=== PATIENT | female | born 1995 | race Caucasian/White ===

== ENCOUNTER 2023-04-08 10:22 | Outpatient (OUT) | payer OTHER, SELFPAY ==
--- NOTE | 2023-04-08 10:34 | US_ITS ---
The [address] [address] Patient Name: MARY COLLAZO MRN: [id number] date: 1995 Sex: F Assigned Patient Location: Current Patient Location: US Accession/Order Number: [id number] Exam Date: 04/08/2023 10:35 Report Date: 04/08/2023 11:11 At the request of: THOMAS ORDONEZ Procedure: US pelvis w/ transvaginal EXAM: Pelvic ultrasound HISTORY: . Irregular Periods N92.6, Polycystic Ovarian Syndrome N92.6 . COMPARISON: None. TECHNIQUE: Transabdominal and transvaginal scanning was performed FINDINGS: Scanning of the pelvis demonstrates an anteverted uterus measuring 8.8 x 4.4 x 5.7 cm. Endometrial complex measures 13 mm. Right ovary measures 3.1 x 2.8 x 2.6 cm. There is a 2.4 x 1.7 cm simple cyst involving the right ovary. Follicles are noted involving the right ovary. Color-flow is noted. Left ovary measures 2.5 x 1.5 x 1.8 cm. Color-flow is noted. Follicles are noted. No fluid is noted in the cul-de-sac. US/US pelvis w/ transvaginal IMPRESSION: 1. Endometrial complex is prominent measuring 13 mm. Findings could be due to the patient's menstrual cycle or endometrial hyperplasia. 2. Normal left ovary. 3. 2.4 x 1.7 cm simple cyst in the right ovary. Electronically authenticated by: CODY DAVILA Date: 04/08/2023 11:11
[2023-04-08 11:28] LABS: Basophils Percent Auto 0.6 % (0.2-2.0); Eosinophils Absolute Auto 0.2 10^3/uL (0.0-0.7); Eosinophils Percent Auto 3.6 % (0.9-7.0); Hematocrit 38.2 % (36.0-48.0); Hemoglobin 12.4 g/dL (12.0-16.0); Immature Granulocytes Abs Auto 0.02 10^3/uL (0.00-0.03); Immature Granulocytes Pct Auto 0.3 % (0.0-0.5); Lymphocytes Percent Auto 30.3 % (20.5-60.0); Mean Corpuscular HGB Conc 32.5 g/dL (29.9-35.2); Mean Corpuscular Hemoglobin 30.1 pg (26.7-34.0); Mean Corpuscular Volume 92.7 fL (81.0-99.0); Mean Platelet Volume 9.3 fL (9.5-13.5); Monocytes Absolute Auto 0.4 10^3/uL (0.3-0.8); Monocytes Percent Auto 6.1 % (1.7-12.0); Neutrophils Absolute Auto 3.8 10^3/uL (1.4-6.5); Neutrophils Percent Auto 59.1 % (43.0-75.0); Platelet Count 290 10^3/uL (150-450); Red Blood Count 4.12 10^6/uL (4.20-5.40); Red Cell Distribution Width 13.7 % (11.0-15.0); White Blood Count 6.4 10^3/uL (4.0-11.0)
[2023-04-08 11:40] LABS: HCG Quantitative <1 mIU/mL; Thyroid Stimulating Hormone 1.664 uIU/mL (0.358-3.740)
[2023-04-08 12:03] LABS: Free T4 0.84 ng/dL (0.76-1.46)
[2023-04-08 12:15] LABS: Estimated Average Glucose 111 mg/dL; Glycohemoglobin A1C 5.5 % (4.5-6.2)
[2023-04-09 08:13] LABS: FSH 2.2 mIU/mL (.); Luteinizing Hormone(LH) 3.2 mIU/mL (.); Prolactin 9.4 ng/mL (4.8-33.4)
[2023-04-13 03:06] LABS: DHEA, Serum 400 ng/dL (31-701)
== END 2023-04-08 10:23 | disposition home or self-care (01) ==
LOC: US 10:26
PROVIDERS: PCP Nurse Practitioner Primary Care; Visit Provider Obstetrics & Gynecology
DX: N92.6 Irregular menstruation, unspecified (principal); E28.2 Polycystic ovarian syndrome; N83.291 Other ovarian cyst, right side
CPT/HCPCS: 36415; 76830; 76856; 82626; 82627; 83001; 83002; 83036; 84146; 84439; 84443; 84702; 85025

== ENCOUNTER 2023-05-25 21:22 | Outpatient (REF) | payer OTHER, SELFPAY ==
--- OUTSIDE RECORDS SUMMARY | 2023-05-25 21:25 | XMS_ITS | CCD ---
Author Organization [facility] Care Team Providers Care Truck Jumper Name Role Phone ARMANDO COTA Referring Unavailable ARMANDO COTA Primary Care Unavailable MILY SHELTON Admitting Unavailable JOSÉLYMILY Attending Unavailable MILY SHELTON Consulting Unavailable MILY SHELTON Admitting Unavailable WONDERLYMILY Attending Unavailable MILY SHELTON Consulting Unavailable Armando Cota MD Primary Care Provider [phone] THOMAS ORDONEZ Attending Unavailable THOMAS ORDONEZ Attending Unavailable Allergies Allergy Classification Reported Allergen(s) Allergy Type Date of Onset Reaction(s) Facility (1 source) Amoxicillin Drug Allergy 11-25-2012 [facility] Medications Current Medications Medication Drug Class(es) Dates Sig (Normalized) Sig (Original) DULoxetine 30 mg delayed release oral capsule (1 source) Serotonin and Norepinephrine Reuptake Inhibitor Start: 03-17-2019 take 1 capsule by mouth once daily DULoxetine (CYMBALTA) 30 MG extended release capsule Indications: Depression with anxiety , Mood swing Take 1 capsule by mouth daily 30 capsule 3 03/17/2019 Active Ethinyl Estradiol / Ferrous fumarate / Norethindrone (1 source) Estrogen Start: 03-06-2019 BLISOVI 24 FE 1-20 MG-MCG(24) TABS Take by mouth daily 0 03/06/2019 Active FLUoxetine 20 mg oral tablet (1 source) Serotonin Reuptake Inhibitor take 20 mg by mouth once daily FLUOXETINE HCL PO Take 20 mg by mouth daily 0 Active Vit w/Zu-Zngwzdzuz-AX (PNV PO) (1 source) Vit w/Oh-Lozzzavze-G A (PNV PO) Take by mouth. 0 Active Problems Active Problems Problem Classification Problem Date Documented Da te Episodic/Chronic Anxiety disorders (1 source) Mixed anxiety and depressive disorder Chronic Immunizations and screening for infectious disease (8 sources) Encounter for screening for other viral diseases; Translations: [Contact with and (suspected) exposure to other viral communicable diseases] Onset: 09-08-2019 Episodic Unclassified (2 sources) Patient encounter status Past or Other Problems Problem Classification Problem Date Documented Da te Episodic/Chronic Other complications of (1 source) Blood coagulation disorder complicating Onset: 11-25-2012 03-11-2015 Episodic Other complications of (1 source) High risk Onset: 11-25-2012 11-25-2012 Episodic Substance-related disorders (1 source) Suspected damage from maternal drug use Onset: 11-25-2012 11-25-2012 Episodic Results Test Name Value Interpretation Reference Range Facil ity COVID-19 PCRon 10-18-2019 SARS-CoV-2, ALEX Not Detected Normal Not Detected [facility] Comment on above: Result Comment: This test was developed and its performance characteristics determined by [employer]. This test has not been FDA cleared or approved. This test has been authorized by FDA under an Emergency Use Authorization (EUA). This test is only authorized for the duration of time the declaration that circumstances exist justifying the authorization of the emergency use of in vitro diagnostic tests for detection of SARS-CoV-2 virus and/or diagnosis of COVID-19 infection under section 564(b)(1) of the Act, 21 U.S.C. 360bbb-3(b)(1), unless the authorization is terminated or revoked sooner. When diagnostic testing is negative, the possibility of a false negative result should be considered in the context of a patient's recent exposures and the presence of clinical signs and symptoms consistent with COVID-19. An individual without symptoms of COVID-19 and who is not shedding SARS-CoV-2 virus would expect to have a negative (not detected) result in this assay. Performed By: #### C VDPCR #### [facility] [address] [place] [address] Brenna Rueda COVID-19 PCRon 09-10-2019 SARS-CoV-2, ALEX Not Detected Normal Not Detected [facility] Comment on above: Result Comment: This test was developed and its performance characteristics determined by [facility]. This test has not been FDA cleared or approved. This test has been authorized by FDA under an Emergency Use Authorization (EUA). This test is only authorized for the duration of time the declaration that circumstances exist justifying the authorization of the emergency use of in vitro diagnostic tests for detection of SARS-CoV-2 virus and/or diagnosis of COVID-19 infection under section 564(b)(1) of the Act, 21 U.S.C. 360bbb-3(b)(1), unless the authorization is terminated or revoked sooner. When diagnostic testing is negative, the possibility of a false negative result should be considered in the context of a patient's recent exposures and the presence of clinical signs and symptoms consistent with COVID-19. An individual without symptoms of COVID-19 and who is not shedding SARS-CoV-2 virus would expect to have a negative (not detected) result in this assay. Performed By: #### C VDPCR #### [facility] [address] [place] [address] Brenna Rueda [facility] Metab, Fastingon 03-17 (cont.) Normal [facility] Comment on above: Result Comment: Aver age GFR for 20-29 years old: 116 mL/min/1.73sq m Chronic Kidney Disease: <60 mL/min/1.73sq m Kidney failure: <15 mL/min/1.73sq m eGFR calculated using average adult body mass. Additional eGFR calculator available at: http://www.[employer]oozies/multiple_crcl_2012.htm Performed By: #### B MPF, FT4, LIPRF, TSH #### [facility] [address] [place] [address] Therapy Manager: Deep Gonzalez MD Anion gap [Moles/Vol] 12 mmol/L Normal 9-[address] [facility] Comment on above: Performed By: #### B MPF, FT4, LIPRF, TSH #### [facility] [employer] [address] [place] [address] Therapy Manager: Deep Gonzalez MD Calcium [Mass/Vol] 9.1 mg/dL Normal 8.6-10.[address] [facility] Comment on above: Performed By: #### B MPF, FT4, LIPRF, TSH #### [facility] [employer] [address] [place] [address] Therapy Manager: Deep Gonzalez MD Chloride [Moles/Vol] 102 mmol/L Normal 98-107 [facility] Comment on above: Performed By: #### B MPF, FT4, LIPRF, TSH #### [facility] [employer] [address] [place] [address] Therapy Manager: Deep Gonzalez MD CO2 [Moles/Vol] 25 mmol/L Normal 20-[address] [facility] Comment on above: Performed By: #### B MPF, FT4, LIPRF, TSH #### [facility] [employer] [address] [place] [address] Therapy Manager: Deep Gonzalez MD Creatinine [Mass/Vol] 0.66 mg/dL Normal 0.50-0.[address] [facility] Comment on above: Performed By: #### B MPF, FT4, LIPRF, TSH #### [facility] [employer] [address] [place] [address] Therapy Manager: Deep Gonzalez MD GFR, Amer >60 Normal >60 [facility] Comment on above: Performed By: #### B MPF, FT4, LIPRF, TSH #### [facility] [employer] [address] [place] [address] Therapy Manager: Deep Gonzalez MD GFR,non Amer >60 Normal >60 [facility] Comment on above: Performed By: #### B MPF, FT4, LIPRF, TSH #### [facility] [employer] [address] [place] [address] Therapy Manager: Deep Gonzalez MD Glucose [Mass/Vol] 82 mg/dL Normal 70-[address] [facility] Comment on above: Performed By: #### B MPF, FT4, LIPRF, TSH #### [facility] [employer] [address] [place] [address] Therapy Manager: Deep Gonzalez MD Potassium [Moles/Vol] 4.3 mmol/L Normal 3.7-5.[address] [facility] Comment on above: Performed By: #### B MPF, FT4, LIPRF, TSH #### [address] [address] Therapy Manager: Deep Gonzalez MD Sodium [Moles/Vol] 139 mmol/L Normal 135-[address] [facility] Comment on above: Performed By: #### B MPF, FT4, LIPRF, TSH #### [facility] [employer] [address] [place] [address] Therapy Manager: Deep Gonzalez MD Urea nitrogen [Mass/Vol] 11 mg/dL Normal 6-[address] [facility] Comment on above: Performed By: #### B MPF, FT4, LIPRF, TSH #### [facility] [employer] [address] [place] [address] Therapy Manager: Deep Gonzalez MD BUN/CRE Ratio NOT REPORTED Normal -[address] [facility] Comment on above: Performed By: #### B MPF, FT4, LIPRF, TSH #### [facility] [employer] [address] [place] [address] Therapy Manager: Deep Gonzalez MD Staging: NOT REPORTED Normal [facility] Comment on above: Performed By: #### B MPF, FT4, LIPRF, TSH #### [facility] [address] [place] [address] Therapy Manager: Deep Gonzalez MD Basic Metabolic Panel, Fasti ngOrdered By: Armando Cota on 03-17-2019 Anion gap [Moles/Vol] 12 mmol/L 9 - 17 mmol/L [facility] Work Phone: Bun/Cre Ratio NOT REPORTED [facility] Work Phone: Calcium [Mass/Vol] 9.1 mg/dL 8.6 - 10. 4 mg/dL [employer] Phone: Chloride [Moles/Vol] 102 mmol/L 98 - 107 mmol/L [employer] Phone: CO2 [Moles/Vol] 25 mmol/L 20 - 31 mmol/L [employer] Phone: Creatinine [Mass/Vol] 0.66 mg/dL 0.5 - 0.9 mg/dL [employer] Phone: GFR >60 >60 mL/min [employer] Phone: GFR Comment [employer] Phone: Comment on above: Average GFR for 20-2 9 years old: 116 mL/min/1.73sq m Chronic Kidney Disease: <60 mL/min/1.73sq m Kidney failure: <15 mL/min/1.73sq m eGFR calculated using average adult body mass. Additional eGFR calculator available at: http://www.[employer]/multiple_crcl_2012.htm GFR Non- >60 >60 mL/min [employer] Phone: GFR Staging NOT REPORTED [employer] Work Phone: Glucose [Mass/Vol] 82 mg/dL 70 - 99 mg/dL [employer] Phone: Potassium [Moles/Vol] 4.3 mmol/L 3.7 - 5.3 mmol/L [employer] Phone: Sodium [Moles/Vol] 139 mmol/L 135 - 144 mmol/L [employer] Phone: Urea nitrogen [Mass/Vol] 11 mg/dL 6 - 20 mg/dL [employer] Phone: Lipid Prof, Fastingon 2019 Cholesterol [Mass/Vol] 153 mg/dL Normal <[address] [facility] Comment on above: Result Comment: Cholesterol Guidelines: <200 Desirable 200-240 Borderline >240 Undesirable Performed By: #### B MPF, FT4, LIPRF, TSH #### [facility] [employer] [address] [place] [address] Therapy Manager: Deep Gonzalez MD Cholesterol in HDL [Mass/Vol] 56 mg/dL Normal >[address] [facility] Comment on above: Result Comment: HDL Guidelines: <40 Undesirable 40-59 Borderline >59 Desirable Performed By: #### B MPF, FT4, LIPRF, TSH #### [facility] [employer] [address] [place] [address] Therapy Manager: Deep Gonzalez MD Cholesterol in LDL [Mass/Vol] 72 mg/dL Normal 0-[address] [facility] Comment on above: Result Comment: LDL Guidelines: <100 Desirable 100-129 Near to/above Desirable 130-159 Borderline >159 Undesirable Direct (measured) LDL and calculated LDL are not interchangeable tests. Performed By: #### B MPF, FT4, LIPRF, TSH #### [facility] [employer] [address] [place] [address] Therapy Manager: Deep Gonzalez MD Cholesterol.total/Ch olesterol in HDL [Mass ratio] 2.7 {ratio} Normal <[address] [facility] Comment on above: Performed By: #### B MPF, FT4, LIPRF, TSH #### [facility] [employer] [address] [place] [address] Therapy Manager: Deep Gonzalez MD Triglyceride,Fasting 125 mg/dL Normal <150 [facility] Comment on above: Result Comment: Triglyceride Guidelines: <150 Desirable 150-199 Borderline 200-499 High >499 Very high Based on AHA Guidelines for fasting triglyceride, December 2011. Performed By: #### B MPF, FT4, LIPRF, TSH #### [facility] [employer] [address] [place] [address] Therapy Manager: Deep Gonzalez MD Cholesterol in VLDL [Mass/Vol] NOT REPORTED Normal 1-[address] [facility] Comment on above: Performed By: #### B MPF, FT4, LIPRF, TSH #### [employer] [address] [id number] Therapy Manager: Deep Gonzalez MD Lipid, FastingOrdered By: Simin Cota on 03-17-2019 Cholesterol [Mass/Vol] 153 mg/dL <200 [employer] Phone: Comment on above: Cholesterol Guidelines: <200 Desirable 200-240 Borderline >240 Undesirable Cholesterol in HDL [Mass/Vol] 56 mg/dL >40 [employer] Phone: Comment on above: HDL Guidelines: <40 Undesirable 40-59 Borderline >59 Desirable Cholesterol in LDL [Mass/Vol] 72 mg/dL 0 - 130 mg/dL [employer] Phone: Comment on above: LDL Guidelines: <100 Desirable 100-129 Near to/above Desirable 130-159 Borderline >159 Undesirable Direct (measured) LDL and calculated LDL are not interchangeable tests. Cholesterol.total/Ch olesterol in HDL [Mass ratio] 2.7 {ratio} <5 [employer] Phone: Triglyceride, Fasting 125 mg/dL <150 [employer] Phone: Comment on above: Triglyceride Guidelines: <150 Desirable 150-199 Borderline 200-499 High >499 Very high Based on AHA Guidelines for fasting triglyceride, December 2011. VLDL NOT REPORTED 1 - 30 mg/dL [employer] Work Phone: T4, FreeOrdered By: Armando castro on 03-17-2019 Thyroxine, Free 1.16 ng/dL 0.93 - 1.7 ng/dL [employer] Phone: TSHOrdered By: Armando goff 03-17-2019 TSH Qn 1.57 m[IU]/L [employer] Phone: Thyroid Stim. Horm.on 2019 TSH Qn 1.57 m[IU]/L Normal 0.30-5.[address] [facility] Comment on above: Performed By: #### B MPF, FT4, LIPRF, TSH #### [facility] [address] [place] [address] Therapy Manager: Deep Gonzalez MD Thyroxine, Freeon 03-17-2019 Thyroxine, Free 1.16 ng/dL Normal 0.93-1.[address] [facility] Comment on above: Performed By: #### B MPF, FT4, LIPRF, TSH #### [facility] [address] [place] [address] Therapy Manager: Deep Gonzalez MD Encounters Encounter Date Encounter Type Care Provider Facility Start: 05-25-2023 End: 05-25-2023 ambulatory THOMAS MERY Not Available Start: 03-30-2023 End: 03-30-2023 ambulatory THOMAS MERY Not Available Start: 10-15-2019 End: 10-16-2019 Patient encounter procedure MILY SHELTON Facility:[facility] Start: 09-08-2019 End: 09-09-2019 Patient encounter procedure MILY SHELTON Facility:[facility] Start: 03-17-2019 End: 03-18-2019 Patient encounter procedure ARMANDO COTA [facility] Start: 03-17-2019 End: 03-17-2019 Subsequent hospital visit by physician Armando Cota MD Work Phone: [facility] Comment on above: Annual physical exam ; Encounter for lipid screening for cardiovascular disease; Depression with anxiety Procedures Date Procedure Procedure Detail Performing Clinician Start: 03-17-2019 Assay of free thyroxine ARMANDO COTA Start: 03-17-2019 Assay of thyroid stimulating hormone tsh ARMANDO COTA Start: 03-17-2019 Basic metabolic pane l calcium total ARMANDO COTA Start: 03-17-2019 Lipid panel ARMANDO Meraz Start: 03-17-2019 Assay of free thyroxine Armando Cota MD Work Phone: Start: 03-17-2019 Lipid panel Armando Cota MD Work Phone: Plan of Treatment Date Care Activity Detail Author Start: 04-28-2019 End: 04-28-2019 Patient encounter procedure 04/28/2019 Office [place] [address] [facility] [place] [address] [place] [address] [phone] [facility] Start: 10-31-2018 Influenza vaccination Flu vaccine (#1) [employer] Phone: Start: 2017 Cervical cancer screen Cervical cancer screen [employer] Phone: Start: 2012 Chlamydia screen Chlamydia screen [employer] Phone: Start: 09-06-2011 HIV screen HIV screen [employer] Phone: Start: 09-06-2007 DTaP/Tdap/Td vaccine (6 - Tdap) DTaP/Tdap/Td vaccine (6 - Tdap) [employer] Phone: Start: 09-06-2007 HPV vaccine (1 - Female 2-dose series) HPV vaccine (1 - Female 2-dose series) [employer] Phone: Start: 2002 Pneumococcal 0-64 years Vaccine (1 of 1 - PPSV23) Pneumococcal 0-64 years Vaccine (1 of 1 - PPSV23) [employer] Phone: Start: 1997 Varicella Vaccine (1 of 2 - 2-dose childhood series) Varicella Vaccine (1 of 2 - 2-dose childhood series) [employer] Phone: Immunizations Immunization Date Immunization Notes Care Provider Fa cili 10-19-2001 diphtheria, tetanus toxoids and acellular pertussis vaccine, unspecified formulation Armando Cota MD Work Phone: [employer] Phone: 10-19-2001 measles, mumps and rubella virus vaccine Armando Cota MD Work Phone: [employer] Phone: 10-19-2001 poliovirus vaccine, inactivated Armando Cota MD Work Phone: [employer] Phone: 04-04-1998 trivalent poliovirus vaccine, live, oral Armando Cota MD Work Phone: [employer] Work Phone: 12-08-1997 diphtheria, tetanus toxoids and acellular pertussis vaccine, unspecified formulation Armando Cota MD Work Phone: [employer] Work Phone: 12-08-1997 haemophilus influenz ae type b vaccine, conjugate unspecified formulation Armando Cota MD Work Phone: [employer] Work Phone: 09-14-1997 hepatitis B vaccine, pediatric or pediatric/adolescent dosage Armando Cota MD Work Phone: [employer] Work Phone: 09-14-1997 measles, mumps and rubella virus vaccine Armando Cota MD Work Phone: [employer] Work Phone: 03-14-1997 diphtheria, tetanus toxoids and acellular pertussis vaccine, unspecified formulation Armando Cota MD Work Phone: [employer] Work Phone: 03-14-1997 haemophilus influenz ae type b vaccine, conjugate unspecified formulation Armando Cota MD Work Phone: [employer] Work Phone: 01-06-1997 diphtheria, tetanus toxoids and acellular pertussis vaccine, unspecified formulation Armando Cota MD Work Phone: [employer] Work Phone: 01-06-1997 haemophilus influenz ae type b vaccine, conjugate unspecified formulation Armando Cota MD Work Phone: [employer] Work Phone: 01-06-1997 trivalent poliovirus vaccine, live, oral Armando Cota MD Work Phone: [employer] Work Phone: 1996 diphtheria, tetanus toxoids and acellular pertussis vaccine, unspecified formulation Armando Cota MD Work Phone: [employer] Work Phone: 1996 haemophilus influenz ae type b vaccine, conjugate unspecified formulation Armando Cota MD Work Phone: [employer] Work Phone: 1995 hepatitis B vaccine, pediatric or pediatric/adolescent dosage Armando Cota MD Work Phone: [employer] Work Phone: 1996 trivalent poliovirus vaccine, live, oral Armando Cota MD Work Phone: [employer] Work Phone: 1996 hepatitis B vaccine, pediatric or pediatric/adolescent dosage Armando Cota MD Work Phone: [employer] Work Phone: Payers Date Payer Category Payer Medicaid [id number] 2014 Unknown BCBS BC[place] - [place] P PO xxxxxxxxxxxx 2014-Present [address] [place] [address] xxxxxxxxxxxx [id number] 1996 Unknown [id number] 1996 Unknown [id number] 1996 Unknown [id number] 1996 Unknown [id number] 1996 Unknown [id number] 1959 Unknown [id number] Social History Date Type Detail Facility Start: 03-17-2019 [facility] [employer] Phone: History of tobacco use Cigarette Smoker [facility] [employer] Start: 03-17-2019 Cigarettes smoked current (pack per day) - Reported [employer] Phone: Start: 03-17-2019 Alcohol intake Current drinke r of alcohol (finding) [employer] Phone: Start: 03-17-2019 Alcohol Comment Socially Yue [employer] Work Phone: Sex Assigned At Not on file [employer] Phone: Evaluation note Note Date & Type Note Facility Evaluation note Diagnosis Annual physical exam Routine general medical examination at a health care facility Encounter for lipid screening for cardiovascular disease Depression with anxiety Dysthymic disorder documented in this encounter [employer] Phone: Summary Purpose Family History No Family History Records FoundNo Family History Records FoundNo Family History Records Found Advance Directives No Advanced Directives Records FoundDocuments on File Type Date Recorded Patient Artist Relationship Manager Expl anation Advance Directives and Living Will Power of Equity Research Associate Additional Source Comments INFORMATION SOURCE (unrecogn ized section and content) DATE CREATED AUTHOR 03/18/2019 [facility] DATE CREATED AUTHOR AUTHOR'S ORGANIZ ATION 11/21/2019 [facility] DATE CREATED AUTHOR AUTHOR'S ORGANIZ ATION 05/25/2023 [facility] FOR RECORDS PERTAINING TO PATIENTS WHO ARE OR HAVE BEEN ENROLLED IN A CHEMICAL DEPENDENCY/SUBSTANCEABUSE PROGRAM, SOME INFORMATION MAY BE OMITTED. This clinical summary was aggregated from multiple sources. Caution should be exercised in using it in the provision of clinical care. This summary normalizes information from multiple sources, and as a consequence, information in this document may materially change the coding, format and clinical context of patient data. In addition, data may be omitted in some cases. CLINICAL DECISIONS SHOULD BE BASED ON THE PRIMARY CLINICAL RECORDS. [employer] [facility]. provides no warranty or guarantee of the accuracy or completeness of information in this document.
[2023-06-01 13:08] LABS: Age Gdln ACOG Testing Note (.); IGP, rfx Aptima HPV ASCU Note (.)
== END 2023-05-25 21:23 | disposition home or self-care (01) ==
LOC: LAB 21:22
PROVIDERS: PCP Nurse Practitioner Primary Care; Visit Provider Physician Assistant
DX: Z01.419 Encounter for gynecological examination (general) (routine) without abnormal findings (principal); E28.2 Polycystic ovarian syndrome
CPT/HCPCS: G0145

== ENCOUNTER 2023-06-24 12:03 | Outpatient (REF) | payer OTHER, SELFPAY | END 2023-06-24 12:04 | disposition home or self-care (01) | LOC: LAB 12:03 | PROVIDERS: PCP Nurse Practitioner Primary Care; Visit Provider Obstetrics & Gynecology | DX: R87.612 Low grade squamous intraepithelial lesion on cytologic smear of cervix (LGSIL) (principal) | CPT/HCPCS: 88305 ==

== ENCOUNTER 2023-12-28 21:25 | Outpatient (REF) | payer OTHER, SELFPAY ==
--- OUTSIDE RECORDS SUMMARY | 2023-12-28 21:35 | XMS_ITS | CCD ---
Author Organization [facility] Care Team Providers Care Block Engraver Name Role Phone ARMANDO FELIX Referring Unavailable ARMANDO FELIX Primary Care Unavailable MILY SHELTON Admitting Unavailable NIKITA, MILY Quinn Attending Unavailable MILY SHELTON Consulting Unavailable MILY SHELTNO Admitting Unavailable WONDERMELANIA, MILY Quinn Attending Unavailable MILY SHELTON Consulting Unavailable Armando Felix MD Primary Care Provider THOMAS BALTAZAR Attending Unavailable THOMAS BALTAZAR Attending Unavailable THOMAS BALTAZAR Attending Unavailable TANIA PEREA Attending Unavailable CAIN PAUL Referring Unavailable TANIA PEREA Attending Unavailable THOMAS BALTAZAR Attending Unavailable TANIA PEREA Attending Unavailable Unavailable Primary Care Provider Unavailabl e Allergies Allergy Classification Reported Allergen(s) Allergy Type Date of Onset Reaction(s) Facility (4 sources) Amoxicillin Drug Allergy 11-25-2012 [facility] Medications Current Medications Medication Drug Class(es) Dates Sig (Normalized) Sig (Original) ARIPiprazole 5 mg oral tablet (3 sources) Atypical Antipsychotic Start: 05-22-2022 take 2 tablets by mouth once daily ARIPiprazole (Abilify) 5 MG tablet Take 10 mg by mouth Daily 05/22/2022 Active bacitracin 0.5 unt/mg / polymyxin b 10 unt/mg ophthalmic ointment (3 sources) Polymyxin-class Antibacterial Start: 03-17-2023 bacitracin-polymy jimenez b (Polysporin) ophthalmic ointment 03/17/2023 Active DULoxetine 30 mg delayed release oral capsule [...] Take by mouth daily 0 03/06/2019 Active fluconazole 150 mg oral tablet (3 sources) Azole Antifungal Start: 11-17-2023 take 1 tablet by mouth once fluconazole (Diflucan) 150 MG tablet Indications: Yeast infection Take 1 tablet (150 mg) by mouth if needed (Yeast infection) This is a 1 time dose, take single tablet by mouth. 2 tablet 1 11/17/2023 Active FLUoxetine 20 mg oral tablet (1 source) Serotonin Reuptake Inhibitor take 20 mg by mouth once daily FLUOXETINE HCL PO Take 20 mg by mouth daily 0 Active hydrOXYzine pamoate 25 mg oral capsule (3 sources) Antihistamine Start: 08-08-2022 hydrOXYzine pamoate (Vistaril) 25 MG capsule 08/08/2022 Active lamoTRIgine 100 mg oral tablet (3 sources) Mood Stabilizer, Anti-epileptic Agent Start: 01-15-2023 take 1 tablet by mouth once daily lamoTRIgine (LaMICtal) 100 MG tablet Take 100 mg by mouth 1 (one) time each day at the same time 01/15/2023 Active 24 hr metFORMIN hydrochloride 500 mg extended release oral tablet (3 sources) Biguanide Start: 03-30-2023 take 1 tablet by mouth every twenty-four hours at mealtime metFORMIN XR (Glucophage-XR) 500 MG 24 hr tablet Indications: Irregular periods/menstrual cycles , PCOS (polycystic ovarian syndrome) Take 1 tablet (500 mg) by mouth in the evening. Take with meals Do not crush, chew, or split. 30 tablet 11 03/30/2023 Active Vit w/Hg-Xrkgzbdha-DV (PNV PO) (1 source) Vit w/Xc-Btgoigznr-NR (PNV PO) Take by mouth. 0 Active sertraline 50 mg oral tablet (3 sources) Serotonin Reuptake Inhibitor sertraline (Zoloft) 50 MG tablet Take 75 mg by mouth Daily Active traZODone hydrochloride 50 mg oral tablet (3 sources) Serotonin Reuptake Inhibitor Start: 12-11-2022 traZODone (Desyrel) 50 MG tablet 12/11/2022 Active Problems Active Problems Problem Classification Problem Date Documented Date Episodic/Chronic Anxiety disorders (1 source) Mixed anxiety and depressive disorder Chronic Immunizations and screening for infectious disease (8 sources) Encounter for screening for other viral diseases; Translations: [Contact with and (suspected) exposure to other viral communicable diseases] Onset: 09-08-2019 Episodic Other aftercare (2 sources) Wound finding; Translations: [Encounter for other specified aftercare] 12-02-2023 Episodic Other circulatory disease (2 sources) Hypersensitivity angiitis; 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 This test has not been FDA cleared [...] assay. Performed By: #### C VDPCR #### [facility] [place] [facility] [address] [place], [place] [address] Brenna Rueda COVID-19 PCRon 09-10-2019 SARS-CoV-2, ALEX Not Detected Normal Not Detected [facility] Comment on above: Result Comment: This test was developed and its performance characteristics determined by [employer]. This test has not been FDA cleared [...] assay. Performed By: #### C VDPCR #### [facility] [address] [place] [address] Brenna Rueda Basic Metab, Fastingon 03-17 (cont.) Normal [facility] Comment on above: Result Comment: Aver age GFR for 20-29 years old: 116 mL/min/1.73sq m Chronic Kidney Disease: <60 mL/min/1.73sq m Kidney failure: <15 mL/min/1.73sq m eGFR calculated using average adult body mass. Additional eGFR calculator available at: http://www.[employer].com/multiple_crcl_2012.htm Performed By: #### B MPF, FT4, LIPRF, TSH #### [facility] [address] [place] [id number] Casino Supervisor: Deep Gonzalez MD Anion gap [Moles/Vol] 12 mmol/L Normal 9-17 [facility] Comment on above: Performed By: #### B MPF, FT4, LIPRF, TSH #### [facility] [employer] [address] [place] [address] Casino Supervisor: Deep Gonzalez MD Calcium [Mass/Vol] 9.1 mg/dL Normal 8.6-10.4 [facility] Comment on above: Performed By: #### B MPF, FT4, LIPRF, TSH #### [facility] [employer] [address] [place] [address] Casino Supervisor: Deep Gonzalez MD Chloride [Moles/Vol] 102 mmol/L Normal 98-107 [facility] Comment on above: Performed By: #### B MPF, FT4, LIPRF, TSH #### [facility] [employer] [address] [place] [address] Casino Supervisor: Deep Gonzalez MD CO2 [Moles/Vol] 25 mmol/L Normal 20-31 [facility] Comment on above: Performed By: #### B MPF, FT4, LIPRF, TSH #### [facility] [employer] [address] [place] [address] Casino Supervisor: Deep Gonzalez MD Creatinine [Mass/Vol] 0.66 mg/dL Normal 0.50-0.90 [facility] Comment on above: Performed By: #### B MPF, FT4, LIPRF, TSH #### [facility] [employer] [address] [place] [address] Casino Supervisor: Deep Gonzalez MD GFR, Amer >60 Normal >60 [facility] Comment on above: Performed By: #### B MPF, FT4, LIPRF, TSH #### [facility] [employer] [address] [place] [address] Casino Supervisor: Deep Gonzalez MD GFR,non Amer >60 Normal >60 [facility] Comment on above: Performed By: #### B MPF, FT4, LIPRF, TSH #### [facility] [employer] [address] [place] [address] Casino Supervisor: Deep Gonzalez MD Glucose [Mass/Vol] 82 mg/dL Normal 70-99 [facility] Comment on above: Performed By: #### B MPF, FT4, LIPRF, TSH #### [facility] [address] [place] [address] Casino Supervisor: Deep Gonzalez MD Potassium [Moles/Vol] 4.3 mmol/L Normal 3.7-5.3 [facility] Comment on above: Performed By: #### B MPF, FT4, LIPRF, TSH #### [address] [address] Casino Supervisor: Deep Gonzalez MD Sodium [Moles/Vol] 139 mmol/L Normal 135-144 [facility] Comment on above: Performed By: #### B MPF, FT4, LIPRF, TSH #### [facility] [employer] [address] [place] [address] Casino Supervisor: Deep Gonzalez MD Urea nitrogen [Mass/Vol] 11 mg/dL Normal 6-20 [facility] Comment on above: Performed By: #### B MPF, FT4, LIPRF, TSH #### [address] [address] Casino Supervisor: Deep Gonzalez MD BUN/CRE Ratio NOT REPORTED Normal -20 [facility] Comment on above: Performed By: #### B MPF, FT4, LIPRF, TSH #### [facility] [employer] [address] [place] [address] Casino Supervisor: Deep Gonzalez MD Staging: NOT REPORTED Normal [facility] Comment on above: Performed By: #### B MPF, FT4, LIPRF, TSH #### [facility] [address] [place] [address] Casino Supervisor: Deep Gonzalez MD Basic Metabolic Panel, Fasti ngOrdered By: Armando Felix on 03-17-2019 Anion gap [Moles/Vol] 12 mmol/L 9 - 17 mmol/L [employer] Work Phone: Bun/Cre Ratio NOT REPORTED [facility] Work Phone: Calcium [Mass/Vol] 9.1 mg/dL 8.6 - 10. 4 mg/dL [facility] Work Phone: Chloride [Moles/Vol] 102 mmol/L 98 - 107 mmol/L [facility] Work Phone: CO2 [Moles/Vol] 25 mmol/L 20 - 31 mmol/L [facility] Work Phone: Creatinine [Mass/Vol] 0.66 mg/dL 0.5 - 0.9 mg/dL [facility] Work Phone: GFR >60 >60 mL/min [employer] Work Phone: GFR Comment [facility] Work Phone: Comment on above: Average GFR for 20-2 9 years old: 116 mL/min/1.73sq m Chronic Kidney Disease: <60 mL/min/1.73sq m Kidney failure: <15 mL/min/1.73sq m eGFR calculated using average adult body mass. Additional eGFR calculator available at: http://www.[employer]/multiple_crcl_2012.htm GFR Non- >60 >60 mL/min [facility] Work Phone: GFR Staging NOT REPORTED [facility] Work Phone: Glucose [Mass/Vol] 82 mg/dL 70 - 99 mg/dL [employer] Work Phone: Potassium [Moles/Vol] 4.3 mmol/L 3.7 - 5.3 mmol/L [facility] Work Phone: Sodium [Moles/Vol] 139 mmol/L 135 - 144 mmol/L [facility] Phone: Urea nitrogen [Mass/Vol] 11 mg/dL 6 - 20 mg/dL [address] Phone: Lipid Prof, Fastingon 2019 Cholesterol [Mass/Vol] 153 mg/dL Normal <200 [facility] Comment on above: Result Comment: Cholesterol Guidelines: <200 Desirable 200-240 Borderline >240 Undesirable Performed By: #### B MPF, FT4, LIPRF, TSH #### [facility] [address] [place] [address] Casino Supervisor: Deep Gonzalez MD Cholesterol in HDL [Mass/Vol] 56 mg/dL Normal >40 [facility] Comment on above: Result Comment: HDL Guidelines: <40 Undesirable 40-59 Borderline >59 Desirable Performed By: #### B MPF, FT4, LIPRF, TSH #### [facility] [employer] [address] [place] [address] [employer] Supervisor: Deep Gonzalez MD Cholesterol in LDL [Mass/Vol] 72 mg/dL Normal 0-130 [facility] Comment on above: Result Comment: LDL Guidelines: <100 Desirable 100-129 Near to/above Desirable 130-159 Borderline >159 Undesirable Direct (measured) LDL and calculated LDL are not interchangeable tests. Performed By: #### B MPF, FT4, LIPRF, TSH #### [facility] [employer] [address] [place] [address] Casino Supervisor: Deep Gonzalez MD Cholesterol.total/Ch olesterol in HDL [Mass ratio] 2.7 {ratio} Normal <5 [facility] Comment on above: Performed By: #### B MPF, FT4, LIPRF, TSH #### [facility] [employer] [address] [place] [address] Casino Supervisor: Deep Gonzalez MD Triglyceride,Fasting 125 mg/dL Normal <150 [facility] Comment on above: Result Comment: Triglyceride Guidelines: <150 Desirable 150-199 Borderline 200-499 High >499 Very high Based on AHA Guidelines for fasting triglyceride, December 2011. Performed By: #### B MPF, FT4, LIPRF, TSH #### [employer] [address] [place], [place] [id number] Casino Supervisor: Deep Gonzalez MD Cholesterol in VLDL [Mass/Vol] NOT REPORTED Normal 1-30 [facility] Comment on above: Performed By: #### B MPF, FT4, LIPRF, TSH #### [employer] [address] [place], [place] [id number] Casino Supervisor: Deep Gonzalez MD Lipid, FastingOrdered By: Simin Felix on 03-17-2019 Cholesterol [Mass/Vol] 153 mg/dL <[address] Phone: Comment on above: Cholesterol Guidelines: <200 Desirable 200-240 Borderline >240 Undesirable Cholesterol in HDL [Mass/Vol] 56 mg/dL >[address] Phone: Comment on above: HDL Guidelines: <40 Undesirable 40-59 Borderline >59 Desirable Cholesterol in LDL [Mass/Vol] 72 mg/dL 0 - 130 mg/dL [address] Phone: Comment on above: LDL Guidelines: <100 Desirable 100-129 Near to/above Desirable 130-159 Borderline >159 Undesirable Direct (measured) LDL and calculated LDL are not interchangeable tests. Cholesterol.total/Ch olesterol in HDL [Mass ratio] 2.7 {ratio} <[address] Phone: Triglyceride, Fasting 125 mg/dL <[address] Phone: Comment on above: Triglyceride Guidelines: <150 Desirable 150-199 Borderline 200-499 High >499 Very high Based on AHA Guidelines for fasting triglyceride, December 2011. VLDL NOT REPORTED 1 - 30 mg/dL [employer] Work Phone: T4, FreeOrdered By: Armando castro on 03-17-2019 Thyroxine, Free 1.16 ng/dL 0.93 - 1.7 ng/dL [address] Phone: TSHOrdered By: Armando cai n 03-17-2019 TSH Qn 1.57 m[IU]/L [facility] [employer] Phone: Thyroid Stim. Horm.on 2019 TSH Qn 1.57 m[IU]/L Normal 0.30-5.00 [facility] Comment on above: Performed By: #### B MPF, FT4, LIPRF, TSH #### [employer] [address] [place] [address] Casino Supervisor: Deep Gonzalez MD Thyroxine, Freeon 03-17-2019 Thyroxine, Free 1.16 ng/dL Normal 0.93-1.70 [facility] Comment on above: Performed By: #### B MPF, FT4, LIPRF, TSH #### [facility] [address] [place], [place] [id number] Casino Supervisor: Deep Gonzalez MD Encounters Encounter Date Encounter Type Care Provider Facility Start: 12-28-2023 End: 12-28-2023 Bamboo flowsheet Thomas Giovanny DO Work Phone: [facility] Start: 12-28-2023 End: 12-28-2023 Bamboo flowsheet Thomas Giovanny DO Work Phone: [facility] Start: 12-02-2023 End: 12-02-2023 Office outpatient visit 15 minutes Tania Northeim PA Work Phone: [facility] Comment on above: Visit for wound chec k (Primary Dx); Leukocytoclastic vasculitis (CMS/HCC) Start: 12-02-2023 End: 12-02-2023 ambulatory TANIA NORTHEIM Not Available Start: 11-17-2023 End: 11-17-2023 ambulatory THOMAS GIOVANNY Not Available Start: 11-10-2023 End: 11-10-2023 ambulatory TANIA NORTHEIM Not Available Start: 10-27-2023 End: 10-27-2023 ambulatory TANIA NORTHEIM Not Available Start: 06-24-2023 End: 06-24-2023 ambulatory THOMAS GIOVANNY Not Available Start: 05-25-2023 End: 05-25-2023 ambulatory THOMAS GIOVANNY Not Available Start: 03-30-2023 End: 03-30-2023 ambulatory THOMAS GIOVANNY Not Available Start: 10-15-2019 End: 10-16-2019 Patient encounter procedure MILY SHELTON Facility:[facility] Start: 09-08-2019 End: 09-09-2019 Patient encounter procedure MILY SHELTON Facility:[facility] Start: 03-17-2019 End: 03-18-2019 Patient encounter procedure ARMANDO FELIX [facility] Start: 03-17-2019 End: 03-17-2019 Subsequent hospital visit by physician Armando Felix MD Work Phone: [facility] Comment on above: Annual physical exam ; Encounter for lipid screening for cardiovascular disease; Depression with anxiety Procedures Date Procedure Procedure Detail Performing Clinician Start: 03-17-2019 Assay of free thyroxine ARMANDO FELIX Start: 03-17-2019 Assay of thyroid stimulating hormone tsh ARMANDO FELIX Start: 03-17-2019 Basic metabolic pane l calcium total ARMANDO FELIX Start: 03-17-2019 Lipid panel ARMANDO Meraz Start: 03-17-2019 Assay of free thyroxine Armando Felix MD Work Phone: Start: 03-17-2019 Lipid panel Armando Felix MD Work Phone: Plan of Treatment Date Care Activity Detail Author Start: 05-30-2024 End: 05-30-2024 Patient encounter procedure 05/30/2024 10:00 AM EDT Office Visit [facility] [address] [place] [id number] Thomas Baltazar, DO [address] [place] [address] [facility] Start: 12-28-2023 End: 12-28-2023 Patient encounter procedure [facility] Comment on above: Arrived Start: 12-02-2023 End: 12-01-2024 CBC W Auto Differential panel - Blood CBC and differential Lab Routine Leukocytoclastic vasculitis (CMS/HCC) Expected: 12/02/2023 (Approximate), Expires: 12/01/2024 [facility] [employer] Work Phone: Comment on above: Expected: 12/02/2023 (Approximate), Expires: 12/01/2024 Start: 12-02-2023 End: 12-01-2024 Urinalysis complete panel - Urine Urinalysis with reflex microscopic Lab Routine Leukocytoclastic vasculitis (CMS/HCC) Expected: 12/02/2023 (Approximate), Expires: 12/01/2024 [facility] Comment on above: Expected: 12/02/2023 (Approximate), Expires: 12/01/2024 Start: 04-28-2019 End: 04-28-2019 Patient encounter procedure 04/28/2019 Office [place] [address] [facility] [place] [address] [phone] [facility] Start: 10-31-2018 Influenza vaccination Flu vaccine (# 1) [facility] [employer] Phone: Start: 2017 Cervical cancer screen Cervical canc er screen [facility] [employer] Phone: Start: 2012 Chlamydia screen Chlamydia screen [facility] [employer] Phone: Start: 09-06-2011 HIV screen HIV screen [facility] [employer] Phone: Start: 09-06-2007 DTaP/Tdap/Td vaccine (6 - Tdap) DTaP/Tdap/Td vaccine (6 - Tdap) [facility] [employer] Phone: Start: 09-06-2007 HPV vaccine (1 - Female 2-dose series) HPV vaccine (1 - Female 2-dose series) [facility] Phone: Start: 2002 Pneumococcal 0-64 years Vaccine (1 of 1 - PPSV23) Pneumococcal 0-64 years Vaccine (1 of 1 - PPSV23) [facility] Phone: Start: 1997 Varicella Vaccine (1 of 2 - 2-dose childhood series) Varicella Vaccine (1 of 2 - 2-dose childhood series) [address] Phone: Immunizations Immunization Date Immunization Notes Care Provider Blanquita blum 10-19-2001 diphtheria, tetanus toxoids and acellular pertussis vaccine, unspecified formulation Armando Felix MD Work Phone: [employer] Work Phone: 10-19-2001 measles, mumps and rubella virus vaccine Armando Felix MD Work Phone: [employer] Work Phone: 10-19-2001 poliovirus vaccine, inactivated Armando Felix MD Work Phone: [address] Phone: 04-04-1998 trivalent poliovirus vaccine, live, oral Armando Felix MD Work Phone: [employer] Work Phone: 12-08-1997 diphtheria, tetanus toxoids and acellular pertussis vaccine, unspecified formulation Armando Felix MD Work Phone: [address] Phone: 12-08-1997 haemophilus influenz ae type b vaccine, conjugate unspecified formulation Armando Felix MD Work Phone: [address] Phone: 09-14-1997 hepatitis B vaccine, pediatric or pediatric/adolescent dosage Armando Felix MD Work Phone: [address] Phone: 09-14-1997 measles, mumps and rubella virus vaccine Armando Felix MD Work Phone: [address] Phone: 03-14-1997 diphtheria, tetanus toxoids and acellular pertussis vaccine, unspecified formulation Armando Felix MD Work Phone: [address] Phone: 03-14-1997 haemophilus influenz ae type b vaccine, conjugate unspecified formulation Armando Felix MD Work Phone: [employer] Work Phone: 01-06-1997 diphtheria, tetanus toxoids and acellular pertussis vaccine, unspecified formulation Armando Felix MD Work Phone: [employer] Work Phone: 01-06-1997 haemophilus influenz ae type b vaccine, conjugate unspecified formulation Armando Felix MD Work Phone: [employer] Work Phone: 01-06-1997 trivalent poliovirus vaccine, live, oral Armando Felix MD Work Phone: [employer] Work Phone: 1996 diphtheria, tetanus toxoids and acellular pertussis vaccine, unspecified formulation Armando Felix MD Work Phone: [employer] Work Phone: 1996 haemophilus influenz ae type b vaccine, conjugate unspecified formulation Armando Felix MD Work Phone: [employer] Work Phone: 1996 hepatitis B vaccine, pediatric or pediatric/adolescent dosage Armando Felix MD Work Phone: [employer] Work Phone: 1996 trivalent poliovirus vaccine, live, oral Armando Felix MD Work Phone: [employer] Work Phone: 1996 hepatitis B vaccine, pediatric or pediatric/adolescent dosage Armando Felix MD Work Phone: [employer] Work Phone: Payers Date Payer Category Payer Medicaid [employer] [place] [employer] [id number] 2022-Present [address] [place] [address] [id number] 2022 Medicaid (Managed Care) [facility] MEDICAID [id number] 2022 Medicaid [id number] 2014 Unknown BCBS BCBS [place] P PO xxxxxxxxxxxx 2014-Present [address] [place] [address] xxxxxxxxxxxx [id number] 1996 Unknown [id number] 1996 Unknown [id number] 1996 Unknown [id number] 1996 Unknown [id number] 9 1996 Unknown [id number] 9 1996 Unknown [id number] 9 1996 Unknown [id number] 9 1996 Unknown [id number] 1259 1996 Unknown [id number] 1259 1996 Unknown [id number] 1259 1959 Unknown [id number] Social History Date Type Detail Facility Start: 03-17-2019 Tobacco smoking stat [facility] Current every day smoker [address] Phone: History of tobacco use Cigarette Smoker [facility] [employer] Start: 03-17-2019 End: 12-02-2023 Cigarettes smoked current (pack per day) - Reported [address] Phone: Start: 03-17-2019 Alcohol intake Current drinke r of alcohol (finding) [address] Phone: Start: 03-17-2019 Alcohol Comment Socially [employer] Work Phone: Start: 1996 Sex Assigned At Not on file [facility] [employer] Phone: Start: 11-10-2023 Tobacco smoking stat [facility] Ex-smoker [facility] History of tobacco use Current smoker [facility] Start: 11-10-2023 Tobacco use and exposure Smoke less tobacco non-user [facility] Start: 12-02-2023 Tobacco use panel [facility] Start: 03-29-2023 Gender identity Identifies as female gender (finding) [facility] Start: 03-29-2023 Sexual orientation Pansexual [facility] History of Present illness Narrative 12-02-2023 RAEGAN Vargas - 12/02/2023 11:15 AM EDT Note Date & Type Note Facility 12-02-2023 History of Presen t illness Narrative Wound Check Location: Right coreas Procedure performed: Punch Biopsy Diagnosis: Leukocytoclastic vasculitis Date of procedure: 10/27/2023 Signs/Symptoms: itchy, biopsy site seems bigger Treatments: Neosporin Last visit 11/10/2023, referred to Dr. Medina All pertinent medical history, medications, and allergies were reviewed. General Exam: alert , oriented to person, place, and time , normal affect, well appearing Accompanied by daughter 1. Visit for wound check Right Lower Leg - Anterior Shallow healing ulceration with no sign of infection noted with surrounding linear excoriations Counseling and reassurance given regarding wounds on the lower leg. Discontinue Neosporin due to likely contact allergy taking place at the site of application. Recommend cleansing wound daily with saline wound wash and apply Vaseline and gauze with paper tape to avoid site irritation. Notify office if continuing to worsen. 2. Leukocytoclastic vasculitis (CMS/HCC) (2) Left Lower Leg - Anterior, Right Lower Leg - Anterior Clear today Patient has not yet been able to get in touch with rheumatology for work up. Provided her with the number today. I will order CBC and UA to ensure these are WNL in the mean time while we wait on her to see rheumatology. Patient voiced understanding and will complete labs as soon as possible. Follow up as needed. 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 in this encounter [facility] Summary Purpose Family History No Family History Records FoundNo Family History Records FoundNo Family History Records Found Advance Directives Documents on File Type Date Recorded Patient Safety Instruction Police Officer Expl anation Advance Directives and Living Will Power of [employer] Additional Source Comments INFORMATION SOURCE (unrecogn ized section and content) DATE CREATED AUTHOR 03/18/2019 [facility] DATE CREATED AUTHOR AUTHOR'S ORGANIZ ATION 11/21/2019 [facility] DATE CREATED AUTHOR AUTHOR'S ORGANIZ ATION 12/04/2023 [facility] EPIC Reason for Visit (unrecogniz ed section and content) Reason Comments Wound Check FOR RECORDS PERTAINING TO PATIENTS WHO ARE [...] BE BASED ON THE PRIMARY CLINICAL RECORDS. [employer] [facility]. provides no warranty or guarantee of the accuracy or completeness of information in this document.
== END 2023-12-28 21:26 | disposition home or self-care (01) ==
LOC: LAB 21:25
PROVIDERS: PCP Nurse Practitioner Primary Care; Visit Provider Obstetrics & Gynecology
DX: Z01.419 Encounter for gynecological examination (general) (routine) without abnormal findings (principal); R87.612 Low grade squamous intraepithelial lesion on cytologic smear of cervix (LGSIL)
CPT/HCPCS: 88175

== ENCOUNTER 2024-01-23 11:38 | Emergency (ER) | payer OTHER, SELFPAY ==
[2024-01-23 11:45] VITALS: BP 149/88; PULSE 98; O2SAT 99; BMI 50.8
--- OUTSIDE RECORDS SUMMARY | 2024-01-23 11:45 | XMS_ITS | CCD ---
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 Name Role Phone ARMANDO FELIX Referring Unavailable ARMANDO FELIX Primary Care Unavailable MILY SHELTON Admitting Unavailable NIKITA, MILY Quinn Attending Unavailable MILY SHELTON Consulting Unavailable MILY SHELTON Admitting Unavailable NIKITA, MILY Quinn Attending Unavailable MILY SHELTON Consulting Unavailable Armando Felix MD Primary Care Provider [phone] Unavailable Primary Care Provider UnavailTHOMAS Morgan Attending Unavailable THOMAS BALTAZAR Attending Unavailable THOMAS BALTAZAR Attending Unavailable TANIA PEREA Attending Unavailable CAIN PAUL Referring Unavailable TANIA PEREA Attending Unavailable THOMAS BALTAZAR Attending Unavailable TANIA PEREA Attending Unavailable THOMAS BALTAZAR Attending Unavailable Allergies Allergy Classification Reported Allergen(s) Allergy Type Date of Onset Reaction(s) Facility (7 sources) Amoxicillin Drug Allergy 11-25-2012 [facility] Medications Current Medications Medication Drug Class(es) Dates Sig (Normalized) Sig (Original) ARIPiprazole 5 mg oral tablet (6 sources) Atypical Antipsychotic Start: 05-22-2022 take 2 tablets by mouth once daily ARIPiprazole (Abilify) 5 MG tablet Take 10 mg by mouth Daily 05/22/2022 Active DULoxetine 30 mg delayed release oral [...] Active hydrOXYzine pamoate 25 mg oral capsule (6 sources) Antihistamine Start: 08-08-2022 hydrOXYzine pamoate (Vistaril) 25 MG capsule 08/08/2022 Active lamoTRIgine 100 mg oral tablet (6 sources) Mood Stabilizer, Anti-epileptic Agent Start: 01-15-2023 take 1 tablet by mouth once daily lamoTRIgine (LaMICtal) 100 MG tablet Take 100 mg by mouth 1 (one) time each day at the same time 01/15/2023 Active 24 hr metFORMIN hydrochloride 500 mg extended release oral tablet (5 sources) Biguanide Start: 03-30-2023 take 1 tablet by mouth every twenty-four hours at mealtime metFORMIN XR (Glucophage-XR) 500 MG 24 hr tablet Indications: Irregular periods/menstrual cycles , PCOS (polycystic ovarian syndrome) Take 1 tablet (500 mg) by mouth in the evening. Take with meals Do not crush, chew, or split. 30 tablet 11 03/30/2023 Active Vit w/Zf-Qrzujmqnq-KQ (PNV PO) (1 source) Vit w/Nv-Tvvrmhktt-IE (PNV PO) Take by mouth. 0 Active sertraline 50 mg oral tablet (6 sources) Serotonin Reuptake Inhibitor sertraline (Zoloft) 50 MG tablet Take 75 mg by mouth Daily Active traZODone hydrochloride 50 mg oral tablet (6 sources) Serotonin Reuptake Inhibitor Start: 12-11-2022 traZODone (Desyrel) 50 MG tablet 12/11/2022 Active Completed/Discontinued Medications Medication Drug Class(es) Dates Sig (Normalized) Sig (Original) bacitracin 0.5 unt/mg / polymyxin b 10 unt/mg ophthalmic ointment (5 sources) Polymyxin-class Antibacterial Start: 03-17-2023 End: 12-28-2023 bacitracin-polymyx in b (Polysporin) ophthalmic ointment 03/17/2023 12/28/2023 Discontinued fluconazole 150 mg oral tablet (5 sources) Azole Antifungal Start: 11-17-2023 End: 12-28-2023 take 1 tablet by mouth once fluconazole (Diflucan) 150 MG tablet Indications: Yeast infection Take 1 tablet (150 mg) by mouth if needed (Yeast infection) This is a 1 time dose, take single tablet by mouth. 2 tablet 1 11/17/2023 12/28/2023 Discontinued Problems Active Problems Problem Classification Problem Date Documented Date Episodic/Chronic Anxiety disorders (1 source) Mixed anxiety and depressive disorder Chronic Cancer of cervix (2 sources) Cervical intraepithelial neoplasia grade 1; Translations: [Low grade squamous intraepithelial lesion on cytologic smear of cervix (LGSIL)] 12-28-2023 Episodic Immunizations and screening for infectious disease (8 [...] Results Test Name Value Interpretation Reference Range Facility [facility] IGP,RFX APTIMA HPV ALL P THon 01-06-2024 HPV APTIMA Positive Abnormal Negative [facility] Comment on above: This nucleic acid am plification test detects fourteen high- risk HPV types (16,18,31,33,35,39,45,51,52,56,58,59,66,68) without differentiation. Performed at: [address] [id number] [employer] Supervisor: Isabel Lozada MD, Phone: [phone] Performed at: [address] [id number] [employer] Supervisor: Isabel Lozada MD, Phone: [phone] Interpretation and review of laboratory results Abnormal [facility] PAP IG (IMAGE GUIDED) Note Abnormal . [facility] Comment on above: TESTS RESULT FLAG UN ITS REF RANGE LAB Clinician Provided Cytology Information Source.............Cervix;Endocervix No. of containers..01 ThinPrep Vial DIAGNOSIS: [A] 01 EPITHELIAL CELL ABNORMALITY. ATYPICAL SQUAMOUS CELLS OF UNDETERMINED SIGNIFICANCE (ASC-US). Specimen adequacy: 01 Satisfactory for evaluation. Endocervical and/or squamous metaplastic cells (endocervical component) are present. Performed by: Hedy Church, Crystal Slicer ([facility]) Electronically si... Josiane Maria MD, Pathologist . 01 Pathologist ICD10: 01 R87.610 Note: Note 01 The Pap smear is a screening test designed to aid in the detection of premalignant and malignant conditions of the uterine cervix. It is not a diagnostic procedure and should not be used as the sole means of detecting cervical cancer. Both false-positive and false-negative reports do occur. Test Methodology: Note 01 This liquid based ThinPrep(R) pap test was screened with the use of an image guided system. . 01 See below for HPV testing results. FLAG LEGEND: L-Low Normal,H-High Normal,LL-Alert Low,HH-Alert High <-Panic Low,>-Panic High,A-Abnormal,AA-Critical Abnormal Performed at: [facility] [id number] Isabel Lozada MD, BRUSH[facility]SPATULA CERVIX ENDOCERVIX [facility] COVID-19 PCRon 10-18-2019 SARS-CoV-2, ALEX Not Detected Normal Not Detected [facility] Comment on above: Result Comment: This test was developed and its performance characteristics determined by [employer]. This test has not been FDA cleared [...] assay. Performed By: #### C VDPCR #### [facility] [address] [place] [address] Brenna Rueda COVID-19 PCRon 09-10-2019 SARS-CoV-2, ALEX Not Detected Normal Not Detected [facility] Comment on above: Result Comment: This test was developed and its performance characteristics determined by [employer]. This test has not been FDA cleared [...] assay. Performed By: #### C VDPCR #### [facility] [address] [place], [place] [address] Brenna Rueda Basic Metab, Fastingon 03-17 (cont.) Normal [facility] Comment on above: Result Comment: Aver age GFR for 20-29 years old: 116 mL/min/1.73sq m Chronic Kidney Disease: <60 mL/min/1.73sq m Kidney failure: <15 mL/min/1.73sq m eGFR calculated using average adult body mass. Additional eGFR calculator available at: http://www.CapsoVision/multiple_crcl_2012.htm Performed By: #### B MPF, FT4, LIPRF, TSH #### [facility] [address] [place] [address] [employer] Supervisor: Deep Gonzalez MD Anion gap [Moles/Vol] 12 mmol/L Normal 9-17 [facility] Comment on above: Performed By: #### B MPF, FT4, LIPRF, TSH #### [facility] [address] [place] [address] [employer] Supervisor: Deep Gonzalez MD Calcium [Mass/Vol] 9.1 mg/dL Normal 8.6-10.4 [facility] Comment on above: Performed By: #### B MPF, FT4, LIPRF, TSH #### [facility] [address] [place] [address] [employer] Supervisor: Deep Gonzalez MD Chloride [Moles/Vol] 102 mmol/L Normal 98-107 [facility] Comment on above: Performed By: #### B MPF, FT4, LIPRF, TSH #### [facility] [address] [place] [address] [employer] Supervisor: Deep Gonzalez MD CO2 [Moles/Vol] 25 mmol/L Normal 20-31 [facility] Comment on above: Performed By: #### B MPF, FT4, LIPRF, TSH #### [facility] [address] [place] [address] [employer] Supervisor: Deep Gonzalez MD Creatinine [Mass/Vol] 0.66 mg/dL Normal 0.50-0.90 [facility] Comment on above: Performed By: #### B MPF, FT4, LIPRF, TSH #### [facility] [address] [place] [address] [employer] Supervisor: Deep Gonzalez MD GFR, Amer >60 Normal >60 [facility] Comment on above: Performed By: #### B MPF, FT4, LIPRF, TSH #### [facility] [employer] [address] [place] [address] [employer] Supervisor: Deep Gonzalez MD GFR,non Amer >60 Normal >60 [facility] Comment on above: Performed By: #### B MPF, FT4, LIPRF, TSH #### [facility] [employer] [address] [place] [address] [employer] Supervisor: Deep Gonzalez MD Glucose [Mass/Vol] 82 mg/dL Normal 70-99 [facility] Comment on above: Performed By: #### B MPF, FT4, LIPRF, TSH #### [facility] [employer] [address] [place] [address] [employer] Supervisor: Deep Gonzalez MD Potassium [Moles/Vol] 4.3 mmol/L Normal 3.7-5.3 [facility] Comment on above: Performed By: #### B MPF, FT4, LIPRF, TSH #### [facility] [address] [place] [address] [employer] Supervisor: Deep Gonzalez MD Sodium [Moles/Vol] 139 mmol/L Normal 135-144 [facility] Comment on above: Performed By: #### B MPF, FT4, LIPRF, TSH #### [facility] [address] [place] [address] [employer] Supervisor: Deep Gonzalez MD Urea nitrogen [Mass/Vol] 11 mg/dL Normal 6-20 [facility] Comment on above: Performed By: #### B MPF, FT4, LIPRF, TSH #### [facility] [address] [place] [address] [employer] Supervisor: Deep Gonzalez MD BUN/CRE Ratio NOT REPORTED Normal - [facility] Comment on above: Performed By: #### B MPF, FT4, LIPRF, TSH #### [facility] [address] [place] [address] [employer] Supervisor: Deep Gonzalez MD Staging: NOT REPORTED Normal [facility] Comment on above: Performed By: #### B MPF, FT4, LIPRF, TSH #### [facility] [address] [place] [address] [employer] Supervisor: Deep Gonzalez MD Basic Metabolic Panel, Fasti ngOrdered By: Armando Felix on 03-17-2019 Anion gap [Moles/Vol] 12 mmol/L 9 - 17 mmol/L [facility] [employer] Work Phone: Bun/Cre Ratio NOT REPORTED [facility] Work Phone: Calcium [Mass/Vol] 9.1 mg/dL 8.6 - 10. 4 mg/dL [facility] Work Phone: Chloride [Moles/Vol] 102 mmol/L 98 - 10 7 mmol/L [facility] [employer] Work Phone: CO2 [Moles/Vol] 25 mmol/L 20 - 31 mmol/L [facility] Work Phone: Creatinine [Mass/Vol] 0.66 mg/dL 0.5 - 0.9 mg/dL [employer] Phone: GFR >60 >60 mL/min [employer] Phone: GFR Comment [employer] Phone: Comment on above: Average GFR for 20-2 9 years old: 116 mL/min/1.73sq m Chronic Kidney Disease: <60 mL/min/1.73sq m Kidney failure: <15 mL/min/1.73sq m eGFR calculated using average adult body mass. Additional eGFR calculator available at: http://www.CapsoVision/multiple_crcl_2012.htm GFR Non- >60 >60 mL/min [employer] Phone: GFR Staging NOT REPORTED [employer] Work Phone: Glucose [Mass/Vol] 82 mg/dL 70 - 99 mg/dL [employer] Phone: Potassium [Moles/Vol] 4.3 mmol/L 3.7 - 5.3 mmol/L [employer] Phone: Sodium [Moles/Vol] 139 mmol/L 135 - 144 mmol/L [facility] Phone: Urea nitrogen [Mass/Vol] 11 mg/dL 6 - 20 mg/dL [employer] Phone: Lipid Prof, Fastingon 2019 Cholesterol [Mass/Vol] 153 mg/dL Normal <200 [facility] Comment on above: Result Comment: Cholesterol Guidelines: <200 Desirable 200-240 Borderline >240 Undesirable Performed By: #### B MPF, FT4, LIPRF, TSH #### [employer] [address] [place] [id number] [employer] Supervisor: Deep Gonzalez MD Cholesterol in HDL [Mass/Vol] 56 mg/dL Normal >40 [facility] Comment on above: Result Comment: HDL Guidelines: <40 Undesirable 40-59 Borderline >59 Desirable Performed By: #### B MPF, FT4, LIPRF, TSH #### [facility] [employer] [address] [place] [address] [employer] Supervisor: Deep Gonzalez MD Cholesterol in LDL [Mass/Vol] 72 mg/dL Normal 0-130 [facility] Comment on above: Result Comment: LDL Guidelines: <100 Desirable 100-129 Near to/above Desirable 130-159 Borderline >159 Undesirable Direct (measured) LDL and calculated LDL are not interchangeable tests. Performed By: #### B MPF, FT4, LIPRF, TSH #### [facility] [employer] [address] [place] [address] [employer] Supervisor: Deep Gonzalez MD Cholesterol.total/Ch olesterol in HDL [Mass ratio] 2.7 {ratio} Normal <5 [facility] Comment on above: Performed By: #### B MPF, FT4, LIPRF, TSH #### [facility] [employer] [address] [place] [address] [employer] Supervisor: Deep Gonzalez MD Triglyceride,Fasting 125 mg/dL Normal <150 [facility] Comment on above: Result Comment: Triglyceride Guidelines: <150 Desirable 150-199 Borderline 200-499 High >499 Very high Based on AHA Guidelines for fasting triglyceride, December 2011. Performed By: #### B MPF, FT4, LIPRF, TSH #### [facility] [employer] [address] [place] [address] [employer] Supervisor: Deep Gonzalez MD Cholesterol in VLDL [Mass/Vol] NOT REPORTED Normal 1-30 [facility] Comment on above: Performed By: #### B MPF, FT4, LIPRF, TSH #### [facility] [employer] [address] [place] [address] [employer] Supervisor: Deep Gonzalez MD Lipid, FastingOrdered By: Simin Felix on 03-17-2019 Cholesterol [Mass/Vol] 153 mg/dL <200 [facility] [employer] Work Phone: Comment on above: Cholesterol Guidelines: <200 Desirable 200-240 Borderline >240 Undesirable Cholesterol in HDL [Mass/Vol] 56 mg/dL >40 [employer] Phone: Comment on above: HDL Guidelines: <40 Undesirable 40-59 Borderline >59 Desirable Cholesterol in LDL [Mass/Vol] 72 mg/dL 0 - 130 mg/dL [employer] Phone: Comment on above: LDL Guidelines: <100 Desirable 100-129 Near to/above Desirable 130-159 Borderline >159 Undesirable Direct (measured) LDL and calculated LDL are not interchangeable tests. Cholesterol.total/Ch olesterol in HDL [Mass ratio] 2.7 {ratio} <5 [employer] Phone: Triglyceride, Fasting 125 mg/dL <150 [employer] Phone: Comment on above: Triglyceride Guidelines: <150 Desirable 150-199 Borderline 200-499 High >499 Very high Based on AHA Guidelines for fasting triglyceride, December 2011. VLDL NOT REPORTED 1 - 30 mg/dL [employer] Work Phone: T4, FreeOrdered By: Armando castro on 03-17-2019 Thyroxine, Free 1.16 ng/dL 0.93 - 1.7 ng/dL [employer] Phone: TSHOrdered By: Armando goff 03-17-2019 TSH Qn 1.57 m[IU]/L [employer] Phone: Thyroid Stim. Horm.on 2019 TSH Qn 1.57 m[IU]/L Normal 0.30-5.00 [facility] Comment on above: Performed By: #### B MPF, FT4, LIPRF, TSH #### [employer] [address] [place] [address] [employer] Supervisor: Deep Gonzalez MD Thyroxine, Freeon 03-17-2019 Thyroxine, Free 1.16 ng/dL Normal 0.93-1.70 [facility] Comment on above: Performed By: #### B MPF, FT4, LIPRF, TSH #### [employer] [address] [place] [address] [employer] Supervisor: Deep Gonzalez MD Vital Signs Date Time Vital Sign Value Performing Clinician Jair brady 12-28-2023 14:-040 Body height 167.6 cm Thomas Giovanny DO Work Phone: [facility] 12-28-2023 14:-0400 Body mass index (BMI) [Ratio] 49.71 kg/m2 Thomas Giovanny DO Work Phone: [facility] 12-28-2023 14:040 Body weight 139.71 kg Thomas Giovanny DO Work Phone: [facility] 12-28-2023 14:22-0400 Diastolic blood pressure 80 mm[Hg] Thomas Giovanny DO Work Phone: [facility] 12-28-2023 14:-040 Systolic blood pressure 122 mm[Hg] Thomas Giovanny DO Work Phone: [facility] Encounters Encounter Date Encounter Type Care Provider Facility Start: 12-28-2023 End: 12-28-2023 Office outpatient visit 15 minutes Thomas Giovanny DO Work Phone: [facility] Comment on above: LGSIL of cervix of u ndetermined significance Start: 12-28-2023 End: 12-28-2023 ambulatory THOMAS GIOVANNY Not Available Start: 12-28-2023 End: 12-28-2023 Bamboo flowsheet Thomas Giovanny DO Work Phone: [facility] Start: 12-28-2023 End: 01-06-2024 Bamboo flowsheet Thomas Giovanny DO Work Phone: [facility] Start: 12-28-2023 End: 01-06-2024 Clinisync Result Encounter Thomas Giovanny DO Work Phone: [facility] External Department Unsolicited Start: 12-02-2023 End: 12-02-2023 Office outpatient visit 15 minutes Tania CARLIN Work Phone: [facility] Comment on [...] End: 03-18-2019 Patient encounter procedure ARMANDO FELIX [facility] Start: 03-17-2019 End: 03-17-2019 Subsequent hospital visit by physician Armando Felix MD Work Phone: [facility] Comment on above: Annual physical exam ; Encounter for lipid screening for cardiovascular disease; Depression with anxiety Procedures Date Procedure Procedure Detail Performing Clinician Start: 12-28-2023 [facility] IGP,RFX APTIMA H PV ALL PTH Thomas Giovanny DO Work Phone: Start: 03-17-2019 Assay of free thyroxine ARMANDO FELIX Start: 03-17-2019 Assay of thyroid stimulating hormone tsh ARMANDO FELIX Start: 03-17-2019 Basic metabolic pane l calcium total ARMANDO FELIX Start: 03-17-2019 Lipid panel ARMANDO Meraz Start: 03-17-2019 Assay of free thyroxine Armando Felix MD Work Phone: Start: 03-17-2019 Lipid panel Armando Felix MD Work Phone: Plan of Treatment Date Care Activity Detail Author Start: 06-28-2024 End: 06-28-2024 Patient encounter procedure 06/28/2024 1:[address] PM [address]T [address] [facility] [address] [place] [id number] Thomas Baltazar, DO [address] [place], [place] [id number] [facility] Start: 05-30-2024 End: 05-30-2024 Patient encounter procedure 05/30/2024 10:00 AM EDT Office Visit [facility] [address] [place] [id number] Thomas Baltazar, DO [address] [place] [address] [facility] Start: 12-28-2023 End: 12-28-[address] [facility] Comment on above: Arrived Start: 12-02-2023 End: 12-01-2024 CBC W Auto Differential panel - Blood CBC and differential Lab Routine Leukocytoclastic vasculitis (CMS/HCC) Expected: 12/02/2023 (Approximate), Expires: 12/01/2024 [facility] Work Phone: Comment on above: Expected: 12/02/2023 (Approximate), Expires: 12/01/2024 Start: 12-02-2023 End: 12-01-2024 Urinalysis complete panel - Urine Urinalysis with reflex microscopic Lab Routine Leukocytoclastic vasculitis (CMS/HCC) Expected: 12/02/2023 (Approximate), Expires: 12/01/2024 [facility] Comment on above: Expected: 12/02/2023 (Approximate), Expires: 12/01/2024 Start: 04-28-2019 End: 04-28-2019 Patient encounter procedure 04/28/2019 Office [place] [address] [facility] [place] [address] [place] [address] [facility] Start: 10-31-2018 Influenza vaccination Flu vaccine (# 1) [facility] [employer] Phone: Start: 2017 Cervical cancer screen Cervical canc er screen [facility] [employer] Phone: Start: 2012 Chlamydia screen Chlamydia screen [facility] Work Phone: Start: 09-06-2011 HIV screen HIV screen [facility] Work Phone: Start: 09-06-2007 DTaP/Tdap/Td vaccine (6 - Tdap) DTaP/Tdap/Td vaccine (6 - Tdap) [facility] [employer] Phone: Start: 09-06-2007 HPV vaccine (1 - Female 2-dose series) HPV vaccine (1 - Female 2-dose series) [facility] [employer] Phone: Start: 2002 Pneumococcal 0-64 years Vaccine (1 of 1 - PPSV23) Pneumococcal 0-64 years Vaccine (1 of 1 - PPSV23) [facility] [employer] Phone: Start: 1997 Varicella Vaccine (1 of 2 - 2-dose childhood series) Varicella Vaccine (1 of 2 - 2-dose childhood series) [facility] [employer] Phone: Cytology Cervical or vaginal smear or scraping study Pap Smear Pathology and Cytology Routine LGSIL of cervix of undetermined significance Ordered: 12/28/2023 [facility] Work Phone: Comment on above: Ordered: 12/28/2023 Immunizations Immunization Date Immunization Notes Care Provider Fa cility 10-19-2001 diphtheria, tetanus toxoids and acellular pertussis vaccine, unspecified formulation Armando Felix MD Work Phone: [facility] [employer] Phone: 10-19-2001 measles, mumps and rubella virus vaccine Armando Felix MD Work Phone: [facility] [employer] Phone: 10-19-2001 poliovirus vaccine, inactivated Armando Felix MD Work Phone: [employer] Work Phone: 04-04-1998 trivalent poliovirus vaccine, live, oral Armando Felix MD Work Phone: [employer] Work Phone: 12-08-1997 diphtheria, tetanus toxoids and acellular pertussis vaccine, unspecified formulation Armando Felix MD Work Phone: [employer] Work Phone: 12-08-1997 haemophilus influenz ae type b vaccine, conjugate unspecified formulation Armando Felix MD Work Phone: [employer] Work Phone: 09-14-1997 hepatitis B vaccine, pediatric or pediatric/adolescent dosage Armando Felix MD Work Phone: [employer] Work Phone: 09-14-1997 measles, mumps and rubella virus vaccine Armando Felix MD Work Phone: [employer] Work Phone: 03-14-1997 diphtheria, tetanus toxoids and acellular pertussis vaccine, unspecified formulation Armando Felix MD Work Phone: [employer] Phone: 03-14-1997 haemophilus influenz ae type b vaccine, conjugate unspecified formulation Armando Felix MD Work Phone: [employer] Work Phone: 01-06-1997 diphtheria, tetanus toxoids and acellular pertussis vaccine, unspecified formulation Armando Felix MD Work Phone: [employer] Work Phone: 01-06-1997 haemophilus influenz ae type b vaccine, conjugate unspecified formulation Armando Felix MD Work Phone: [employer] Work Phone: 01-06-1997 trivalent poliovirus vaccine, live, oral Armando Felix MD Work Phone: [employer] Phone: 1996 diphtheria, tetanus toxoids and acellular pertussis vaccine, unspecified formulation Armando Felix MD Work Phone: [employer] Work Phone: 1996 haemophilus influenz ae type b vaccine, conjugate unspecified formulation Armando Felix MD Work Phone: [employer] Work Phone: 1996 hepatitis B vaccine, pediatric or pediatric/adolescent dosage Armando Felix MD Work Phone: [employer] Work Phone: 1996 trivalent poliovirus vaccine, live, oral Armando Felix MD Work Phone: [employer] Work Phone: 1996 hepatitis B vaccine, pediatric or pediatric/adolescent dosage Amrando Felix MD Work Phone: [employer] Work Phone: Payers Date Payer Category Payer Medicaid [employer] [place] [employer] [id number] 2022-Present [address] [place] [id number] 2022 Medicaid (Managed Care) [employer] [id number] 2022 Medicaid [id number] 2014 Unknown BCBS [place] P PO xxxxxxxxxxxx 2014-Present [address] [place] [address] xxxxxxxxxxxx [id number] 1996 Unknown [id number] 1996 Unknown [id number] 1996 Unknown [id number] 593 1996 Unknown [id number]. 9 1996 Unknown [id number] 9 1996 Unknown [id number]. 9 1996 Unknown [id number]. 9 1996 Unknown [id number] [id number]. 9 1996 Unknown [id number] 1996 Unknown [id number] 1996 Unknown [id number] 1959 Unknown [id number] Social History Date Type Detail Facility Start: 03-17-2019 Tobacco smoking stat [facility] Current every day smoker [employer] [facility]: History of tobacco use Cigarette Smoker [employer] Start: 03-17-2019 End: 12-02-2023 Cigarettes smoked current (pack per day) - Reported [facility] Phone: Start: 03-17-2019 Alcohol intake Current drinke r of alcohol (finding) [employer] Work Phone: Start: 03-17-2019 Alcohol Comment Socially [employer] Work Phone: Start: 1995 Sex Assigned At Not on file M janelle [employer] Work Phone: Start: 11-10-2023 [facility] History of tobacco use Current smoker [facility] Start: 11-10-2023 Tobacco use and exposure Smoke less tobacco non-user [facility] Start: 12-02-2023 Tobacco use panel [facility] Start: 03-29-2023 Gender identity Identifies as female gender (finding) [facility] Start: 03-29-2023 Sexual orientation Pansexual [facility] History of Present illness Narrative 12-28-2023 Mee Eng LPN - 12/28/2023 2:20 PM EDT Note Date & Type Note Facility 12-28-2023 History of Presen t illness Narrative Reason for Appointment: Patient ID: Anali Lira is a 28 y.o. female who presents for Abnormal Pap Smear Patient presents today for Repeat Pap. MEDICATIONS Current Outpatient Medications Medication Instructions ARIPiprazole (ABILIFY) 10 mg, Oral, Daily hydrOXYzine pamoate (Vistaril) 25 MG capsule lamoTRIgine (LAMICTAL) 100 mg, Oral, Every 24 hours metFORMIN XR (GLUCOPHAGE-XR) 500 mg, Oral, Daily with evening meal, Do not crush, chew, or split. sertraline (ZOLOFT) 75 mg, Oral, Daily traZODone (Desyrel) 50 MG tablet ALLERGIES Allergies Allergen Reactions Amoxicillin Hives Childhood allergy, had ancef, no issues PROBLEMS Active Ambulatory Problems Diagnosis Date Noted No Active Ambulatory Problems Resolved Ambulatory Problems Diagnosis Date Noted No Resolved Ambulatory Problems Past Medical History: Diagnosis Date Irregular periods Pap smear for cervical cancer screening 2022 HISTORY PAST MEDICAL HISTORY SOCIAL HISTORY Past Medical History: Diagnosis Date Irregular periods Pap smear for cervical cancer screening 2022 neg/ Dr. Adams [facility] Social History Tobacco Use Smoking status: Former Types: Cigarettes Smokeless tobacco: Never Substance Use Topics Alcohol use: Not on file Drug use: Not on file FAMILY HISTORY No family history on file. SURGICAL HISTORY History reviewed. No pertinent surgical history. REVIEW OF SYSTEMS Review of Systems: Review of Systems All other systems reviewed and are negative. OBJECTIVE Objective: OBGyn Exam Vitals: Estimated body mass index is 49.71 kg/m as calculated from the following: Height as of this encounter: 5' 6 . Weight as of this encounter: 308 lb. BP: 122/80 Patient's last menstrual period was 11/25/2023. ASSESSMENT & PLAN ICD-10-CM 1. LGSIL of cervix of undetermined significance R87.612 Pap Smear Repeat Pap: Patient presents today for a repeat pap. Previous pap results were reviewed and noted to be LGSIL. Question regarding previous results were discussed. Repeat Pap was obtained without difficulty. Follow Up: Patient is to return to the office in 6 months for an annual exam. Documented by Mee Eng LPN on behalf of: Thomas Baltazar DO documented in this encounter [facility] History of Present illness Narrative [...] any new/changing lesions documented in this encounter [facility] Evaluation note Note Date & Type Note Facility Evaluation note Diagnosis Annual physical exam Routine general medical examination at a health care facility Encounter for lipid screening for cardiovascular disease Depression with anxiety Dysthymic disorder documented in this encounter [employer]: Evaluation note Note Date & Type Note Facility Evaluation note Diagnosis Visit for wound check- Primary 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 documented in this encounter [facility] Evaluation note Note Date & Type Note Facility Evaluation note Diagnosis LGSIL of cervix of undetermined significance documented in this encounter [facility] Summary Purpose Family History No Family History Records FoundNo Family History Records FoundNo Family History Records Found Advance Directives Documents on File Type Date Recorded 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 Advance Directives and Living Will Power of Supervisor Customer Records Division Additional Source Comments INFORMATION SOURCE (unrecogn ized section and content) DATE CREATED AUTHOR 03/18/2019 [facility] DATE CREATED AUTHOR AUTHOR'S ORGANIZ ATION 11/21/2019 [facility] DATE CREATED AUTHOR AUTHOR'S ORGANIZ ATION 12/29/2023 [facility] EPIC Reason for Visit (unrecogniz ed section and content) Reason Comments Wound Check Reason Comments Abnormal Pap Smear FOR RECORDS PERTAINING TO PATIENTS WHO ARE [...] BE BASED ON THE PRIMARY CLINICAL RECORDS. [facility] provides no warranty or guarantee of the accuracy or completeness of information in this document.
--- NOTE | 2024-01-23 11:51 | ED_ITS ---
HPI - Abdominal Pain General Chief Complaint: Abdominal Pain Stated Complaint: ABDOMINAL/BACK PAIN, NAUSEA Time Seen by Provider: 01/23/24 11:44 Source: patient Mode of arrival: walk-in Limitations: no limitations History of Present Illness HPI narrative: 28-year-old female presents for abdominal pain. She is having pain across her upper abdomen for several days. She had been to another hospital's emergency department yesterday and the day before. She states that they did a CAT scan that did not show anything and all of her blood test were negative as well. She gives no history of constipation or diarrhea or vomiting or trauma or fever. Related Data Home Medications ?Medication ?Instructions ?Recorded ?Confirmed aripiprazole 10 mg tablet 10 mg PO QDAY 01/23/24 01/23/24 hydrocodone 5 mg-acetaminophen 325 1 tab PO Q8H 01/23/24 01/23/24 mg tablet lamotrigine 100 mg tablet 100 mg PO QDAY 01/23/24 01/23/24 metformin 500 mg tablet,extended 500 mg PO QDAY 01/23/24 01/23/24 release 24 hr omeprazole 20 mg capsule,delayed 40 mg PO QAM 01/23/24 01/23/24 release ondansetron 4 mg disintegrating 4 mg PO Q6H PRN nausea and vomiting 01/23/24 01/23/24 tablet sertraline 50 mg tablet 75 mg PO Q24H 01/23/24 01/23/24 sucralfate 1 gram tablet (Carafate) 1 g PO Q6H 01/23/24 01/23/24 Previous Rx's ?Medication ?Instructions ?Recorded acetaminophen 300 mg-codeine 30 mg 1 tab PO Q6H PRN pain 5 days #20 01/23/24 tablet tabs dicyclomine 10 mg capsule 10 mg PO QID PRN abdominal pain 01/23/24 #20 caps Allergies Allergy/AdvReac Type Severity Reaction Status Date / Time amoxicillin Allergy Hives Verified 01/23/24 11:45 Review of Systems ROS Narrative A ten point review of systems is negative except as noted above. PFSH PFSH Social History Little interest or pleasure in doing things: not at all Feeling down, depressed, or hopeless: not at all Exam Narrative Exam Narrative: Nurses note and vital signs reviewed and patient is not hypoxic. General: The patient appears well and in no apparent distress. Patient is resting comfortably on cart. Skin: Warm, dry, no pallor noted. There is no rash noted. Head: Normocephalic, atraumatic Eye: Normal conjunctiva, no drainage Ears, Nose, Mouth, and Throat: oral mucosa is moist. Nares patent. Cardiovascular: Regular Rate and Rhythm Respiratory: Patient is in no distress, no accessory muscle use, lungs are clear to auscultation, no wheezing, rales or rhonchi Back: non-tender, no CVA tenderness bilaterally to percussion. GI: Normal bowel sounds, no distention or masses. She has diffuse tenderness across her upper abdomen. Musculoskeletal: The patient has no evidence of calf tenderness, no pitting edema, symmetrical pulses noted bilaterally Neurological: A&O, normal speech Psychiatric: Cooperative Constitutional Vital Signs, click to edit/add: Last Vital Signs Pulse 98 H 01/23/24 11:45 Resp 18 01/23/24 11:45 BP 149/88 H 01/23/24 11:45 Pulse Ox 99 01/23/24 11:45 O2 Del Method Room Air 01/23/24 11:45 Course Vital Signs Vital signs: Vital Signs Pulse Rate 98 H 01/23/24 11:45 Respiratory Rate 18 01/23/24 11:45 Blood Pressure 149/88 H 01/23/24 11:45 Pulse Oximetry 99 01/23/24 11:45 Oxygen Delivery Method Room Air 01/23/24 11:45 Pulse Rate 98 H 01/23/24 11:45 Respiratory Rate 18 01/23/24 11:45 Blood Pressure 149/88 H 01/23/24 11:45 Pulse Oximetry 99 01/23/24 11:45 Oxygen Delivery Method Room Air 01/23/24 11:45 MDM - Abdominal Pain MDM Narrative Medical decision making narrative: Her workup here is negative. She had negative CTA chest and CT of the abdomen in the last day at [facility]. She is prescribed Bentyl and Tylenol 3. She has an appointment with a jack spooler tender in a few weeks. Treatment diagnosis and follow-up were discussed with the patient. Differential Diagnosis Differential diagnosis: Likely abdominal pain, constipation, diverticulitis, gastroenteritis and pancreatitis Lab Data Attestation: I reviewed the patient's lab results. Labs: Lab Results 01/23/24 Range/Units 12:01 WBC 7.8 (4.0-11.0) 10^3/uL RBC 4.61 (4.20-5.40) 10^6/uL Hgb 13.6 (12.0-16.0) g/dL Hct 40.9 (36.0-48.0) % MCV 88.7 (81.0-99.0) fL MCH 29.5 (26.7-34.0) pg MCHC 33.3 (29.9-35.2) g/dL RDW 13.9 (11.0-15.0) % Plt Count 299 (150-450) 10^3/uL MPV 9.3 L (9.5-13.5) fL Neut % (Auto) 67.8 (43.0-75.0) % Lymph % (Auto) 23.8 (20.5-60.0) % Avery % (Auto) 3.9 (1.7-12.0) % Eos % (Auto) 3.9 (0.9-7.0) % Baso % (Auto) 0.3 (0.2-2.0) % Neut # (Auto) 5.3 (1.4-6.5) 10^3/uL Lymph # (Auto) 1.9 (1.2-3.8) 10^3/uL Avery # (Auto) 0.3 (0.3-0.8) 10^3/uL Eos # (Auto) 0.3 (0.0-0.7) 10^3/uL Baso # (Auto) 0.0 (0.0-0.1) 10^3/uL Abs Immat Gran (auto) 0.02 (0.00-0.03) 10^3/uL Imm/Tot Granulo (auto) 0.3 (0.0-0.5) % Sodium 139 (136-145) mmol/L Potassium 3.6 (3.5-5.1) mmol/L Chloride 102 (98-107) mmol/L Carbon Dioxide 28.6 (21.0-32.0) mmol/L Anion Gap 12.0 BUN 7.0 (7.0-18.0) mg/dL Creatinine 0.95 (0.55-1.02) mg/dL Est GFR ( Amer) >60 (>=60 mL/min/1.73m^2) Est GFR (Non-Af Amer) >60 (>=60 mL/min/1.73m^2) BUN/Creatinine Ratio 7.4 Glucose 103 (74-106) mg/dL Calcium 9.1 (8.5-10.1) mg/dL Total Bilirubin 0.6 (0.2-1.0) mg/dL Direct Bilirubin 0.1 (0.0-0.2) mg/dL AST 21 (15-37) U/L ALT 59 (14-59) U/L Alkaline Phosphatase 153 H (46-116) U/L Total Protein 8.0 (6.4-8.2) g/dL Albumin 3.2 L (3.4-5.0) g/dL Globulin 4.8 g/dL Albumin/Globulin Ratio 0.7 Amylase 25 (25-115) U/L Lipase 27.0 (16.0-77.0) U/L Serum HCG, Qual Negative (NEGATIVE) Discharge Plan Discharge Chief Complaint: Abdominal Pain Clinical Impression: Abdominal pain Patient Disposition: Home, Self-Care Time of Disposition Decision: 12:46 Condition: Good Mode of Transportation: Private Vehicle Prescriptions / Home Meds: New dicyclomine 10 mg capsule 10 mg PO QID PRN (Reason: abdominal pain) Qty: 20 0RF acetaminophen-codeine 300-30 mg tablet 1 tab PO Q6H PRN (Reason: pain) 5 Days Qty: 20 0RF No Action aripiprazole 10 mg tablet 10 mg PO QDAY lamotrigine 100 mg tablet 100 mg PO QDAY metformin 500 mg tablet extended release 24 hr 500 mg PO QDAY ondansetron 4 mg tablet,disintegrating 4 mg PO Q6H PRN (Reason: nausea and vomiting) sertraline 50 mg tablet 75 mg PO Q24H hydrocodone-acetaminophen 5-325 mg tablet 1 tab PO Q8H omeprazole 20 mg capsule,delayed release(DR/EC) 40 mg PO QAM sucralfate [Carafate] 1 gram tablet 1 g PO Q6H Print Language: Norwegian Instructions: Abdominal Pain (ED) Referrals: Moody Weaver, [employer] [Primary Care Provider] - 1 week
[2024-01-23] MEDS: DICYCLOMINE HCL 20 MG/2 ML VIAL IM (11:57)
[2024-01-23 12:09] LABS: Basophils Percent Auto 0.3 % (0.2-2.0); Eosinophils Absolute Auto 0.3 10^3/uL (0.0-0.7); Eosinophils Percent Auto 3.9 % (0.9-7.0); Hematocrit 40.9 % (36.0-48.0); Hemoglobin 13.6 g/dL (12.0-16.0); Immature Granulocytes Abs Auto 0.02 10^3/uL (0.00-0.03); Immature Granulocytes Pct Auto 0.3 % (0.0-0.5); Lymphocytes Absolute Auto 1.9 10^3/uL (1.2-3.8); Lymphocytes Percent Auto 23.8 % (20.5-60.0); Mean Corpuscular HGB Conc 33.3 g/dL (29.9-35.2); Mean Corpuscular Hemoglobin 29.5 pg (26.7-34.0); Mean Corpuscular Volume 88.7 fL (81.0-99.0); Mean Platelet Volume 9.3 fL (9.5-13.5); Monocytes Absolute Auto 0.3 10^3/uL (0.3-0.8); Monocytes Percent Auto 3.9 % (1.7-12.0); Neutrophils Absolute Auto 5.3 10^3/uL (1.4-6.5); Neutrophils Percent Auto 67.8 % (43.0-75.0); Platelet Count 299 10^3/uL (150-450); Red Blood Count 4.61 10^6/uL (4.20-5.40); Red Cell Distribution Width 13.9 % (11.0-15.0); White Blood Count 7.8 10^3/uL (4.0-11.0)
[2024-01-23 12:25] LABS: Alanine Aminotransferase 59 U/L (14-59); Albumin Globulin Ratio 0.7; Albumin Level 3.2 g/dL (3.4-5.0); Alkaline Phosphatase 153 U/L (46-116); Amylase 25 U/L (25-115); Aspartate Amino Transferase 21 U/L (15-37); BUN Creatinine Ratio 7.4; Bilirubin Direct 0.1 mg/dL (0.0-0.2); Bilirubin Total 0.6 mg/dL (0.2-1.0); Calcium 9.1 mg/dL (8.5-10.1); Carbon Dioxide 28.6 mmol/L (21.0-32.0); Chloride 102 mmol/L (98-107); Estimated GFR (African America >60 (>=60 mL/min/1.73m^2); Estimated GFR (Non-African Ame >60 (>=60 mL/min/1.73m^2); Globulin 4.8 g/dL; Glucose 103 mg/dL (74-106); Potassium 3.6 mmol/L (3.5-5.1); Sodium 139 mmol/L (136-145)
[2024-01-23 12:33] LABS: HCG Qualitative NEGATIVE (NEGATIVE); Internal Control Within Normal Limits
== END 2024-01-23 12:56 | disposition home or self-care (01) ==
PROVIDERS: Emergency Provider Emergency Medicine; PCP Nurse Practitioner Primary Care
DX: R10.10 Upper abdominal pain, unspecified (principal)
CPT/HCPCS: 36415; 80048; 80076; 82150; 83690; 84703; 85025; 96372; 99284; J0500

== ENCOUNTER 2024-05-30 15:02 | Outpatient (REF) | payer OTHER, SELFPAY ==
[2024-06-02 17:11] LABS: HPV Aptima Positive (Negative); Pap IG (Image Guided) Note (.)
== END 2024-05-30 15:03 | disposition home or self-care (01) ==
LOC: LAB 15:02
PROVIDERS: PCP Nurse Practitioner Primary Care; Visit Provider Obstetrics & Gynecology
DX: R87.610 Atypical squamous cells of undetermined significance on cytologic smear of cervix (ASC-US) (principal); R87.810 Cervical high risk human papillomavirus (HPV) DNA test positive
CPT/HCPCS: 88175

== ENCOUNTER 2024-06-14 16:04 | Outpatient (OUT) | payer OTHER, SELFPAY ==
--- OUTSIDE RECORDS SUMMARY | 2024-06-14 16:28 | XMS_ITS | CCD ---
Author Organization [facility] Care Team Providers Care [employer] Architect Name Role Phone ARMANDO FELIX Referring Unavailable ARMANDO FELIX Primary Care Unavailable MILY SHELTON Admitting Unavailable WONDERLY, MILY Quinn Attending Unavailable NIKITA, MILY Quinn Consulting Unavailable MILY SHELTON Admitting Unavailable WONDERLY, MILY Quinn Attending Unavailable NIKITA, MILY Quinn Consulting Unavailable Armando Felix MD Primary Care Provider [phone] Unavailable Primary Care Provider Unavailabl e No Pcp, No Pcp Primary Care Provider Unavailabl e Tom Peterson PA-C Primary Care Provider Unavailable Primary Care Provider Unavailabl e THOMAS BALTAZAR Attending Unavailable THOMAS BALTAZAR Attending Unavailable TANIA RODAS Attending Unavailable BRANDY PAUL Referring Unavailable TANIA RODAS Attending Unavailable THOMAS BALTAZAR Attending Unavailable TANIA RODAS Attending Unavailable THOMAS BALTAZAR Attending Unavailable Allergies Allergy Classification Reported Allergen(s) Allergy Type Date of Onset Reaction(s) Facility (20 sources) Amoxicillin Drug Allergy 11-25-2012 [facility] Medications Current Medications Medication Drug Class(es) Dates Sig (Normalized) Sig (Original) ARIPiprazole 5 mg oral tablet (20 sources) Atypical Antipsychotic Start: 01-15-2023 End: 03-21-2024 take 1 tablet by mouth in the morning ARIPiprazole (ABILIFY) 5 mg tablet Take 1 tablet (5 mg total) by mouth in the morning. 01/15/2023 03/21/2024 Discontinued (Dose adjustment) Start: 05-22-2022 take 2 tablets by mo uth once daily ARIPiprazole (Abilify) 5 MG tablet Take 10 mg by mouth Daily 05/22/2022 Active take 1 tablet by carmen th once daily at bedtime ARIPiprazole (ABILIFY) 15 mg tablet Take 1 tablet (15 mg total) by mouth once daily at bedtime. Active docusate sodium 100 mg oral capsule (3 sources) Start: 02-20-2022 End: 03-21-2024 take 1 capsule by mouth in the morning, then take 1 capsule by mouth at bedtime docusate sodium (COLACE) 100 mg capsule Take 1 capsule (100 mg total) by mouth in the morning and 1 capsule (100 mg total) before bedtime. 30 capsule 2 02/20/2022 03/21/2024 Discontinued (Therapy completed) DULoxetine 30 mg delayed release oral capsule [...] Take by mouth daily 0 03/06/2019 Active ferrous sulfate 325 mg oral tablet (3 sources) Start: 02-20-2022 End: 03-21-2024 take 1 tablet by mouth in the morning, then take 1 tablet by mouth at mealtime ferrous sulfate 325 (65 FE) mg tablet Take 1 tablet (325 mg total) by mouth in the morning and 1 tablet (325 mg total) in the evening. Take with meals. 30 tablet 2 02/20/2022 03/21/2024 Discontinued (Therapy completed) FLUoxetine 20 mg oral tablet (1 source) Serotonin Reuptake Inhibitor take 20 mg by mouth once daily FLUOXETINE HCL PO Take 20 mg by mouth daily 0 Active hydrOXYzine pamoate 25 mg oral capsule (20 sources) Antihistamine Start: 08-08-2022 hydrOXYzine pamoate (Vistaril) 25 MG capsule 08/08/2022 Active ibuprofen 800 mg oral tablet (3 sources) Nonsteroidal Anti-inflammatory Drug Start: 02-20-2022 End: 03-21-2024 take 1 tablet by mouth every eight hours as needed ibuprofen (MOTRIN) 800 mg tablet Take 1 tablet (800 mg total) by mouth every 8 (eight) hours as needed (cramping). 30 tablet 02/20/2022 03/21/2024 Discontinued (Therapy completed) lamoTRIgine 100 mg oral tablet (20 sources) Mood Stabilizer, Anti-epileptic Agent Start: 01-15-2023 take 1 tablet by mouth once daily lamoTRIgine (LaMICtal) 100 MG tablet Take 100 mg by mouth 1 (one) time each day at the same time 01/15/2023 Active take 1 tablet by carmen th once daily at dinner lamoTRIgine (LaMICtal) 25 mg tablet Take 1 tablet (25 mg total) by mouth Daily before evening meal. Active 24 hr metFORMIN hydrochloride 500 mg extended release oral tablet (20 sources) Biguanide Start: 04-05-2024 End: 05-30-2024 take 1 tablet by mouth every twenty-four hours at mealtime metFORMIN XR (Glucophage-XR) 500 MG 24 hr tablet Indications: Irregular periods/menstrual cycles , PCOS (polycystic ovarian syndrome) Take 1 tablet (500 mg) by mouth in the evening. Take with meals Do not crush, chew, or split. 30 tablet 11 04/05/2024 05/30/2024 Discontinued Start: 03-30-2023 take 1 tablet by carmen th every twenty-four hours at mealtime metFORMIN XR (Glucophage-XR) 500 MG 24 hr tablet Indications: Irregular periods/menstrual cycles , PCOS (polycystic ovarian syndrome) Take 1 tablet (500 mg) by mouth in the evening. Take with meals Do not crush, chew, or split. 30 tablet 11 03/30/2023 Active take 1 tablet by carmen th once daily metFORMIN (GLUCOPHAGE) 500 mg tablet Take 1 tablet (500 mg total) by mouth nightly. Active omeprazole 40 mg delayed release oral capsule (6 sources) Proton Pump Inhibitor Start: 02-10-2024 End: 05-09-2024 take 1 capsule by mouth once daily before breakfast omeprazole (PriLOSEC) 40 mg capsule Indications: Upper abdominal pain , Gastroesophageal reflux disease, unspecified whether esophagitis present Take 1 capsule (40 mg total) by mouth every morning before breakfast. 30 capsule 11 05/09/2024 Active 25/iron fum/folic/dha (-1 ORAL) (5 sources) 25/iron fum/folic/dha (-1 ORAL) Take by mouth. Active Vit w/Vo-Makpzfrmb-IZ (PNV PO) (1 source) Vit w/Mb-Adixaggqm-EA (PNV PO) Take by mouth. 0 Active sertraline 50 mg oral tablet (20 sources) Serotonin Reuptake Inhibitor sertraline (Zoloft) 50 MG tablet Take 75 mg by mouth Daily Active take 1.5 tablets by mouth in the morning sertraline (ZOLOFT) 50 mg tablet Take 1.5 tablets (75 mg total) by mouth in the morning. Active take 1 tablet by mouth in the mo rning sertraline (ZOLOFT) 50 mg tablet Take 1 tablet (50 mg total) by mouth in the morning. Active traZODone hydrochloride 50 mg oral tablet (20 sources) Serotonin Reuptake Inhibitor Start: 12-11-2022 traZODone (Desyrel) 50 MG tablet 12/11/2022 Active Completed/Discontinued Medications Medication Drug Class(es) Dates Sig (Normalized) Sig (Original) bacitracin 0.5 unt/mg / polymyxin b 10 unt/mg ophthalmic ointment (13 sources) Polymyxin-class Antibacterial Start: 03-17-2023 End: 12-28-2023 bacitracin-polymyxi n b (Polysporin) ophthalmic ointment 03/17/2023 12/28/2023 Discontinued dicyclomine hydrochloride 10 mg oral capsule (3 sources) Anticholinergic End: 05-09-2024 take 1 capsule by mouth three times daily as needed dicyclomine (BENTYL) 10 mg capsule Take 1 capsule (10 mg total) by mouth 3 (three) times a day as needed. 05/09/2024 Discontinued fluconazole 150 mg oral tablet (7 sources) Azole Antifungal Start: 11-17-2023 End: 12-28-2023 take 1 tablet by mouth once fluconazole (Diflucan) 150 MG tablet Indications: Yeast infection Take 1 tablet (150 mg) by mouth if needed (Yeast infection) This is a 1 time dose, take single tablet by mouth. 2 tablet 1 11/17/2023 12/28/2023 Discontinued ondansetron 4 mg disintegrating oral tablet (5 sources) Serotonin-3 Receptor Antagonist Start: 01-21-2024 End: 05-09-2024 take 1 tablet by mouth every eight hours as needed for nausea ondansetron ODT (ZOFRAN ODT) 4 mg disintegrating tablet Dissolve 1 tablet (4 mg total) on tongue every 8 (eight) hours as needed for nausea for up to 10 doses. 10 tablet 01/21/2024 05/09/2024 Discontinued Problems Active Problems Problem Classification Problem Date Documented Da te Episodic/Chronic Abdominal pain (4 sources) Upper abdominal pain; Translations: [Upper abdominal pain, unspecified] 02-29-2024 Episodic Anxiety disorders (1 source) Mixed anxiety and depressive disorder Chronic Cancer of cervix (4 sources) Cervical intraepithelial neoplasia grade 1; Translations: [Low grade squamous intraepithelial lesion on cytologic smear of cervix (LGSIL)] 12-28-2023 Episodic Esophageal disorders (3 sources) Gastroesophageal reflux disease; Translations: [Gastro-esophageal reflux disease without esophagitis] 04-05-2024 Chronic Gastritis and duodenitis (1 source) Chronic superficial gastritis; Translations: [Chronic superficial gastritis without bleeding] 05-09-2024 Chronic Gastritis and duodenitis (1 source) Acute gastritis; Translations: [Acute gastritis without bleeding] 02-29-2024 Episodic Immunizations and screening for infectious disease (10 sources) Encounter for screening for other viral diseases; Translations: [Contact with and (suspected) exposure to other viral communicable diseases] Onset: 11-17-2023 Episodic Inflammatory diseases of female pelvic organs (2 sources) Acute vaginitis; Translations: [Acute vaginitis] 11-17-2023 Episodic Mycoses (2 sources) Mycosis; Translations: [Candidiasis, unspecified] 11-17-2023 Episodic Noninfectious gastroenteritis (2 sources) Chronic diarrhea; Translations: [Noninfective gastroenteritis and colitis, unspecified] 05-09-2024 Episodic Other aftercare (2 sources) Wound finding; Translations: [Encounter for other specified aftercare] 12-02-2023 Episodic Other circulatory disease (2 sources) Hypersensitivity angiitis; 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 Other disorders of stomach and duodenum (1 source) Gastroparesis syndrome; Translations: [Gastroparesis] 05-09-2024 Episodic Other female genital disorders (2 sources) Vaginal discharge; Translations: [Other specified noninflammatory disorders of vagina] 11-17-2023 Episodic Other gastrointestinal disorders (2 sources) Diarrhea; Translations: [Diarrhea, unspecified] 04-05-2024 Episodic Unclassified (2 sources) Patient encounter status Past or Other Problems Problem Classification Problem Date Documented Da te Episodic/Chronic Other aftercare (2 sources) Removal of sutures done; Translations: [Encounter for removal of sutures] 11-09-2023 Episodic Other complications of (1 source) Blood coagulation disorder complicating Onset: 11-25-2012 03-11-2015 Episodic Other complications of (1 source) High risk Onset: 11-25-2012 11-25-2012 Episodic Other inflammatory condition of skin (2 sources) Vasculitis of the skin; Translations: [Vasculitis limited to the skin, unspecified] 11-10-2023 Episodic Other skin disorders (2 sources) Eruption; Translations: [Rash and other nonspecific skin eruption] 10-27-2023 Episodic Substance-related disorders (1 source) Suspected damage from maternal drug use Onset: 11-25-2012 11-25-2012 Episodic Results Test Name Value Interpretation Reference Range Facility PAP IG, APT HPV RFX 16/18,45 on 06-02-2024 HPV APTIMA Positive [facility] Comment on above: This nucleic acid am plification test detects fourteen high- risk HPV types (16,18,31,33,35,39,45,51,52,56,58,59,66,68) without differentiation. Performed at: [facility] [id number] [place] [id number] Package Clerk: Jayson Pascual MD, Phone: [phone] Performed at: [address] [id number] Package Clerk: Isabel Lozada MD, Phone: [phone] Interpretation and review of laboratory results Abnormal [facility] PAP IG (IMAGE GUIDED) Note Abnormal . [facility] Comment on above: TESTS RESULT FLAG UN ITS REF RANGE LAB Clinician Provided Cytology Information Source.............Cervix;Endocervix No. of containers..01 ThinPrep Vial DIAGNOSIS: [A] 01 EPITHELIAL CELL ABNORMALITY. ATYPICAL SQUAMOUS CELLS OF UNDETERMINED SIGNIFICANCE (ASC-US). Recommendation: [A] 01 Suggest follow up as clinically appropriate. Specimen adequacy: 01 Satisfactory for evaluation. Endocervical and/or squamous metaplastic cells (endocervical component) are present. Performed by: Iveth Melissa, Overseer [employer] ([facility]) Electronically si... Deja Serrano MD, Pathologist . 01 Pathologist ICD10: R87.610 Note: Note 02 The Pap smear is a screening test designed to aid in the detection of premalignant and malignant conditions of the uterine cervix. It is not a diagnostic procedure and should not be used as the sole means of detecting cervical cancer. Both false-positive and false-negative reports do occur. Test Methodology: Note 02 This liquid based ThinPrep(R) pap test was screened with the use of an image guided system. HPV Genotype Reflex Note 01 Criteria not met, HPV Genotype not performed. FLAG LEGEND: L-Low Normal,H-High Normal,LL-Alert Low,HH-Alert High <-Panic Low,>-Panic High,A-Abnormal,AA-Critical Abnormal Performed at: 01 [facility] [address] [place] [address] Jayson Pascual MD, 02 WB [facility] [address] [phone] Isabel Lozada MD, [facility] CERVIX [facility]OCERVIX [facility] IGP,RFX APTIMA HPV ALL P THon 01-06-2024 HPV APTIMA Positive Abnormal Negative [facility] Comment on above: This nucleic acid am plification test detects fourteen high- risk HPV types (16,18,31,33,35,39,45,51,52,56,58,59,66,68) without differentiation. Performed at: - [facility] [id number] Package Clerk: Isabel Lozada MD, Phone: [phone] Performed at: - [facility] [id number] Package Clerk: Isabel Lozada MD, Phone: [phone] Interpretation and review of laboratory results Abnormal [facility] PAP IG (IMAGE GUIDED) Note Abnormal . [facility] Comment on above: TESTS RESULT FLAG UN ITS REF RANGE LAB Clinician Provided Cytology Information Source.............Cervix;Endocervix No. of containers..01 ThinPrep Vial DIAGNOSIS: [A] 01 EPITHELIAL CELL ABNORMALITY. ATYPICAL SQUAMOUS CELLS OF UNDETERMINED SIGNIFICANCE (ASC-US). Specimen adequacy: 01 Satisfactory for evaluation. Endocervical and/or squamous metaplastic cells (endocervical component) are present. Performed by: Manisha Church, Overseer [employer] ([facility]) Electronically si... 01 Josiane Maria MD, Pathologist . 01 Pathologist [...] High <-Panic Low,>-Panic High,A-Abnormal,AA-Critical Abnormal Performed at: [address] [phone] Isabel Lozada MD, [facility] CERVIX [facility]OCERVIX [facility] [employer] Cytology Cervical or vaginal smear or scraping studyon 12-28-2023 [employer] No Panel Informationon 10-26 Type of biopsy: [facility] Informed consent: discussed and consent obtained Informed consent comment: The risks and benefits were discussed. Risks include, but are not limited to, bleeding, infection, scarring, pain, & nerve damage. An opportunity to ask questions prior to the procedure was permitted and questions were answered. Patient was prepped and draped in usual sterile fashion: Area cleansed with alcohol. Anesthesia: the lesion was anesthetized in a standard fashion Anesthetic: 1% lidocaine w/ epinephrine 1-100,000 buffered w/ 8.4% NaHCO3 Punch size: 3 mm (A biopsy by punch method was performed using a dermal punch) Suture size: 4-0 Suture type: nylon Suture type comment: Hemostasis was achieved with suture. Suture removal (days): 12 Hemostasis achieved with: suture Outcome: patient tolerated procedure well Post-procedure details: sterile dressing applied and wound care instructions given Post-procedure details comment: Emphasized the need to contact clinic for any signs of infection, uncontrollable bleeding, or complications. Dressing type: bandage Additional details: Amount of lidocaine used: 1.0 cc Number of sutures used: 2 Specimen sent for: H&E Photo taken yes [facility] No Panel Informationon 06-23 [employer] COVID-19 PCRon 10-18-2019 SARS-CoV-2, ALEX Not Detected Normal Not Detected [facility] Comment on above: Result Comment: This test was developed and its performance characteristics determined by [facility]. This test has not been FDA cleared [...] assay. Performed By: #### C VDPCR #### [facility] [address] [place] [address] Brenna Rueda COVID-19 PCRon 09-10-2019 SARS-CoV-2, ALEX Not Detected Normal Not Detected [facility] Comment on above: Result Comment: This test was developed and its performance characteristics determined by [employer]. This test has not been FDA cleared [...] assay. Performed By: #### C VDPCR #### [facility] [address] [place], [place] [address] Brenna Donnelly Metab, Fastingon 03-17 (cont.) Normal [facility] Comment on above: Result Comment: Aver age GFR for 20-29 years old: 116 mL/min/1.73sq m Chronic Kidney Disease: <60 mL/min/1.73sq m Kidney failure: <15 mL/min/1.73sq m eGFR calculated using average adult body mass. Additional eGFR calculator available at: http://www.LC Style.com/multiple_crcl_2012.htm Performed By: #### B MPF, FT4, LIPRF, TSH #### [address] [id number] Package Clerk: Deep Gonzalez MD Anion gap [Moles/Vol] 12 mmol/L Normal 9-17 [facility] Comment on above: Performed By: #### B MPF, FT4, LIPRF, TSH #### [address] [address] Package Clerk: Deep Gonzalez MD Calcium [Mass/Vol] 9.1 mg/dL Normal 8.6-10.4 [facility] Comment on above: Performed By: #### B MPF, FT4, LIPRF, TSH #### [address] [address] Package Clerk: Deep Gonzalez MD Chloride [Moles/Vol] 102 mmol/L Normal 98-107 [facility] Comment on above: Performed By: #### B MPF, FT4, LIPRF, TSH #### [facility] [employer] [address] [place] [phone] Package Clerk: Deep Gonzalez MD CO2 [Moles/Vol] 25 mmol/L Normal 20-31 [facility] Comment on above: Performed By: #### B MPF, FT4, LIPRF, TSH #### [facility] [employer] [address] [place] [phone] Package Clerk: Deep Gonzalez MD Creatinine [Mass/Vol] 0.66 mg/dL Normal 0.50-0.90 [facility] Comment on above: Performed By: #### B MPF, FT4, LIPRF, TSH #### [facility] [address] [place] [id number] Package Clerk: Deep Gonzalez MD GFR, Amer >60 Normal >60 [facility] Comment on above: Performed By: #### B MPF, FT4, LIPRF, TSH #### [facility] [address] [place] [phone] Package Clerk: Deep Gonzalez MD GFR,non Amer >60 Normal >60 [facility] Comment on above: Performed By: #### B MPF, FT4, LIPRF, TSH #### [address] [address] Package Clerk: Deep Gonzalez MD Glucose [Mass/Vol] 82 mg/dL Normal 70-99 [facility] Comment on above: Performed By: #### B MPF, FT4, LIPRF, TSH #### [facility] [address] [place] [address] Package Clerk: Deep Gonzalez MD Potassium [Moles/Vol] 4.3 mmol/L Normal 3.7-5.3 [facility] Comment on above: Performed By: #### B MPF, FT4, LIPRF, TSH #### [facility] [address] [place] [phone] Package Clerk: Deep Gonzalez MD Sodium [Moles/Vol] 139 mmol/L Normal 135-144 [facility] Comment on above: Performed By: #### B MPF, FT4, LIPRF, TSH #### [facility] [address] [place] [phone] Package Clerk: Deep Gonzalez MD Urea nitrogen [Mass/Vol] 11 mg/dL Normal 6-20 [facility] Comment on above: Performed By: #### B MPF, FT4, LIPRF, TSH #### [facility] [address] [place] [address] Package Clerk: Deep Gonzalez MD BUN/CRE Ratio NOT REPORTED Normal 9-20 [facility] Comment on above: Performed By: #### B MPF, FT4, LIPRF, TSH #### [facility] [address] [place] [address] Package Clerk: Deep Gonzalez MD Staging: NOT REPORTED Normal [facility] Comment on above: Performed By: #### B MPF, FT4, LIPRF, TSH #### [facility] [address] [place] [address] Package Clerk: Deep Gonzalez MD Basic Metabolic Panel, Fasti ngOrdered By: Armando Felix on 03-17-2019 Anion gap [Moles/Vol] 12 mmol/L 9 - 17 mmol/L [employer] Phone: Bun/Cre Ratio NOT REPORTED [facility] Work Phone: Calcium [Mass/Vol] 9.1 mg/dL 8.6 - 10. 4 mg/dL [employer] Phone: Chloride [Moles/Vol] 102 mmol/L 98 - 10 7 mmol/L [employer] Phone: CO2 [Moles/Vol] 25 mmol/L 20 - 31 mmol/L [employer] Phone: Creatinine [Mass/Vol] 0.66 mg/dL 0.5 - 0.9 mg/dL [employer] Phone: GFR >60 >60 mL/min [employer] Work Phone: GFR Comment [employer] Phone: Comment on above: Average GFR for 20-2 9 years old: 116 mL/min/1.73sq m Chronic Kidney Disease: <60 mL/min/1.73sq m Kidney failure: <15 mL/min/1.73sq m eGFR calculated using average adult body mass. Additional eGFR calculator available at: http://www.LC Style.com/multiple_crcl_2012.htm GFR Non- >60 >60 mL/min [employer] Work Phone: GFR Staging NOT REPORTED [employer] Work Phone: Glucose [Mass/Vol] 82 mg/dL 70 - 99 mg/dL [employer] Phone: Potassium [Moles/Vol] 4.3 mmol/L 3.7 - 5.3 mmol/L [employer] Phone: Sodium [Moles/Vol] 139 mmol/L 135 - 144 mmol/L [facility] Phone: Urea nitrogen [Mass/Vol] 11 mg/dL 6 - 20 mg/dL [employer] Phone: Lipid Prof, Fastingon 2019 Cholesterol [Mass/Vol] 153 mg/dL Normal <200 [facility] Comment on above: Result Comment: Cholesterol Guidelines: <200 Desirable 200-240 Borderline >240 Undesirable Performed By: #### B MPF, FT4, LIPRF, TSH #### [employer] [address] [place], [place] [id number] Package Clerk: Deep Gonzalez MD Cholesterol in HDL [Mass/Vol] 56 mg/dL Normal >40 [facility] Comment on above: Result Comment: HDL Guidelines: <40 Undesirable 40-59 Borderline >59 Desirable Performed By: #### B MPF, FT4, LIPRF, TSH #### [employer] [facility] [address] [place], [place] [phone] Package Clerk: Deep Gonzalez MD Cholesterol in LDL [Mass/Vol] 72 mg/dL Normal 0-130 [facility] Comment on above: Result Comment: LDL Guidelines: <100 Desirable 100-129 Near to/above Desirable 130-159 Borderline >159 Undesirable Direct (measured) LDL and calculated LDL are not interchangeable tests. Performed By: #### B MPF, FT4, LIPRF, TSH #### [facility] [employer] [address] [place] [id number] Package Clerk: Deep Gonzalez MD Cholesterol.total/Ch olesterol in HDL [Mass ratio] 2.7 {ratio} Normal <5 [facility] Comment on above: Performed By: #### B MPF, FT4, LIPRF, TSH #### [facility] [employer] [address] [place] [phone] Package Clerk: Deep Gonzalez MD Triglyceride,Fasting 125 mg/dL Normal <150 [facility] Comment on above: Result Comment: Triglyceride Guidelines: <150 Desirable 150-199 Borderline 200-499 High >499 Very high Based on AHA Guidelines for fasting triglyceride, December 2011. Performed By: #### B MPF, FT4, LIPRF, TSH #### [facility] [employer] [address] [place] [phone] Package Clerk: Deep Gonzalez MD Cholesterol in VLDL [Mass/Vol] NOT REPORTED Normal 1-30 [facility] Comment on above: Performed By: #### B MPF, FT4, LIPRF, TSH #### [facility] [employer] [address] [place] [phone] Package Clerk: Deep Gonzalez MD Lipid, FastingOrdered By: Simin Felix on 03-17-2019 Cholesterol [Mass/Vol] 153 mg/dL <200 [employer] Phone: Comment on above: Cholesterol Guidelines: <200 Desirable 200-240 Borderline >240 Undesirable Cholesterol in HDL [Mass/Vol] 56 mg/dL >40 [employer] Phone: Comment on above: HDL Guidelines: <40 Undesirable 40-59 Borderline >59 Desirable Cholesterol in LDL [Mass/Vol] 72 mg/dL 0 - 130 mg/dL [employer] Phone: Comment on above: LDL Guidelines: <100 Desirable 100-129 Near to/above Desirable 130-159 Borderline >159 Undesirable Direct (measured) LDL and calculated LDL are not interchangeable tests. Cholesterol.total/Ch olesterol in HDL [Mass ratio] 2.7 {ratio} <5 [employer] Phone: Triglyceride, Fasting 125 mg/dL <150 [employer] Phone: Comment on above: Triglyceride Guidelines: <150 Desirable 150-199 Borderline 200-499 High >499 Very high Based on AHA Guidelines for fasting triglyceride, December 2011. VLDL NOT REPORTED 1 - 30 mg/dL [employer] Phone: T4, FreeOrdered By: Armando castro on 03-17-2019 Thyroxine, Free 1.16 ng/dL 0.93 - 1.7 ng/dL [employer] Phone: TSHOrdered By: Armando goff 03-17-2019 TSH Qn 1.57 m[IU]/L [employer] Phone: Thyroid Stim. Horm.on 2019 TSH Qn 1.57 m[IU]/L Normal 0.30-5.00 [facility] Comment on above: Performed By: #### B MPF, FT4, LIPRF, TSH #### [employer] [address] [place] [id number] Package Clerk: Deep Gonzalez MD Thyroxine, Freeon 03-17-2019 Thyroxine, Free 1.16 ng/dL Normal 0.93-1.70 [facility] Comment on above: Performed By: #### B MPF, FT4, LIPRF, TSH #### [employer] [address] [place] [address] [id number] Package Clerk: Deep Gonzalez MD Vital Signs Date Time Vital Sign Value Performing Clinician Jair erickson 05-30-2024 10:09-0400 Body mass index (BMI) [Ratio] 49.68 kg/m2 Thomas Giovanny DO Work Phone: [facility] 05-30-2024 10:09-0400 Body weight 139.62 kg Thomas Giovanny DO Work Phone: [facility] 05-30-2024 10:09-0400 Diastolic blood pressure 84 mm[Hg] Thomas Giovanny DO Work Phone: [facility] 05-30-2024 10:09-0400 Systolic blood pressure 124 mm[Hg] Thomas Giovanny DO Work Phone: [facility] 05-09-2024 12:31-0400 Body height 167.6 cm Digna Verdugo PATTERN FITTER-FOREIGN EXCHANGE STUDENT COORDINATOR Work Phone: [facility] 05-09-2024 12:31-0400 Body mass index (BMI) [Ratio] 49.29 kg/m2 Digna Verdugo PATTERN FITTER-FOREIGN EXCHANGE STUDENT COORDINATOR Work Phone: [facility] 05-09-2024 12:31-0400 Body weight 138.53 kg Digna Verdugo PATTERN FITTER-FOREIGN EXCHANGE STUDENT COORDINATOR Work Phone: [facility] 05-09-2024 12:31-0400 Diastolic blood pressure 66 mm[Hg] Digna Verdugo PATTERN FITTER-FOREIGN EXCHANGE STUDENT COORDINATOR Work Phone: [facility] 05-09-2024 12:31-0400 Heart rate 80 /min Digna Verdugo PATTERN FITTER-FOREIGN EXCHANGE STUDENT COORDINATOR Work Phone: [facility] 05-09-2024 12:31-0400 Systolic blood pressure 111 mm[Hg] Digna Verdugo PATTERN FITTER-FOREIGN EXCHANGE STUDENT COORDINATOR Work Phone: [facility] 12-28-2023 14:22-0400 Body height 167.6 cm Thomas Giovanny DO Work Phone: [facility] 12-28-2023 14:22-0400 Body mass index (BMI) [Ratio] 49.71 kg/m2 Thomas Giovanny DO Work Phone: [facility] 12-28-2023 14:22-0400 Body weight 139.71 kg Thomas Giovanny DO Work Phone: [facility] 12-28-2023 14:22-0400 Diastolic blood pressure 80 mm[Hg] Thomas Giovanny DO Work Phone: [facility] 12-28-2023 14:22-0400 Systolic blood pressure 122 mm[Hg] Thomas Giovanny DO Work Phone: [facility] Healthcare Encounters Encounter Date Encounter Type Care Provider Facility Start: 05-30-2024 End: 05-30-2024 Bamboo flowsheet Thomas Giovanny DO Work Phone: [facility] Start: 05-30-2024 End: 06-02-2024 Bamboo flowsheet Thomas Giovanny DO Work Phone: [facility] Start: 05-30-2024 End: 06-02-2024 Clinisync Result Encounter Thomas Giovanny DO Work Phone: [facility] External Department Unsolicited Start: 05-30-2024 End: 05-30-2024 Office outpatient visit 10 minutes Thomas Giovanny DO Work Phone: [facility] Comment on above: ASCUS with positive high risk HPV cervical Start: 05-30-2024 End: 05-30-2024 ambulatory THOMAS GIOVANNY Not Available Start: 05-09-2024 End: 05-09-2024 Office outpatient visit 25 minutes Digna EDWARD Work Phone: [facility] Comment on above: Gastroparesis (Prima ry Dx); Chronic superficial gastritis without bleeding; Chronic diarrhea; Upper abdominal pain; Gastroesophageal reflux disease, unspecified whether esophagitis present Start: 04-05-2024 End: 04-05-2024 Orders Only [facility] Comment on above: Upper abdominal pain (Primary Dx); Diarrhea, unspecified type; Gastroesophageal reflux disease, unspecified whether esophagitis present Start: 03-21-2024 End: 03-21-2024 [facility] Phone Call Provider 2 [facility] Start: 02-29-2024 End: 02-29-2024 Orders Only Lou Sandhu CMA [facility] Comment on above: Upper abdominal pain (Primary Dx); Acute gastritis without hemorrhage, unspecified gastritis type Start: 02-22-2024 End: 02-22-2024 Telephone encounter Blanca Reyes RN [facility] Start: 12-28-2023 End: 12-28-2023 Office outpatient visit 15 minutes Thomas Giovanny DO Work Phone: [facility] Comment on above: LGSIL of cervix of u ndetermined significance Start: 12-28-2023 End: 12-28-2023 ambulatory THOMAS GIOVANNY Not Available Start: 12-28-2023 End: 12-28-2023 Bamboo flowsheet Thomas Giovanny DO Work Phone: [facility] Start: 12-28-2023 End: 01-06-2024 Bamboo flowsheet Thomas Giovanny DO Work Phone: [facility] Start: 12-28-2023 End: 01-06-2024 Clinisync Result Encounter Thomas Giovanny DO Work Phone: [facility] Department Unsolicited Start: 12-02-2023 End: 12-02-2023 Office outpatient visit 15 minutes Tania Northeim PA Work Phone: [facility] Comment on above: Visit for wound chec k (Primary Dx); Leukocytoclastic vasculitis (CMS/HCC) Start: 12-02-2023 End: 12-02-2023 ambulatory TANIA NORTHEIM Not Available Start: 11-17-2023 End: 11-17-2023 Bamboo flowsheet Thomas Giovanny DO Work Phone: [facility] Start: 11-17-2023 End: 11-17-2023 Bamboo flowsheet Thomas Giovanny DO Work Phone: [facility] Start: 11-17-2023 End: 11-17-2023 Office outpatient visit 15 minutes Thomas Giovanny DO Work Phone: [facility] Comment on above: Acute vaginitis; Vaginal discharge; STD exposure; Yeast infection Start: 11-17-2023 End: 11-17-2023 ambulatory THOMAS GIOVANNY Not Available Start: 11-10-2023 End: 11-10-2023 Bamboo flowsheet [facility] Work Phone: [facility] Start: 11-10-2023 End: 11-10-2023 Bamboo flowsheet [facility] Work Phone: [facility] Start: 11-10-2023 End: 11-10-2023 ambulatory TANIA FABIANM Not Available Start: 11-10-2023 End: 11-10-2023 Office outpatient visit 15 minutes Tania [employer] PA Work Phone: [facility] Comment on above: Vasculitis of skin ( Primary Dx); Encounter for removal of sutures Start: 10-27-2023 End: 10-27-2023 Patient encounter procedure Tania Tavarez PA Work Phone: [facility] Comment on above: Rash and other nonsp ecific skin eruption (Primary Dx) Start: 10-27-2023 End: 10-27-2023 ambulatory TANIA KARINEEIM Not Available Start: 06-24-2023 End: 06-24-2023 ambulatory THOMAS GIOVANNY Not Available Start: 10-15-2019 End: 10-16-2019 Patient encounter procedure MILY SHELTON Facility:[facility] Start: 09-08-2019 End: 09-09-2019 Patient encounter procedure MILY SHELTON Facility:[facility] Start: 03-17-2019 End: 03-18-2019 Patient encounter procedure ARMANDO FELIX [facility] Start: 03-17-2019 End: 03-17-2019 Subsequent hospital visit by physician Armando Felix MD Work Phone: [facility] Comment on above: Annual physical exam ; Encounter for lipid screening for cardiovascular disease; Depression with anxiety Procedures Date Procedure Procedure Detail Performing Clinician Start: 05-30-2024 PAP IG, APT HPV RFX 16/18,45 Thomas Giovanny DO Work Phone: Start: 12-28-2023 TBH IGP,RFX APTIMA H PV ALL PTH Thomas Giovanny DO Work Phone: Start: 12-28-2023 Cytp cerv/vag auto t hin layer prep mnl screen Thomas Giovanny DO Work Phone: Start: 10-27-2023 SKIN / NAIL BIOPSY Stanley CARLIN Work Phone: Start: 06-24-2023 COLPOSCOPY [facility] Work Phone: Start: 05-20-2022 Microscopic observat ion [Identifier] in Cervix by Cyto stain Blanca Reyes RN Start: 03-17-2019 Assay of free thyroxine ARMANDO FELIX Start: 03-17-2019 Assay of thyroid stimulating hormone tsh ARMANDO FELIX Start: 03-17-2019 Basic metabolic pane l calcium total ARMANDO FELIX Start: 03-17-2019 Lipid panel ARMANDO Meraz Start: 03-17-2019 Assay of free thyroxine Armando Felix MD Work Phone: Start: 03-17-2019 Lipid panel Armando Felix MD Work Phone: Plan of Treatment Date Care Activity Detail Author Start: 01-23-2032 DTaP,Tdap and Td Vaccines (7 - Td or Tdap) DTaP,Tdap and Td Vaccines (7 - Td or Tdap) [facility] Start: 05-20-2025 Screening for malignant neoplasm of cervix Pap Smear [facility] Start: 05-09-2025 Adult BMI Screening Adult BMI Screening [facility] Start: 05-09-2025 Tobacco Screening Tobacco Screening [facility] Start: 03-31-2025 Tobacco Screening Tobacco Screening [facility] Start: 03-21-2025 Tobacco Screening Tobacco Screening [facility] Start: 02-09-2025 Adult BMI Screening Adult BMI Screening [facility] Start: 02-09-2025 Tobacco Screening Tobacco Screening [facility] Start: 12-13-2024 End: 12-13-2024 Patient encounter procedure 12/13/2024 10:20 AM EDT Of fice Visit [facility] [address] [place] [address] Thomas Baltazar, DO [address] [place] [address] [facility] Start: 06-28-2024 End: 06-28-2024 Patient encounter procedure 06/28/2024 1:00 PM EDT Off ice Visit [facility] [address] [place] [id number] Thomas Baltazar, DO [address] [place] [address] [facility] Start: 05-30-2024 End: 05-30-2024 Patient encounter procedure [facility] Comment on above: Arrived Start: 04-05-2024 End: 04-05-2025 NM Stomach Views for gastric emptying solid phase W radionuclide PO NM gastric emptying solid Imaging Routine Upper abdominal pain Diarrhea, unspecified type Gastroesophageal reflux disease, unspecified whether esophagitis present Expected: 04/05/2024, Expires: 04/05/2025 [employer] Comment on above: Expected: 04/05/2024, Expires: Start: 04-05-2024 End: 04-05-2025 US Abdomen limited Ultrasound abdomen limited Imaging Routine Upper abdominal pain Diarrhea, unspecified type Gastroesophageal reflux disease, unspecified whether esophagitis present Expected: 04/05/2024, Expires: 04/05/2025 [employer] Work Phone: Comment on above: Expected: 04/05/2024, Expires: Start: 03-31-2024 End: 03-31-2024 Admission to same day surgery center 03/31/2024 12:30 PM EST - 03/31/2024 1:15 PM EST Surgery [facility] [address] [place] [address] [place] [address] [place] [address], [address] [place] [address] ESOPHAGOGASTRODUODENOSCOPY DIAGNOSTIC [25975 (CPT )] [facility] Comment on above: ESOPHAGOGASTRODUODENOSCOPY DIAGNOSTIC [4 3235 (CPT )] Start: 03-31-2024 End: 03-31-2024 Esophagogastroduodenoscopy transoral diagnostic ESOPHAGOGASTRODUODENOSCOPY DIAGNOSTIC GERD K21.9 Upper abdominal pain R10.10 03/31/2024 12:30 PM EST [facility] Start: 03-31-2024 Subsequent hospital visit by physician 03/31/2024 12:30 PM EST Hospital Encounter [facility] [address] [place] [phone] Mark Julian MD [facility], [address] [place] [address] [facility] Start: 03-21-2024 End: 03-21-2024 Admission to establishment 03/21/2024 10:00 AM EST Support Visit [facility] On [address] [address] [facility] Start: 12-28-2023 End: 12-28-2023 Patient encounter procedure [facility] Comment on above: Arrived Start: 12-02-2023 End: 12-01-2024 CBC W Auto Differential panel - Blood CBC and differential Lab Routine Leukocytoclastic vasculitis (CMS/HCC) Expected: 12/02/2023 (Approximate), Expires: 12/01/2024 [facility] Work Phone: Comment on above: Expected: 12/02/2023 (Approximate), Expi res: 12/01/2024 Start: 12-02-2023 End: 12-01-2024 Urinalysis complete panel - Urine Urinalysis with reflex microscopic Lab Routine Leukocytoclastic vasculitis (CMS/HCC) Expected: 12/02/2023 (Approximate), Expires: 12/01/2024 [facility] Comment on above: Expected: 12/02/2023 (Approximate), Expi res: 12/01/2024 Start: 11-17-2023 End: 11-17-2023 Patient encounter procedure 11/17/2023 11:20 AM EDT Of fice Visit [facility] [address] [place] [phone] Thomas Baltazar DO [address] [place] [address] Arrived [facility] Comment on above: Arrived Start: 11-10-2023 End: 11-10-2023 Patient encounter procedure 11/10/2023 1:40 PM EDT Off ice Visit [facility] [address] [place] [address] Tania Rodsa PA [address] [place] [phone] [facility] Start: 11-01-2023 COVID-19 Vaccine ( season) COVID-19 Vaccine ( season) [facility] Start: 11-01-2023 Influenza vaccination Influenza Vaccine [facility] Start: 04-28-2019 End: 04-28-2019 Patient encounter procedure 04/28/2019 Office Visit [place] [address] [facility] [place] [address] [phone] [facility] Start: 10-31-2018 Influenza vaccination Flu vaccine (#1) [employer] Phone: Start: 2017 Cervical cancer screen Cervical cancer screen [employer] Phone: Start: 2014 Adult BMI Follow Up Plan [facility] Start: 2012 Chlamydia screen Chlamydia screen [employer] Phone: Start: 09-06-2011 HIV screen HIV screen [employer] Phone: Start: 2008 [facility] Start: 09-06-2007 DTaP/Tdap/Td vaccine (6 - Tdap) DTaP/Tdap/Td vaccine (6 - Tdap) [employer] Phone: Start: 09-06-2007 HPV vaccine (1 - Female 2-dose series) HPV vaccine (1 - Female 2-dose series) [employer] Phone: Start: 2002 Pneumococcal 0-64 years Vaccine (1 of 1 - PPSV23) Pneumococcal 0-64 years Vaccine (1 of 1 - PPSV23) [employer] Phone: Start: 1997 Varicella Vaccine (1 of 2 - 2-dose childhood series) Varicella Vaccine (1 of 2 - 2-dose childhood series) [employer] Phone: End: 02-28-2025 Calprotectin, F Calprotectin, F Lab Routine Acute gastritis without hemorrhage, unspecified gastritis type Upper abdominal pain 1 Occurrences starting 02/29/2024 until 02/28/2025 [employer] Phone: Comment on above: 1 Occurrences starting 02/29/2024 until 02/28/2025 CHLAMYDIA TRACHOMATI S (GENITO/STI) CHLAMYDIA TRACHOMATIS (GENITO/STI) Lab Routine STD exposure Ordered: 11/17/2023 [facility] [employer] Comment on above: Ordered: 11/17/2023 End: 05-09-2025 Colonoscopy Colonoscopy GI Routine Chron ic diarrhea 1 Occurrences starting 05/09/2024 until 05/09/2025 [employer] Phone: Comment on above: 1 Occurrences starting 05/09/2024 until 05/09/2025 Cytology Cervical or vaginal smear or scraping study Pap Smear Pathology and Cytology Routine LGSIL of cervix of undetermined significance Ordered: 12/28/2023 [employer] Work Phone: Comment on above: Ordered: 12/28/2023 Cytology Cervical or vaginal smear or scraping study Pap Smear Pathology and Cytology Routine ASCUS with positive high risk HPV cervical Ordered: 05/30/2024 [facility] [employer] Work Phone: Comment on above: Ordered: 05/30/2024 Dermatopathology exam Dermatopat hology exam Pathology and Cytology Timed Rash and other nonspecific skin eruption Release Upon Ordering for 1 Occurrences starting 10/27/2023 [facility] [employer] Work Phone: Comment on above: Release Upon Ordering for 1 Occurrences starting 10/27/2023 Neisseria gonorrhoea e DNA [Presence] in Unspecified specimen by ALEX with probe detection Neisseria gonorrhea DNA probe, direct Lab Routine STD exposure Ordered: 11/17/2023 [facility] [employer] Comment on above: Ordered: 11/17/2023 SURESWAB(R) ADVANCED VAGINITIS PLUS, TMA SURESWAB(R) ADVANCED VAGINITIS PLUS, TMA Pathology and Cytology Routine Vaginal discharge Ordered: 11/17/2023 [facility] [employer] Work Phone: Comment on above: Ordered: 11/17/2023 Immunizations Immunization Date Immunization Notes Care Provider [facility] 01-22-2022 influenza virus vaccine, unspecified formulation Blanca Reyes RN [facility] 10-19-2001 diphtheria, tetanus toxoids and acellular pertussis vaccine, unspecified formulation Armando Felix MD Work Phone: [employer] Work Phone: 10-19-2001 measles, mumps and rubella virus vaccine Armando Felix MD Work Phone: [employer] Work Phone: 10-19-2001 poliovirus vaccine, inactivated Armando Felix MD Work Phone: [employer] Work Phone: 04-04-1998 trivalent poliovirus vaccine, live, oral Armando Felix MD Work Phone: [employer] Work Phone: 12-08-1997 diphtheria, tetanus toxoids and acellular pertussis vaccine, unspecified formulation Armando Felix MD Work Phone: [employer] Work Phone: 12-08-1997 haemophilus influenz ae type b vaccine, conjugate unspecified formulation Armando Felix MD Work Phone: [employer] Work Phone: 09-14-1997 hepatitis B vaccine, pediatric or pediatric/adolescent dosage Armando Felix MD Work Phone: [employer] Work Phone: 09-14-1997 measles, mumps and rubella virus vaccine Armando Felix MD Work Phone: [employer] Work Phone: 03-14-1997 diphtheria, tetanus toxoids and acellular pertussis vaccine, unspecified formulation Armando Felix MD Work Phone: [employer] Work Phone: 03-14-1997 haemophilus influenz ae type b vaccine, conjugate unspecified formulation Armando Felix MD Work Phone: [employer] Work Phone: 01-06-1997 diphtheria, tetanus toxoids and acellular pertussis vaccine, unspecified formulation Armando Felix MD Work Phone: [employer] Work Phone: 01-06-1997 haemophilus influenz ae type b vaccine, conjugate unspecified formulation Armando Felix MD Work Phone: [employer] Work Phone: 01-06-1997 trivalent poliovirus vaccine, live, oral Armando Felix MD Work Phone: [employer] Work Phone: 1996 diphtheria, tetanus toxoids and acellular pertussis vaccine, unspecified formulation Armando Felix MD Work Phone: [employer] Work Phone: 1996 haemophilus influenz ae type b vaccine, conjugate unspecified formulation Armando Felix MD Work Phone: [employer] Work Phone: 1996 hepatitis B vaccine, pediatric or pediatric/adolescent dosage Armando Felix MD Work Phone: [employer] Work Phone: 1996 trivalent poliovirus vaccine, live, oral Armando Felix MD Work Phone: [employer] Work Phone: 1996 hepatitis B vaccine, pediatric or pediatric/adolescent dosage Armando Felix MD Work Phone: [employer] Work Phone: Payers Date Payer Category Payer Medicaid [employer] [employer] [id number] 2022-Present [address] [address] [id number] 2022 Medicaid (Managed Care) [employer] [id number] 2022 Medicaid [id number] 2021 Medicaid [place] [employer] [id number] 2014 Unknown BCBS [place] P PO xxxxxxxxxxxx 2014-Present [address] [place] [address] xxxxxxxxxxxx [id number] 1996 Unknown [id number] 1996 Unknown [id number] 1996 Unknown [id number] 1996 Unknown [id number] 9 1996 Unknown [id number] 1259 1996 Unknown [id number] 9 1996 Unknown [id number] 9 1996 Unknown [id number] 9 1996 Unknown [id number] 9 1996 Unknown [id number] 1259 1959 Unknown [id number] Social History Date Type Detail Facility Start: 03-17-2019 [facility] [employer] Phone: History of tobacco use Cigarette Smoker [employer] Start: 03-17-2019 End: 12-02-2023 Cigarettes smoked current (pack per day) - Reported [facility] Start: 03-17-2019 End: 03-31-2024 Alcohol intake Current drinker of alcohol (finding) [employer] Work Phone: Start: 03-17-2019 Alcohol Comment Socially [employer] Work Phone: Start: 1996 [facility]igned At [facility] file [facility] Work Phone: Start: 11-10-2023 End: 05-09-2024 Tobacco smoking status NDIS Ex-smoker [facility] History of tobacco use Current smoker [facility] Start: 11-10-2023 End: 05-09-2024 Tobacco use and exposure Smokeless tobacco non-user [facility] Start: 04-12-2020 End: 12-02-2023 Tobacco use panel [facility] Start: 03-29-2023 Gender identity Identifies as female gender (finding) [facility] Start: 03-29-2023 Sexual orientation Pansexual [facility] Start: 10-27-2023 Tobacco smoking stat [facility] Tobacco smoking consumption unknown [facility] Start: 02-09-2019 Alcohol Comment socially [facility] Start: 10-05-2014 Sex Female (finding) [facility] Start: 03-21-2024 Tobacco Comment Approx 0.5ppd x 5 ye ars [facility] History of tobacco use Passive smoker [facility] Start: 05-09-2024 Alcoholic beverage intake Ex-drinker (finding) [facility] Clinical Notes 10-27-2023 to 05-30-2024 Nuris Landry NP - 05/30/2024 10:00 AM Fredo Verdugo APRN-MARY - 05/09/2024 12:30 PM EDTPatient InstructionsTelephone Encounter - Blanca Reyes RN - 02/22/2024 10:24 AM EST Note Date & Type Note Facility 05-30-2024 History of Present illness Narrative Reason for Appointment: Patient ID: Anali Lira is a 28 y.o. female who presents for Repeat Pap Patient presents today for Repeat Pap. MEDICATIONS Current Outpatient Medications Medication Instructions ARIPiprazole (ABILIFY) 10 mg, Oral, Daily hydrOXYzine pamoate (Vistaril) 25 MG capsule lamoTRIgine (LAMICTAL) 100 mg, Oral, Every 24 hours sertraline (ZOLOFT) 75 mg, Oral, Daily traZODone [...] cervical cancer screening 2022 neg/ [facility]. Adams [facility] Social History Tobacco Use Smoking status: Former Types: Cigarettes Smokeless tobacco: Never Substance Use Topics Alcohol use: Not on file Drug use: Not on file FAMILY HISTORY No family history on file. SURGICAL HISTORY Past Surgical History: Procedure Laterality Date CT ANGIOGRAM HEART CORONARY 01/22/2024 CT ANGIOGRAM TAVR 01/22/2024 REVIEW OF SYSTEMS Review of Systems: Review of Systems Constitutional: Negative. HENT: Negative. Eyes: Negative. Respiratory: Negative. Cardiovascular: Negative. Gastrointestinal: Negative. Genitourinary: Negative. Musculoskeletal: Negative. Skin: Negative. Neurological: Negative. All other systems reviewed and are negative. Hematological: Negative. Endocrine: Negative. Allergic/Immunologic: Negative. OBJECTIVE Objective: Physical Exam Constitutional: Appearance: Normal appearance. She is well-developed. Cardiovascular: Rate and Rhythm: Normal rate and regular rhythm. Pulmonary: Effort: Pulmonary effort is normal. Breath sounds: Normal breath sounds. Abdominal: General: Bowel sounds are normal. There is no distension. Palpations: Abdomen is soft. Tenderness: There is no abdominal tenderness. There is no guarding or rebound. Musculoskeletal: General: No swelling. Normal range of motion. Right lower leg: No edema. Left lower leg: No edema. Neurological: Mental Status: She is alert and oriented to person, place, and time. Skin: General: Skin is warm and dry. Psychiatric: Mood and Affect: Mood normal. Behavior: Behavior normal. Vitals and nursing note reviewed. Exam conducted with a deep fryer assembler present. Vitals: Estimated body mass index is 49.68 kg/m as calculated from the following: Height as of 12/28/23: 5' 6 . Weight as of this encounter: 307 lb 12.8 oz. BP: 124/84 Patient's last menstrual period was 05/10/2024 (exact date). ASSESSMENT & PLAN ICD-10-CM 1. ASCUS with positive high risk HPV cervical R87.610 Pap Smear R87.810 Presents to office today for repeat Pap and will return in 6 months for repeat PAP. Patient without complaints or conerns today. Documented by Nuris Landry NP on behalf of: Thomas Baltazar DO documented in this encounter [facility] 05-09-2024 History of Present illness Narrative [facility] Follow Up CHIEF COMPLAINT: Chief Complaint Patient presents with Follow-up Follow up, states she feels ok, gastric emptying test results Results HISTORY OF PRESENT ILLNESS: Anali Lira is a 28 y.o. female who has a past medical history of depression who presents today for follow up. She was initially seen in January 2024 with complaints of upper abdominal pain radiating to the mid back that started in January 2024. Pain was aggravated by eating. No specific trigger foods. The pain was not related to moving her bowels. She was evaluated in the ED. Labs showed normal CBC. Liver enzymes with ALT 59. CRP 0.9. CT A/P with contrast revealed no acute abnormalities. She was given GI cocktail with some improvement. She was discharged home with Carafate 1 gram QID and Omeprazole 40 mg daily. She underwent EGD with Dr. Julian in March 2024 that revealed irregular Z-line and gastritis. Biopsies revealed chronic gastritis. No H. Pylori infection. GI panel was positive for Sapovirus. C diff was negative. Fecal calprotectin was 127. SPGES 04/2024 was delayed with 37% remaining at 4 hours. Abdominal ultrasound 04/2024 showed mildly distended gallbladder without shadowing stones or biliary ductal dilatation. Today she has no complaints of abdominal pain. No nausea/vomiting. She continues to have diarrhea. Diarrhea has been ongoing for the past 6-12 months. She was started on Metformin roughly 1.5 years ago. She is moving her bowels 2-5 times a day. She has loose, sometimes watery stools with urgency to move her bowels. She has occasional nocturnal stools. No hematochezia or melena. No hard stools, straining or incomplete evacuation. She continues to take daily PPI. She has stopped Carafate. Appetite is good. No weight loss. No prior colonoscopy. No known family history of GI disorders or malignancy. She rarely consumes alcohol. No illicit drug use. She does vape. Prior Endoscopic Evaluation: EGD 03/31/[address] Julian: Findings: The first portion of the duodenum and second portion of the duodenum were normal. Diffuse moderate inflammation characterized by congestion (edema) and erythema was found in the entire examined stomach. Biopsies were taken with a cold forceps for Helicobacter pylori testing. Estimated blood loss was minimal. The Z-line was irregular and was found 43 cm from the incisors. Mucosa was biopsied with a cold forceps for histology in a targeted manner in the lower third of the esophagus. One specimen bottle was sent to pathology. Final Pathologic Diagnosis 1. Gastric biopsies: Chronic active gastritis. Immunostain for H. pylori is pending. No intestinal metaplasia or dysplasia identified. 2. Distal esophageal biopsies: Unremarkable squamous and gastric cardiac mucosa. No active or eosinophilic esophagitis identified. No intestinal metaplasia or dysplasia identified. Report Electronically Signed Out [facility]/04/04/2024Suog Perez M.D. Addendum ([facility]) Date Reported: 04/05/2024 1. Immunohistochemical stain for H. pylori is negative with satisfactory control. Past Medical History: Diagnosis Date Anxiety Bipolar disorder ([facility]) Depression GERD (gastroesophageal reflux disease) PCOS (polycystic ovarian syndrome) Upper abdominal pain Visual impairment Glasses PREVIOUS ENDOSCOPY OR X-RAY PROCEDURES: As noted in the HPI Past Surgical History: Past Surgical History: Procedure Laterality Date ESOPHAGOGASTRODUODENOSCOPY BIOPSY N/A 03/31/2024 Performed by Mark Julian MD at [facility] Current Medications: Current Outpatient Medications: ARIPiprazole (ABILIFY) 15 mg tablet, Take 1 tablet (15 mg total) by mouth once daily at bedtime., Disp: , Rfl: hydrOXYzine (VISTARIL) 25 mg capsule, Take 1 capsule (25 mg total) by mouth 2 (two) times a day as needed., Disp: , Rfl: lamoTRIgine (LaMICtal) 100 mg tablet, Take 1 tablet (100 mg total) by mouth in the morning., Disp: , Rfl: lamoTRIgine (LaMICtal) 25 mg tablet, Take 1 tablet (25 mg total) by mouth Daily before evening meal., Disp: , Rfl: metFORMIN (GLUCOPHAGE) 500 mg tablet, Take 1 tablet (500 mg total) by mouth nightly., Disp: , Rfl: 25/iron fum/folic/dha (-1 ORAL), Take by mouth., Disp: , Rfl: sertraline (ZOLOFT) 50 mg tablet, Take 1.5 tablets (75 mg total) by mouth in the morning., Disp: , Rfl: traZODone (DESYREL) 50 mg tablet, Take 1 tablet (50 mg total) by mouth nightly as needed., Disp: , Rfl: omeprazole (PriLOSEC) 40 mg capsule, Take 1 capsule (40 mg total) by mouth every morning before breakfast., Disp: 30 capsule, Rfl: 11 I reviewed and reconciled this patient's medication list today. The list included in this note is the most up to date list that I can attest to at this time based on the information that the patient has provided me and the electronic medical record. ALLERGIES: Amoxicillin SOCIAL HISTORY: Social History Tobacco Use Smoking status: Former Types: Cigarettes Passive exposure: Past Smokeless tobacco: Never Tobacco comments: Approx 0.5ppd x 5 years Vaping Use Vaping status: Every Day Substances: Nicotine, Flavoring Devices: Disposable, Pre-filled pod Substance Use Topics Alcohol use: Not Currently Drug use: Never FAMILY HISTORY: Family History Problem Relation Age of Onset Hypertension Mother Hypertension Father Diabetes Father Anesthesia problems Neg Hx Colon cancer Neg Hx ASSESSMENTS: REVIEW OF SYSTEMS: See HPI, otherwise ROS as below CONSTITUTIONAL: No significant weight change, fatigue, fever, or chills HEENT: No eye pain, difficulty swallowing, or painful swallowing RESPIRATORY: No coughing, shortness of breath, or wheezing CARDIOVASCULAR: No chest pain, palpitations, dyspnea on exertion, or edema GASTROINTESTINAL: Diarrhea; No abdominal pain, nausea/vomiting, or blood in stools GENITOURINARY: No dysuria or hematuria INTEGUMENT/BREAST: No skin rashes or skin lesions HEMATOLOGIC/LYMPHATIC: No anemia or easy bruising ALLERGIC/IMMUNOLOGIC: No seasonal allergies, itching, or hay fever ENDOCRINE: No heat/cold intolerance, no diabetes MUSCULOSKELETAL: No joint/muscle pain or arthritis NEUROLOGICAL: No headache or seizures BEHAVIOR/PSYCH: Depression PHYSICAL EXAM: Vitals: 05/09/24 1231 BP: 111/66 Pulse: 80 Weight: (!) 138.5 kg (305 lb 6.4 oz) Height: 167.6 cm (5' 6 ) Body mass index is 49.29 kg/m . CONSTITUTIONAL: Alert, well developed and well-nourished. No apparent distress. HEAD: Normocephalic, atraumatic EYES: Pupils equal, round and reactive to light; conjunctiva pink; no scleral icterus. ENT: Oral pharynx with moist mucus membranes. LUNGS: No increased work of breathing CARDIOVASCULAR: no edema ABDOMEN: Soft, obese, non-distended and non-tender. SKIN: Warm and dry. No bruising or bleeding, no rashes and no jaundice. MS: Normal range of motion, moves all 4 extremities spontaneously, and ambulates without difficulty. NEURO: Oriented to person, place, and time. No focal deficits. PSYCH: Normal mood and affect. Behavior is normal. Depression Screening DATA: CBC: Lab Results Component Value Date WBC 8.1 01/22/2024 HGB 12.9 01/22/2024 HCT 38.4 01/22/2024 MCV 86 01/22/2024 RDW 15.0 01/22/2024 PLT 334 01/22/2024 CMP: Lab Results Component Value Date K 3.5 01/22/2024 CL 103 01/22/2024 CO2 25 01/22/2024 BUN 9 01/22/2024 GLU 112 (H) 01/22/2024 GLU 113 (H) 02/17/2022 IMAGING: Reviewed. Abdominal ultrasound 04/2024: FINDINGS: No intrahepatic biliary dilatation. The common duct is not dilated and measures 0.4 cm Main portal vein is patent with appropriate direction of flow. Prominent anechoic gallbladder measuring 10.5 x 5.9 x 5.8 cm. No gallstones, gallbladder wall thickening, or pericholecystic fluid demonstrated. Technologist reports negative sonographic Jules's sign. IMPRESSION: Mildly distended gallbladder without shadowing stones or biliary ductal dilatation. SPGES 04/2024: FINDINGS No gastroesophageal reflux. 83% of the tracer was retained in the stomach 1 hour after ingestion (normal range 30-90%). 79% of the tracer was retained 2 hours after ingestion (normal range <60%). 37% of the tracer was retained 4 hours after ingestion (normal range <10%). Raw T 1/2 emptying time: 203.1 minutes IMPRESSION: * Scintigraphic findings consistent with delayed gastric emptying. CT Abdomen with contrast 01/2024: FINDINGS: Liver is unremarkable. Gallbladder is nondilated. No cholelithiasis. No intrahepatic biliary duct dilatation. Spleen, pancreas, and adrenals are unremarkable. Bilateral kidneys and symmetrically. There is no hydronephrosis or hydroureter. Small bowel is nondilated. Air and stool are seen distally and a nonobstructive bowel gas pattern. There is no intra-abdominal free air or pneumatosis. No aneurysmal dilatation of the visualized abdominal aorta. Lung bases are clear. Osseous structures are unremarkable. IMPRESSION: * No acute abnormality of the abdomen or pelvis. ASSESSMENT AND PLAN: Anali Lira is a 28 y.o. female with a past medical history of depression who presents today for follow up. She was evaluated in the ED 01/2024 with complaints of upper abdominal pain. Labs showed normal CBC. Liver enzymes with ALT 59. CRP 0.9. CT A/P with contrast revealed no acute abnormalities. She was given GI cocktail with some improvement. She was discharged home with Carafate 1 gram QID and Omeprazole 40 mg daily. She underwent EGD with Dr. Julian in March 2024 that revealed irregular Z-line and gastritis. Biopsies revealed chronic gastritis. No H. Pylori infection. GI panel was positive for Sapovirus. C diff was negative. Fecal calprotectin was 127. SPGES 04/2024 was delayed with 37% remaining at 4 hours. Abdominal ultrasound 04/2024 showed mildly distended gallbladder without shadowing stones or biliary ductal dilatation. She has no nausea/vomiting or abdominal pain. Her complaint remains daily diarrhea. No blood in the stool. She has occasional nocturnal stools. I have discussed repeat calprotectin. I have also discussed proceeding with colonoscopy with biopsies for evaluation of colitis. I have discussed the risks and benefits of colonoscopy including but not limited to, bleeding, infection, perforation/tear as well as anesthesia risks. Patient verbalized understanding and is agreeable to proceed. Diagnoses and all orders for this visit: Gastroparesis - Smaller, frequent low fat/low fiber meals daily - Consider rope cleaner referral pending clinical course Chronic superficial gastritis without bleeding - Continue Omeprazole 40 mg daily Chronic diarrhea - Colonoscopy; Future with Dr. Julian with MAC at [facility]/- ASA 3 due to BMI - Repeat calprotectin Follow up after colonoscopy or sooner if needed. WAGNER Kapoor [facility] [place] [address] PH: [phone] /ND Total time spent: 45 minutes Preparing to see the patient (e.g., review of tests) Obtaining and/or reviewing separately obtained history Performing a medically appropriate examination and/or evaluation Counseling and educating the patient/family/caregiver Ordering medications, tests, or procedures WAGNER Kohler 05/09/24 1302 documented in this encounter [facility] [employer] [facility] 05-09-2024 Instructions Beckie Files, PROCESS OPERATOR - 05/09/2024 12:30 PM EDT Are You Ready To Kick The Habit? Free Tobacco Cessation Resources [facility] Services [facility] Tobacco Treatment Centers provide all employees with free tobacco cessation services that include: Counseling to understand nicotine addiction Education about medications that can help you successfully quit Assistance with developing a plan to quit Call to set up an individual appointment or find out when group classes will be held: Obinna fernandez [facility]: [phone] [facility]: [phone] [facility]: [phone] [facility]: [phone] Quit Smoking Action Plan and Resources [facility] offers an eight-week, online smoking cessation plan to all [facility] employees, regardless of whether [employer] is your medical insurance provider. Go to www.[employer].org/[email or web address] ess and click the Health Risk Assessment and Resources link to get started. In the [employer] menu, click Action Plans instead of Health Risk Assessment to access the Quit Smoking Action Plan. Additional smoking cessation resources are also available to all [facility] employees on the [employer] web page at [email or web address] Student/quits dalia. [place] Tobacco Cessation Program If [employer] is your medical insurance provider, there are more free resources available to you, including: No copays or deductibles on local tobacco cessation counseling services to help you quit Prescription assistance for tobacco cessation medications to help you quit For details about the tobacco cessation program available to [place] members, go to www.[employer] (Search: Tobacco Cessation Program). [place] Tobacco Quit Line 0-068-OHVD-NOW ( ) is a toll-free, telephonic service that helps [place] residents quit smoking and using tobacco. It is staffed by experts who tailor a quit plan for you and provide you with advice. [place] Tobacco Quit Line 1-148-TDDB-NOW ( ) is a toll-free, telephonic service that helps [place] residents quit smoking and using tobacco. It is staffed by experts who tailor a quit plan for you and provide you with advice. Two weeks of nicotine replacement therapy may be provided at no charge, if needed. Additional Resources These national organizations also offer free information and resources to help you quit tobacco: [place] [employer]--www.cancer.org/healthy/s tayawayfromtobacco [place] [employer]--www.heart.org (Search: Quit Smoking) Centers for Disease Control and Prevention--www.cdc.gov/tobacco [place] [employer]--www.lungusa.org documented in this encounter [facility]-22-2024 Miscellaneous Notes From Cassandra Verdugo EMERGENCY DOCTOR - note Upper abdominal pain - EGD; Future with MAC at [facility]/- ASA [address] Julian documented in this encounter [facility] 02-22-2024 Telephone encounter Note From Cassandra Verdugo EMERGENCY DOCTOR - note Upper abdominal pain - EGD; Future with MAC at [facility] ASA [address] [facility]-28-[facility]23 History of Present illness Narrative Reason for Appointment: Patient ID: [...] cervical cancer screening 2022 neg/ Dr. Adams [facility] Social History Tobacco Use Smoking status: [...] Thomas Baltazar DO documented in this encounter [facility] 12-02-2023 History of Present illness Narrative Wound Check Location: Right alexandra Procedure performed: Punch Biopsy Diagnosis: Leukocytoclastic vasculitis [...] any new/changing lesions documented in this encounter [facility] 11-17-2023 History of Present illness Narrative Reason for Appointment: Patient ID: Anali Lira is a 28 y.o. female who presents for Vaginitis/Bacterial Vaginosis Patient presents today for Acute Visit. MEDICATIONS Current Outpatient Medications Medication Instructions ARIPiprazole (ABILIFY) 10 mg, Oral, Daily bacitracin-polymyxin b (Polysporin) ophthalmic ointment hydrOXYzine pamoate (Vistaril) 25 MG capsule lamoTRIgine [...] cervical cancer screening 2022 neg/ Dr. Adams [facility] Social History Tobacco Use Smoking status: Former Types: Cigarettes Smokeless tobacco: Never Substance Use Topics Alcohol use: Not on file Drug use: Not on file FAMILY HISTORY No family history on file. SURGICAL HISTORY History reviewed. No pertinent surgical history. REVIEW OF SYSTEMS Review of Systems: Review of Systems All other systems reviewed and are negative. OBJECTIVE Objective: Physical Exam Constitutional: Appearance: Normal appearance. She is well-developed. Cardiovascular: Rate and Rhythm: Normal rate and regular rhythm. Pulmonary: Effort: Pulmonary effort is normal. Breath sounds: Normal breath sounds. Abdominal: General: Bowel sounds are normal. There is no distension. Palpations: Abdomen is soft. Tenderness: There is no abdominal tenderness. There is no guarding or rebound. Musculoskeletal: General: No swelling. Normal range of motion. Right lower leg: No edema. Left lower leg: No edema. Neurological: Mental Status: She is alert and oriented to person, place, and time. Skin: General: Skin is warm and dry. Psychiatric: Mood and Affect: Mood normal. Behavior: Behavior normal. Vitals and nursing note reviewed. Exam conducted with a deep fryer assembler present. Vitals: Estimated body mass index is 51.35 kg/m as calculated from the following: Height as of 05/25/23: 5' 6 . Weight as of 06/24/23: 318 lb 1.9 oz. BP: No LMP recorded. ASSESSMENT & PLAN ICD-10-CM 1. Acute vaginitis N76.0 2. Vaginal discharge N89.8 SURESWAB(R) ADVANCED VAGINITIS PLUS, TMA 3. STD exposure Z20.2 CHLAMYDIA TRACHOMATIS (GENITO/STI) Neisseria gonorrhea DNA probe, direct Pt presents today for a yeast infection. She complains of vaginal itching and cottage cheese like discharge. Pt declines vaginal culture. Script for Diflucan sent into her pharmacy. Pt advised to return for cultures if symptoms do not subside. Pt verbalizes understanding. Documented by Libertad Patrick LPN on behalf of: Thomas Baltazar DO documented in this encounter [facility] 11-10-2023 History of Present illness Narrative Images from the original note were not included. Suture Removal Patient here for suture removal: No complaints of redness, drainage or swelling at site, compliant with wound care. Location: Right alexandra Procedure Performed: Punch biopsy Date of Procedure: 10/27/2023 Medications: none Follow up Diagnosis: Rash unspecified Location: legs and feet Last visit: 2 weeks ago Symptoms: red Status: improved Procedure performed: Punch biopsy Date of procedure: 10/27/2023 Treatments tried and failed: lotion Current treatment: here for biopsy results All pertinent medical history, medications, and allergies were reviewed. General Exam: alert , oriented to person, place, and time , normal affect, well appearing Accompanied by daughter A focused exam completed based on patient reported problems, see below: 1. Encounter for removal of sutures Right Alexandra Sutures are intact, Skin edges are well-approximated, Mild erythema along incision line, No drainage or edema noted Mild erythema along incision line Suture removal today, see procedure note: Suture Removal Procedure: Sutures removed without difficulty. Post-Procedure instructions: Instructed to discontinue wound care., Pathology results discussed. 2. Vasculitis of skin Left Leg, Right Leg Palpable purpura of the bilateral lower extremities. Resolved today. 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 Patient denies any infections, known autoimmune diseases or new medications prior to onset. Also denies NSAID or diuretic use prior to onset. No presence of systemic symptoms today. Discussed that this type of vasculitis can be related to underlying systemic disorders including autoimmune and malignancies. Would like patient to see a processing technician for further labs and workup to ensure there is not an underlying systemic cause. Referral to Dr. Medina was initiated. Will leave follow up with us open ended at this time. Should rash return, patient can contact us for follow up. Related Procedures Ambulatory referral to Rheumatology Next Visit: as needed documented in this encounter [facility] 10-27-2023 History of Present illness Narrative Images from the original note were not included. Rash Location: Legs and feet Duration: 3-4 weeks, comes and goes Quality: denies itch, denies burning Associated symptoms: red macules Treatments tried: lotion Current treatments: none New patient, referred by Brandy Paul CNP All pertinent medical history, medications, and allergies were reviewed. Mother has history of Factor V Leiden General Exam: alert , oriented to person, place, and time , normal affect, well appearing Unaccompanied, Accompanied by correction staff A focused exam completed based on patient reported problems, see below: 1. Rash and other nonspecific skin eruption Right alexandra Erythematous macules and papules. Biopsy today, see procedure note. Patient has family history of Factor V Leiden disorder and denies any symptomology with this rash. Biopsy completed today. Can do additional biopsies and/or lab work if needed based on pathology results. Lesion biopsy - Right alexandra Type of biopsy: punch Informed consent: discussed and consent obtained Informed consent comment: The risks and benefits were discussed. Risks include, but are not limited to, bleeding, infection, scarring, pain, & nerve damage. An opportunity to ask questions prior to the procedure was permitted and questions were answered. Patient was prepped and draped in usual sterile fashion: Area cleansed with alcohol. Anesthesia: the lesion was anesthetized in a standard fashion Anesthetic: 1% lidocaine w/ epinephrine 1-100,000 buffered w/ 8.4% NaHCO3 Punch size: 3 mm (A biopsy by punch method was performed using a dermal punch) Suture size: 4-0 Suture type: nylon Suture type comment: Hemostasis was achieved with suture. Suture removal (days): 12 Hemostasis achieved with: suture Outcome: patient tolerated procedure well Post-procedure details: sterile dressing applied and wound care instructions given Post-procedure details comment: Emphasized the need to contact clinic for any signs of infection, uncontrollable bleeding, or complications. Dressing type: bandage Additional details: Amount of lidocaine used: 1.0 cc Number of sutures used: 2 Specimen sent for: H&E Photo taken yes Specimen A - Dermatopathology exam Differential Diagnosis: Vasculitis vs purpura vs LP Next Visit: 12-14 days S/R documented in this encounter [facility] Healthcare Evaluation note Diagnosis Annual physical exam Routine general medical examination at a health care facility Encounter for lipid screening for cardiovascular disease Depression with anxiety Dysthymic disorder documented in this encounter [employer] Phone: evaluation note* Diagnosis Visit for wound check- Primary 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 documented in this encounter [facility] HealthcareEvaluation note* Diagnosis LGSIL of cervix of undetermined significance documented in this encounter [facility] HealthcareEvaluation note* Diagnosis Rash and other nonspecific skin eruption- Primary documented in this encounter [facility] HealthcareEvaluation note* Diagnosis Vasculitis of skin- Primary Encounter for removal of sutures documented in this encounter [facility] HealthcareEvaluation note* Diagnosis Acute vaginitis Unspecified vaginitis and vulvovaginitis Vaginal discharge Leukorrhea, not specified as infective STD exposure Yeast infection documented in this encounter [facility] HealthcareEvaluation note* Diagnosis Upper abdominal pain- Primary Acute gastritis without hemorrhage, unspecified gastritis type [facility] Diagnosis Upper abdominal pain- Primary Diarrhea, unspecified type Gastroesophageal reflux disease, unspecified whether esophagitis present [facility] Diagnosis Gastroparesis- Primary Chronic superficial gastritis without bleeding Chronic diarrhea Diarrhea Upper abdominal pain Gastroesophageal reflux disease, unspecified whether esophagitis present documented in this encounter [facility] SystemEvaluation note* Diagnosis ASCUS with positive high risk HPV cervical documented in this encounter [facility] HealthcareInstructionsNot on filedocumented in this encounterProOhio[facility] SystemInstructionsNot on filedocumented in this encounterProOhiohealth [facility] SystemInstructions* Pre-Procedure Instructions - Heidi Vasquez RN - 03/21/2024 10:00 AM EST Your surgery/procedure is scheduled at [facility] on 03-31-2024 at 12:30pm Arrival Time: 10:30am [facility] Address: [address] [place] [address] Park in [address] Parking lot located on [facility]. Report to the Entrance B. Check in at the information desk the surgery. The waiting room located on the second floor. If you have any questions prior to surgery, please call Pre-Admission Clinic at [phone] between 7:30 am and 4:30 pm Thursday through Thursday. If you have questions the morning of surgery, please call the Pre-op Department at [phone]. Notify your SURGEON if you develop any illness such as a cold, cough, fever, sore throat, vomiting or are hospitalized between now and your surgery. Medication Instructions (Do not stop your medications without consulting the prescribing physician). Take the following medications the morning of surgery with a sip of water: Lamictal and Sertraline Diabetic or Weight loss medications: N/A Take inhalers as prescribed the morning of surgery. Due to the risk associated with these medications. If these medications are not held per instruction below, your surgery is at an increased risk for cancellation. SGLT2 Medications- Hold 3 days prior to surgery: Jardiance, Empagliflozin, Farxiga, Dapagliflozin, Invokana, Canagliflozin, Trijardy, Synjardy GLP-1 Medications (Injection or Pill)- If taken daily hold day of surgery. If taken weekly, hold 1 week prior to surgery: Adlyxin, Byetta, Bydureon, Ozempic, Rybelsus,Trulicity, Victoza, Wegovy, Lixisenatide, Exenatide, Semaglutide, Dulaglutide, Liraglutide GIP/GLP-1(Injection or Pill)- If taken daily hold day of surgery. If taken weekly, hold 1 week prior to surgery: Ilanundemarcoro . Blood thinners: Please contact your prescribing physician regarding a stop/hold date for these medications. Medications such as Coumadin, Heparin, Aspirin, Plavix, Eliquis, Pradaxa Diabetics: If you take insulin, contact your prescribing doctor for instructions on how to manage this the night before and the morning of surgery. Non-steriodal Anti-Inflammatory Drugs (NSAIDS)- Hold 3 days prior to surgery unless otherwise directed by your surgeon. Vitamins/Herbal Products: You may continue to take your prescribed vitamins such as potassium, iron, vitamin B, vitamin C, or multivitamin unless specifically instructed by your surgeon to hold. STOPtaking all herbal products/teas one week prior to your surgery. Marijuana: Stop marijuana 72 hours prior to surgery, stop CBD oil 48 hours prior to surgery. If you have been given bowel prep instructions by your surgeon, please call the surgeon's office with any questions about these instructions. What do I do the day of Surgery? Age 2 through adult - Stop all solids by midnight, You may have clear liquids up to 2 hours before surgery, unless otherwise instructed by your surgeon. Clear liquids are: water, sports drinks such as Gatorade or G2, or apple juice. You may NOT have: tube feedings, dairy products, alcoholic beverages, orange juice, or any liquids with solids or pulp in it. If applicable, shower again with CHG soap the morning of your surgery. If you received a green plastic bracelet, bring it with you the day of surgery and your nurse will put it on you. In order to help prevent infection post-operatively, you may be asked to use a CHG mouthwash when you arrive to the Pre-op area. Your nurse will provide instruction the morning of. What do I need to do to prepare for surgery? If you will be going home the same day as your surgery, arrange for an adult over [address] Riding in a bus or taxi by yourself is not permitted. You should not smoke or drink alcohol 24 hours before your surgery. Alcohol thins the blood and may cause bleeding problems during surgery. Smoking increases the risk of breathing problems after surgery. Do not use lotions, creams, powders, perfume, make up, cologne or after-shaves day of surgery. Remove ALL jewelry including wedding rings, body piercings (including dermal piercings ,hair extensions that contain metal, nail greenlandic, make-up, and contact lens. You may brush your teeth the morning of surgery, but do not swallow the water. Wear your dentures and partial plates to the hospital (no adhesive). Shower the night the before. If applicable, use the CHG (chlorhexidine gluconate) soap or wipes What should I bring to the hospital? If you received a green plastic bracelet, bring it with you the day of surgery and your nurse will put it on you. Eyeglass or contact lens case If you will be spending the night, please bring personal care items and leave them in the car untilyou are taken to your room after surgery. Leave ALL valuables at home. If any of these instructions conflict with those you received from the surgeon, please seek clarification from your surgeon's office. DEEP BREATHING EXERCISES This exercise helps promote good air exchange and helps to prevent pneumonia after surgery. Breathe in slowly and deeply through the nose. Hold your breath for a few seconds and then exhale slowly through the mouth. Repeat this three times and then cough.Coughing helps to clear your lungs. If you have had a surgery with an incision into your abdomen or chest, press gently against your incision with a pillow or a folded blanket when you cough. Please be aware - it may not be rojas to cough following some types of surgeries involving the eyes,ears, sinuses and throat. Always follow your doctor's instructions. LEG EXERCISE These exercises help promote good circulation and help to prevent blood clots after surgery. Point your toes to the ceiling and then point them to the wall. Do this slowly about 15-20 times. You may also move your feet in circles. Do the exercise that is most comfortable for you. If you have had surgery involving your shoulder or arm, we recommend you move your fingers. PRACTICING We ask that you begin practicing these exercises before your surgery. After surgery try to do both exercises at least every 2 hours during the day and early evening. SURGICAL SITE INFECTION PREVENTION What is a Surgical Site Infection? Infection can happen to the area of the body where surgery is done. This is called a surgical site infection (SSI). A SSI does not happen very often. Can SSIs be treated? Antibiotics are used to treat SSI. Some patients may need another surgery to treat the infection. The doctor will discuss treatment options with you. What are some of the things that hospitals are doing to prevent SSIs? Soap and water or alcohol hand rub are used before and after caring for each patient. Special soap is used to clean surgery workers hands and arms just before the surgery. Masks, gowns, gloves and hair covers are worn during the surgery to keep the area clean. Hair in the surgery area may be removed with clippers (not razors). A special soap that kills germs is used to clean the skin at the surgery site. Antibiotics may be given before the surgery starts. What can you do to prevent SSIs? Before surgery: You may be asked to shower or bathe with a special soap that kills germs the night before and the day of surgery. Use the soap as you were told. If you smoke, stop or cut down. Ask your doctor about ways to quit. Do not shave near where you will have surgery. Shaving can irritate the skin and make it easier to get and infection. After surgery: Be sure that the doctors and nurses clean their hands before and after touching you. Be sure your family and friends clean their hands before and after visiting you. Do not be afraid to remind them. * Care for your wound at home as told by your doctor or nurse * Call your doctor right away if you have fever, redness, increased pain, or drainage at the surgery site. Further questions? Contact the doctor, nurse or the Infection Prevention and Control department if you have any questions. PATIENT RIGHTS AND RESPONSIBILITIES As a patient at [facility], you have the right to: Receive medical care and be informed of who is taking care of you Be treated with dignity and respect Have a family member/artist representative of choice and your physician notified of your admission Receive information and actively participate in decisions about your care and treatment Refuse care, treatment and services Decide who may provide your support and speak for you Access oriental orthodox and spiritual services Participate in ethical issues and questions about your care Receive private and confidential care Have appropriate assessment and management of your pain Know guest visitation restrictions or limitations Have an advance directive Access protective services Consent or refuse to participate in research studies or production or recordings, films or other images Have resolution of your complaints Receive information of hospital charges and payment methods Patient/patient artist representative responsibilities are to: Provide information about health status to facilitate care, treatment and services Follow the treatment, plan, keep appointments and speak up when you do not understand the plan Respect the rights of other patients and healthcare personnel Follow organizational rules and regulations that support quality care and a safe environment Fulfill financial obligations as promptly as possible [facility] SystemInstructionsNot on filedocumented in this encounter [facility] SystemInstructionsNot on filedocumented in this encounter [facility] CenterMiscellaneous Notes* Pre-Procedure Instructions - Heidi Vasquez RN - 03/21/2024 10:00 AM EST Your surgery/procedure is scheduled at [facility] on 03-31-2024 at 12:30pm Arrival Time: 10:30am [facility] Address: [address] [place] [address] Park in [address] Parking lot located on [facility]. Report to the Entrance B. Check in at the information desk the surgery. The waiting room located on the second floor. If you have any questions prior to surgery, please call Pre-Admission Clinic at [phone] between 7:30 am and 4:30 pm Thursday through Thursday. If you have questions the morning of surgery, please call the Pre-op Department at [phone]. Notify your SURGEON if you develop any illness such as a cold, cough, fever, sore throat, vomiting or are hospitalized between now and your surgery. Medication Instructions (Do not stop your medications without consulting the prescribing physician). Take the following medications the morning of surgery with a sip of water: Lamictal and Sertraline Diabetic or Weight loss medications: N/A Take inhalers as prescribed the morning of surgery. Due to the risk associated with these medications. If these medications are not held per instruction below, your surgery is at an increased risk for cancellation. SGLT2 Medications- Hold 3 days prior to surgery: Jardiance, Empagliflozin, Farxiga, Dapagliflozin, Invokana, Canagliflozin, Trijardy, Synjardy GLP-1 Medications (Injection or Pill)- If taken daily hold day of surgery. If taken weekly, hold 1 week prior to surgery: Adlyxin, Byetta, Bydureon, Ozempic, Rybelsus,Trulicity, Victoza, Wegovy, Lixisenatide, Exenatide, Semaglutide, Dulaglutide, Liraglutide GIP/GLP-1(Injection or Pill)- If taken daily hold day of surgery. If taken weekly, hold 1 week prior to surgery: Deanna . Blood thinners: Please contact your prescribing physician regarding a stop/hold date for these medications. Medications such as Coumadin, Heparin, Aspirin, Plavix, Eliquis, Pradaxa Diabetics: If you take insulin, contact your prescribing doctor for instructions on how to manage this the night before and the morning of surgery. Non-steriodal Anti-Inflammatory Drugs (NSAIDS)- Hold 3 days prior to surgery unless otherwise directed by your surgeon. Vitamins/Herbal Products: You may continue to take your prescribed vitamins such as potassium, iron, vitamin B, vitamin C, or multivitamin unless specifically instructed by your surgeon to hold. STOPtaking all herbal products/teas one week prior to your surgery. Marijuana: Stop marijuana 72 hours prior to surgery, stop CBD oil 48 hours prior to surgery. If you have been given bowel prep instructions by your surgeon, please call the surgeon's office with any questions about these instructions. What do I do the day of Surgery? Age 2 through adult - Stop all solids by midnight, You may have clear liquids up to 2 hours before surgery, unless otherwise instructed by your surgeon. Clear liquids are: water, sports drinks such as Gatorade or G2, or apple juice. You may NOT have: tube feedings, dairy products, alcoholic beverages, orange juice, or any liquids with solids or pulp in it. If applicable, shower again with CHG soap the morning of your surgery. If you received a green plastic bracelet, bring it with you the day of surgery and your nurse will put it on you. In order to help prevent infection post-operatively, you may be asked to use a CHG mouthwash when you arrive to the Pre-op area. Your nurse will provide instruction the morning of. What do I need to do to prepare for surgery? If you will be going home the same day as your surgery, arrange for an adult over [address] Riding in a bus or taxi by yourself is not permitted. You should not smoke or drink alcohol 24 hours before your surgery. Alcohol thins the blood and may cause bleeding problems during surgery. Smoking increases the risk of breathing problems after surgery. Do not use lotions, creams, powders, perfume, make up, cologne or after-shaves day of surgery. Remove ALL jewelry including wedding rings, body piercings (including dermal piercings ,hair extensions that contain metal, nail greenlandic, make-up, and contact lens. You may brush your teeth the morning of surgery, but do not swallow the water. Wear your dentures and partial plates to the hospital (no adhesive). Shower the night the before. If applicable, use the CHG (chlorhexidine gluconate) soap or wipes What should I bring to the hospital? If you received a green plastic bracelet, bring it with you the day of surgery and your nurse will put it on you. Eyeglass or contact lens case If you will be spending the night, please bring personal care items and leave them in the car untilyou are taken to your room after surgery. Leave ALL valuables at home. If any of these instructions conflict with those you received from the surgeon, please seek clarification from your surgeon's office. DEEP BREATHING EXERCISES This exercise helps promote good air exchange and helps to prevent pneumonia after surgery. Breathe in slowly and deeply through the nose. Hold your breath for a few seconds and then exhale slowly through the mouth. Repeat this three times and then cough.Coughing helps to clear your lungs. If you have had a surgery with an incision into your abdomen or chest, press gently against your incision with a pillow or a folded blanket when you cough. Please be aware - it may not be rojas to cough following some types of surgeries involving the eyes,ears, sinuses and throat. Always follow your doctor's instructions. LEG EXERCISE These exercises help promote good circulation and help to prevent blood clots after surgery. Point your toes to the ceiling and then point them to the wall. Do this slowly about 15-20 times. You may also move your feet in circles. Do the exercise that is most comfortable for you. If you have had surgery involving your shoulder or arm, we recommend you move your fingers. PRACTICING We ask that you begin practicing these exercises before your surgery. After surgery try to do both exercises at least every 2 hours during the day and early evening. SURGICAL SITE INFECTION PREVENTION What is a Surgical Site Infection? Infection can happen to the area of the body where surgery is done. This is called a surgical site infection (SSI). A SSI does not happen very often. Can SSIs be treated? Antibiotics are used to treat SSI. Some patients may need another surgery to treat the infection. The doctor will discuss treatment options with you. What are some of the things that hospitals are doing to prevent SSIs? Soap and water or alcohol hand rub are used before and after caring for each patient. Special soap is used to clean surgery workers hands and arms just before the surgery. Masks, gowns, gloves and hair covers are worn during the surgery to keep the area clean. Hair in the surgery area may be removed with clippers (not razors). A special soap that kills germs is used to clean the skin at the surgery site. Antibiotics may be given before the surgery starts. What can you do to prevent SSIs? Before surgery: You may be asked to shower or bathe with a special soap that kills germs the night before and the day of surgery. Use the soap as you were told. If you smoke, stop or cut down. Ask your doctor about ways to quit. Do not shave near where you will have surgery. Shaving can irritate the skin and make it easier to get and infection. After surgery: Be sure that the doctors and nurses clean their hands before and after touching you. Be sure your family and friends clean their hands before and after visiting you. Do not be afraid to remind them. * Care for your wound at home as told by your doctor or nurse * Call your doctor right away if you have fever, redness, increased pain, or drainage at the surgery site. Further questions? Contact the doctor, nurse or the Infection Prevention and Control department if you have any questions. PATIENT RIGHTS AND RESPONSIBILITIES As a patient at [facility], you have the right to: Receive medical care and be informed of who is taking care of you Be treated with dignity and respect Have a family member/artist representative of choice and your physician notified of your admission Receive information and actively participate in decisions about your care and treatment Refuse care, treatment and services Decide who may provide your support and speak for you Access oriental orthodox and spiritual services Participate in ethical issues and questions about your care Receive private and confidential care Have appropriate assessment and management of your pain Know guest visitation restrictions or limitations Have an advance directive Access protective services Consent or refuse to participate in research studies or production or recordings, films or other images Have resolution of your complaints Receive information of hospital charges and payment methods Patient/patient artist representative responsibilities are to: Provide information about health status to facilitate care, treatment and services Follow the treatment, plan, keep appointments and speak up when you do not understand the plan Respect the rights of other patients and healthcare personnel Follow organizational rules and regulations that support quality care and a safe environment Fulfill financial obligations as promptly as possible documented in this encounterPrem[facility] CenterReason for referral (narrative)* Consultation (Routine) - Pending Review Specialty Diagnoses / Procedures Referred By Saranya flores Referred To Contact Rheumatology Diagnoses Vasculitis of skin Procedures [place] OFFICE/OUTPATIENT [facility] 60 MINUTES Tania Rodas PA [address] [facility] [address] [place] [address] Dmitry Medina MD [address] [place] [address] Referral ID Status Reason Start Date Expiration Date Visits Requested Visits Authorized [id number] Pending Review Specialty Services Required 11/10/2023 05/08/2024 1 1 [facility] Summary Purpose Family History No Family History Records FoundNo Family History Records FoundNo Family History Records Found Advance Directives Documents on File Type Date Recorded 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 Advance Directives and Living Will Power of Cmo & President Date Activated Date Inactivated Comments 02/13/2022 2:19 PM 02/20/2022 1:32 PM Date Activated Date Inactivated Comments 02/13/2022 2:19 PM 02/20/2022 1:32 PM Additional Source Comments INFORMATION SOURCE (unrecogn ized section and content) DATE CREATED AUTHOR 03/18/2019 [facility] DATE CREATED AUTHOR AUTHOR'S ORGANIZ ATION 11/21/2019 [facility] DATE CREATED AUTHOR AUTHOR'S ORGANIZ ATION 05/30/2024 [facility] EPIC Reason for Visit (unrecogniz ed section and content) Reason Comments Wound Check Reason Comments Abnormal Pap Smear Reason Comments Rash Specialty Diagnoses / Procedures Referred By Contac t Referred To Contact Dermatology Diagnoses rash and nonspecific skin eruption Procedures office visit Brandy Paul, VONDA [address] [place] [address] Meghan Diamond MD [address] [place] [address] Referral ID Status Reason Start Date Expiration Date Visits Re quested Visits Authorized [id number] Closed 10/26/2023 04/23/2024 1 1 Reason Comments Follow-up Reason Comments Vaginitis/Bacterial Vaginosis Reason Comments Follow-up Follow up, states sh e feels ok, gastric emptying test results Results Reason Comments Repeat Pap Care Teams (unrecognized sec tion and content) [employer] Relationship Specialty Start Date End Date No Pcp, [place] [address] PCP - General Family Medicine 02/28/23 [employer] Relationship Specialty Start Date End Date No Pcp, [place] [address] PCP - General Family Medicine 02/28/23 [employer] Relationship Specialty Start Date End Date Tom Peterson PA-C [address] [place] [address] PCP - General Physician Structural 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 [facility]. provides no warranty or guarantee of the accuracy or completeness of information in this document.
[2024-06-14 17:06] LABS: HCG Quantitative 308 mIU/mL
== END 2024-06-14 16:05 | disposition home or self-care (01) ==
LOC: LAB 16:05
PROVIDERS: Visit Provider Obstetrics & Gynecology
DX: Z32.01 Encounter for pregnancy test, result positive (principal)
CPT/HCPCS: 36415; 84702

== ENCOUNTER 2024-06-16 16:03 | Outpatient (OUT) | payer OTHER, SELFPAY ==
--- OUTSIDE RECORDS SUMMARY | 2024-06-16 16:20 | XMS_ITS | CCD ---
Author Organization [facility] CliniSyme Care Team Providers Care Recreation Instructor Name Role Phone ARMANDO FELIX Referring Unavailable ARMANDO FELIX Primary Care Unavailable MILY SHELTON Admitting Unavailable WONDERLY, MILY Quinn Attending Unavailable NIKITA, MILY Quinn Consulting Unavailable MILY SHELTON Admitting Unavailable WONDERLY, MILY Quinn Attending Unavailable NIKITA, MILY Quinn Consulting Unavailable Armando Felix MD Primary Care Provider [phone] Unavailable Primary Care Provider Unavailabl e No Pcp, No Pcp Primary Care Provider Unavailabl e Tom Peterson PA-C Primary Care Provider Unavailable Primary Care Provider Unavailabl e THOMAS BALTAZAR Attending Unavailable TANIA RODAS Attending Unavailable BRANDY PAUL Referring Unavailable TANIA RODAS Attending Unavailable THOMAS BALTAZAR Attending Unavailable AMIRAH RODASE Attending Unavailable THOMAS BALTAZAR Attending Unavailable GIOVANNY, THOMAS Attending Unavailable SUMI BALTAZARY Attending Unavailable Allergies Allergy Classification Reported Allergen(s) Allergy Type Date of Onset Reaction(s) Facility (20 sources) Amoxicillin Drug Allergy 11-25-2012 [facility] Medications Current Medications Medication Drug [...] 20 mg by mouth daily 0 Active ibuprofen 800 mg oral tablet (3 [...] not crush, chew, or split. 30 tablet 04/05/2024 05/30/2024 Discontinued Start: 03-30-2023 take 1 [...] mouth every morning before breakfast. 30 capsule 05/09/2024 Active 25/iron fum/folic/dha (-1 ORAL) (5 sources) 25/iron fum/folic/dha (-1 ORAL) Take by mouth. Active Vit w/Nb-Oacbjqoju-QB (PNV PO) (1 source) Vit w/Qf-Nxfmjjkui-LI (PNV PO) Take by mouth. 0 Active [...] total) by mouth in the morning. Active Completed/Discontinued Medications Medication Drug Class(es) Dates [...] mouth. 2 tablet 1 11/17/2023 12/28/2023 Discontinued hydrOXYzine pamoate 25 mg oral capsule (20 sources) Antihistamine Start: 08-08-2022 End: 06-14-2024 hydrOXYzine pamoate (Vistaril) 25 MG capsule 08/08/2022 06/14/2024 Discontinued () ondansetron 4 mg disintegrating oral tablet (5 sources) Serotonin-3 Receptor Antagonist Start: 01-21-2024 End: 05-09-2024 take 1 tablet by mouth every eight hours as needed for nausea ondansetron ODT (ZOFRAN ODT) 4 mg disintegrating tablet Dissolve 1 tablet (4 mg total) on tongue every 8 (eight) hours as needed for nausea for up to 10 doses. 10 tablet 01/21/2024 05/09/2024 Discontinued traZODone hydrochloride 50 mg oral tablet (20 sources) Serotonin Reuptake Inhibitor Start: 12-11-2022 End: 06-14-2024 traZODone (Desyrel) 50 MG tablet 12/11/2022 06/14/2024 Discontinued () Problems Active Problems Problem Classification Problem Date Documented Da te Episodic/Chronic Abdominal pain (4 sources) Upper abdominal pain; Translations: [Upper abdominal pain, unspecified] 02-29-2024 Episodic Anxiety disorders (1 source) Mixed anxiety and depressive disorder Chronic Cancer of cervix (5 sources) Cervical intraepithelial neoplasia grade 1; Translations: [...] sources) Diarrhea; Translations: [Diarrhea, unspecified] 04-05-2024 Episodic Other and delivery including normal (1 source) test positive; Translations: [Encounter for test, result positive] 06-14-2024 Episodic Unclassified (2 sources) Patient encounter status [...] Test Name Value Interpretation Reference Range [facility] Marybeth Dodd LPN 06/15/2024 4:50 PM Colposcopy Date/Time: 06/14/2024 3:37 PM Performed by: Thomas Baltazar DO Authorized by: Thomas Baltazar DO Procedure location: vagina and vulva Consent: Patient questions answered: yes Risks and benefits of the procedure and its alternatives discussed: yes Consent obtained: Written Consent given by: Patient Pre-procedure: Prep solution(s): acetic acid Procedure: Colposcopy with: colposcopy only Cervix visibility: fully visualized Post-procedure: Patient tolerance of procedure: Patient tolerated the procedure well with no immediate complications Comments: Colposcopy: Patient is doing well and has no complaints. Pap results have been reviewed with the patient in great detail and patient voiced understanding. Patient presents today for a Colposcopy. Patient was placed in dorsal lithotomy position with feet in stirrups, a sterile speculum was placed into the vagina and the cervix was visualized. Cervix was cleansed with vinegar. Postprocedural instructions given. All if patients questions answered and she expressed understanding. Advised to call in interim with questions or concerns. Follow Up: Patient is to return in 6 months for Repeat Pap. [facility] Glue e HCG ( test) Ql (U)o n 06-14-2024 Interpretation and review of laboratory results Abnormal [facility] Preg Test, Ur Positive Negative [facility] [facility] PREG QUANT HCGon 025 HCG QUANTITATIVE 308 mIU/mL [facility] Comment on above: 5-50 0.2-1 WEEK 50-500 1-2 WEEKS 100-5,000 2-3 WEEKS 500-10,000 3-4 WEEKS 1,000-50,000 4-5 WEEKS 10,000-100,000 5-6 WEEKS 15,000-200,000 6-8 WEEKS 10,000-100,000 2-3 MONTHS [facility] Urinalysis macro (dipstick) panel (U)on 06-14-2024 Bilirubin, UA Negative Negative - 4(70) +++ mg/dL [facility] Blood, UA Negative Negative - 50 Thai/mcL [facility] Clarity, UA Clear [facility] re Color, UA Yellow [facility] Glucose, UA Negative Negative - 1999(110) ++++ mg/dL [facility] Interpretation and review of laboratory results Normal [facility] Ketones, UA Negative Negative - 160(16) ++++ mg/dL [facility] Leukocytes, UA Negative Negative - 500+++ Shawn/mcL [facility] Nitrite, UA Negative Negative - Positive [facility] pH, UA 6.5 5 - 9 [facility] e Protein, UA Negative Negative - 1999(20) ++++ mg/dL [facility] Spec Grav, UA 1.01 1 - 1.03 [facility] Urobilinogen, UA 0.2 0.2 - 12 mg/dL [facility] PAP IG, APT HPV RFX 16/18,45 on 06-02-2024 HPV APTIMA Positive Abnormal Negative [facility] Comment on above: This nucleic acid am plification test detects fourteen high- risk HPV types (16,18,31,33,35,39,45,51,52,56,58,59,66,68) without differentiation. Performed at: [facility] [address] [address] [place], [place] [id number] Cigar Binder: Jayson Pascual MD, Phone: [phone] Performed at: - [facility] [id number] Cigar Binder: Isabel Lozada MD, Phone: [phone] Interpretation and review of laboratory results Abnormal [facility] PAP IG (IMAGE GUIDED) Note Abnormal . [facility] Comment on above: TESTS RESULT FLAG UN ITS REF RANGE LAB Clinician Provided Cytology Information Source.............Cervix;Endocervix No. of containers..01 ThinPrep Vial DIAGNOSIS: [A] 01 EPITHELIAL CELL ABNORMALITY. ATYPICAL SQUAMOUS CELLS OF UNDETERMINED SIGNIFICANCE (ASC-US). Recommendation: [A] 01 Suggest follow up as clinically appropriate. Specimen adequacy: 01 Satisfactory for evaluation. Endocervical and/or squamous metaplastic cells (endocervical component) are present. Performed by: Manisha Melissa, Cans Vacuum Tester (ASCP) Electronically si... 01 Deja Serrano MD, Pathologist . 01 Pathologist ICD10: 01 R87.610 Note: Note 02 The Pap smear [...] High,A-Abnormal,AA-Critical Abnormal Performed at: 01 [facility] [address] [address] [place] [address] Jayson Pascual MD, [address] [address] Isabel Lozada MD, BRUSH-SPATULA CERVIX ENDOCERVIX CLINIS[facility] IGP,RFX APTIMA HPV ALL P THon 01-06-2024 HPV APTIMA Positive Abnormal Negative [facility] Comment on above: This nucleic acid am plification test detects fourteen high- risk HPV types (16,18,31,33,35,39,45,51,52,56,58,59,66,68) without differentiation. Performed at: - [address] [id number] Cigar Binder: Isabel Lozada MD, Phone: [phone] Performed at: = - [address] [id number] Cigar Binder: Isabel Lozada MD, Phone: [phone] Interpretation and review of laboratory results Abnormal [facility] PAP IG (IMAGE GUIDED) Note Abnormal . [facility] Comment on above: TESTS RESULT FLAG UN ITS REF RANGE LAB Clinician Provided Cytology Information Source.............Cervix;Endocervix No. of containers..01 ThinPrep Vial DIAGNOSIS: [A] 01 EPITHELIAL CELL ABNORMALITY. ATYPICAL SQUAMOUS CELLS OF UNDETERMINED SIGNIFICANCE (ASC-US). Specimen adequacy: 01 Satisfactory for evaluation. Endocervical and/or squamous metaplastic cells (endocervical component) are present. Performed by: Hedy Church, Cans Vacuum Tester ([facility]) Electronically si... Josiane Maria MD, [...] <-Panic Low,>-Panic High,A-Abnormal,AA-Critical Abnormal Performed at: [address] [address] Isabel Lozada MD, BRUSH-SPATULA CERVIX ENDOCERVIX [facility] Cytology Cervical or vaginal smear or scraping studyon 12-28-2023 [facility] No Panel Informationon 10-26 Type of biopsy: [facility] Informed consent: discussed and consent obtained Informed [...] Specimen sent for: H&E Photo taken yes [facility] Panel Informationon 06-23 [facility] [facility] COVID-19 PCRon 10-18-2019 SARS-CoV-2, ALEX Not Detected Normal Not Detected [facility] Comment on above: Result Comment: This test was developed and its performance characteristics determined by [employer]. This test has not been FDA cleared [...] assay. Performed By: #### C VDPCR #### [facility] [address] [place] [address] Brenna Rueda COVID-19 PCRon 09-10-2019 SARS-CoV-2, ALEX Not Detected Normal Not Detected [facility] Comment on above: Result Comment: This test was developed and its performance characteristics determined by [employer]. This test has not been FDA cleared [...] assay. Performed By: #### C VDPCR #### [facility] [address] [place] [address] Brenna Rueda [facility] Metab, Fastingon 03-17 (cont.) Normal [facility] Comment on above: Result Comment: Aver age GFR for 20-29 years old: 116 mL/min/1.73sq m Chronic Kidney Disease: <60 mL/min/1.73sq m Kidney failure: <15 mL/min/1.73sq m eGFR calculated using average adult body mass. Additional eGFR calculator available at: http://www.[employer].com/multiple_crcl_2012.htm Performed By: #### B MPF, FT4, LIPRF, TSH #### [facility] [address] [place] [address] Cigar Binder: Deep Gonzalez MD Anion gap [Moles/Vol] 12 mmol/L Normal 9-17 [facility] Comment on above: Performed By: #### B MPF, FT4, LIPRF, TSH #### [facility] [address] [place] [address] Cigar Binder: Deep Gonzalez MD Calcium [Mass/Vol] 9.1 mg/dL Normal 8.6-10.4 [facility] Comment on above: Performed By: #### B MPF, FT4, LIPRF, TSH #### [facility] [address] [place] [address] Cigar Binder: Deep Gonzalez MD Chloride [Moles/Vol] 102 mmol/L Normal 98-107 [facility] Comment on above: Performed By: #### B MPF, FT4, LIPRF, TSH #### [facility] [address] [place] [address] Cigar Binder: Deep Gonzalez MD CO2 [Moles/Vol] 25 mmol/L Normal 20-31 [facility] Comment on above: Performed By: #### B MPF, FT4, LIPRF, TSH #### [facility] [address] [place] [address] Cigar Binder: Deep Gonzalez MD Creatinine [Mass/Vol] 0.66 mg/dL Normal 0.50-0.90 [facility] Comment on above: Performed By: #### B MPF, FT4, LIPRF, TSH #### [facility] [address] [place] [address] Cigar Binder: Deep Gonzalez MD GFR, Amer >60 Normal >60 [facility] Comment on above: Performed By: #### B MPF, FT4, LIPRF, TSH #### [facility] [address] [place] [address] Cigar Binder: Deep Gonzalez MD GFR,non Amer >60 Normal >60 [facility] Comment on above: Performed By: #### B MPF, FT4, LIPRF, TSH #### [facility] [address] [place] [address] Cigar Binder: Deep Gonzalez MD Glucose [Mass/Vol] 82 mg/dL Normal 70-99 [facility] Comment on above: Performed By: #### B MPF, FT4, LIPRF, TSH #### [address] [address] Cigar Binder: Deep Gonzalez MD Potassium [Moles/Vol] 4.3 mmol/L Normal 3.7-5.3 [facility] Comment on above: Performed By: #### B MPF, FT4, LIPRF, TSH #### [address] [address] Cigar Binder: Deep Gonzalez MD Sodium [Moles/Vol] 139 mmol/L Normal 135-144 [facility] Comment on above: Performed By: #### B MPF, FT4, LIPRF, TSH #### [address] [address] Cigar Binder: Deep Gonzalez MD Urea nitrogen [Mass/Vol] 11 mg/dL Normal 6-20 [facility] Comment on above: Performed By: #### B MPF, FT4, LIPRF, TSH #### [address] [address] Cigar Binder: Deep Gonzalez MD BUN/CRE Ratio NOT REPORTED Normal 9-20 [facility] Comment on above: Performed By: #### B MPF, FT4, LIPRF, TSH #### [facility] [address] [place] [address] Cigar Binder: Deep Gonzalez MD Staging: NOT REPORTED Normal [facility] Comment on above: Performed By: #### B MPF, FT4, LIPRF, TSH #### [facility] [address] [place] [address] Cigar Binder: Deep Gonzalez MD Basic Metabolic Panel, Fasti ngOrdered By: Armando Felix on 03-17-2019 Anion gap [Moles/Vol] 12 mmol/L 9 - 17 mmol/L [facility] Work Phone: Bun/Cre Ratio NOT REPORTED [facility] Work Phone: Calcium [Mass/Vol] 9.1 mg/dL 8.6 - 10. 4 mg/dL [facility] Phone: Chloride [Moles/Vol] 102 mmol/L 98 - 10 7 mmol/L [facility] Work Phone: CO2 [Moles/Vol] 25 mmol/L 20 - 31 mmol/L [facility] Phone: Creatinine [Mass/Vol] 0.66 mg/dL 0.5 - 0.9 mg/dL [facility] Phone: GFR >60 >60 mL/min [employer] Work Phone: GFR Comment [facility] Work Phone: Comment on above: Average GFR for 20-2 9 years old: 116 mL/min/1.73sq m Chronic Kidney Disease: <60 mL/min/1.73sq m Kidney failure: <15 mL/min/1.73sq m eGFR calculated using average adult body mass. Additional eGFR calculator available at: http://www.[employer]/multiple_crcl_2012.htm GFR Non- >60 >60 mL/min [facility] Phone: GFR Staging NOT REPORTED [facility] Work Phone: Glucose [Mass/Vol] 82 mg/dL 70 - 99 mg/dL [employer] Work Phone: Potassium [Moles/Vol] 4.3 mmol/L 3.7 - 5.3 mmol/L [facility] Work Phone: Sodium [Moles/Vol] 139 mmol/L 135 - 144 mmol/L [facility] Work Phone: Urea nitrogen [Mass/Vol] 11 mg/dL 6 - 20 mg/dL [facility] [employer] Phone: Lipid Prof, Fastingon 2019 Cholesterol [Mass/Vol] 153 mg/dL Normal <200 [facility] Comment on above: Result Comment: Cholesterol Guidelines: <200 Desirable 200-240 Borderline >240 Undesirable Performed By: #### B MPF, FT4, LIPRF, TSH #### [employer] [address] [place] [address] Cigar Binder: Deep Gonzalez MD Cholesterol in HDL [Mass/Vol] 56 mg/dL Normal >40 [facility] Comment on above: Result Comment: HDL Guidelines: <40 Undesirable 40-59 Borderline >59 Desirable Performed By: #### B MPF, FT4, LIPRF, TSH #### [facility] [employer] [address] [place] [address] Cigar Binder: Deep Gonzalez MD Cholesterol in LDL [Mass/Vol] 72 mg/dL Normal 0-130 [facility] Comment on above: Result Comment: LDL Guidelines: <100 Desirable 100-129 Near to/above Desirable 130-159 Borderline >159 Undesirable Direct (measured) LDL and calculated LDL are not interchangeable tests. Performed By: #### B MPF, FT4, LIPRF, TSH #### [employer] [address] [place] [address] Cigar Binder: Deep Gonzalez MD Cholesterol.total/Ch olesterol in HDL [Mass ratio] 2.7 {ratio} Normal <5 [facility] Comment on above: Performed By: #### B MPF, FT4, LIPRF, TSH #### [employer] [address] [place] [phone] Cigar Binder: Deep Gonzalez MD Triglyceride,Fasting 125 mg/dL Normal <150 [facility] Comment on above: Result Comment: Triglyceride Guidelines: <150 Desirable 150-199 Borderline 200-499 High >499 Very high Based on AHA Guidelines for fasting triglyceride, December 2011. Performed By: #### B MPF, FT4, LIPRF, TSH #### [employer] [address] [place], [place] [phone] Cigar Binder: Deep Gonzalez MD Cholesterol in VLDL [Mass/Vol] NOT REPORTED Normal 1-30 [facility] Comment on above: Performed By: #### B MPF, FT4, LIPRF, TSH #### [employer] [address] [place], [place] [phone] Cigar Binder: Deep Gonzalez MD Lipid, FastingOrdered By: Simin Felix on 03-17-2019 Cholesterol [Mass/Vol] 153 mg/dL <200 [employer] Phone: Comment on above: Cholesterol Guidelines: <200 Desirable 200-240 Borderline >240 Undesirable Cholesterol in HDL [Mass/Vol] 56 mg/dL >40 [employer] Phone: Comment on above: HDL Guidelines: <40 Undesirable 40-59 Borderline >59 Desirable Cholesterol in LDL [Mass/Vol] 72 mg/dL 0 - 130 mg/dL [employer] Phone: Comment on above: LDL Guidelines: <100 Desirable 100-129 Near to/above Desirable 130-159 Borderline >159 Undesirable Direct (measured) LDL and calculated LDL are not interchangeable tests. Cholesterol.total/Ch olesterol in HDL [Mass ratio] 2.7 {ratio} <5 [employer] Phone: Triglyceride, Fasting 125 mg/dL <150 [employer] Phone: Comment on above: Triglyceride Guidelines: <150 Desirable 150-199 Borderline 200-499 High >499 Very high Based on AHA Guidelines for fasting triglyceride, December 2011. VLDL NOT REPORTED 1 - 30 mg/dL [employer] Phone: T4, FreeOrdered By: Armando castro on 03-17-2019 Thyroxine, Free 1.16 ng/dL 0.93 - 1.7 ng/dL [employer] Phone: TSHOrdered By: Armando goff 03-17-2019 TSH Qn 1.57 m[IU]/L [employer] Phone: Thyroid Stim. Horm.on 2019 TSH Qn 1.57 m[IU]/L Normal 0.30-5.00 [facility] Comment on above: Performed By: #### B MPF, FT4, LIPRF, TSH #### [employer] [address] [place], [place] [phone] Cigar Binder: Deep Gonzalez MD Thyroxine, Freeon 03-17-2019 Thyroxine, Free 1.16 ng/dL Normal 0.93-1.70 [facility] Comment on above: Performed By: #### B MPF, FT4, LIPRF, TSH #### [facility] [address] [place], [place] [id number] Cigar Binder: Deep Gonzalez MD Vital Signs Date Time Vital Sign Value Performing Clinician Faci lity 05-30-2024 10:09-0400 Body mass index (BMI) [Ratio] 49.68 kg/m2 [employer] Work Phone: [facility] [employer] 05-30-2024 10:09-0400 Body weight 139.62 kg [employer] Work Phone: [facility] [employer] 05-30-2024 10:09-0400 Diastolic blood pressure 84 mm[Hg] [employer] Work Phone: [facility] [employer] 05-30-2024 10:09-0400 Systolic blood pressure 124 mm[Hg] [employer] Work Phone: [facility] [employer] 05-09-2024 12:31-0400 Body height 167.6 cm Digna Verdugo APRN-BILLING AND INSURANCE COORDINATOR [facility] 05-09-2024 12:31-0400 Body mass index (BMI) [Ratio] 49.29 kg/m2 Digna Verdugo CATH LAB-BILLING AND INSURANCE COORDINATOR Work Phone: [employer] 05-09-2024 12:31-0400 Body weight 138.53 kg Digna Verdugo CATH LAB-BILLING AND INSURANCE COORDINATOR Work Phone: [facility] [employer] [facility] 05-09-2024 12:31-0400 Diastolic blood pressure 66 mm[Hg] Digna Verdugo APRN-BILLING AND INSURANCE COORDINATOR Work Phone: [facility] 05-09-2024 12:31-0400 Heart rate 80 /min Digna Verdugo APRN-BILLING AND INSURANCE COORDINATOR Work Phone: [facility] 05-09-2024 12:31-0400 Systolic blood pressure 111 mm[Hg] Digna Verdugo APRN-BILLING AND INSURANCE COORDINATOR Work Phone: [facility] 12-28-2023 14:22-0400 Body height 167.6 cm Thomas Giovanny DO Work Phone: [facility] 12-28-2023 14:22-0400 Body mass index (BMI) [Ratio] 49.71 kg/m2 Thomas Giovanny DO Work Phone: [facility] 12-28-2023 14:22-0400 Body weight 139.71 kg Thomas Giovanny DO Work Phone: [facility] 12-28-2023 14:22-0400 Diastolic blood pressure 80 mm[Hg] Thomas Giovanny DO Work Phone: [facility] 12-28-2023 14:22-0400 Systolic blood pressure 122 mm[Hg] Thomas Giovanny DO Work Phone: [facility] Healthcare Encounters Encounter Date Encounter Type Care Provider Facility Start: 06-14-2024 End: 06-14-2024 ambulatory THOMAS GIOVANNY Not Available Start: 06-14-2024 End: 06-14-2024 Patient encounter procedure Thomas Giovanny DO Work Phone: [facility] Comment on above: ASCUS with positive high risk HPV cervical; examination or test, positive result Start: 06-14-2024 End: 06-14-2024 Clinisync Result Encounter Thomas Giovanny DO Work Phone: [facility] External Department Unsolicited Start: 06-14-2024 End: 06-14-2024 Clinisync Result Encounter Thomas Giovanny DO Work Phone: [facility] External Department Unsolicited Start: 05-30-2024 End: 05-30-2024 Bamboo flowsheet Thomas Giovanny DO Work Phone: [facility] Start: 05-30-2024 End: 06-02-2024 Bamboo flowsheet Thomas Giovanny DO Work Phone: [facility] Start: 05-30-2024 End: 06-02-2024 Clinisync Result Encounter Thomas Giovanny DO Work Phone: [facility] External Department Unsolicited Start: 05-30-2024 End: 05-30-2024 Office outpatient visit 10 minutes Thomas Giovanny DO Work Phone: [facility] Comment on above: ASCUS with positive high risk HPV cervical Start: 05-30-2024 End: 05-30-2024 ambulatory THOMAS GIOVANNY Not Available Start: 05-09-2024 End: 05-09-2024 Office outpatient visit 25 minutes Digna SANDOVALBILLING AND INSURANCE COORDINATOR Work Phone: [facility] Comment on above: Gastroparesis (Prima ry Dx); Chronic superficial gastritis without bleeding; Chronic diarrhea; Upper abdominal pain; Gastroesophageal reflux disease, unspecified whether esophagitis present Start: 04-05-2024 End: 04-05-2024 Orders Only Lynn Callaway [facility] Comment on above: Upper abdominal pain (Primary Dx); Diarrhea, unspecified type; Gastroesophageal reflux disease, unspecified whether esophagitis present Start: 03-21-2024 End: 03-21-2024 Admission to [facility] Phone Call Provider 2 Juan Franklin [facility] Start: 02-29-2024 End: 02-29-2024 Orders Only Lou Sandhu [facility] Comment on above: Upper abdominal pain (Primary Dx); Acute gastritis without hemorrhage, unspecified gastritis type Start: 02-22-2024 End: 02-22-2024 Telephone encounter Blanca Reyes RN [facility] Start: 12-28-2023 End: 12-28-2023 Office outpatient visit 15 minutes Thomas Giovanny DO Work Phone: [facility] Comment on above: LGSIL of cervix of u ndetermined significance Start: 12-28-2023 End: 12-28-2023 ambulatory THOMAS GIOVANNY Not Available Start: 12-28-2023 End: 12-28-2023 Bamboo flowsheet Thomas Giovanny DO Work Phone: [facility] Start: 12-28-2023 End: 01-06-2024 Bamboo flowsheet Thomas Giovanny DO Work Phone: [facility] Start: 12-28-2023 End: 01-06-2024 Clinisync Result Encounter Thomas Giovanny DO Work Phone: [facility] External Department Unsolicited Start: 12-02-2023 End: 12-02-2023 Office outpatient visit 15 minutes Tania CARLIN Work Phone: [facility] Comment on above: Visit for wound chec k (Primary Dx); Leukocytoclastic vasculitis (CMS/HCC) Start: 12-02-2023 End: 12-02-2023 ambulatory TANIA NORTHEIM Not Available Start: 11-17-2023 End: 11-17-2023 Bamboo flowsheet Thomas Giovanny DO Work Phone: [facility] Start: 11-17-2023 End: 11-17-2023 Bamboo flowsheet Thomas Giovanny DO Work Phone: [facility] Start: 11-17-2023 End: 11-17-2023 Office outpatient visit 15 minutes Thomas Giovanny DO Work Phone: [facility] Comment on above: Acute vaginitis; Vaginal discharge; STD exposure; Yeast infection Start: 11-17-2023 End: 11-17-2023 ambulatory THOMAS GIOVANNY Not Available Start: 11-10-2023 End: 11-10-2023 Bamboo flowsheet Tania Clark PA Work Phone: [facility] Start: 11-10-2023 End: 11-10-2023 Bamboo flowsheet Tania Rodas RAEGAN Work Phone: [facility] Start: 11-10-2023 End: 11-10-2023 ambulatory TANIA RODAS Not Available Start: 11-10-2023 End: 11-10-2023 Office outpatient visit 15 minutes Tania Rodas RAEGAN Work Phone: [facility] Comment on above: Vasculitis of skin ( Primary Dx); Encounter for removal of sutures Start: 10-27-2023 End: 10-27-2023 Patient encounter procedure Tania Rodas RAEGAN Work Phone: [facility] Comment on above: Rash and other nonsp ecific skin eruption (Primary Dx) Start: 10-27-2023 End: 10-27-2023 ambulatory TANIA RODAS Not Available Start: 06-24-2023 End: 06-24-2023 ambulatory THOMASAdonay RICKO Not Available Start: 10-15-2019 End: 10-16-2019 Patient encounter procedure MILY SHELTON Facility:[facility] Start: 09-08-2019 End: 09-09-2019 Patient encounter procedure MILY SHELTON Facility:[facility] Start: 03-17-2019 End: 03-18-2019 Patient encounter procedure ARMANDO FELIX [facility] Start: 03-17-2019 End: 03-17-2019 Subsequent hospital visit by physician Armando Felix MD Work Phone: [facility] Comment on above: Annual physical exam ; Encounter for lipid screening for cardiovascular disease; Depression with anxiety Procedures Date Procedure Procedure Detail Performing Clinician Start: 06-14-2024 [facility] PREG QUANT HCG Core y Giovanny DO Work Phone: Start: 06-14-2024 Colposcopy vulva Thomas Giovanny DO Work Phone: Start: 06-14-2024 End: 06-14-2024 Urnls dip stick/tablet rgnt non-auto w/o micrscp Thomas Giovanny DO Work Phone: Start: 05-30-2024 PAP IG, APT HPV [facility] 16/18,[facility] Work Phone: Start: 12-28-2023 [facility] IGP,RFX APTIMA H PV ALL PTH [facility] Work Phone: Start: 12-28-2023 Cytp cerv/vag auto t hin layer prep mnl screen [facility] DO Work Phone: Start: 10-27-2023 SKIN / NAIL BIOPSY Amirah Rodas PA Work Phone: Start: 06-24-2023 COLPOSCOPY [facility] DO Work Phone: Start: 05-20-2022 Microscopic observat [...] Td Vaccines (7 - Td or Tdap) [facility] Start: 05-20-2025 Screening for malignant neoplasm of cervix Pap Smear [facility] Start: 05-09-2025 Adult BMI Screening Adult BMI Screening [facility] Start: 05-09-2025 Tobacco Screening Tobacco Screening [facility] Start: 03-31-2025 Tobacco Screening Tobacco Screening [facility] Start: 03-21-2025 Tobacco Screening Tobacco Screening [facility] Start: 02-09-2025 Adult BMI Screening Adult BMI Screening [facility] Start: 02-09-2025 Tobacco Screening Tobacco Screening [facility] Start: 12-13-2024 End: 12-13-2024 Patient encounter procedure 12/13/2024 10:20 AM EDT Of fice Visit [facility] [address] [place] [phone] Thomas Baltazar, DO [address] [place] [address] [place] [address] [facility] Start: 07-14-2024 End: 07-14-2024 ambulatory 07/14/2024 1:30 PM EDT Initi al [facility] [address] [place] [phone] [facility] Start: 07-14-2024 End: 07-14-2024 Professional / ancillary services management 07/14/2024 1:00 PM EDT Ancillary Procedure [facility] [address] [place] [address] [facility] Start: 06-28-2024 End: 06-28-2024 Patient encounter procedure 06/28/2024 1:00 PM EDT Off ice Visit [facility] [address] [place] [phone] Thomas Baltazar, [address] [place] [address] [facility] Start: 05-30-2024 End: 05-30-2024 Patient encounter procedure [facility] Comment on above: Arrived Start: 04-05-2024 End: 04-05-2025 NM Stomach Views for gastric emptying solid phase W radionuclide PO NM gastric emptying solid Imaging Routine Upper abdominal pain Diarrhea, unspecified type Gastroesophageal reflux disease, unspecified whether esophagitis present Expected: 04/05/2024, Expires: 04/05/2025 [facility] Comment on above: Expected: 04/05/2024, Expires: Start: 04-05-2024 End: 04-05-2025 US Abdomen limited Ultrasound abdomen limited Imaging Routine Upper abdominal pain Diarrhea, unspecified type Gastroesophageal reflux disease, unspecified whether esophagitis present Expected: 04/05/2024, Expires: 04/05/2025 Juan Work Phone: Comment on above: Expected: 04/05/2024, Expires: Start: 03-31-2024 End: 03-31-2024 Admission to same day surgery center 03/31/2024 12:30 PM EST - 03/31/2024 1:15 PM EST Surgery [facility] [address] [place] [phone] Mark Julian MD [address] [place] [address] ESOPHAGOGASTRODUODENOSCOPY DIAGNOSTIC [37028 (CPT )] [facility] Comment on above: ESOPHAGOGASTRODUODENOSCOPY DIAGNOSTIC [4 9525 (CPT )] Start: 03-31-2024 End: 03-31-2024 Esophagogastroduodenoscopy transoral diagnostic ESOPHAGOGASTRODUODENOSCOPY DIAGNOSTIC GERD K21.9 Upper abdominal pain R10.10 03/31/2024 12:30 PM EST [facility] Start: 03-31-2024 Subsequent hospital visit by physician 03/31/2024 12:30 PM EST Hospital Encounter [facility] [address] [place] [phone] Mark Julian MD [address] [place] [address] [facility] Start: 03-21-2024 End: 03-21-2024 Admission to establishment 03/21/2024 10:00 AM EST Support Visit [facility] [address] [place] [address] [place] [address] [facility] Start: 12-28-2023 End: 12-28-2023 Patient encounter procedure [facility] Comment on above: Arrived Start: 12-02-2023 End: 12-01-2024 CBC W Auto Differential panel - Blood CBC and differential Lab Routine Leukocytoclastic vasculitis (CMS/HCC) Expected: 12/02/2023 (Approximate), Expires: 12/01/2024 [facility] Work Phone: Comment on above: Expected: [...] Of fice Visit [facility] [address] [place] [phone] Thomas Baltazar, [address] [place], [place] [id number] Arrived [facility] Comment on above: Arrived Start: 11-10-2023 End: 11-10-2023 Patient encounter procedure 11/10/2023 1:40 PM EDT Off ice Visit [facility] [address] [place] [address] Tania Rodas PA [address] [place] [phone] [facility] Start: 11-01-2023 COVID-19 Vaccine ( season) COVID-19 Vaccine ( season) [facility] Start: 11-01-2023 Influenza vaccination Influenza Vaccine [facility] Start: 04-28-2019 End: 04-28-2019 Patient encounter procedure 04/28/2019 Office [place] [address] [place] [address] [place] [address] [phone] [facility] Start: 10-31-2018 Influenza vaccination Flu vaccine (#1) [employer] Phone: Start: 2017 Cervical cancer screen Cervical cancer screen [employer] Phone: Start: 2014 Adult BMI Follow Up Plan [facility] Start: 2012 Chlamydia screen Chlamydia screen [employer] Phone: Start: 09-06-2011 HIV screen HIV screen [employer] Phone: Start: 2008 Depression Screening Depression Screening [employer] Start: 09-06-2007 DTaP/Tdap/Td vaccine (6 - Tdap) DTaP/Tdap/Td vaccine (6 - Tdap) [employer] Phone: Start: 09-06-2007 HPV vaccine (1 - Female 2-dose series) HPV vaccine (1 - Female 2-dose series) [employer] Phone: Start: 2002 Pneumococcal 0-64 years Vaccine (1 of 1 - PPSV23) Pneumococcal 0-64 years Vaccine (1 of 1 - PPSV23) [employer] Phone: Start: 1997 Varicella Vaccine (1 of 2 - 2-dose childhood series) Varicella Vaccine (1 of 2 - 2-dose childhood series) [employer] Phone: End: 02-28-2025 Calprotectin, F Calprotectin, F Lab Routine Acute gastritis without hemorrhage, unspecified gastritis type Upper abdominal pain 1 Occurrences starting 02/29/2024 until 02/28/2025 [employer] Phone: Comment on above: 1 Occurrences starting 02/29/2024 until 02/28/2025 CHLAMYDIA TRACHOMATI S (GENITO/STI) CHLAMYDIA TRACHOMATIS (GENITO/STI) Lab Routine STD exposure Ordered: 11/17/2023 [facility] [employer] Comment on above: Ordered: 11/17/2023 End: 05-09-2025 Colonoscopy Colonoscopy GI Routine Chron ic diarrhea 1 Occurrences starting 05/09/2024 until 05/09/2025 [employer] Work Phone: Comment on above: 1 Occurrences starting 05/09/2024 until 05/09/2025 Cytology Cervical or vaginal smear or scraping study Pap Smear Pathology and Cytology Routine LGSIL of cervix of undetermined significance Ordered: 12/28/2023 [facility] [employer] Work Phone: Comment on above: Ordered: 12/28/2023 Cytology Cervical or vaginal smear or scraping study Pap Smear Pathology and Cytology Routine ASCUS with positive high risk HPV cervical Ordered: 05/30/2024 [facility] [employer] Work Phone: Comment on above: Ordered: 05/30/2024 Dermatopathology exam Dermatopat hology exam Pathology and Cytology Timed Rash and other nonspecific skin eruption Release Upon Ordering for 1 Occurrences starting 10/27/2023 [facility] [employer] Work Phone: Comment on above: Release Upon Ordering for 1 Occurrences starting 10/27/2023 End: 06-14-2025 hCG, quantitative hCG, quantitative Lab Routin e examination or test, positive result 4 Occurrences starting 06/14/2024 until 06/14/2025 [facility] [employer] Work Phone: Comment on above: 4 Occurrences starting 06/14/2024 until 06/14/2025 Neisseria gonorrhoea e DNA [Presence] in Unspecified specimen by ALEX with probe detection Neisseria gonorrhea DNA probe, direct Lab Routine STD exposure Ordered: 11/17/2023 [facility] [employer] Comment on above: Ordered: 11/17/2023 SURESWAB(R) ADVANCED VAGINITIS PLUS, TMA SURESWAB(R) ADVANCED VAGINITIS PLUS, TMA Pathology and Cytology Routine Vaginal discharge Ordered: 11/17/2023 [facility] [employer] Work Phone: Comment on above: Ordered: 11/17/2023 Immunizations Immunization Date Immunization Notes Care Provider Blanquita [facility] 01-22-2022 influenza virus vaccine, unspecified formulation Blanca Amy [facility] 10-19-2001 diphtheria, tetanus toxoids and acellular pertussis vaccine, unspecified formulation Armando Felix MD Work Phone: [facility] [employer] Work Phone: 10-19-2001 measles, mumps and rubella virus vaccine Armando Felix MD Work Phone: [facility] Work Phone: 10-19-2001 poliovirus vaccine, inactivated Armando Felix MD Work Phone: [facility] Work Phone: 04-04-1998 trivalent poliovirus vaccine, live, oral Armando Felix MD Work Phone: [facility] Work Phone: 12-08-1997 diphtheria, tetanus toxoids and acellular pertussis vaccine, unspecified formulation Armando Felix MD Work Phone: [facility] Work Phone: 12-08-1997 haemophilus influenz ae type b vaccine, conjugate unspecified formulation Armando Felix MD Work Phone: [facility] Work Phone: 09-14-1997 hepatitis B vaccine, pediatric or pediatric/adolescent dosage Armando Felix MD Work Phone: [facility] Work Phone: 09-14-1997 measles, mumps and rubella virus vaccine Armando Felix MD Work Phone: [facility] Work Phone: 03-14-1997 diphtheria, tetanus toxoids and acellular pertussis vaccine, unspecified formulation Armando Felix MD Work Phone: [facility] Work Phone: 03-14-1997 haemophilus influenz ae type b vaccine, conjugate unspecified formulation Armando Felix MD Work Phone: [facility] Work Phone: 01-06-1997 diphtheria, tetanus toxoids and acellular pertussis vaccine, unspecified formulation Armando Felix MD Work Phone: [employer] Work Phone: 01-06-1997 haemophilus influenz ae type b vaccine, conjugate unspecified formulation Armando Felix MD Work Phone: [employer] Work Phone: 01-06-1997 trivalent poliovirus vaccine, live, oral Armando Felix MD Work Phone: [employer] Work Phone: 1996 diphtheria, tetanus toxoids and acellular pertussis vaccine, unspecified formulation Armando Felix MD Work Phone: [employer] Work Phone: 1996 haemophilus influenz ae type b vaccine, conjugate unspecified formulation Armando Felix MD Work Phone: [employer] Work Phone: 1996 hepatitis B vaccine, pediatric or pediatric/adolescent dosage Armando Felix MD Work Phone: [employer] Work Phone: 1996 trivalent poliovirus vaccine, live, oral Armando Felix MD Work Phone: [employer] Work Phone: 1996 hepatitis B vaccine, pediatric or pediatric/adolescent dosage Armando Felix MD Work Phone: [employer] Work Phone: Payers Date Payer Category Payer Medicaid [employer] [place] [employer] [id number] 2022-Present [address] [place] [address] [id number] 2022 Medicaid (Managed Care) [facility] MEDICAID [id number] 2022 Medicaid [id number] 2021 Medicaid [place] [employer] [id number] 2014 Unknown BCBS [place] P PO xxxxxxxxxxxx 2014-Present [address] [place] [address] xxxxxxxxxxxx [id number] 1996 Unknown [id number]. 175 1996 Unknown [id number]. 593 1996 Unknown [id number]. 593 1996 Unknown [id number]. 1259 1996 Unknown [id number]. 1259 1996 Unknown [id number]. 1259 1996 Unknown [id number]. 9 1996 Unknown [id number] [id number]. 9 1996 Unknown [id number] [id number]. 9 1996 Unknown [id number] [id number]. 9 1996 Unknown [id number]. 9 1959 Unknown [id number] Social History Date Type Detail Facility Start: 03-17-2019 Tobacco smoking stat [facility] Current every day smoker [employer] Phone: History of tobacco use Cigarette Smoker [employer] Start: 03-17-2019 End: 12-02-2023 Cigarettes smoked current (pack per day) - Reported [facility] Start: 03-17-2019 End: 03-31-2024 Alcohol intake Current drinker of alcohol (finding) [employer] Phone: Start: 03-17-2019 Alcohol Comment Socially [employer] Phone: Start: 1996 Sex Assigned At Not on file [employer] Phone: Start: 11-10-2023 End: 05-09-2024 Tobacco smoking status NHIS Ex-smoker [facility] History of tobacco use Current smoker [facility] Start: 11-10-2023 End: 05-09-2024 Tobacco use and exposure Smokeless tobacco non-user [facility] Start: 04-12-2020 End: 12-02-2023 Tobacco use panel [facility] Start: 03-29-2023 Gender identity Identifies as female gender (finding) [facility] Start: 03-29-2023 Sexual orientation Pansexual [facility] Start: 10-27-2023 [facility] consumption unknown [facility] Start: 02-09-[address] [facility] Start: 10-05-2014 Sex Female (finding) [facility] Start: 03-21-2024 Tobacco Comment Approx 0.5ppd x 5 ye ars [facility] History of tobacco use Passive smoker [facility] Start: 05-09-2024 Alcoholic beverage intake Ex-drinker (finding) [facility] Clinical Notes 10-27-2023 to 06-14-2024 Marybeth Dodd, SENIOR ADMINISTRATIVE ASSOCIATE - 06/14/2024 2:30 PM EDMichael Landry, PANTRY CHEF - 05/30/2024 10:00 AM Fredo Verdugo, CATH LAB-BILLING AND INSURANCE COORDINATOR - 05/09/2024 12:30 PM EDTPatient Instructions Note Date & Type Note Facility 06-14-2024 History of Present illness Narrative Associated Order(s): Colposcopy Post-Procedure Diagnose(s): ASCUS with positive high risk HPV cervical Reason for Appointment: Patient ID: Anali Lira is a 28 y.o. female who presents for Abnormal Pap Smear (Pt present today for a Colposcopy procedure. Pt had an abnormal pap smear on 05/30/2024.) Patient presents today for a Colposcopy appointment. MEDICATIONS Current Outpatient Medications Medication Instructions ARIPiprazole (ABILIFY) 10 mg, Oral, Daily hydrOXYzine pamoate (Vistaril) 25 MG capsule lamoTRIgine (LAMICTAL) 100 mg, Oral, Every 24 hours sertraline (ZOLOFT) 75 mg, Oral, Daily traZODone (Desyrel) 50 MG tablet ALLERGIES Allergies Allergen Reactions Amoxicillin Hives Childhood allergy, had ancef, no issues SURGICAL HISTORY Past Surgical History: Procedure Laterality [...] Constitutional: Appearance: Normal appearance. She is well-developed. Genitourinary: Vulva normal. Cardiovascular: Rate and Rhythm: Normal rate and [...] nursing note reviewed. Exam conducted with a materials associate present. Vitals: Estimated body mass index is 49.68 kg/m as calculated from the following: Height as of 12/28/23: 5' 6 . Weight as of 05/30/24: 307 lb 12.8 oz. BP: Patient's last menstrual period was 05/10/2024 (exact date). ASSESSMENT & PLAN Assessment/Plan Encounter Diagnosis: ICD-10-CM 1. ASCUS with positive high risk HPV cervical R87.610 POCT urinalysis dipstick manually resulted R87.810 POCT , urine manually resulted CANCELED: Colposcopy Colposcopy Date/Time: 06/14/2024 3:37 PM Performed by: Thomas Baltazar DO Authorized by: Thomas Baltazar DO Procedure location: vagina and vulva Consent: Patient questions answered: yes Risks and benefits of the procedure and its alternatives discussed: yes Consent obtained: Written Consent given by: Patient Pre-procedure: Prep solution(s): acetic acid Procedure: Colposcopy with: colposcopy only Cervix visibility: fully visualized Post-procedure: Patient tolerance of procedure: Patient tolerated the procedure well with no immediate complications Comments: Colposcopy: Patient is doing well and has no complaints. Pap results have been reviewed with the patient in great detail and patient voiced understanding. Patient presents today for a Colposcopy. Patient was placed in dorsal lithotomy position with feet in stirrups, a sterile speculum was placed into the vagina and the cervix was visualized. Cervix was cleansed with vinegar. Postprocedural instructions given. All if patients questions answered and she expressed understanding. Advised to call in interim with questions or concerns. Follow Up: Patient is to return in 6 months for Repeat Pap. Documented by Marybeth Dodd LPN on behalf of: Thomas Baltazar DO documented in this encounter [facility] 05-30-2024 History of Present illness Narrative Reason [...] cervical cancer screening 2022 neg/ [facility]. Adams [facility] Social History Tobacco Use Smoking status: [...] nursing note reviewed. Exam conducted with a materials associate present. Vitals: Estimated body mass index is [...] Thomas Baltazar DO documented in this encounter [facility] 05-09-2024 History of Present illness Narrative [facility] Follow Up CHIEF COMPLAINT: [...] or dysplasia identified. Report Electronically Signed Out ssi/04/04/2024Adria Perez M.D. Addendum (PHS) Date Reported: 04/05/2024 1. Immunohistochemical stain for H. pylori is negative with satisfactory control. Past Medical History: Diagnosis Date Anxiety Bipolar disorder (CMS-HCC) Depression GERD (gastroesophageal reflux disease) PCOS (polycystic ovarian syndrome) Upper abdominal pain Visual impairment Glasses PREVIOUS ENDOSCOPY OR X-RAY PROCEDURES: As noted in the HPI Past Surgical History: Past Surgical History: Procedure Laterality Date ESOPHAGOGASTRODUODENOSCOPY BIOPSY N/A 03/31/2024 Performed by Mark Julian MD at [facility] WISDOM TOOTH EXTRACTION Current Medications: Current [...] low fat/low fiber meals daily - Consider health support specialist referral pending clinical course Chronic superficial gastritis without bleeding - Continue Omeprazole 40 mg daily Chronic diarrhea - Colonoscopy; Future with Dr. Julian with [facility] ASA 3 due to BMI - Repeat calprotectin Follow up after colonoscopy or sooner if needed. WAGNER Kapoor [facility] [place] [address] PH: [phone] /[place] Total time spent: 45 minutes Preparing to see the patient (e.g., review of tests) Obtaining and/or reviewing separately obtained history Performing a medically appropriate examination and/or evaluation Counseling and educating the patient/family/caregiver Ordering medications, tests, or procedures WAGNER Kohler 05/09/24 [id number] documented in this encounter [facility] 05-09-2024 Instructions Beckie Files, [facility] - 05/09/2024 12:30 PM EDT Are You Ready To Kick The Habit? Free Tobacco Cessation Resources [facility] Services [facility] provide all employees with free tobacco cessation services that include: Counseling to understand nicotine addiction Education about medications that can help you successfully quit Assistance with developing a plan to quit Call to set up an individual appointment or find out when group classes will be held: [facility]: [phone] [facility]: [phone] [facility]: [phone] [facility]: [phone] Quit Smoking Action Plan and Resources [facility] offers an eight-week, online smoking cessation plan to all [facility] employees, regardless of whether [place] is your medical insurance provider. Go to [email or web address] and click the Health Risk Assessment and Resources link to get started. In the [employer] menu, click Action Plans instead of Health Risk Assessment to access the Quit Smoking Action Plan. Additional smoking cessation resources are also available to all [facility] employees on the [employer] web page at www.[place]/quits dalia. [place] Tobacco Cessation Program If [employer] [facility] is your medical insurance provider, there are more free resources available to you, including: No copays or deductibles on local tobacco cessation counseling services to help you quit Prescription assistance for tobacco cessation medications to help you quit For details about the tobacco cessation program available to [employer] members, go to www.[employer].Muufri (Search: Tobacco Cessation Program). [place] [facility] Quit Line 3-217-TPNC-NOW ( ) is a toll-free, telephonic service that helps [place] residents quit smoking and using tobacco. It is staffed by experts who tailor a quit plan for you and provide you with advice. [place] Tobacco Quit Line 6-129-SAXH-NOW ( ) is a toll-free, telephonic service that helps [place] residents quit smoking and using tobacco. It is staffed by experts who tailor a quit plan for you and provide you with advice. Two weeks of nicotine replacement therapy may be provided at no charge, if needed. Additional Resources These national organizations also offer free information and resources to help you quit tobacco: [place] [employer]--www.cancer.org/healthy/s tayawayfromtobacco [place] [employer]--www.heart.org (Search: Quit Smoking) Centers for Disease Control and Prevention--www.cdc.gov/tobacco [place] [employer]--www.lungusa.org documented in this encounter [facility] 02-22-2024 Miscellaneous Notes From Cassandra Verdugo PANTRY CHEF - note Upper abdominal pain - EGD; Future with MAC at [facility] ASA [address] Julian documented in this encounter [facility] 02-22-2024 Telephone encounter Note From Cassandra Verdugo PANTRY CHEF - note Upper abdominal pain - EGD; Future with MAC at [facility] ASA [address] Julian [facility] 12-28-2023 History of Present illness Narrative Reason [...] cervical cancer screening 2022 neg/ Dr. Adams [facility] Social History Tobacco Use Smoking status: [...] Thomas Baltazar DO documented in this encounter [facility] 12-02-2023 History of Present illness Narrative Wound Check Location: Right coreas [...] any new/changing lesions documented in this encounter [facility] 11-17-2023 History of Present illness Narrative Reason [...] cervical cancer screening 2022 neg/ Dr. Adams [facility] Social History Tobacco Use Smoking status: [...] nursing note reviewed. Exam conducted with a materials associate present. Vitals: Estimated body mass index is [...] Thomas Baltazar DO documented in this encounter [facility] 11-10-2023 History of Present illness Narrative Images from the original note were not included. Suture Removal Patient here for suture removal: No complaints of redness, drainage or swelling at site, compliant with wound care. Location: Right coreas Procedure Performed: Punch biopsy Date of Procedure: [...] 1. Encounter for removal of sutures Right Coreas Sutures are intact, Skin edges are well-approximated, [...] malignancies. Would like patient to see a freight dispatcher for further labs and workup to ensure there is not an underlying systemic cause. Referral to Dr. Medina was initiated. Will leave follow up with us open ended at this time. Should rash return, patient can contact us for follow up. Related Procedures Ambulatory referral to Rheumatology Next Visit: as needed documented in this encounter [facility] 10-27-2023 History of Present illness Narrative Images [...] normal affect, well appearing Unaccompanied, Accompanied by long-term staff A focused exam completed based on patient reported problems, see below: 1. Rash and other nonspecific skin eruption Right coreas Erythematous macules and papules. Biopsy today, see procedure note. Patient has family history of Factor V Leiden disorder and denies any symptomology with this rash. Biopsy completed today. Can do additional biopsies and/or lab work if needed based on pathology results. 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 HealthcareEvaluation note* Diagnosis LGSIL of cervix of undetermined significance documented in this encounter [facility] HealthcareEvaluation note* Diagnosis Rash and other nonspecific skin eruption- Primary documented in this encounter [facility] HealthcareEvaluation note* Diagnosis Vasculitis of skin- Primary Encounter for removal of sutures documented in this encounter [facility] HealthcareEvaluation note* Diagnosis Acute vaginitis Unspecified vaginitis and vulvovaginitis Vaginal discharge Leukorrhea, not specified as infective STD exposure Yeast infection documented in this encounter [facility] HealthcareEvaluation note* Diagnosis Upper abdominal pain- Primary Acute gastritis without hemorrhage, unspecified gastritis type documented in this encounter [facility] SystemEvaluation note* Diagnosis Upper abdominal pain- Primary Diarrhea, unspecified type Gastroesophageal reflux disease, unspecified whether esophagitis present documented in this encounter [facility] SystemEvaluation note* Diagnosis Gastroparesis- Primary Chronic superficial gastritis without bleeding Chronic diarrhea Diarrhea Upper abdominal pain Gastroesophageal reflux disease, unspecified whether esophagitis present documented in this encounter [facility] SystemEvaluation note* Diagnosis ASCUS with positive high risk HPV cervical documented in this encounter [facility] HealthcareEvaluation note* Diagnosis ASCUS with positive high risk HPV cervical examination or test, positive result [facility]ructionsNot on filedocumented in this [facility]Pro[facility] SystemInstructionsNot on filedocumented in this encounterProMemorial Health System SystemInstructions* Pre-Procedure Instructions - Heidi Vasquez RN - 03/21/2024 10:00 AM EST [facility] at 12:30pm Arrival Time: 10:30am [facility] Address: [address] [place] [address] in [address] Parking lot located on [facility]. Report to the Entrance B. Check in at the information desk the surgery. The waiting room located on the second floor. If you have any questions prior to surgery, please call Pre-Admission Clinic at [phone] between 7:30 am and 4:30 pm Thursday through Thursday. If you have questions the morning of surgery, please call the Pre-op Department at [phone]. Notify your SURGEON if you develop any [...] weekly, hold 1 week prior to surgery: Mounjaro . Blood thinners: Please contact your prescribing [...] piercings ,hair extensions that contain metal, nail icelandic, make-up, and contact lens. You may brush [...] RIGHTS AND RESPONSIBILITIES As a patient at [facility], you have the right to: Receive medical care and be informed of who is taking care of you Be treated with dignity and respect Have a family member/automobile rental representative of choice and your physician notified of your admission Receive information and actively participate in decisions about your care and treatment Refuse care, treatment and services Decide who may provide your support and speak for you Access anglican and spiritual services Participate in ethical issues [...] of hospital charges and payment methods Patient/patient automobile rental representative responsibilities are to: Provide information about health status to facilitate care, treatment and services Follow the treatment, plan, keep appointments and speak up when you do not understand the plan Respect the rights of other patients and healthcare personnel Follow organizational rules and regulations that support quality care and a safe environment Fulfill financial obligations as promptly as possible [facility] [place] SystemInstructionsNot on filedocumented in this encounter [facility] SystemInstructionsNot on filedocumented in this encounter [facility] Pre-Procedure Instructions - Heidi Vasquez RN - 03/21/2024 10:00 AM EST Your surgery/procedure is scheduled at [facility] on 03-31-2024 at 12:30pm Arrival Time: 10:30am [facility] Address: [address] [place] [address] in [address]1 Parking lot located on [facility]. Report to the Entrance B. Check in at the information desk the surgery. The waiting room located on the second floor. If you have any questions prior to surgery, please call Pre-Admission Clinic at [phone] between 7:30 am and 4:30 pm Thursday through Thursday. If you have questions the morning of surgery, please call the Pre-op Department at [phone]. Notify your SURGEON if you develop any [...] weekly, hold 1 week prior to surgery: Mounjaro . Blood thinners: Please contact your prescribing [...] piercings ,hair extensions that contain metal, nail icelandic, make-up, and contact lens. You may brush [...] RIGHTS AND RESPONSIBILITIES As a patient at [facility], you have the right to: Receive medical care and be informed of who is taking care of you Be treated with dignity and respect Have a family member/automobile rental representative of choice and your physician notified of your admission Receive information and actively participate in decisions about your care and treatment Refuse care, treatment and services Decide who may provide your support and speak for you Access anglican and spiritual services Participate in ethical issues [...] of hospital charges and payment methods Patient/patient automobile rental representative responsibilities are to: Provide information about health status to facilitate care, treatment and services Follow the treatment, plan, keep appointments and speak up when you do not understand the plan Respect the rights of other patients and healthcare personnel Follow organizational rules and regulations that support quality care and a safe environment Fulfill financial obligations as promptly as possible [facility] (narrative)* Consultation (Routine) - Pending Review Specialty Diagnoses / Procedures Referred By Saranya flores Referred To Contact Rheumatology Diagnoses Vasculitis of skin Procedures ID OFFICE/OUTPATIENT [facility] 60 MINUTES Tania Rodas PA [address] [place] [address] Dmitry Medina MD [address] [place] [address] Referral ID Status Reason Start Date Expiration Date Visits Requested Visits Authorized [id number] Pending Review Specialty Services Required 11/10/2023 05/08/2024 1 1 [facility] Summary Purpose Family History No Family History Records FoundNo Family History Records FoundNo Family History Records Found Advance Directives No Advanced Directives Records FoundDocuments on File Type Date Recorded Patient Design Drafter Chief Expl anation Advance Directives and Living Will Power of Hoop Riveter Date Activated Date Inactivated Comments 02/13/2022 2:19 PM 02/20/2022 1:32 PM Date Activated Date Inactivated Comments 02/13/2022 2:19 PM 02/20/2022 1:32 PM Additional Source Comments INFORMATION SOURCE (unrecogn ized section and content) DATE CREATED AUTHOR 03/18/[address] [facility] DATE CREATED AUTHOR AUTHOR'S ORGANIZ ATION 11/21/2019 [facility] DATE CREATED AUTHOR AUTHOR'S ORGANIZ ATION 06/16/2024 [facility] dical Specialists EPIC Reason for Visit (unrecogniz ed section and content) Reason Comments Wound Check Reason Comments Abnormal Pap Smear Reason Comments Rash Specialty Diagnoses / Procedures Referred By Contac t Referred To Contact Dermatology Diagnoses rash and nonspecific skin eruption Procedures office visit Brandy Paul, VONDA [address] [place] [address] Meghan Diamond MD [address] [address] Referral ID Status Reason Start Date Expiration Date Visits Re quested Visits Authorized [id number] Closed 10/26/2023 04/23/2024 1 1 Reason Comments Follow-up Reason Comments Vaginitis/Bacterial Vaginosis Reason Comments Follow-up Follow up, states sh e feels ok, gastric emptying test results Results Reason Comments Repeat Pap Reason Comments Abnormal Pap Smear Pt present today for a Colposcopy procedure. Pt had an abnormal pap smear on 05/30/2024. Care Teams (unrecognized sec tion and content) Recreation Instructor Relationship Specialty Start Date End Date No Pcp, [place] [address] PCP - General Family Medicine 02/28/23 Recreation Instructor Relationship Specialty Start Date End Date No Pcp, [place] [address] PCP - General Family Medicine 02/28/23 Recreation Instructor Relationship Specialty Start Date End Date Tom Peterson PA-C [address] [place] [address] PCP - General Physician Police Patrol Lieutenant 03/21/24 Recreation Instructor Relationship Specialty Start Date End Date Tom Peterson PA-C [address] [place] [address] PCP - General Physician Police Patrol Lieutenant 03/21/24 FOR RECORDS PERTAINING TO PATIENTS WHO [...] BE BASED ON THE PRIMARY CLINICAL RECORDS. [facility]. provides no warranty or guarantee of the accuracy or completeness of information in this document.
[2024-06-16 18:15] LABS: HCG Quantitative 746 mIU/mL
== END 2024-06-16 16:04 | disposition home or self-care (01) ==
LOC: LAB 16:04
PROVIDERS: Visit Provider Obstetrics & Gynecology
DX: Z32.01 Encounter for pregnancy test, result positive (principal)
CPT/HCPCS: 36415; 84702

== ENCOUNTER 2024-06-29 17:09 | Emergency (ER) | payer OTHER, SELFPAY ==
[2024-06-29 17:15] VITALS: BP 146/89; PULSE 94; TEMP 36.4; O2SAT 100; BMI 49.2
--- NOTE | 2024-06-29 17:25 | ED_ITS ---
Documented by User: Juliette Pennington DO 06/29/24 17:27 HPI HPI - General Adult General Chief complaint: Vaginal Bleeding Stated complaint: 7WEEKS Bleeding Time Seen by Provider: 06/29/24 21:10 Source: patient Mode of arrival: walk-in Limitations: no limitations History of Present Illness HPI narrative: Patient presents to ED complaining of vaginal bleeding. Patient is G3, P2 at about 7 weeks gestation. She said she started spotting and passing some small clots. She does have some mild pelvic cramping. No nausea vomiting. She said in her previous she did not receive RhoGAM however she does not remember what her blood type specifically is. No back pain no fevers. She has not had an OUTSIDE PLANT SUPERVISOR visit yet. No severe abdominal pain. Patient has not had any prior miscarriages. Related Data Home Medications ?Medication ?Instructions ?Recorded ?Confirmed clindamycin HCl 150 mg capsule 150 mg PO Q8H 06/29/24 06/29/24 Allergies Allergy/AdvReac Type Severity Reaction Status Date / Time amoxicillin Allergy Hives Verified 01/23/24 11:45 Review of Systems ROS Status of ROS 10 or more systems reviewed and unremark able except as noted in history and below PFSH PFSH Social History Little interest or pleasure in doing things: not at all Feeling down, depressed, or hopeless: not at all Exam Narrative Exam Narrative: General: alert, no acute distress Cardiovascular: regular rate and rhythm, normal peripheral perfusion. Respiratory: Lungs CTA, respirations non labored. Extremities: no deformity, no trauma. Neurological: oriented x 4, LOC appropriate for age. Abdomen soft nontender nondistended Constitutional Vital Signs, click to edit/add: Last Vital Signs Temp 97.6 F 06/29/24 17:15 Pulse 94 H 06/29/24 17:15 Resp 18 06/29/24 17:15 BP 146/89 H 06/29/24 17:15 Pulse Ox 100 06/29/24 17:15 O2 Del Method Room Air 06/29/24 17:15 Course Vital Signs Vital signs: Vital Signs Temperature 97.6 F 06/29/24 17:15 Pulse Rate 94 H 06/29/24 17:15 Respiratory Rate 18 06/29/24 17:15 Blood Pressure 146/89 H 06/29/24 17:15 Pulse Oximetry 100 06/29/24 17:15 Oxygen Delivery Method Room Air 06/29/24 17:15 Temperature 97.6 F 06/29/24 17:15 Pulse Rate 94 H 06/29/24 17:15 Respiratory Rate 18 06/29/24 17:15 Blood Pressure 146/89 H 06/29/24 17:15 Pulse Oximetry 100 06/29/24 17:15 Oxygen Delivery Method Room Air 06/29/24 17:15 Medical Decision Making Lab Data Labs: Lab Results 06/29/24 Range/Units 17:30 WBC 8.6 (4.0-11.0) 10^3/uL RBC 4.55 (4.20-5.40) 10^6/uL Hgb 12.9 (12.0-16.0) g/dL Hct 39.4 (36.0-48.0) % MCV 86.6 (81.0-99.0) fL MCH 28.4 (26.7-34.0) pg MCHC 32.7 (29.9-35.2) g/dL RDW 14.6 (11.0-15.0) % Plt Count 304 (150-450) 10^3/uL MPV 9.2 L (9.5-13.5) fL Neut % (Auto) 62.9 (43.0-75.0) % Lymph % (Auto) 28.8 (20.5-60.0) % Haakon % (Auto) 4.4 (1.7-12.0) % Eos % (Auto) 3.0 (0.9-7.0) % Baso % (Auto) 0.7 (0.2-2.0) % Neut # (Auto) 5.4 (1.4-6.5) 10^3/uL Lymph # (Auto) 2.5 (1.2-3.8) 10^3/uL Haakon # (Auto) 0.4 (0.3-0.8) 10^3/uL Eos # (Auto) 0.3 (0.0-0.7) 10^3/uL Baso # (Auto) 0.1 (0.0-0.1) 10^3/uL Abs Immat Gran (auto) 0.02 (0.00-0.03) 10^3/uL Imm/Tot Granulo (auto) 0.2 (0.0-0.5) % Sodium 139 (136-145) mmol/L Potassium 3.7 (3.5-5.1) mmol/L Chloride 102 (98-107) mmol/L Carbon Dioxide 29.5 (21.0-32.0) mmol/L Anion Gap 11.2 BUN 8.0 (7.0-18.0) mg/dL Creatinine 0.98 (0.55-1.02) mg/dL Est GFR ( Amer) >60 (>=60 mL/min/1.73m^2) Est GFR (Non-Af Amer) >60 (>=60 mL/min/1.73m^2) BUN/Creatinine Ratio 8.2 Glucose 97 (74-106) mg/dL Calcium 8.8 (8.5-10.1) mg/dL Total Bilirubin 0.3 (0.2-1.0) mg/dL AST 18 (15-37) U/L ALT 46 (14-59) U/L Alkaline Phosphatase 125 H (46-116) U/L Total Protein 7.7 (6.4-8.2) g/dL Albumin 3.4 (3.4-5.0) g/dL Globulin 4.3 g/dL Albumin/Globulin Ratio 0.8 HCG, Quant 1225 mIU/mL Discharge Plan Discharge Chief Complaint: Vaginal Bleeding Clinical Impression: Threatened Patient Disposition: Home, Self-Care Prescriptions / Home Meds: No Action clindamycin HCl 150 mg capsule 150 mg PO Q8H Print Language: Anguillan Instructions: Threatened Miscarriage (ED) Additional Instructions: follow up with you Software Test Developer within the next week Referrals: Physician,Non-Staff, [Primary Care Provider] - 1 week Documented by User: Dav Berg MD 06/29/24 21:13 HPI HPI - General Adult General Chief complaint: Vaginal Bleeding Stated complaint: 7WEEKS Bleeding Time Seen by Provider: 06/29/24 21:10 Related Data Home Medications ?Medication ?Instructions ?Recorded ?Confirmed clindamycin HCl 150 mg capsule 150 mg PO Q8H 06/29/24 06/29/24 Allergies Allergy/AdvReac Type Severity Reaction Status Date / Time amoxicillin Allergy Hives Verified 01/23/24 11:45 PFSH PFSH Social History Little interest or pleasure in doing things: not at all Feeling down, depressed, or hopeless: not at all Exam Constitutional Vital Signs, click to edit/add: Last Vital Signs Temp 97.6 F 06/29/24 17:15 Pulse 94 H 06/29/24 17:15 Resp 18 06/29/24 17:15 BP 146/89 H 06/29/24 17:15 Pulse Ox 100 06/29/24 17:15 O2 Del Method Room Air 06/29/24 17:15 Course Vital Signs Vital signs: Vital Signs Temperature 97.6 F 06/29/24 17:15 Pulse Rate 94 H 06/29/24 17:15 Respiratory Rate 18 06/29/24 17:15 Blood Pressure 146/89 H 06/29/24 17:15 Pulse Oximetry 100 06/29/24 17:15 Oxygen Delivery Method Room Air 06/29/24 17:15 Temperature 97.6 F 06/29/24 17:15 Pulse Rate 94 H 06/29/24 17:15 Respiratory Rate 18 06/29/24 17:15 Blood Pressure 146/89 H 06/29/24 17:15 Pulse Oximetry 100 06/29/24 17:15 Oxygen Delivery Method Room Air 06/29/24 17:15 Medical Decision Making MDM Narrative Medical decision making narrative: care transferred at change of shift. female with spotting. US demonstrated single IUP with estimated gestational age of 6 weeks. heart rate not seen at this time. no subchorionic bleed. no ectopic preg. Patient informed of the above and the need to followup with OB Lab Data Labs: Lab Results 06/29/24 Range/Units 17:30 WBC 8.6 (4.0-11.0) 10^3/uL RBC 4.55 (4.20-5.40) 10^6/uL Hgb 12.9 (12.0-16.0) g/dL Hct 39.4 (36.0-48.0) % MCV 86.6 (81.0-99.0) fL MCH 28.4 (26.7-34.0) pg MCHC 32.7 (29.9-35.2) g/dL RDW 14.6 (11.0-15.0) % Plt Count 304 (150-450) 10^3/uL MPV 9.2 L (9.5-13.5) fL Neut % (Auto) 62.9 (43.0-75.0) % Lymph % (Auto) 28.8 (20.5-60.0) % Haakon % (Auto) 4.4 (1.7-12.0) % Eos % (Auto) 3.0 (0.9-7.0) % Baso % (Auto) 0.7 (0.2-2.0) % Neut # (Auto) 5.4 (1.4-6.5) 10^3/uL Lymph # (Auto) 2.5 (1.2-3.8) 10^3/uL Haakon # (Auto) 0.4 (0.3-0.8) 10^3/uL Eos # (Auto) 0.3 (0.0-0.7) 10^3/uL Baso # (Auto) 0.1 (0.0-0.1) 10^3/uL Abs Immat Gran (auto) 0.02 (0.00-0.03) 10^3/uL Imm/Tot Granulo (auto) 0.2 (0.0-0.5) % Sodium 139 (136-145) mmol/L Potassium 3.7 (3.5-5.1) mmol/L Chloride 102 (98-107) mmol/L Carbon Dioxide 29.5 (21.0-32.0) mmol/L Anion Gap 11.2 BUN 8.0 (7.0-18.0) mg/dL Creatinine 0.98 (0.55-1.02) mg/dL Est GFR ( Amer) >60 (>=60 mL/min/1.73m^2) Est GFR (Non-Af Amer) >60 (>=60 mL/min/1.73m^2) BUN/Creatinine Ratio 8.2 Glucose 97 (74-106) mg/dL Calcium 8.8 (8.5-10.1) mg/dL Total Bilirubin 0.3 (0.2-1.0) mg/dL AST 18 (15-37) U/L ALT 46 (14-59) U/L Alkaline Phosphatase 125 H (46-116) U/L Total Protein 7.7 (6.4-8.2) g/dL Albumin 3.4 (3.4-5.0) g/dL Globulin 4.3 g/dL Albumin/Globulin Ratio 0.8 HCG, Quant 1225 mIU/mL Discharge Plan Discharge Chief Complaint: Vaginal Bleeding Clinical Impression: Threatened Patient Disposition: Home, Self-Care Prescriptions / Home Meds: No Action clindamycin HCl 150 mg capsule 150 mg PO Q8H Print Language: Anguillan Instructions: Threatened Miscarriage (ED) Additional Instructions: follow up with you Software Test Developer within the next week Referrals: Physician,Non-Staff, MD [Primary Care Provider] - 1 week
[2024-06-29 17:34] LABS: Basophils Absolute Auto 0.1 10^3/uL (0.0-0.1); Basophils Percent Auto 0.7 % (0.2-2.0); Eosinophils Absolute Auto 0.3 10^3/uL (0.0-0.7); Hematocrit 39.4 % (36.0-48.0); Hemoglobin 12.9 g/dL (12.0-16.0); Immature Granulocytes Abs Auto 0.02 10^3/uL (0.00-0.03); Immature Granulocytes Pct Auto 0.2 % (0.0-0.5); Lymphocytes Absolute Auto 2.5 10^3/uL (1.2-3.8); Lymphocytes Percent Auto 28.8 % (20.5-60.0); Mean Corpuscular HGB Conc 32.7 g/dL (29.9-35.2); Mean Corpuscular Hemoglobin 28.4 pg (26.7-34.0); Mean Corpuscular Volume 86.6 fL (81.0-99.0); Mean Platelet Volume 9.2 fL (9.5-13.5); Monocytes Absolute Auto 0.4 10^3/uL (0.3-0.8); Monocytes Percent Auto 4.4 % (1.7-12.0); Neutrophils Absolute Auto 5.4 10^3/uL (1.4-6.5); Neutrophils Percent Auto 62.9 % (43.0-75.0); Platelet Count 304 10^3/uL (150-450); Red Blood Count 4.55 10^6/uL (4.20-5.40); Red Cell Distribution Width 14.6 % (11.0-15.0); White Blood Count 8.6 10^3/uL (4.0-11.0)
[2024-06-29 17:51] LABS: Alanine Aminotransferase 46 U/L (14-59); Albumin Globulin Ratio 0.8; Albumin Level 3.4 g/dL (3.4-5.0); Alkaline Phosphatase 125 U/L (46-116); Anion Gap 11.2; Aspartate Amino Transferase 18 U/L (15-37); BUN Creatinine Ratio 8.2; Bilirubin Total 0.3 mg/dL (0.2-1.0); Calcium 8.8 mg/dL (8.5-10.1); Carbon Dioxide 29.5 mmol/L (21.0-32.0); Chloride 102 mmol/L (98-107); Estimated GFR (African America >60 (>=60 mL/min/1.73m^2); Estimated GFR (Non-African Ame >60 (>=60 mL/min/1.73m^2); Globulin 4.3 g/dL; Glucose 97 mg/dL (74-106); Potassium 3.7 mmol/L (3.5-5.1); Sodium 139 mmol/L (136-145); Total Protein 7.7 g/dL (6.4-8.2)
[2024-06-29 18:17] LABS: HCG Quantitative 1225 mIU/mL
== END 2024-06-29 22:21 | disposition home or self-care (01) ==
PROVIDERS: Emergency Medicine; Emergency Provider Internal Medicine
DX: O20.0 Threatened abortion (principal); Z3A.01 Less than 8 weeks gestation of pregnancy
CPT/HCPCS: 36415; 76817; 80053; 84702; 85025; 99285

== ENCOUNTER 2024-06-30 09:23 | Emergency (ER) | payer OTHER, SELFPAY ==
[2024-06-30 09:29] VITALS: BP 164/100; PULSE 85; TEMP 36.7; O2SAT 99; BMI 49.2
--- NOTE | 2024-06-30 09:46 | ED.GENADUL1 ---
HPI HPI - General Adult General Chief complaint: Vaginal Bleeding Stated complaint: POSSIBLE MISSCARRIAGE 7 WKS Time Seen by Provider: 06/30/24 09:34 Source: patient Mode of arrival: walk-in Limitations: no limitations History of Present Illness HPI narrative: Patient presents to the emergency department with chief complaint of vaginal bleeding and lower abdominal cramping. She is 3 para 2 with LMP 12 May and about 7 weeks gestation by dates. She came in yesterday because of vaginal bleeding. Her quantitative hCG was 1225. Transvaginal ultrasound reported pole. She states that the amount of bleeding she is having is similar to what she would have with a normal menstrual period. She does not know her blood type. Related Data Home Medications ?Medication ?Instructions ?Recorded ?Confirmed clindamycin HCl 150 mg capsule 150 mg PO Q8H 06/29/24 06/29/24 Allergies Allergy/AdvReac Type Severity Reaction Status Date / Time amoxicillin Allergy Hives Verified 06/30/24 09:29 Review of Systems ROS Status of ROS 10 or more systems reviewed and unremarkable except as noted in history and below PFSH PFSH Social History Little interest or pleasure in doing things: not at all Feeling down, depressed, or hopeless: not at all Exam Narrative Exam Narrative: Patient's vitals are stable. She is not hypotensive or tachycardic. She does not appear acutely distressed. HEENT exam is normal to inspection. Lung sounds are clear to auscultation. Heart has regular rate and rhythm. Abdomen is protuberant, soft nontender. Constitutional Vital Signs, click to edit/add: Last Vital Signs Temp 98.1 F 06/30/24 09:29 Pulse 85 06/30/24 09:29 Resp 16 06/30/24 09:29 BP 164/100 H 06/30/24 09:29 Pulse Ox 99 06/30/24 09:29 O2 Del Method Room Air 06/30/24 09:29 Course Vital Signs Vital signs: Vital Signs Temperature 98.1 F 06/30/24 09:29 Pulse Rate 85 06/30/24 09:29 Respiratory Rate 16 06/30/24 09:29 Blood Pressure 164/100 H 06/30/24 09:29 Pulse Oximetry 99 06/30/24 09:29 Oxygen Delivery Method Room Air 06/30/24 09:29 Temperature 98.1 F 06/30/24 09:29 Pulse Rate 85 06/30/24 09:29 Respiratory Rate 16 06/30/24 09:29 Blood Pressure 164/100 H 06/30/24 09:29 Pulse Oximetry 99 06/30/24 09:29 Oxygen Delivery Method Room Air 06/30/24 09:29 Medical Decision Making MDM Narrative Medical decision making narrative: Patient's hCG level is down to 910 today which is lower than yesterday's value. Her blood type is a positive. I feel she has an incomplete miscarriage and is spontaneously aborting. Supportive care is advised and she is discharged in stable condition. I did review the results of her pelvic ultrasound from yesterday which identified an intrauterine gestation with single pole and single yolk sac but no heart rate was visible. She is referred to outpatient [facility] follow-up. Lab Data Labs: Lab Results 06/30/24 Range/Units 09:59 HCG, Quant 910 mIU/mL Blood Type A Positive Discharge Plan Discharge Chief Complaint: Vaginal Bleeding Clinical Impression: Incomplete Patient Disposition: Home, Self-Care Time of Disposition Decision: 10:40 Condition: Good Mode of Transportation: Private Vehicle Prescriptions / Home Meds: No Action clindamycin HCl 150 mg capsule 150 mg PO Q8H Print Language: Argentine Instructions: Miscarriage (ED) Additional Instructions: Ibuprofen for pain as needed. Follow-up with Dr. Baltazar. Return for worsening symptoms. Referrals: Eusebio Baltazar DO [Physician, IT SECURITY SPECIALIST] - 1 week Physician,Non-Staff, [Primary Care Provider] - 1 week Discharge Date/Time: 06/30/24 11:14
[2024-06-30 10:32] LABS: HCG Quantitative 910 mIU/mL
== END 2024-06-30 11:14 | disposition home or self-care (01) ==
PROVIDERS: Emergency Provider Emergency Medicine
DX: O03.4 Incomplete spontaneous abortion without complication (principal)
CPT/HCPCS: 36415; 84702; 86900; 86901; 99283

== ENCOUNTER 2024-07-06 11:00 | Outpatient (RCR) | payer OTHER, SELFPAY ==
[2024-07-06 12:18] LABS: HCG Quantitative 14 mIU/mL
== END 2024-08-01 10:54 | disposition home or self-care (01) ==
LOC: LAB 11:00
PROVIDERS: Visit Provider Obstetrics & Gynecology
DX: O03.9 Complete or unspecified spontaneous abortion without complication (principal)
CPT/HCPCS: 36415; 84702

== ENCOUNTER 2024-12-13 14:56 | Outpatient (REF) | payer OTHER, SELFPAY ==
--- OUTSIDE RECORDS SUMMARY | 2024-07-11 06:00 | XMS_ITS ---
Author Organization [facility] es Address [address] [place] [address] Care Team Providers Care Garage Door Technician Name Role Phone Dr. Calin Cordova Primary Care Provider REASON FOR VISIT E COMMERCE MERCHANDISING COORDINATOR EXAM Encounters Encounter Location Date Provider Diagnosis [facility] [address] [place] [address] 07/11/2024 Calin Cordova Plan Of Treatment No Information Progress Notes * Danial LIRAOB:1995 ([age] yo F)Acc No.[id number]:07/11/2024 Patient: Anali Quick Provider: Rose Cordova DDS :1995 A ge:28 Y S ex:Female Date:07/11/2024 [facility] Subjective: * Chief Complaints: * N P EXAM * Electronic signature of Dr. Calin Cordova , [facility], [id number] on 12/13/2024 at 10:14 AM EDT Sign off status: Pending * Provider: Rose Cordova DDS Date: 0 07/11/2024 Generated for Melissa lawler/Gely/eTransmitting on: 1 10:14 AM EDT
--- OUTSIDE RECORDS SUMMARY | 2024-12-13 10:20 | XMS_ITS | Encounter Summary ---
Author Organization [facility] Address [address] [place] [address] Care Team Providers Care Reel Operator Name Role Phone Unavailable Primary Care Provider Unavailabl e Reason for Visit * Reason Comments Gynecologic Exam Encounter Details Date Type Department Care Team (Late st Contact Info) Description 12/13/2024 10:20 AM EDT Office Visit [facility] [address] [place] [phone] Eusebio Baltazar DO [address] [place], [place] [id number] Well woman exam with routine gynecological exam; Amenorrhea; PCOS (polycystic ovarian syndrome); Breast lump on left side at 2 o'clock position Social History Tobacco Use Types Packs/Day Years Used Date Smoking Tobacco: Former Cigarettes Smokeless Tobacco: Never Comments No Sex and Gender Information Value Date Recorded Sex Assigned at Not on file Legal Sex Female 11:54 AM EST Gender Identity Female 03/29/2023 10:30 PM EST Sexual Orientation Pansexual 03/29/2023 10 :30 PM EST documented as of this encounter Last Filed Vital Signs Vital Sign Reading Time Taken Comments Blood Pressure 112/82 12/13/2024 10:36 AM EDT Pulse - - Temperature - - Respiratory Rate - - Oxygen Saturation - - Inhaled Oxygen Concentration - - Weight 142 kg (313 lb 12.8 oz) 12/13/2024 10:36 AM EDT Height 167.6 cm (5' 6 ) 12/13/2024 10:36 AM EDT Body Mass Index 50.65 12/13/2024 10:36 AM EDT documented in this encounter Progress Notes * Marybeth Dodd LPN - 12/13/2024 10:20 AM EDT Reason for Appointment: Patient ID: Anali Lira is a 29 y.o. female who presents for Gynecologic Exam Patient presents today for Annual Exam. MEDICATIONS Current Outpatient Medications Medication Instructions ARIPiprazole (ABILIFY) 10 mg, Oral, Daily lamoTRIgine (LAMICTAL) 100 mg, Oral, Every 24 hours sertraline (ZOLOFT) 75 mg, Oral, Daily ALLERGIES Allergies[1] PROBLEMS Active Ambulatory Problems Diagnosis Date Noted No Active Ambulatory Problems Resolved Ambulatory Problems Diagnosis Date Noted No Resolved Ambulatory Problems Past Medical History: Diagnosis Date Irregular periods Pap smear for cervical cancer screening 2022 HISTORY PAST MEDICAL HISTORY SOCIAL HISTORY Medical History[2] Social History Tobacco Use Smoking status: Former Types: Cigarettes Smokeless tobacco: Never Substance Use Topics Alcohol use: Not on file Drug use: Not on file FAMILY HISTORY Family History[3] SURGICAL HISTORY Surgical History[4] REVIEW OF SYSTEMS Review of Systems: Review [...] nursing note reviewed. Exam conducted with a electronic design engineer present. Vitals: Estimated body mass index is 50.65 kg/m?? as calculated from the following: Height as of this encounter: 5' 6 . Weight as of this encounter: 313 lb 12.8 oz. BP: 112/82 No LMP recorded. ASSESSMENT & PLAN ICD-10-CM 1. Well woman exam with routine gynecological exam Z01.419 POCT urinalysis dipstick manually resulted Pap Smear CANCELED: Pap Smear 2. Amenorrhea N91.2 POCT urinalysis dipstick manually resulted POCT , urine manually resulted Orders Placed This Encounter Procedures POCT urinalysis dipstick manually resulted POCT , urine manually resulted Annual Wellness Exam: Patient presents today for routine annual exam. Patient states she has complaints of no period since April. Pt declines control provera faxed to pharmacy. Pt given labs and ultrasound to have obtained Patients vitals were reviewed and within normal limits. Growth and development is noted to be appropriate for age. Menstrual history is noted to be irregular with concerns reported. No mental health concerns was expressed. Pap Smear: Speculum was inserted into the vagina and pap was obtained without difficulty. No HPV testing was performed per age guideline. Patient was advised that pap results could take anywhere from 7 to 10 days to receive and our office will reach out to the patient with those once we have them. Patient canalso view results via [employer]. I reinforced importance of condom use for STI prevention. Patient requested cultures to be performed with today's visit. Breast Exam: Upon examination, clinical breast exam was noted to be normal with breast lump at 2 oclock 5 cm from nipple 2 cm in size. Patient was counseled on breast self- awareness, including the importance of knowing what is normal for her own breasts and promptly reporting any changes such as new lumps, skindimpling, nipple discharge, or pain. Screening mammogram recommended annually beginning at age 40 or earlier if risk factors are present. Discussed signs and symptoms of breast cancer and when to seek medical attention. Answered all patient questions. Contraceptive Counseling (if applicable): Patient is currently using no control at this time as a form of contraceptive. Patient does not desire control at this time. Follow Up: Patient is to return to our office in one year for annual exam unless needed otherwise. Documented by Marybeth Dodd LPN on behalf of: Eusebio Baltazar DO [1] Allergies Allergen Reactions Amoxicillin Hives Childhood allergy, had ancef, no issues [2] Past Medical History: Diagnosis Date Irregular periods Pap smear for cervical cancer screening 2022 neg/ Dr. Adams [facility] [3] No family history on file. [4] Past Surgical History: Procedure Laterality Date CT ANGIOGRAM HEART CORONARY 01/22/2024 CT ANGIOGRAM TAVR 01/22/2024 documented in this encounter Plan of Treatment Upcoming Encounters Date Type Department Care Team (Late st Contact Info) Description 12/26/2024 10:00 AM EDT Ancillary Procedure [facility] [address] [place] [address] 12/19/2025 11:00 AM EDT Procedure Visit [facility] [address] [facility] [place] [address] Eusebio Baltazar DO [address] [place], [place] [id number] Scheduled Orders Name Type Priority Associated Diagnoses Orde r Schedule Pap Smear Pathology and Cytology Routine Well woman exam with routine gynecological exam Ordered: 12/13/2024 hCG, quantitative, Lab Routine Amenorrhea PCOS (polycystic ovarian syndrome) Ordered: 12/13/2024 TSH Lab Routine Amenorrhea PCOS (polycystic ovarian syndrome) Ordered: 12/13/2024 T4, free Lab Routine Amenorrhea PCOS (polycystic ovarian syndrome) Ordered: 12/13/2024 CBC and differential Lab Routine Amenorrhea PCOS (polycystic ovarian syndrome) Ordered: 12/13/2024 Follicle stimulating hormone Lab Routine Amenorrhea PCOS (polycystic ovarian syndrome) Ordered: 12/13/2024 Luteinizing hormone Lab Routine Amenorrhea PCOS (polycystic ovarian syndrome) Ordered: 12/13/2024 Hemoglobin A1c Lab Routine Amenorrhea Ordered: 12/13/2024 DHEA-sulfate Lab Routine Amenorrhea PCOS (polycystic ovarian syndrome) Ordered: 12/13/2024 DHEA Lab Routine Amenorrhea PCOS (polycystic ovarian syndrome) Expected: 12/13/2024 (Approximate), Expires: 12/13/2025 US Pelvis w/ TV Imaging Routine Amenorrhea PCOS (polycystic ovarian syndrome) Expected: 12/13/2024, Expires: 12/13/2025 Bilateral diagnostic mammogram Imaging Routine Breast lump on left side at 2 o'clock position Expected: 12/13/2024 (Approximate), Expires: 02/12/2026 documented as of this encounter Procedures Procedure Name Priority Date/Time Associated Diagnosis Comments POCT , URINE Routine 12/13/2024 10:51 AM EDT Amenorrhea POCT URINALYSIS DIPSTICK Routine 12/13/2024 10:50 AM EDT Well woman exam with routine gynecological exam Amenorrhea documented in this encounter Results * POCT , urine manually resulted (12/13/2024 10:51 AM EDT) Preg Test, Ur Negative Negative Urine 12/13/2024 10:5 1 AM EDT Eusebio Giovanny DO POINT OF CARE TEST ENTER/EDIT OR DERABLES Final Result * POCT urinalysis dipstick manually resulted (12/13/2024 10:50 AM EDT) Color, UA Yellow Clarity, UA Clear Glucose, UA Negative Negative - 2000(110) ++++ mg/dL Bilirubin, UA Negative Negative - 4(70) +++ mg/dL Ketones, UA Negative Negative - 160(16) ++++ mg/dL Spec Grav, UA 1.010 1 - 1.03 Blood, UA Negative Negative - 50 Thai/mcL pH, UA 8.0 5 - 9 Protein, UA Negative Negative - 2000(20) ++++ mg/dL Urobilinogen, UA 2.0 0.2 - 12 mg/dL Leukocytes, UA Negative Negative - 500+++ Shawn/mcL Nitrite, UA Negative Negative - Positive Urine 12/13/2024 10:5 0 AM EDT Eusebio Giovanny DO POINT OF CARE TEST ENTER/EDIT OR DERABLES Final Result documented in this encounter Visit Diagnoses Diagnosis Well woman exam with routine gynecological exam Routine gynecological examination Amenorrhea Absence of menstruation PCOS (polycystic ovarian syndrome) Polycystic ovaries Breast lump on left side at 2 o'clock position Lump or mass in breast documented in this encounter
--- OUTSIDE RECORDS SUMMARY | 2024-12-13 15:00 | XMS_ITS | Encounter Summary ---
Author Organization [facility] Address [address] [place] [address] Care Team Providers Care Archeology Professor Name Role Phone Unavailable Primary Care Provider Unavailabl e Encounter Details Date Type Department Care Team (Late st Contact Info) Description 12/13/2024 Bamboo flowsheet [facility] [place] [phone] Eusebio Baltazar DO [address] [place], [place] [id number] Social History Tobacco Use Types Packs/Day Years Used Date Smoking Tobacco: Former Cigarettes Smokeless Tobacco: Never Comments No Sex and Gender Information Value Date Recorded Sex Assigned at Not on file Legal Sex Female 11:54 AM EST Gender Identity Female 03/29/2023 10:30 PM EST Sexual Orientation Pansexual 03/29/2023 10 :30 PM EST documented as of this encounter Plan of Treatment Upcoming Encounters Date Type Department Care Team (Late st Contact Info) Description 12/26/2024 10:00 AM EDT Ancillary Procedure [facility] [place] [phone] 12/19/2025 11:00 AM EDT Procedure Visit RE[facility]I [facility] [place] [address] Eusebio Baltazar DO [address] [place], [place] [phone] documented as of this encounter Visit Diagnoses Not on filedocumented in this encounter
--- OUTSIDE RECORDS SUMMARY | 2024-12-13 15:00 | XMS_ITS | Clinical Summary ---
Author Organization [facility] Address [address] [place] [address] Care Team Providers Care Passenger Brakeman Name Role Phone Unavailable Primary Care Provider Unavailabl e Allergies Active Allergy Reactions Criticality Noted Date Comments Amoxicillin Hives 11/25/2012 Childhood allergy, had ancef, no issues Medications ARIPiprazole (Abilify) 5 MG tablet Take 10 mg by mouth Daily 05/22/2022 Active lamoTRIgine (LaMICtal) 100 MG tablet Take 100 mg by mouth 1 (one) time each day at the same time 01/15/2023 Active sertraline (Zoloft) 50 MG tablet Take 75 mg by mouth Daily Active medroxyPROGESTER one (Provera) 10 MG tabletIndication s:Amenorrhea Take 1 tablet (10 mg) by mouth Daily 14 tablet 3 12/13/2024 Active Active Problems No known active problems Encounters Date Type Department Care Team Description 12/13/2024 10:20 AM EDT [place] [address] Eusebio Baltazar DO Well woman exam with routine gynecological exam; Amenorrhea; PCOS (polycystic ovarian syndrome); Breast lump on left side at 2 o'clock position 12/13/2024 Bamboo flowsheet [facility] [address] [place] [address] Eusebio Baltazar DO 12/13/2024 Travel from Last 3 Months Social History Tobacco Use Types Packs/Day Years Used Date Smoking Tobacco: Former Cigarettes Smokeless Tobacco: Never Tobacco Cessation:Counseling Given: Not Answered Comments No Sex and Gender Information Value Date Recorded Sex Assigned at Not on file Legal Sex Female 11:54 AM EST Gender Identity Female 03/29/2023 10:30 PM EST Sexual Orientation Pansexual 03/29/2023 10 :30 PM EST Last Filed Vital Signs Vital Sign Reading [...] Mass Index 50.65 12/13/2024 10:36 AM EDT Plan of Treatment Upcoming Encounters Date Type Department Care Team (Late st Contact Info) Description 12/26/2024 10:00 AM EDT Ancillary Procedure [facility] [address] [place] [address] 12/19/2025 11:00 AM EDT Procedure Visit [facility] [place] [address] Eusebio Baltazar DO [address] [place] [address] Procedures Procedure Name Priority Date/Time Associated Diagnosis Comments POCT , URINE Routine 12/13/2024 10:51 AM EDT Amenorrhea POCT URINALYSIS DIPSTICK Routine 12/13/2024 10:50 AM EDT Well woman exam with routine gynecological exam Amenorrhea from Last 3 Months Results * POCT , urine manually resulted (12/13/2024 10:51 AM EDT) Preg Test, Ur Negative Negative Urine 12/13/2024 10:5 1 AM EDT us Eusebio Baltazar DO POINT OF CARE TEST ENTER/EDIT OR DERABLES Final Result * POCT urinalysis dipstick manually resulted (12/13/2024 10:50 AM EDT) Color, UA Yellow Clarity, UA Clear Glucose, UA Negative Negative - 1999(110) ++++ mg/dL Bilirubin, UA Negative Negative - (70) +++ mg/dL Ketones, UA Negative Negative - 160(16) ++++ mg/dL Spec Grav, UA 1.010 1 - 1.03 Blood, UA Negative Negative - 50 Thai/mcL pH, UA 8.0 5 - 9 Protein, UA Negative Negative - 1999(20) ++++ mg/dL Urobilinogen, UA 2.0 0.2 - 12 mg/dL Leukocytes, UA Negative Negative - 500+++ Shawn/mcL Nitrite, UA Negative Negative - Positive Urine 12/13/2024 10:5 0 AM EDT Eusebio Baltazar DO POINT OF CARE TEST ENTER/EDIT OR DERABLES Final Result from Last 3 Months Insurance [employer]
--- OUTSIDE RECORDS SUMMARY | 2024-12-13 15:00 | XMS_ITS | Encounter Summary ---
Author Organization [facility] Address [id number] [address] [place] [address] Care Team Providers Care Side Gluer Name Role Phone Tom Peterson PA-C Primary Care Provider [phone] Encounter Details Date Type Department Care Team (Late st Contact Info) Description 01/23/2024 Telephone ASSURED INFORMATION SECURITY Call Center [address] [place] [phone] Jocelynn Quiles Social History Tobacco Use Types Packs/Day Years Used Date Smoking Tobacco: Former Smokeless Tobacco: Never Alcohol Use Standard Drinks/Week Comments Not Currently 0 (1 standard drink = 0.6 oz pur e alcohol) socially Childcare Answer Date Recorded Childcare Unknown 08/11/2018 Employment Answer Date Recorded Employment Unknown 08/11/2018 Hunger Screening Answer Date Recorded Within the past 12 months we worried whether our food would run out before we got money to buy more. Never True 01/22/2024 Within the past 12 months th e food we bought just didn't last and we didn't have money to get more. Never True 01/22/2024 Purpose - Life Answer Date Recorded Purpose and direction in life Unknown Comments No Sex and Gender Information Value Date Recorded Sex Assigned at Not on file Legal Sex Female 12:05 PM EDT Gender Identity Not on file Sexual Orientation Not on file documented as of this encounter Plan of Treatment Not on file documented as of this encounter Visit Diagnoses Not on filedocumented in this encounter Additional Health Concerns Infection Onset Date Last Indicated Resolved Time Enteric Rule-Out 02/19/2024 02/19/2024 02/19/2024 2:01 PM EST documented as of this encounter Care Teams Side Gluer Relationship Specialty Start Date End Date Tom Peterson PA-C [address] [place] [address] PCP - General Physician Global Marketing Specialist 03/21/24 05/08/24 documented as of this encounter
--- OUTSIDE RECORDS SUMMARY | 2024-12-13 15:00 | XMS_ITS | Encounter Summary ---
Author Organization [facility] Address [address] [place] [address] Care Team Providers Care Clark Driver Name Role Phone Unavailable Primary Care Provider Unavailabl e Encounter Details Date Type Department Care Team (Latest Contact Info) Description 12/13/2024 Travel Social History Tobacco Use Types Packs/Day Years [...] EDT Ancillary Procedure [facility] [address] [place] [phone] 12/19/2025 11:00 AM EDT Procedure Visit [facility] [address] [place] [phone] Eusebio Baltazar DO [address] [place], [facility] documented as of this encounter Visit Diagnoses Not on filedocumented in this encounter
--- OUTSIDE RECORDS SUMMARY | 2024-12-13 15:00 | XMS_ITS | Encounter Summary ---
Author Organization [facility] Address [address] [place] [address] Care Team Providers Care Electronics Specialist Name Role Phone Unavailable Primary Care Provider Unavailabl e Encounter Details Date Type Department Care Team (Late st Contact Info) Description 04/08/2023 Clinisync Result Encounter [facility] External Department Unsolicited Eusebio Baltazar DO [address], [place] [id number] Social History Tobacco Use Types Packs/Day Years Used Date Smoking Tobacco: Never Assessed Comments No Sex and Gender Information Value [...] AM EDT Ancillary Procedure [facility] Marquis RUIZ [facility] [place] [phone] 12/19/2025 11:00 AM EDT Procedure Visit [facility] R[facility] [place] [phone] Eusebio Baltazar DO [address], [place] [phone] documented as of this encounter Procedures Procedure Name Priority Date/Time Associated Diagnosis Comments US PELVIS W/ TRANSVAGINAL 2023 11:11 AM EST TBH PROLACTIN Routine 04/08/2023 11:05 AM EST TBH PREG QUANT HCG Routine 04/08/2023 11:05 AM EST MLR HEMOGLOBIN A1C Routine 04/08/2023 11:05 AM EST ALL THYROXINE (T4) FREE Routine 04/08/19 11:05 AM EST ALL THYROID STIM HORMONE Routine 024 11:05 AM EST ALL LUTEINIZING HORMONE Routine 04/08/19 11:05 AM EST ALL FOLLICLE STIMULATING HORMONE Routine 04/08/2023 11:05 AM EST ALL DHEA SULFATE Routine 04/08/2023 11:05 AM EST ALL DEHYDROEPIANDROSTERONE Routine 04/08 11:05 AM EST ALL CBC WITH AUTO DIFF Routine 11:05 AM EST documented in this encounter Results * US PELVIS W/ TRANSVAGINAL (04/08/2023 11:11 AM EST) Anatomical Region Laterality Modality Other 04/08/2023 11:1 1 AM EST Narrative 04/08/2023 11:13 AM EST The [address] [address] Ultrasound Report Signed Patient: ANALI LIRA MR#: [id number] : 1995 Acct:[id number] Age/Sex: 27 / F ADM Date: 04/08/23 Loc: US Attending Dr: Eusebio Baltazar D.O. Ordering Physician: Eusebio Baltazar D.O. Date of Service: 04/08/23 Procedure(s): US pelvis w/ transvaginal Accession Number(s): [id number] cc: Eusebio Baltazar D.O.; JUAN M RIVAS M.D. The [place] [address] Patient Name: ANALI LIRA MRN: [id number] date: 1995 Sex: F Assigned Patient Location: US Current Patient Location: US Accession/Order Number: [id number] Exam Date: 04/08/2023 10:35 Report Date: 04/08/2023 11:11 At the request of: EUSEBIO BALTAZAR Procedure: US pelvis w/ transvaginal EXAM: Pelvic ultrasound HISTORY: . Irregular Periods N92.6, Polycystic Ovarian Syndrome N92.6 . COMPARISON: None. TECHNIQUE: Transabdominal and transvaginal scanning was performed FINDINGS: Scanning of the pelvis demonstrates an anteverted uterus measuring 8.8 x 4.4 x 5.7 cm. Endometrial complex measures 13 mm. Right ovary measures 3.1 x 2.8 x 2.6 cm. There is a 2.4 x 1.7 cm simple cyst involving the right ovary. Follicles are noted involving the right ovary. Color-flow is noted. Left ovary measures 2.5 x 1.5 x 1.8 cm. Color-flow is noted. Follicles are noted. No fluid is noted in the cul-de-sac. US/US pelvis w/ transvaginal IMPRESSION: 1. Endometrial complex is prominent measuring 13 mm. Findings could be due to the patient's menstrual cycle or endometrial hyperplasia. 2. Normal left ovary. 3. 2.4 x 1.7 cm simple cyst in the right ovary. Electronically authenticated by: CODY MARIA Date: 04/08/2023 11:11 Dictated By: Cody Maria M.D. Signed By: 04/08/23 1113 DD/ 1111 TD/TT: Theatrical Performer: Procedure Note Radiology, Radiologist, MD - 04/08/2023 [place] [address] Ultrasound Report Signed Patient: ANALI LIRA MMR#: [id number] : 1995Acct:[id number] Age/Sex: 27 / FADM Date: 04/08/23 Loc: US Attending Dr: Eusebio Giovanny D.O. Ordering Physician: Eusebio Baltazar D.O. Date of Service: 04/08/23 Procedure(s): US pelvis w/ transvaginal Accession Number(s): [id number] cc: Eusebio Baltazar D.O.; JUAN M RIVAS M.D. [address] [address] Patient Name: ANALI LIRA MRN: [id number] date: 1995 Sex: F Assigned Patient Location: US Current Patient Location: US Accession/Order Number: [id number] Exam Date: 04/08/2023 10:35 Report Date: 04/08/2023 11:11 At the request of: EUSEBIO BALTAZAR Procedure: US pelvis w/ transvaginal EXAM: Pelvic ultrasound HISTORY: . Irregular Periods N92.6, Polycystic Ovarian Syndrome N92.6 . COMPARISON: None. TECHNIQUE: Transabdominal and transvaginal scanning was performed FINDINGS: Scanning of the pelvis demonstrates an anteverted uterusmeasuring 8.8 x 4.4 x 5.7 cm. Endometrial complex measures 13 mm. Right ovary measures 3.1 x 2.8 x 2.6 cm. There is a 2.4 x 1.7 cm simplecyst involving the right ovary. Follicles are noted involving the right ovary. Color-flow is noted. Left ovary measures 2.5 x 1.5 x 1.8 cm. Color-flow is noted. Follicles are noted. No fluid is noted in the cul-de-sac. US/US pelvis w/ transvaginal IMPRESSION: 1. Endometrial complex is prominent measuring 13 mm. Findings could be dueto the patient's menstrual cycle or endometrial hyperplasia. 2. Normal left ovary. 3. 2.4 x 1.7 cm simple cyst in the right ovary. Electronically authenticated by: CODY MARIA Date: 04/08/2023 11:11 Dictated By: Cody Maria M.D. Signed By:04/08/23 1113 DD/ 1111 TD/TT: Theatrical Performer: us Eusebio Baltazar DO [facility] Final Result * ALL DEHYDROEPIANDROSTERONE (04/08/2023 11:05 AM EST) DHEA, SERUM 400 31 - 701 ng/dL TBH Comment: This test was developed and its performance characteristics determined by [facility]. It has not been cleared or approved by the Food and Drug Administration. Performed at: [address] [id number] Laminating Machine Operator: Angeline Ramos MD, Phone: [phone] 04/08/2023 11:0 5 AM EST 04/08/2023 11:07 AM EST Narrative [facility] - 04/13/2023 3:06 AM EST [facility] Giovanny DO CLINIS[facility] Final Result Performing Organization Address [facility] Co de Phone Number [facility] * TBH PROLACTIN (04/08/2023 11:05 AM EST) PROLACTIN 9.4 4.8 - 33.4 ng/mL TBH Comment: Performed at: [address] [id number] Laminating Machine Operator: Adin Cortes PhD, Phone: [phone] 04/08/2023 11:0 5 AM EST 04/08/2023 11:07 AM EST Narrative [facility] - 04/09/2023 8:13 AM EST [facility] Final Result Performing Organization Address City/[facility]/ZIP Co de Phone Number [facility] * ALL FOLLICLE STIMULATING HORMONE (04/08/2023 11:05 AM EST) FSH 2.2 . mIU/mL TBH Comment: Adult Female Range Follicular phase 3.5 - 12.5 Ovulation phase 4.7 - 21.5 Luteal phase 1.7 - 7.7 Postmenopausal 25.8 - 134.8 04/08/2023 11:0 5 AM EST 04/08/2023 11:07 AM EST Narrative CLINISYNC - 04/09/2023 8:13 AM EST Eusebio Giovanny DO CLINISYNC Final Result Performing Organization Address [facility]/ZIP Co de Phone Number [facility] * ALL LUTEINIZING HORMONE (04/08/2023 11:05 AM EST) LUTEINIZING HORMONE(LH) 3.2 . mIU/mL TB Comment: Adult Female Range Follicular phase 2.4 - 12.6 Ovulation phase 14.0 - 95.6 Luteal phase 1.0 - 11.4 Postmenopausal 7.7 - 58.5 04/08/2023 11:0 5 AM EST 04/08/2023 11:07 AM EST Narrative CLINISYNC - 04/09/2023 8:13 AM EST [facility] Giovanny DO CLINISYNC Final Result Performing Organization Address [facility] [place] Phone Number [facility] * ALL DHEA SULFATE (04/08/2023 11:05 AM EST) DHEA-SULFATE 335.0 84.8 - 378.0 ug/dL TB 04/08/2023 11:0 5 AM EST 04/08/2023 11:07 AM EST Narrative CLINISYNC - 04/09/2023 8:13 AM EST [facility] Final Result Performing Organization Address [facility] [place] Phone Number [facility] * MLR HEMOGLOBIN A1C (04/08/2023 11:05 AM EST) GLYCOHEMOGLOBIN A1C 5.5 4.5 - 6.2 % TB Comment: ADA RECOMMENDED LIMIT 4.0 - 6.0 ADA THERAPEUTIC TARGET < 7.0 ACTION SUGGESTED > 7.0 ESTIMATED AVERAGE GLUCOSE 111 mg/dL TB 04/08/2023 11:0 5 AM EST 04/08/2023 11:07 AM EST Narrative CLINISYNC - 04/08/2023 12:19 PM EST us Eusebio Giovanny DO [facility] Final Result [facility] * ALL THYROXINE (T4) FREE (04/08/2023 11:05 AM EST) FREE T4 0.84 0.76 - 1.46 ng/dL TBH 04/08/2023 11:0 5 AM EST 04/08/2023 11:07 AM EST Narrative CLINISYNC - 04/08/2023 12:07 PM EST [facility] Giovanny DO CLINIS[facility]NC Final Result Performing Organization Address [facility] Co de Phone Number [facility] * TBH PREG QUANT HCG (04/08/2023 11:05 AM EST) HCG QUANTITATIVE <1 mIU/mL TBH Comment: 5-50 0.2-1 WEEK 50-500 1-2 WEEKS 100-5,000 2-3 WEEKS 500-10,000 3-4 WEEKS 1,000-50,000 4-5 WEEKS 10,000-100,000 5-6 WEEKS 15,000-200,000 6-8 WEEKS 10,000-100,000 2-3 MONTHS 04/08/2023 11:0 5 AM EST 04/08/2023 11:07 AM EST Narrative CLINISYNC - 04/08/2023 11:45 AM EST Eusebio Giovanny DO CLINISYNC Final Result [facility] * ALL THYROID STIM HORMONE (04/08/2023 11:05 AM EST) THYROID STIMULATING HORMONE 1.664 0.358 - 3.740 uIU/mL TBH 04/08/2023 11:0 5 AM EST 04/08/2023 11:07 AM EST Narrative CLINISYNC - 04/08/2023 11:45 AM EST Eusebio Giovanny DO CLINISYNC Final Result [facility] * (ABNORMAL) ALL CBC WITH AUTO DIFF (04/08/2023 11:05 AM EST) [facility] TB WBC 6.4 4.0 - 11.0 10 3/uL TBH TBH RBC 4.12(L) 4.20 - 5.40 10 6/uL TBH TBH HGB 12.4 12.0 - 16.0 g/dL TBH TBH HCT 38.2 36.0 - 48.0 % TBH TBH MCV 92.7 81.0 - 99.0 fL TBH TBH MCH 30.1 26.7 - 34.0 pg TBH TBH MCHC 32.5 29.9 - 35.2 g/dL TBH TBH RDW 13.7 11.0 - 15.0 % TBH TBH PLT 290 150 - 450 10 3/uL TBH TBH MPV 9.3(L) 9.5 - 13.5 fL TBH NEUTROPHILS PERCENT AUTO 59.1 43.0 - 75.0 % TBH LYMPHOCYTES PERCENT AUTO 30.3 20.5 - 60.0 % TBH MONOCYTES PERCENT AUTO 6.1 1.7 - 12.0 % TBH TBH EO % 3.6 0.9 - 7.0 % TBH BASOPHILS PERCENT AUTO 0.6 0.2 - 2.0 % TBH IMMATURE GRANULOCYTES PCT AUTO 0.3 0.0 - 0.5 % TBH NEUTROPHILS ABSOLUTE AUTO 3.8 1.4 - 6.5 10 3/uL TBH LYMPHOCYTES ABSOLUTE AUTO 2.0 1.2 - 3.8 10 3/uL TBH MONOCYTES ABSOLUTE AUTO 0.4 0.3 - 0.8 10 3/uL TBH TBH EO # 0.2 0.0 - 0.7 10 3/uL TBH BASOPHILS ABSOLUTE AUTO 0.0 0.0 - 0.1 10 3/uL TBH IMMATURE GRANULOCYTES ABS AUTO 0.02 0.00 - 0.03 10 3/uL TBH 04/08/2023 11:0 5 AM EST 04/08/2023 11:07 AM EST Narrative CLINISYNC - 04/08/2023 11:34 AM EST us Eusebio Giovanny DO CLINISYNC Final Result [facility] documented in this encounter Visit Diagnoses Not on filedocumented in this encounter
--- OUTSIDE RECORDS SUMMARY | 2024-12-13 15:00 | XMS_ITS | Encounter Summary ---
Author Organization [facility] Address [address] [place] [facility] [place] [address] Care Team Providers Care Mortgage Underwriter Name Role Phone Unavailable Primary Care Provider Unavailabl e Encounter Details Date Type Department Care Team (Late Contact Info) Description 06/07/2024 Orders Only REJI RUIZ [address] [place] [address] [place] [phone] Tammy Carvajal LPN [address] [facility] [address] [place] [phone] Social History Tobacco Use Types Packs/Day Years [...] Encounters Date Type Department Care Team (Late Contact Info) Description 12/26/2024 10:00 AM EDT Ancillary Procedure NOMFacundo RUIZ [address] [place] [address] [place] [phone] 12/19/2025 11:00 AM EDT Procedure Visit N[facility] R[facility]Z [address] [place] [address] [place] [phone] Eusebio Baltazar DO [address] [place] [address] [address] [place], [place] [phone] documented as of this encounter Procedures Procedure Name Priority Date/Time Associated Diagnosis Comments PAP SMEAR Routine 05/30/2024 12:00 AM EDT documented in this encounter Results * Pap Smear (05/30/2024 12:00 AM EDT) Swab Cervical swab / Unknown Giovanny Nurse [facility] CYTOLOGY ORDERABLES Final Result EXTERNAL LAB documented in this encounter Visit Diagnoses Not on filedocumented in this encounter
--- OUTSIDE RECORDS SUMMARY | 2024-12-13 15:00 | XMS_ITS | Clinical Summary ---
Author Organization Applimation tem Address [id number] [address] [place] [address] Care Team Providers Care Quality Process Engineer Name Role Phone Unavailable Primary Care Provider Unavailabl e Allergies Active Allergy Reactions Criticality Noted Date Comments Amoxicillin Hives 02/09/2019 Childhood allergy, had ancef, no issues Medications 25/iron fum/folic/dha (-1 ORAL) Take by mouth. Activ e lamoTRIgine (LaMICtal) 100 mg tablet Take 1 tablet (100 mg total) by mouth in the morning. 3 Active sertraline (ZOLOFT) 50 mg tablet Take 1.5 tablets (75 mg total) by mouth in the morning. Active metFORMIN (GLUCOPHAGE) 500 mg tablet Take 1 tablet (500 mg total) by mouth nightly. Active ARIPiprazole (ABILIFY) 15 mg tablet Take 1 tablet (15 mg total) by mouth once daily at bedtime. Active hydrOXYzine (VISTARIL) 25 mg capsule Take 1 capsule (25 mg total) by mouth 2 (two) times a day as needed. 4 Active lamoTRIgine (LaMICtal) 25 mg tablet Take 1 tablet (25 mg total) by mouth Daily before evening meal. Active traZODone (DESYREL) 50 mg tablet Take 1 tablet (50 mg total) by mouth nightly as needed. 4 Active omeprazole (PriLOSEC) 40 mg capsuleIndicatio ns:Upper abdominal pain,Gastroesoph ageal reflux disease, unspecified whether esophagitis present Take 1 capsule (40 mg total) by mouth every morning before breakfast. 30 capsule 11 5 Active Additional Information Patient not taking.Reported on 06/18/2024 acetaminophen (TylenoL) 325 mg tablet Take 2 tablets (650 mg total) by mouth every 6 (six) hours as needed for pain. 30 tablet Active Active Problems Estimated Date of Delivery Comme nts Yes 02/14/2025 No known active problems Immunizations No known immunizations Family History Medical History Relation Name Comments Diabetes Father Hypertension Father Hypertension Mother Anesthesia problems Neg Hx Colon cancer Neg Hx Relation Name Status Comments Father Mother Social History Tobacco Use Types Packs/Day Years Used Date Smoking Tobacco: Former Cigarettes Passive Smoke Exposure: Past Smokeless Tobacco: Never Tobacco Cessation:Counseling Given: Not Answered Comments:Approx 0.5ppd x 5 years Alcohol Use Standard Drinks/Week Comments Not Currently 0 (1 standard drink = 0.6 oz pur e alcohol) Childcare Answer Date Recorded Childcare Unknown 08/11/2018 Employment Answer Date Recorded Employment Unknown 08/11/2018 Hunger Screening Answer Date Recorded Within the past 12 months we worried whether our food would run out before we got money to buy more. Never True 06/27/2024 Within the past 12 months th e food we bought just didn't last and we didn't have money to get more. Never True 06/27/2024 Purpose - Life Answer Date Recorded Purpose and direction in life Unknown Estimated Date of Delivery Comme nts Yes 02/14/2025 Sex and Gender Information Value Date Recorded Sex Assigned at Not on file Legal Sex Female 12:05 PM EDT Gender Identity Not on file Sexual Orientation Not on file Last Filed Vital Signs Vital Sign Reading Time Taken Comments Blood Pressure 157/109 06/27/2024 6:56 PM EDT Pulse 80 06/27/2024 6:56 PM EDT Temperature 37.1 C (98.7 F) 06/27/2024 6:56 PM EDT Respiratory Rate 20 06/27/2024 6:56 PM EDT Oxygen Saturation 99% 06/27/2024 6:56 PM EDT Inhaled Oxygen Concentration - - Weight 138.3 kg (305 lb) 06/27/2024 6:56 PM EDT Height 167.6 cm (5' 6 ) 06/27/2024 6:56 PM EDT Body Mass Index 49.23 06/27/2024 6:56 PM EDT Plan of Treatment Health Maintenance Due Date Last Done Comments Depression Screening 2008 Adult BMI Follow Up Plan 2014 COVID-19 Vaccine (2 - 2024-2 6 season) 2024 12/03/2020 Influenza Vaccine 10/31/2024 01/22/2022 Adult BMI Screening 06/27/2025 06/27/2024 Tobacco Screening 06/27/2025 06/27/2024 Pap Smear 05/31/2027 05/30/2024, 05/01, 05/20/2022, Additional history exists DTaP,Tdap and Td Vaccines (7 - Td or Tdap) 01/23/2032 01/22/2022, 10/19/2001, 12/08/1997, Additional history exists Medical Devices Not on file Procedures Procedure Name Priority Date/Time Associated Diagnosis Comments PAP SMEAR Routine 05/20/2022 3:10 AM EDT Low grade squamous intraepithelial lesion on cytologic smear of cervix (LGSIL) from Last 3 Months or Most Recently Relevant to Health Maintenance Results * (ABNORMAL) Pap Smear (05/20/2022 3:10 AM EDT) 05/20/2022 3:10 AM EDT 05/20/2022 3:11 AM EDT Narrative COPATH - 05/22/2022 2:14 PM EDT [facility] [address] [place] [address] Gynecologic Cytology Consultation Patient Name:ANALI LIRA:1995 (Age: 26)Gender:FTaken:05/20/2022Reported:05/22/2022hysician(s):Hunter Darden M.D. ([phone])Copy To: Rec. #:[id number]: #[id number] Final Cytologic Interpretation ThinPrep Pap Test (Not otherwise specified): Satisfactory for evaluation. A transformation zone component is present. SQUAMOUS EPITHELIAL CELL ABNORMALITY A low-grade squamous intraepithelial lesion (LSIL) is present. cjb/05/22/2022 Interpretation performed at [facility], [address] [place] [address], License number: [id number]. Electronically Signed Out By Ioana Hutchinson MD Date of Last Menstrual Period: (None Given) Other Clinical Conditions: R87.612 LGSIL cervix Source of Specimen ThinPrep Pap Test (Not otherwise specified) Thin Prep Pap (RN GERIATRIC) Fee Code(s): 67930, 10833 us Abeetameka Darden MD PATHOLOGY/CYTOLOGY ORDERABLES [facility] Result COPATH from Last 3 Months or Most Recently Relevant to Health Maintenance Insurance [place] [employer] Advance Directives * Full Code (Latest Code Status on File) Date Activated Date Inactivated Comments 02/13/2022 2:19 PM 02/20/2022 1:32 PM
--- OUTSIDE RECORDS SUMMARY | 2024-12-13 15:02 | XMS_ITS | CCD ---
Author Organization [facility] InformCounts include 234 beds at the [facility] Care Team Providers Care Warehouse Delivery Driver Name Role Phone ARMANDO FELIX Referring Unavailable ARMANDO FELIX Primary Care Unavailable MILY SHELTON Admitting Unavailable WONDERLY, MILY Quinn Attending Unavailable NIKITA, MILY Quinn Consulting Unavailable MILY SHELTON Admitting Unavailable WONDERMELANIA, MILY Quinn Attending Unavailable NIKITA, MILY Quinn Consulting Unavailable Armando Felix MD Primary Care Provider Unavailable Primary Care Provider Unavailabl e No Pcp, No Pcp Primary Care Provider Unavailabl e Tom Peterson PA-C Primary Care Provider [phone] Unavailable Primary Care Provider Unavailabl e THOMAS BALTAZAR Attending Unavailable SUMI BALTAZARY Attending Unavailable TANIA RODAS Attending Unavailable BRANDY PAUL Referring Unavailable BRIT TANIA Attending Unavailable GIOVANNY, THOMAS Attending Unavailable GIOVANNY, THOMAS Attending Unavailable BRIT TANIA Attending Unavailable SUMI BALTAZARY Attending Unavailable Allergies Allergy Classification Reported Allergen(s) Allergy Type Date of Onset Reaction(s) Facility (20 sources) Amoxicillin Drug Allergy 11-25-2012 [facility] Medications Current Medications Medication Drug Class(es) [...] (-1 ORAL) Take by mouth. Active Vit w/Wr-Nyjsvgwzu-IO (PNV PO) (1 source) Vit w/Ya-Fogmpfago-KL (PNV PO) Take by mouth. 0 Active [...] abdominal pain, unspecified] 02-29-2024 Episodic Anxiety disorders (3 sources) Mixed anxiety and depressive disorder; Translations: [Generalized anxiety disorder] Onset: 4 Chronic Cancer of cervix (5 sources) Cervical [...] exposure to other viral communicable diseases] Onset: 0 11-17-2023 Episodic Inflammatory diseases of female pelvic organs (2 sources) Acute vaginitis; Translations: [Acute vaginitis] 11-17-2023 Episodic Mood disorders (2 sources) Major depressive disorder, single episode, moderate; Translations: [Major depressive disorder. single episode. moderate] Onset: Chronic Mycoses (2 sources) Mycosis; Translations: [Candidiasis, unspecified] 11-17-2023 Episodic Noninfectious gastroenteritis (2 sources) Chronic diarrhea; Translations: [Noninfective gastroenteritis and colitis, unspecified] 05-09-2024 Episodic Other aftercare (2 sources) Wound finding; Translations: [Encounter for other specified aftercare] 12-02-2023 Episodic Other aftercare (2 sources) Patient encounter status; Translations: [Encounter for follow-up examination after completed treatment for conditions other than malignant neoplasm] 07-04-2024 Episodic Other circulatory disease (2 sources) Hypersensitivity [...] [Encounter for test, result positive] 06-14-2024 Episodic Spontaneous (2 sources) Miscarriage; Translations: [Complete or unspecified spontaneous without complication] 07-04-2024 Episodic Unclassified (2 sources) Patient encounter status [...] Test Name Value Interpretation Reference Range Facility [facility] PREG QUANT HCGon 025 HCG QUANTITATIVE 14 mIU/mL [facility] Comment on above: 5-50 0.2-1 WEEK 50-500 1-2 WEEKS 100-5,000 2-3 WEEKS 500-10,000 3-4 WEEKS 1,000-50,000 4-5 WEEKS 10,000-100,000 5-6 WEEKS 15,000-200,000 6-8 WEEKS 10,000-100,000 2-3 [facility] ( test) Ql (U)o n 07-04-2024 Interpretation and review of laboratory results Abnormal [facility] Preg Test, Ur Positive Negative [facility] care [facility] Urinalysis macro (dipstick) panel (U)on 07-04-2024 Bilirubin, UA Negative Negative - 4(70) +++ mg/dL [facility] Blood, UA Positive Negative - 50 Thai/mcL [facility] Comment on above: large Clarity, UA Clear [facility] re Color, UA Yellow [facility] e Glucose, UA Negative Negative - 1999(110) ++++ mg/dL [facility] Interpretation and review of laboratory results Abnormal [facility] Ketones, UA Negative Negative - 160(16) ++++ mg/dL [facility] Leukocytes, UA Negative Negative - 500+++ Shawn/mcL [facility] Nitrite, UA Negative Negative - Positive [facility] pH, UA 6 5 - 9 [facility] Protein, UA Negative Negative - 1999(20) ++++ mg/dL [facility] Spec Grav, UA 1.02 1 - 1.03 [facility] Urobilinogen, UA 0.2 0.2 - 12 mg/dL [facility] Health[facility] e TBH PREG QUANT HCGon 025 HCG QUANTITATIVE 746 mIU/mL [facility] Comment on above: 5-50 0.2-1 WEEK 50-500 1-2 WEEKS 100-5,000 2-3 WEEKS 500-10,000 3-4 WEEKS 1,000-50,000 4-5 WEEKS 10,000-100,000 5-6 WEEKS 15,000-200,000 6-8 WEEKS 10,000-100,000 2-3 [facility] Colposcopyon 06-14-2024 Marybeth Dodd LPN 06/15/2024 4:50 PM [...] return in 6 months for Repeat Pap. [facility] e HCG ( test) Ql (U)o n 06-14-2024 Interpretation and review of laboratory results Abnormal [facility] Preg Test, Ur Positive Negative [facility] PREG QUANT HCGon 025 HCG QUANTITATIVE 308 mIU/mL [facility] Comment on above: 5-50 0.2-1 WEEK 50-500 1-2 WEEKS 100-5,000 2-3 WEEKS 500-10,000 3-4 WEEKS 1,000-50,000 4-5 WEEKS 10,000-100,000 5-6 WEEKS 15,000-200,000 6-8 WEEKS 10,000-100,000 2-3 MONTHS [facility] e Urinalysis macro (dipstick) panel (U)on 06-14-2024 Bilirubin, UA Negative Negative - 4(70) +++ mg/dL [facility] Blood, UA Negative Negative - 50 Thai/mcL [facility] Clarity, UA Clear [facility] re Color, UA Yellow [facility] e Glucose, UA Negative Negative - 2000(110) ++++ mg/dL [facility] Interpretation and review of laboratory results Normal [facility] Ketones, UA Negative Negative - 160(16) ++++ mg/dL [facility] Leukocytes, UA Negative Negative - 500+++ Shawn/mcL [facility] Nitrite, UA Negative Negative - Positive [facility] pH, UA 6.5 5 - 9 [facility] Protein, UA Negative Negative - 1999(20) ++++ mg/dL [facility] Spec Grav, UA 1.01 1 - 1.03 [facility] Urobilinogen, UA 0.2 0.2 - 12 mg/dL [facility] Health[facility] e PAP IG, APT HPV RFX 16/18,45 on 06-02-2024 HPV APTIMA Positive Abnormal Negative [facility] Comment on above: This nucleic acid am plification test detects fourteen high- risk HPV types (16,18,31,33,35,39,45,51,52,56,58,59,66,68) without differentiation. Performed at: [facility] [employer] [address] [place], [place] [id number] [employer]: Jayson Pascual MD, Phone: [phone] Performed at: [facility] [address] [id number] [employer]: Isabel Lozada MD, Phone: [phone] Interpretation and review of laboratory results Abnormal [facility] PAP IG (IMAGE GUIDED) Note Abnormal . [facility] Comment on above: TESTS RESULT FLAG UN ITS REF RANGE LAB Clinician Provided Cytology Information Source.............Cervix;Endocervix No. of containers..01 ThinPrep Vial DIAGNOSIS: [A] 01 EPITHELIAL CELL ABNORMALITY. ATYPICAL SQUAMOUS CELLS OF UNDETERMINED SIGNIFICANCE (ASC-US). Recommendation: [A] 01 Suggest follow up as clinically appropriate. Specimen adequacy: 01 Satisfactory for evaluation. Endocervical and/or squamous metaplastic cells (endocervical component) are present. Performed by: Iveth Melissa, Signal Mechanic ([facility]) Electronically si... Deja Serrano MD, Pathologist . [...] <-Panic Low,>-Panic High,A-Abnormal,AA-Critical Abnormal Performed at: 01 [id number] [place] [phone] Jayson Pascual MD, [address] [place] [address] Isabel Lozada MD, BRUSH-SPATULA CERVIX ENDOCERVIX [facility] e [facility] IGP,RFX APTIMA HPV ALL P on 01-06-2024 HPV APTIMA Positive Abnormal Negative [facility] Comment on above: This nucleic acid am plification test detects fourteen high- risk HPV types (16,18,31,33,35,39,45,51,52,56,58,59,66,68) without differentiation. Performed at: [address] [id number] [employer]: Isabel Lozada MD, Phone: [phone] Performed at: =[address] [id number] [employer]: Isabel Lozada MD, Phone: [phone] Interpretation and review of laboratory results Abnormal [facility] PAP IG (IMAGE GUIDED) Note Abnormal . [facility] Comment on above: TESTS RESULT FLAG UN ITS REF RANGE LAB Clinician Provided Cytology Information Source.............Cervix;Endocervix No. of containers..01 ThinPrep Vial DIAGNOSIS: [A] 01 EPITHELIAL CELL ABNORMALITY. ATYPICAL SQUAMOUS CELLS OF UNDETERMINED SIGNIFICANCE (ASC-US). Specimen adequacy: 01 Satisfactory for evaluation. Endocervical and/or squamous metaplastic cells (endocervical component) are present. Performed by: Hedy Church, Signal Mechanic ([facility]) Electronically si... Josiane Maria MD, Pathologist . [...] High <-Panic Low,>-Panic High,A-Abnormal,AA-Critical Abnormal Performed at: [facility] [address] [address] Isabel Lozada MD, BRUSH-SPATULA CERVIX ENDOCERVIX CLINIS[facility]NC [employer] e Cytology Cervical or vaginal smear or scraping studyon 12-28-2023 [facility] [employer] e No Panel Informationon 10-26 Type of biopsy: pun h Informed consent: discussed and consent obtained Informed [...] Specimen sent for: H&E [facility] 10-18-2019 SARS-CoV-2, ALEX Not Detected Normal Not Detected [facility] [place] Comment on above: Result Comment: This test was developed and its performance characteristics determined by [employer]. This test has not been FDA cleared [...] #### C VDPCR #### [facility] [address] [place], [place] [address] Brenna Rueda COVID-19 PCRon 09-10-2019 SARS-CoV-2, ALEX Not Detected Normal Not Detected [facility] [place] Comment on above: Result Comment: This test was developed and its performance characteristics determined by [employer]. This test has not been FDA cleared [...] #### C VDPCR #### [facility] [address] [place], [place] [address] Brenna Rueda Basic Metab, Fastingon 03-17 (cont.) Normal [facility] Comment on above: Result Comment: Aver age GFR for 20-29 years old: 116 mL/min/1.73sq m Chronic Kidney Disease: <60 mL/min/1.73sq m Kidney failure: <15 mL/min/1.73sq m eGFR calculated using average adult body mass. Additional eGFR calculator available at: http://www.[employer].GreenIQ/multiple_crcl_2012.htm Performed By: #### B MPF, FT4, LIPRF, TSH #### [facility] [employer] [address] [place] [id number] [employer]: Deep Gonzalez MD Anion gap [Moles/Vol] 12 mmol/L Normal 9-[address] [facility] Comment on above: Performed By: #### B MPF, FT4, LIPRF, TSH #### [address] [address] [employer]: Deep Gonzalez MD Calcium [Mass/Vol] 9.1 mg/dL Normal 8.6-10.[address] [facility] Comment on above: Performed By: #### B MPF, FT4, LIPRF, TSH #### [address] [address] [employer]: Deep Gonzalez MD Chloride [Moles/Vol] 102 mmol/L Normal 98-107 [facility] Comment on above: Performed By: #### B MPF, FT4, LIPRF, TSH #### [address] [address] [employer]: Deep Gonzalez MD CO2 [Moles/Vol] 25 mmol/L Normal 20-[address] [facility] Comment on above: Performed By: #### B MPF, FT4, LIPRF, TSH #### [facility] [employer] [address] [place] [phone] [employer]: Deep Gonzalez MD Creatinine [Mass/Vol] 0.66 mg/dL Normal 0.50-0.[address] [facility] Comment on above: Performed By: #### B MPF, FT4, LIPRF, TSH #### [facility] [employer] [address] [place] [id number] [employer]: Deep Gonzalez MD GFR, Amer >60 Normal >60 [facility] Comment on above: Performed By: #### B MPF, FT4, LIPRF, TSH #### [facility] [employer] [address] [place] [phone] [employer]: Deep Gonzalez MD GFR,non Amer >60 Normal >60 [facility] Comment on above: Performed By: #### B MPF, FT4, LIPRF, TSH #### [facility] [employer] [address] [place] [id number] [employer]: Deep Gonzalez MD Glucose [Mass/Vol] 82 mg/dL Normal 70-[address] [facility] Comment on above: Performed By: #### B MPF, FT4, LIPRF, TSH #### [facility] [employer] [address] [place] [id number] [employer]: Deep Gonzalez MD Potassium [Moles/Vol] 4.3 mmol/L Normal 3.7-5.[address] [facility] Comment on above: Performed By: #### B MPF, FT4, LIPRF, TSH #### [facility] [employer] [address] [place] [id number] [employer]: Deep Gonzalez MD Sodium [Moles/Vol] 139 mmol/L Normal 135-[address] [facility] Comment on above: Performed By: #### B MPF, FT4, LIPRF, TSH #### [facility] [employer] [address] [place] [id number] [employer]: Deep Gonzalez MD Urea nitrogen [Mass/Vol] 11 mg/dL Normal 6-[address] [facility] Comment on above: Performed By: #### B MPF, FT4, LIPRF, TSH #### [facility] [employer] [address] [place] [phone] [employer]: Deep Gonzalez MD BUN/CRE Ratio NOT REPORTED Normal 9-[address] [facility] Comment on above: Performed By: #### B MPF, FT4, LIPRF, TSH #### [id number] [place] [address] [employer]: Deep Gonzalez MD Staging: NOT REPORTED Normal [facility] Comment on above: Performed By: #### B MPF, FT4, LIPRF, TSH #### [id number] [place] [address] [employer]: Deep Gonzalez MD Basic Metabolic Panel, Fasti ngOrdered By: Armando Felix on 03-17-2019 Anion gap [Moles/Vol] 12 mmol/L 9 - 17 mmol/L [employer] Phone: Bun/Cre Ratio NOT REPORTED [facility] Work Phone: Calcium [Mass/Vol] 9.1 mg/dL 8.6 - 10. 4 mg/dL [employer] Phone: Chloride [Moles/Vol] 102 mmol/L 98 - 10 7 mmol/L [employer] Phone: CO2 [Moles/Vol] 25 mmol/L 20 - 31 mmol/L [employer] Phone: Creatinine [Mass/Vol] 0.66 mg/dL 0.5 - 0.9 mg/dL [employer] Phone: GFR >60 >60 mL/min [employer] Phone: GFR Comment [employer] Phone: Comment on above: Average GFR for 20-2 9 years old: 116 mL/min/1.73sq m Chronic Kidney Disease: <60 mL/min/1.73sq m Kidney failure: <15 mL/min/1.73sq m eGFR calculated using average adult body mass. Additional eGFR calculator available at: http://www.[employer].GreenIQ/multiple_crcl_2012.htm GFR Non- >60 >60 mL/min [employer] Phone: GFR Staging NOT REPORTED [facility] Work Phone: Glucose [Mass/Vol] 82 mg/dL 70 - 99 mg/dL [facility] [employer] Phone: Potassium [Moles/Vol] 4.3 mmol/L 3.7 - 5.3 mmol/L [facility] [employer] Phone: Sodium [Moles/Vol] 139 mmol/L 135 - 144 mmol/L [facility] Phone: Urea nitrogen [Mass/Vol] 11 mg/dL 6 - 20 mg/dL [facility] Phone: Lipid Prof, Fastingon 2019 Cholesterol [Mass/Vol] 153 mg/dL Normal <[address] [facility] Comment on above: Result Comment: Cholesterol Guidelines: <200 Desirable 200-240 Borderline >240 Undesirable Performed By: #### B MPF, FT4, LIPRF, TSH #### [facility] [employer] [address] [place], [place] [phone] [employer]: Deep Gonzalez MD Cholesterol in HDL [Mass/Vol] 56 mg/dL Normal >[address] [facility] Comment on above: Result Comment: HDL Guidelines: <40 Undesirable 40-59 Borderline >59 Desirable Performed By: #### B MPF, FT4, LIPRF, TSH #### [facility] [employer] [address] [place] [phone] [employer]: Deep Gonzalez MD Cholesterol in LDL [Mass/Vol] 72 mg/dL Normal 0-[address] [facility] Comment on above: Result Comment: LDL Guidelines: <100 Desirable 100-129 Near to/above Desirable 130-159 Borderline >159 Undesirable Direct (measured) LDL and calculated LDL are not interchangeable tests. Performed By: #### B MPF, FT4, LIPRF, TSH #### [facility] [employer] [address] [place] [phone] [employer]: Deep Gonzalez MD Cholesterol.total/Ch olesterol in HDL [Mass ratio] 2.7 {ratio} Normal <[address] [facility] Comment on above: Performed By: #### B MPF, FT4, LIPRF, TSH #### [id number] [place], [place] [phone] [employer]: Deep Gonzalez MD Triglyceride,Fasting 125 mg/dL Normal <150 [facility] Comment on above: Result Comment: Triglyceride Guidelines: <150 Desirable 150-199 Borderline 200-499 High >499 Very high Based on AHA Guidelines for fasting triglyceride, December 2011. Performed By: #### B MPF, FT4, LIPRF, TSH #### [id number] [place] [address] [employer]: Deep Gonzalez MD Cholesterol in VLDL [Mass/Vol] NOT REPORTED Normal 03-[address] [facility] Comment on above: Performed By: #### B MPF, FT4, LIPRF, TSH #### [facility] [employer] [address] [place] [phone] [employer]: Deep Gonzalez MD Lipid, FastingOrdered By: Simin Felix on 03-17-2019 Cholesterol [Mass/Vol] 153 mg/dL <200 [employer] Phone: Comment on above: Cholesterol Guidelines: <200 Desirable 200-240 Borderline >240 Undesirable Cholesterol in HDL [Mass/Vol] 56 mg/dL >40 [employer] Phone: Comment on above: HDL Guidelines: <40 Undesirable 40-59 Borderline >59 Desirable Cholesterol in LDL [Mass/Vol] 72 mg/dL 0 - 130 mg/dL [employer] Phone: Comment on above: LDL Guidelines: <100 Desirable 100-129 Near to/above Desirable 130-159 Borderline >159 Undesirable Direct (measured) LDL and calculated LDL are not interchangeable tests. Cholesterol.total/Ch olesterol in HDL [Mass ratio] 2.7 {ratio} <5 [employer] Phone: Triglyceride, Fasting 125 mg/dL <150 [employer] Phone: Comment on above: Triglyceride Guidelines: <150 Desirable 150-199 Borderline 200-499 High >499 Very high Based on AHA Guidelines for fasting triglyceride, December 2011. VLDL NOT REPORTED 1 - 30 mg/dL [employer] Work Phone: T4, FreeOrdered By: Armando castro on 03-17-2019 Thyroxine, Free 1.16 ng/dL 0.93 - 1.7 ng/dL [employer] Phone: TSHOrdered By: Armando goff 03-17-2019 TSH Qn 1.57 m[IU]/L [facility] Phone: Thyroid Stim. Horm.on 2019 TSH Qn 1.57 m[IU]/L Normal 0.30-5.[address] [facility] Comment on above: Performed By: #### B MPF, FT4, LIPRF, TSH #### [id number] [address] [place] [phone] [employer]: Deep Gonzalez MD Thyroxine, Freeon 03-17-2019 Thyroxine, Free 1.16 ng/dL Normal 0.93-1.[address] [facility] Comment on above: Performed By: #### B MPF, FT4, LIPRF, TSH #### [id number] [address] [place] [phone] [employer]: Deep Gonzalez MD Vital Signs Date Time Vital Sign Value Performing Clinician Jair erickson 07-04-2024 16:11-0400 Body mass index (BMI) [Ratio] 50.04 kg/m2 [employer] Phone: [facility] [employer] 07-04-2024 16:11-0400 Body weight 140.62 kg [employer] Phone: [facility] [employer] 07-04-2024 16:11-0400 Diastolic blood pressure 78 mm[Hg] [employer] Phone: [facility] [employer] 07-04-2024 16:11-0400 Systolic blood pressure 124 mm[Hg] [employer] Phone: [facility] 05-30-2024 10:09-0400 Body mass index (BMI) [Ratio] 49.68 kg/m2 Thomas Giovanny DO Work Phone: [facility] 05-30-2024 10:09-0400 Body weight 139.62 kg Thomas Giovanny DO Work Phone: [facility] 05-30-2024 10:09-0400 Diastolic blood pressure 84 mm[Hg] Thomas Giovanny DO Work Phone: [facility] 05-30-2024 10:09-0400 Systolic blood pressure 124 mm[Hg] Thomas Giovanny DO Work Phone: [facility] 05-09-2024 12:31-0400 Body height 167.6 cm Digna Verdugo PREVENTIVE MEDICINE SPECIALIST-SWAGE TENDER Work Phone: [facility] 05-09-2024 12:31-0400 Body mass index (BMI) [Ratio] 49.29 kg/m2 Digna Verdugo PREVENTIVE MEDICINE SPECIALIST-SWAGE TENDER Work Phone: [facility] 05-09-2024 12:31-0400 Body weight 138.53 kg Digna Verdugo PREVENTIVE MEDICINE SPECIALIST-SWAGE TENDER Work Phone: [facility] 05-09-2024 12:31-0400 Diastolic blood pressure 66 mm[Hg] Digna Verdugo PREVENTIVE MEDICINE SPECIALIST-SWAGE TENDER Work Phone: [facility] 05-09-2024 12:31-0400 Heart rate 80 /min Digna Verdugo PREVENTIVE MEDICINE SPECIALIST-SWAGE TENDER Work Phone: [facility] 05-09-2024 12:31-0400 Systolic blood pressure 111 mm[Hg] Digna Verdugo PREVENTIVE MEDICINE SPECIALIST-SWAGE TENDER Work Phone: [facility] 12-28-2023 14:22-0400 Body height 167.6 cm Thomas Giovanny DO Work Phone: [facility] 12-28-2023 14:22-0400 Body mass index (BMI) [Ratio] 49.71 kg/m2 Thomas Giovanny DO Work Phone: [facility] 12-28-2023 14:22-0400 Body weight 139.71 kg Thomas Giovanny DO Work Phone: [facility] 12-28-2023 14:22-0400 Diastolic blood pressure 80 mm[Hg] Thomas Giovanny DO Work Phone: [facility] 12-28-2023 14:22-0400 Systolic blood pressure 122 mm[Hg] Thomas Giovanny DO Work Phone: [facility] Healthcare Encounters Encounter Date Encounter Type Care Provider Facility Start: 07-06-2024 End: 07-06-2024 Clinis[facility] Result Encounter Thomas Giovanny DO Work Phone: [facility] External Department Unsolicited Start: 07-06-2024 End: 07-06-2024 Clinisync Result Encounter Thomas Giovanny DO Work Phone: [facility] External Department Unsolicited Start: 07-04-2024 End: 07-04-2024 Office outpatient visit 15 minutes Thomas Giovanny DO Work Phone: [facility] Comment on above: Encounter for follow -up; Miscarriage Start: 07-04-2024 End: 07-04-2024 ambulatory THOMAS GIOVANNY Not Available Start: 07-04-2024 End: 07-04-2024 Bamboo flowsheet Thomas Giovanny DO Work Phone: [facility] Start: 07-04-2024 End: 07-04-2024 Bamboo flowsheet Thomas Giovanny DO Work Phone: [facility] Start: 06-16-2024 End: 06-16-2024 Clinisync Result Encounter Thomas Giovanny DO Work Phone: [facility] External Department Unsolicited Start: 06-16-2024 End: 06-16-2024 Clinisync Result Encounter Thomas Giovanny DO Work Phone: [facility] External Department Unsolicited Start: 06-14-2024 End: 06-14-2024 ambulatory THOMAS GIOVANNY Not Available Start: 06-14-2024 End: 06-14-2024 Patient encounter procedure Thomas Giovanny DO Work Phone: [facility] Comment on above: ASCUS with positive high risk HPV cervical; examination or test, positive result Start: 06-14-2024 End: 06-14-2024 Clinisync Result Encounter Thomas Giovanny DO Work Phone: [facility] External Department Unsolicited Start: 06-14-2024 End: 06-14-2024 Clinisync Result Encounter Thomas Giovanny DO Work Phone: [facility] External Department Unsolicited Start: 05-30-2024 End: 05-30-2024 Bamboo flowsheet Thomas Giovanny DO Work Phone: [facility] Start: 05-30-2024 End: 06-02-2024 Bamboo flowsheet Thomas Giovanny DO Work Phone: [facility] Start: 05-30-2024 End: 06-02-2024 Clinisync Result Encounter Thomas Giovanny DO Work Phone: [facility] External Department Unsolicited Start: 05-30-2024 End: 05-30-2024 Office outpatient visit 10 minutes Thomas Giovanny DO Work Phone: [facility] Comment on above: ASCUS with positive high risk HPV cervical Start: 05-30-2024 End: 05-30-2024 ambulatory THOMAS GIOVANNY Not Available Start: 05-09-2024 End: 05-09-2024 Office outpatient visit 25 minutes Digna EDWARD [facility] Comment on above: Gastroparesis (Prima ry Dx); Chronic superficial gastritis without bleeding; Chronic diarrhea; Upper abdominal pain; Gastroesophageal reflux disease, unspecified whether esophagitis present Start: 04-05-2024 End: 04-05-2024 Orders Only [facility] Comment on above: Upper abdominal pain (Primary Dx); Diarrhea, unspecified type; Gastroesophageal reflux disease, unspecified whether esophagitis present Start: 03-21-2024 End: 03-21-[address] [facility] Phone Call Provider 2 Juan Franklin [facility]-Ad[facility] Start: 02-29-2024 End: 02-29-2024 Orders Only Lou Sandhu RIVAS [facility] Comment on above: Upper abdominal pain (Primary Dx); Acute gastritis without hemorrhage, unspecified gastritis type Start: 02-29-2024 End: 09-06-2024 ambulatory [place] Start: 02-22-2024 End: 02-22-2024 Telephone encounter Blanca [...] 12-02-2023 Office outpatient visit 15 minutes Tania Northshelbiem PA Work Phone: [facility] Comment [...] Start: 11-10-2023 End: 11-10-2023 Bamboo flowsheet Tania Northeim PA Work Phone: [facility] Start: 11-10-2023 End: 11-10-2023 Bamboo flowsheet Tania Northeim PA Work Phone: [facility] Start: 11-10-2023 End: 11-10-2023 ambulatory TANIA NORTHEIM Not Available Start: 11-10-2023 End: 11-10-2023 Office outpatient visit 15 minutes Tania Northeim PA Work Phone: [facility] Comment on above: Vasculitis of skin ( Primary Dx); Encounter for removal of sutures Start: 10-27-2023 End: 10-27-2023 Patient encounter procedure Tania Florencioeim PA Work Phone: [facility] Comment on above: Rash and other nonsp ecific skin eruption (Primary Dx) Start: 10-27-2023 End: 10-27-2023 ambulatory TANIA NORTHEIM Not Available Start: 10-15-2019 End: 10-16-2019 Patient encounter procedure MILY SHELTON Facility:[facility] Start: 09-08-2019 End: 09-09-2019 Patient encounter procedure MILY SHELTON Facility:[facility] Start: 03-17-2019 End: 03-18-2019 Patient encounter procedure ARMANDO FELIX [facility] Start: 03-17-2019 End: 03-17-2019 Subsequent hospital visit by physician Armando Felix MD [facility] Comment on above: Annual physical exam ; Encounter for lipid screening for cardiovascular disease; Depression with anxiety Procedures Date Procedure Procedure Detail Performing Clinician Start: 07-06-2024 [facility] PREG QUANT HCG Core y Giovanny DO Work Phone: Start: 07-04-2024 Urnls dip stick/tabl et rgnt non-auto w/o micrscp Thomas Giovanny DO Work Phone: Start: 06-16-2024 [facility] PREG QUANT HCG Core y Giovanny DO Work Phone: Start: 06-14-2024 [facility] PREG QUANT HCG Core [...] Rodas PA Work Phone: Start: 06-24-2023 COLPOSCOPY Thomas Fazi o DO Work Phone: Start: 05-20-2022 Microscopic observat [...] Td Vaccines (7 - Td or Tdap) [facility] Start: 05-20-2025 Screening for malignant neoplasm of cervix Pap Smear [facility] Start: 05-09-2025 Adult BMI Screening Adult BMI Screening [facility] Start: 05-09-2025 Tobacco Screening Tobacco Screening [facility] Start: 03-31-2025 Tobacco Screening Tobacco Screening [facility] Start: 03-21-2025 Tobacco Screening Tobacco Screening [facility] Start: 02-09-2025 Adult BMI Screening Adult BMI Screening [facility] Start: 02-09-2025 Tobacco Screening Tobacco Screening [facility] Start: 12-13-2024 End: 12-13-2024 Patient encounter procedure 12/13/2024 10:20 AM EDT Of fice Visit [facility] [address] [place] [id number] Thomas Baltazar, DO [address] [place], [place] [id number] [facility] Start: 07-14-2024 End: 07-14-2024 ambulatory 07/14/2024 1:30 PM EDT Initi al [facility] [address] [place] [phone] [facility] Start: 07-14-2024 End: 07-14-2024 Professional / ancillary services management 07/14/2024 1:00 PM EDT Ancillary Procedure [facility] [address] [place] [phone] [facility] Start: 07-04-2024 End: 07-04-2024 Patient encounter procedure 07/04/2024 3:50 PM EDT Off ice Visit [facility] [address] [place] [address] Thomas Baltazar, [address] [place] [address] Arrived [facility] Comment on above: Arrived Start: 07-04-2024 End: 07-04-2025 hCG, quantitative, hCG, quantitative, pregna ncy Lab Routine Miscarriage Expected: 07/04/2024 (Approximate), Expires: 07/04/2025 [facility] Work Phone: Comment on above: Expected: 07/04/2024 (Approximate), Expi res: 07/04/2025 Start: 06-28-2024 End: 06-28-2024 Patient encounter procedure 06/28/2024 1:00 PM EDT Off ice Visit [facility] [address] [place] [address] [place] [address] Thomas Baltazar, [address] [place] [address] [facility] Start: 05-30-2024 End: 05-30-2024 Patient encounter procedure [facility] Comment on above: Arrived Start: 04-05-2024 End: 04-05-2025 NM Stomach Views for gastric emptying solid phase W radionuclide PO NM gastric emptying solid Imaging Routine Upper abdominal pain Diarrhea, unspecified type Gastroesophageal reflux disease, unspecified whether esophagitis present Expected: 04/05/2024, Expires: 04/05/2025 [facility] Comment on above: Expected: 04/05/2024, Expires: Start: 04-05-2024 End: 04-05-2025 US Abdomen limited Ultrasound abdomen limited Imaging Routine Upper abdominal pain Diarrhea, unspecified type Gastroesophageal reflux disease, unspecified whether esophagitis present Expected: 04/05/2024, Expires: 04/05/2025 [facility] Work Phone: Comment on above: Expected: 04/05/2024, Expires: Start: 03-31-2024 End: 03-31-2024 Admission to same day surgery center 03/31/2024 12:30 PM EST - 03/31/2024 1:15 PM EST Surgery [facility] [address] [place] [phone] Mark Julian MD [address] [facility] [place] [address] ESOPHAGOGASTRODUODENOSCOPY DIAGNOSTIC [87417 (CPT )] [facility] Comment on above: ESOPHAGOGASTRODUODENOSCOPY DIAGNOSTIC [4 3235 (CPT )] Start: 03-31-2024 End: 03-31-2024 Esophagogastroduodenoscopy transoral diagnostic ESOPHAGOGASTRODUODENOSCOPY DIAGNOSTIC GERD K21.9 Upper abdominal pain R10.10 03/31/2024 12:30 PM EST [facility] Start: 03-31-2024 Subsequent hospital visit by physician 03/31/2024 12:30 PM EST Hospital Encounter [facility] [address] [place] [phone] Mark Julian MD [address] [facility] [place] [address] [facility] Start: 03-21-2024 End: 03-21-2024 Admission to establishment 03/21/2024 10:00 AM EST Support Visit [facility] On [address] [address] [facility] Start: 12-28-2023 End: 12-28-2023 Patient encounter [...] Of fice Visit [facility] [address] [facility] [place] [address] Thomas Baltazar DO [address] [facility] [address] [place], [place] [id number] Arrived [facility] Comment on above: Arrived Start: 11-10-2023 End: 11-10-2023 Patient encounter procedure 11/10/2023 1:40 PM EDT Off ice Visit [facility] [address] [place] [address] Tania Rodas PA [address] [place] [address] [facility] Start: 11-01-2023 COVID-19 Vaccine ( season) COVID-19 Vaccine ( season) [facility] Start: 11-01-2023 Influenza vaccination Influenza Vaccine [facility] Start: 04-28-2019 End: 04-28-2019 Patient encounter procedure 04/28/2019 Office [place] [address] [facility] [place] [address] [place] [address] [phone] [facility] Start: 09-01-2019 Influenza vaccination Flu vaccine (#1) [employer] Phone: Start: 2017 Cervical cancer screen Cervical cancer screen [employer] Phone: Start: 2014 Adult BMI Follow Up Plan Adult BMI Follow Up Plan [employer] Start: 2012 Chlamydia screen Chlamydia screen [employer] Phone: Start: 09-06-2011 HIV screen HIV screen [employer] Phone: Start: 2008 Depression Screening Depression Screening [employer] Start: 09-06-2007 DTaP/Tdap/Td vaccine (6 - Tdap) DTaP/Tdap/Td vaccine (6 - Tdap) [employer] Phone: Start: 09-06-2007 HPV vaccine (1 - Female 2-dose series) HPV vaccine (1 - Female 2-dose series) [employer] Phone: Start: 2002 Pneumococcal 0-64 years Vaccine (1 of 1 - PPSV23) Pneumococcal 0-64 years Vaccine (1 of 1 - PPSV23) [employer] Phone: Start: 1997 Varicella Vaccine (1 of 2 - 2-dose childhood series) Varicella Vaccine (1 of 2 - 2-dose childhood series) [employer] Phone: End: 02-28-2025 Calprotectin, F Calprotectin, F Lab Routine Acute gastritis without hemorrhage, unspecified gastritis type Upper abdominal pain 1 Occurrences starting 02/29/2024 until 02/28/2025 [email or web address] Phone: Comment on above: 1 Occurrences starting 02/29/2024 until 02/28/2025 CHLAMYDIA TRACHOMATI S (GENITO/STI) CHLAMYDIA TRACHOMATIS (GENITO/STI) Lab Routine STD exposure Ordered: 11/17/2023 [facility] Comment on above: Ordered: 11/17/2023 End: 05-09-2025 Colonoscopy Colonoscopy GI Routine Chron ic diarrhea 1 Occurrences starting 05/09/2024 until 05/09/2025 [email or web address] Phone: Comment on above: 1 Occurrences starting 05/09/2024 until 05/09/2025 Cytology Cervical or vaginal smear or scraping study Pap Smear Pathology and Cytology Routine LGSIL of cervix of undetermined significance Ordered: 12/28/2023 [employer] Phone: Comment on above: Ordered: 12/28/2023 Cytology Cervical or vaginal smear or scraping study Pap Smear Pathology and Cytology Routine ASCUS with positive high risk HPV cervical Ordered: 05/30/2024 [employer] Work Phone: Comment on above: Ordered: 05/30/2024 Dermatopathology exam Dermatopat hology exam Pathology and Cytology Timed Rash and other nonspecific skin eruption Release Upon Ordering for 1 Occurrences starting 10/27/2023 [employer] Work Phone: Comment on above: Release Upon Ordering for 1 Occurrences starting 10/27/2023 End: 06-14-2025 hCG, quantitative hCG, quantitative Lab Routin e examination or test, positive result 4 Occurrences starting 06/14/2024 until 06/14/2025 [employer] Work Phone: Comment on above: 4 Occurrences starting 06/14/2024 until 06/14/2025 Neisseria gonorrhoea e DNA [Presence] in Unspecified specimen by ALEX with probe detection Neisseria gonorrhea DNA probe, direct Lab Routine STD exposure Or[facility]17[facility]: Ordered: 11/17/2023 SURESWAB(R) ADVANCED VAGINITIS PLUS, TMA SURESWAB(R) ADVANCED VAGINITIS PLUS, TMA Pathology and Cytology Routine Vaginal discharge Ordered: 11/17/2023 [employer] Work Phone: Comment on above: Ordered: 11/17/2023 Immunizations Immunization Date Immunization Notes Care Provider [facility] 01-22-2022 influenza virus vaccine, unspecified formulation [facility] 10-19-2001 diphtheria, tetanus toxoids and acellular pertussis vaccine, unspecified formulation Armando Felix MD Work Phone: [facility] Work Phone: 10-19-2001 measles, mumps and rubella virus vaccine Armando Felix MD Work Phone: [employer] Work Phone: 10-19-2001 poliovirus vaccine, inactivated Armando Felix MD Work Phone: [employer] Work Phone: 04-04-1998 trivalent poliovirus vaccine, live, oral Armando Felix MD Work Phone: [employer] Work Phone: 12-08-1997 diphtheria, tetanus toxoids and acellular pertussis vaccine, unspecified formulation Armando Felix MD Work Phone: [employer] Work Phone: 12-08-1997 haemophilus influenz ae type b vaccine, conjugate unspecified formulation Armando Felix MD Work Phone: [employer] Work Phone: 09-14-1997 hepatitis B vaccine, pediatric or pediatric/adolescent dosage Armando Felix MD Work Phone: [employer] Work Phone: 09-14-1997 measles, mumps and rubella virus vaccine Armando Felix MD Work Phone: [employer] Work Phone: 03-14-1997 diphtheria, tetanus toxoids and acellular pertussis vaccine, unspecified formulation Armando Felix MD Work Phone: [employer] Work Phone: 03-14-1997 haemophilus influenz ae type b vaccine, conjugate unspecified formulation Armando Felix MD Work Phone: [employer] Work Phone: 01-06-1997 diphtheria, tetanus toxoids and acellular pertussis vaccine, unspecified formulation Armando Felix MD Work Phone: [employer] Work Phone: 01-06-1997 haemophilus influenz ae type b vaccine, conjugate unspecified formulation Armando Felix MD Work Phone: [employer] Work Phone: 01-06-1997 trivalent poliovirus vaccine, live, oral Armando Felix MD Work Phone: [employer] Work Phone: 1996 diphtheria, tetanus toxoids and acellular pertussis vaccine, unspecified formulation Armando Felix MD Work Phone: [employer] Work Phone: 1996 haemophilus influenz ae type b vaccine, conjugate unspecified formulation Armando Felix MD Work Phone: [employer] Work Phone: 1996 hepatitis B vaccine, pediatric or pediatric/adolescent dosage Armando Felix MD Work Phone: [employer] Work Phone: 1996 trivalent poliovirus vaccine, live, oral Armando Felix MD Work Phone: [employer] Work Phone: 1996 hepatitis B vaccine, pediatric or pediatric/adolescent dosage Armando Felix MD Work Phone: [employer] Work Phone: Payers Date Payer Category Payer Unknown [employer] 2022 Medicaid [employer] [place] [id number] 2022-Present [address] [place] [address] [id number] 2022 Medicaid (Managed Care) [employer] [id number] 2022 Medicaid [id number] 2021 Medicaid [place] [id number] 2014 Unknown BCBS [place] P PO xxxxxxxxxxxx 2014-Present [address] [place] [address] xxxxxxxxxxxx [id number] 1996 Unknown [id number] 175 1996 Unknown [id number]. 593 1996 Unknown [id number]. 593 1996 Unknown [id number]. 1259 1996 Unknown [id number]. 1259 1996 Unknown [id number]. 1259 1996 Unknown [id number]. 1259 1996 Unknown [id number] [id number]. 1259 1996 Unknown [id number] [id number]. 9 1996 Unknown [id number]. 1259 1996 Unknown [id number]. 1259 1959 Unknown [id number] Social History Date Type Detail Facility Start: 03-17-2019 Tobacco smoking stat [facility] Current every day smoker [employer] Phone: History of tobacco use Cigarette Smoker [facility] Start: 03-17-2019 End: 12-02-2023 Cigarettes smoked current (pack per day) - Reported [facility] Start: 03-17-2019 End: 03-31-2024 Alcohol intake Current drinker of alcohol (finding) [employer] Phone: Start: 03-17-2019 Alcohol Comment Socially [employer] Phone: Start: 1996 Sex Assigned At Not on file [employer] Phone: Start: 11-10-2023 End: 05-09-2024 Tobacco smoking status NHIS Ex-smoker [facility] History of tobacco use Current smoker [facility] Start: 11-10-2023 End: 05-09-2024 Tobacco use and exposure Smokeless tobacco non-user [facility] Start: 04-12-2020 End: 12-02-2023 Tobacco use panel [facility] Start: 03-29-2023 Gender identity Identifies as female gender (finding) [facility] Start: 03-29-2023 Sexual orientation Pansexual [facility] Start: 10-27-2023 [facility] consumption unknown [facility] Start: 02-09-2019 Alcohol Comment socially [facility] Start: 10-05-2014 Sex Female (finding) [facility] Start: 03-21-2024 Tobacco Comment Approx 0.5ppd x 5 ye ars [facility] History of tobacco use Passive smoker [facility] Start: 05-09-2024 Alcoholic beverage intake Ex-drinker (finding) [facility] Clinical Notes 10-27-2023 to 07-04-2024 Mee Eng, HOUSE PIPING INSPECTOR - 07/04/2024 3:50 PM EDLexx Dodd, HOUSE PIPING INSPECTOR - 06/14/2024 2:30 PM Kerry Landry, VONDA - 05/30/2024 10:00 AM EDAshley Verdugo, PREVENTIVE MEDICINE SPECIALIST-SWAGE TENDER - 05/09/2024 12:30 PM EDT Note Date & Type Note Facility 07-04-2024 History of Present illness Narrative Reason for Appointment: Patient ID: Anali Lira is a 28 y.o. female who presents for Hospital Follow-up (Pt was seen on 06/18/2024 at [facility] for dizziness. Pt present today for a f/up ER visit for a miscarriage. Patient states she believes she miscarried on 06/30/2024. And is currently bleeding.) Patient presents today for Consult appointment. MEDICATIONS Current Outpatient Medications Medication Instructions ARIPiprazole (ABILIFY) 10 mg, Oral, Daily lamoTRIgine (LAMICTAL) 100 mg, Oral, Every 24 hours sertraline (ZOLOFT) 75 mg, Oral, Daily ALLERGIES Allergies Allergen Reactions Amoxicillin Hives Childhood [...] screening 2022 neg/ Dr. Adams [facility] Social History Tobacco Use Smoking status: [...] Respiratory: Negative. Cardiovascular: Negative. Gastrointestinal: Negative. Genitourinary: Positive for vaginal bleeding. Musculoskeletal: Negative. Skin: Negative. Neurological: Negative. All [...] nursing note reviewed. Exam conducted with a dredge pump operator present. Vitals: Estimated body mass index is 50.04 kg/m as calculated from the following: Height as of 12/28/23: 5' 6 . Weight as of this encounter: 310 lb. BP: 124/78 No LMP recorded (lmp unknown). ASSESSMENT & PLAN ICD-10-CM 1. Encounter for follow-up Z09 2. Miscarriage O03.9 POCT , urine manually resulted POCT urinalysis dipstick manually resulted hCG, quantitative, hCG, quantitative, Patient presents today to follow up after a recent miscarriage. I have discussed HCG lab levels and miscarriage with patient in detail. Patient was given an additional standing QUANT level lab order to have obtained and will continue to have labs drawn until value reads less than 5. Patient has been advised to wait a full cycle until trying to conceive again, patient voiced understanding, and will call when so office can call in progesterone suppositories. Follow Up: Annual appointment and as needed. Documented by Mee Eng LPN... on behalf of: Thomas Baltazar DO documented in this encounter [facility] 06-14-2024 History of Present illness Narrative Associated [...] nursing note reviewed. Exam conducted with a dredge pump operator present. Vitals: Estimated body mass index is [...] Thomas Baltazar DO documented in this encounter [facility] 05-30-2024 History of Present illness Narrative Reason [...] screening 2022 neg/ Dr. Adams [facility] Social History Tobacco Use Smoking status: [...] nursing note reviewed. Exam conducted with a dredge pump operator present. Vitals: Estimated body mass index is [...] Thomas Baltazar DO documented in this encounter [facility] 05-09-2024 History of Present illness Narrative [facility] Follow Up [...] or dysplasia identified. Report Electronically Signed Out ssi/04/04/2024Suog Perez M.D. Addendum ([facility]) Date Reported: 04/05/2024 1. Immunohistochemical stain for H. pylori is negative with satisfactory control. Past Medical History: Diagnosis Date Anxiety Bipolar disorder ([facility]) Depression GERD (gastroesophageal reflux disease) PCOS (polycystic ovarian syndrome) Upper abdominal pain Visual impairment Glasses PREVIOUS ENDOSCOPY OR X-RAY PROCEDURES: As noted in the HPI Past Surgical History: Past Surgical History: Procedure Laterality Date ESOPHAGOGASTRODUODENOSCOPY BIOPSY N/A 03/31/2024 Performed by Mark Julian MD at [facility] WISDOM TOOTH EXTRACTION Current Medications: Current [...] low fat/low fiber meals daily - Consider driver education road instructor referral pending clinical course Chronic superficial gastritis without bleeding - Continue Omeprazole 40 mg daily Chronic diarrhea - Colonoscopy; Future with Dr. Julian with [facility]/- ASA 3 due to BMI - Repeat calprotectin Follow up after colonoscopy or sooner if needed. WAGNER Kapoor [facility] [place] [id number] PH: [phone] /[place] Total time spent: 45 minutes Preparing to see the patient (e.g., review of tests) Obtaining and/or reviewing separately obtained history Performing a medically appropriate examination and/or evaluation Counseling and educating the patient/family/caregiver Ordering medications, tests, or procedures WAGNER Kohler 05/09/24 1302 documented in this encounter [facility] 05-09-2024 Instructions Beckie Files, [facility] - 05/09/2024 12:30 PM EDT Are You Ready To Kick The Habit? Free Tobacco Cessation Resources [facility] Tobacco Treatment Center Services [facility] Tobacco Treatment Centers provide all employees with free tobacco cessation services that include: Counseling to understand nicotine addiction Education about medications that can help you successfully quit Assistance with developing a plan to quit Call to set up an individual appointment or find out when group classes will be held: [facility]: [phone] [facility]: [phone] [facility]: [phone] [facility]: [phone] Quit Smoking Action Plan and Resources [facility] offers an eight-week, online smoking cessation plan to all [facility] employees, regardless of whether [employer] is your medical insurance provider. Go to www.my[employer]ica.org/employeewelln ess and click the Health Risk Assessment and Resources link to get started. In the [employer] menu, click Action Plans instead of Health Risk Assessment to access the Quit Smoking Action Plan. Additional smoking cessation resources are also available to all [facility] employees on the [employer] web page at www.[employer]/quits dalia. [employer] Tobacco Cessation Program If [employer] is your medical insurance provider, there are more free resources available to you, including: No copays or deductibles on local tobacco cessation counseling services to help you quit Prescription assistance for tobacco cessation medications to help you quit For details about the tobacco cessation program available to [employer] members, go to www.[employer] (Search: Tobacco Cessation Program). [place] Tobacco Quit Line 1-597-REZG-NOW ( ) is a toll-free, telephonic service that helps [place] residents quit smoking and using tobacco. It is staffed by experts who tailor a quit plan for you and provide you with advice. [place] Tobacco Quit Line 7-181-RPEN-NOW ( ) is a toll-free, telephonic service that helps [place] residents quit smoking and using tobacco. It is staffed by experts who tailor a quit plan for you and provide you with advice. Two weeks of nicotine replacement therapy may be provided at no charge, if needed. Additional Resources These national organizations also offer free information and resources to help you quit tobacco: [place] Cancer Society--www.cancer.org/healthy/s tayawayfromtobacco Citizen [place] Heart Association--www.heart.org (Search: Quit Smoking) Centers for Disease Control and Prevention--www.cdc.gov/tobacco Citizen [place] Lung Association--www.lungusa.org documented in this encounter [facility] 02-22-2024 Miscellaneous Notes From Cassandra Verdugo PAINTINGS CONSERVATOR - note Upper abdominal pain - EGD; Future with MAC at [facility] ASA [address] Julian [facility] Telephone encounter Note From Cassandra Verdugo PAINTINGS CONSERVATOR - note Upper abdominal pain - EGD; Future with MAC at [facility]/- ASA [address] Julian [facility] 12-28-2023 History of Present illness Narrative Reason [...] screening 2022 neg/ Dr. Adams [facility] Social History Tobacco Use Smoking status: [...] Thomas Baltazar DO documented in this encounter [facility] 12-02-2023 History of Present illness Narrative Wound [...] any new/changing lesions documented in this encounter [facility] 11-17-2023 History of Present illness Narrative Reason [...] screening 2022 neg/ Dr. Adams [facility] Social History Tobacco Use Smoking status: [...] nursing note reviewed. Exam conducted with a dredge pump operator present. Vitals: Estimated body mass index is [...] Thomas Baltazar DO documented in this encounter [facility] 11-10-2023 History of Present illness Narrative Images [...] malignancies. Would like patient to see a civil engineering director for further labs and workup to ensure there is not an underlying systemic cause. Referral to Dr. Medina was initiated. Will leave follow up with us open ended at this time. Should rash return, patient can contact us for follow up. Related Procedures Ambulatory referral to Rheumatology Next Visit: as needed documented in this encounter [facility] 10-27-2023 History of Present illness Narrative Images [...] normal affect, well appearing Unaccompanied, Accompanied by halfway staff A focused exam completed based on [...] anxiety Dysthymic disorder documented in this encounter [employer] Phone: evaluation note* Diagnosis Visit for wound [...] unspecified gastritis type documented in this [facility]* Diagnosis Upper abdominal pain- Primary Diarrhea, unspecified type Gastroesophageal reflux disease, unspecified whether esophagitis present documented in this [facility]* Diagnosis Gastroparesis- Primary Chronic superficial gastritis without bleeding Chronic diarrhea Diarrhea Upper abdominal pain Gastroesophageal reflux disease, unspecified whether esophagitis present documented [facility] this [facility]* Diagnosis ASCUS with positive high risk HPV cervical documented in this encounter [facility]* Diagnosis ASCUS with positive high risk HPV cervical examination or test, positive result documented in this encounter [facility]* Diagnosis Encounter for follow-up Miscarriage Unspecified spontaneous without mention of complication documented in this encounter [facility]InstructionsNot on filedocumented in this encounterProDay[facility] SystemInstructionsNot on filedocumented in this encounterProDayton [facility] SystemInstructions* Pre-Procedure Instructions - Heidi Vasquez RN - 03/21/2024 10:00 AM EST Your surgery/procedure is scheduled at [facility] on 03-31-2024 at 12:30pm Arrival Time: 10:30am [facility] Address: [address] [place] [address] Park in P1 Parking lot located on [facility]. Report to the Entrance B. Check in at the information desk the surgery. The waiting room located on the second floor. If you have any questions prior to surgery, please call Pre-Admission Clinic at [phone] between 7:30 am and 4:30 pm Thursday through Thursday. If you have questions the morning of surgery, please call the Pre-op Department at [phone]. Notify your SURGEON if you develop any [...] piercings ,hair extensions that contain metal, nail turks and caicos islander, make-up, and contact lens. You may brush [...] RIGHTS AND RESPONSIBILITIES As a patient at [facility], you have the right to: Receive medical care and be informed of who is taking care of you Be treated with dignity and respect Have a family member/patient support representative of choice and your physician notified of your admission Receive information and actively participate in decisions about your care and treatment Refuse care, treatment and services Decide who may provide your support and speak for you Access lutheran and spiritual services Participate in ethical issues [...] of hospital charges and payment methods Patient/patient patient support representative responsibilities are to: Provide information about health status to facilitate care, treatment and services Follow the treatment, plan, keep appointments and speak up when you do not understand the plan Respect the rights of other patients and healthcare personnel Follow organizational rules and regulations that support quality care and a safe environment Fulfill financial obligations as promptly as possible [facility] SystemInstructionsNot on filedocumented in this encounter [facility] CenterInstructionsNot on filedocumented in this encounter [facility] CenterMiscellaneous Notes* Pre-Procedure Instructions - Heidi Vasquez RN - 03/21/2024 10:00 AM EST Your surgery/procedure is scheduled at [facility] on 03-31-2024 at 12:30pm Arrival Time: 10:30am [facility] Address: [address] [place] [address] Park in P1 Parking lot located on [facility]. Report to the Entrance B. Check in at the information desk the surgery. The waiting room located on the second floor. If you have any questions prior to surgery, please call Pre-Admission Clinic at [phone] between 7:30 am and 4:30 pm Thursday through Thursday. If you have questions the morning of surgery, please call the Pre-op Department at [phone]. Notify your SURGEON if you develop any [...] piercings ,hair extensions that contain metal, nail turks and caicos islander, make-up, and contact lens. You may brush [...] RIGHTS AND RESPONSIBILITIES As a patient at [facility], you have the right to: Receive medical care and be informed of who is taking care of you Be treated with dignity and respect Have a family member/patient support representative of choice and your physician notified of your admission Receive information and actively participate in decisions about your care and treatment Refuse care, treatment and services Decide who may provide your support and speak for you Access lutheran and spiritual services Participate in ethical issues [...] of hospital charges and payment methods Patient/patient patient support representative responsibilities are to: Provide information about health status to facilitate care, treatment and services Follow the treatment, plan, keep appointments and speak up when you do not understand the plan Respect the rights of other patients and healthcare personnel Follow organizational rules and regulations that support quality care and a safe environment Fulfill financial obligations as promptly as possible documented in this encounterUniversity Hospitals [facility]wood Medical CenterReason for referral (narrative)* Consultation (Routine) - Pending Review Specialty Diagnoses / Procedures Referred By Saranya flores Referred To Contact Rheumatology Diagnoses Vasculitis of skin Procedures NE OFFICE/OUTPATIENT [facility] MDM 60 MINUTES Tania Rodas PA [address] [address] Dmitry Medina MD [address] [place] [address] Referral ID Status Reason Start Date Expiration Date Visits Requested Visits Authorized [id number] Pending Review Specialty Services Required 11/10/2023 05/08/2024 1 1 [facility] Summary Purpose Family History No Family History Records FoundNo Family History Records FoundNo Family History Records FoundNo Family History Records Found Advance Directives No Advanced Directives Records FoundDocuments on File Type Date Recorded Patient 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 Safety Management 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 Expl anation Advance Directives and Living Will Power of Linen Clerk Date Activated Date Inactivated Comments 02/13/2022 2:19 PM 02/20/2022 1:32 PM Date Activated Date Inactivated Comments 02/13/2022 2:19 PM 02/20/2022 1:32 PM Additional Source Comments INFORMATION SOURCE (unrecogn ized section and content) DATE CREATED AUTHOR 03/18/2019 [facility] DATE CREATED AUTHOR AUTHOR'S ORGANIZ ATION 11/21/2019 [facility] DATE CREATED AUTHOR AUTHOR'S ORGANIZ ATION 07/07/2024 [facility] EPIC DATE CREATED AUTHOR AUTHOR'S ORGANIZ ATION 09/11/2024 [place] Reason for Visit (unrecogniz ed section and content) Reason Comments Wound Check Reason Comments Abnormal Pap Smear Reason Comments Rash Specialty Diagnoses / Procedures Referred By Contivet t Referred To Contact Dermatology Diagnoses rash and nonspecific skin eruption Procedures office visit Brandy Paul, VONDA [address] [place] [address] Meghan Diamond MD [address] [place] [address] Referral ID Status Reason Start Date Expiration Date Visits Re quested Visits Authorized [id number] Closed 10/26/2023 04/23/2024 1 1 Reason Comments Follow-up Reason Comments Vaginitis/Bacterial Vaginosis Reason Comments Follow-up Follow up, states sh e feels ok, gastric emptying test results Results Reason Comments Repeat Pap Reason Comments Abnormal Pap Smear Pt present today for a Colposcopy procedure. Pt had an abnormal pap smear on 05/30/2024. Reason Comments Hospital Follow-up Pt was seen on 06/18 at [facility] for dizziness. Pt present today for a f/up ER visit for a miscarriage. Patient states she believes she miscarried on 06/30/2024. And is currently bleeding. Care Teams (unrecognized sec tion and content) Warehouse Delivery Driver Relationship Specialty Start Date End Date No Pcp, [place] [address] PCP - General Family Medicine 02/28/23 Warehouse Delivery Driver Relationship Specialty Start Date End Date No Pcp, [place] [address] PCP - General Family Medicine 02/28/23 Warehouse Delivery Driver Relationship Specialty Start Date End Date Tom Peterson PA-C [address] [place] [address] PCP - General Physician Cloth Sander 03/21/24 Warehouse Delivery Driver Relationship Specialty Start Date End Date Tom Peterson PA-C [address] [place] [address] PCP - General Physician Cloth Sander 03/21/24 FOR RECORDS PERTAINING TO PATIENTS WHO [...] BE BASED ON THE PRIMARY CLINICAL RECORDS. [facility]. provides no warranty or guarantee of the accuracy or completeness of information in this document.
== END 2024-12-13 14:57 | disposition home or self-care (01) ==
LOC: LAB 14:56
PROVIDERS: Visit Provider Obstetrics & Gynecology
DX: Z01.419 Encounter for gynecological examination (general) (routine) without abnormal findings (principal)
CPT/HCPCS: 88175

== ENCOUNTER 2025-01-31 11:09 | Outpatient (REF) | payer OTHER, SELFPAY ==
--- OUTSIDE RECORDS SUMMARY | 2024-07-11 05:00 | XMS_ITS ---
Author Organization [facility] es Address [address] [place] [address] Care Team Providers Care Emt Intermediate Name Role Phone Dr. Calin Cordova Primary Care Provider [phone] REASON FOR VISIT PRODUCT TEST SPECIALIST EXAM Encounters Encounter Location Date Provider Diagnosis [facility] [address] [place] [address] 07/11/2024 Calin Cordova Plan Of Treatment No Information Progress Notes * ZAY JuaninDOB:1995 ([age] yo F)Acc No.[id number]:07/11/2024 Patient:?Anali Lira :?Calin Cordova DDSDOB:1995???Age:28 Y???Sex: FemaleDate:07/11/2024Phone:[phone]:[place], [place] Subjective: * Chief Complaints: * N P EXAM * Electronic signature of Dr. Calin Cordova , DMD, [id number] on 02/02/2025 at 11:13 AM ESTSign off status: Pending * Provider: Rose Cordova DDS Date: 0 07/11/2024 Generated for Printing/Faxing/eTransmitting on:?02/02/2025 11:13 AM EST
--- OUTSIDE RECORDS SUMMARY | 2025-01-31 13:30 | XMS_ITS | Encounter Summary ---
Author Organization [facility] Address [address] [place] [address] Care Team Providers Care Plant Technician Name Role Phone Unavailable Primary Care Provider Unavailabl e Reason for Visit * ReasonCommentsColposcopy Encounter Details DateTypeDepartmentCare Team (Latest Contact Info)Psrodicycvk52/02/2025 1:30 PM ESTProcedure Visit [facility] [address] [place] [address] Eusebio Baltazar DO [address] [place], [facility] LGSIL of cervix of undetermined significance Social History Tobacco UseTypesPacks/DayYears UsedDateSmoking Tobacco: FormerCigarettes Smokeless Tobacco: NeverCommentsNoSex and Gender InformationValueDate RecordedSex Assigned at BirthNot on fileLegal EkhBfzvjl12/30/2023 11:54 AM EST Gender WcjauurfIpappg84/28/2024 10:30 PM ESTSexual OrientationPansexual 03/29/2023 10:30 PM ESTdocumented as of this encounter Last Filed Vital Signs Vital SignReadingTime TakenCommentsBlood Usyglegl006/80104/03/2024 2:01 PM EST Pulse--Temperature--Respiratory Rate--Oxygen Saturation--Inhaled Oxygen Concentration--Gtdpct406 kg (319 lb 12.8 oz)01/31/2025 2:01 PM [...] Dr. Adams [facility] Social History Tobacco Use Smoking status: Former [...] nursing note reviewed. Exam conducted with a grades 1 through 5 teacher present. Vitals: Estimated body mass index is [...] Plan of Treatment DateTypeDepartmentCare Team (Latest Contact Info)Dcdefkqbfuz32/05/2026 1:20 PM ESTConsult [facility] [address] [place] [address] Eusebio Baltazar DO [address] [place] [address] 12/19/2025 11:00 AM EDTProcedure Visit [facility] [address] [place] [address] Eusebio Baltazar, [address] [facility] [address] [place] [address] NameTypePriorityAssociated DiagnosesOrder ScheduleColposcopyProceduresRoutine LGSIL of cervix of undetermined significance Expected: 01/31/2025 (Approximate), Expires: 01/31/2026documented as of this encounter Procedures Procedure NamePriorityDate/TimeAssociated DiagnosisCommentsCOLPOSCOPYRoutine 01/31/2025 2:19 PM EST LGSIL of cervix of undetermined significance POCT , MFICPUygvxgl28/02/2025 2:09 PM EST LGSIL of cervix of [...] Location / LateralityCollection Method / VolumeCollection TimeReceived PptmPdeeh58/02/2025 2:09 PM EST Narrative Authorizing ProviderResult TypeResult StatusEusebio Baltazar DOPOINT OF CARE TEST ENTER/EDIT ORDERABLESFinal Result documented in this encounter Visit Diagnoses Diagnosis LGSIL of cervix of undetermined significance documented in this encounter
--- OUTSIDE RECORDS SUMMARY | 2025-02-02 11:13 | XMS_ITS | Clinical Summary ---
Author Organization in[employer]Depth tem Address [id number] [address] [place] [address] Care Team Providers Care Head Screen Worker Name Role Phone Unavailable Primary Care Provider Unavailabl e Allergies Active AllergyReactionsCriticalityNoted YvnhXhfvhcrwCnnbybgnsyvZqcir82/11/2019 Childhood allergy, had ancef, no issues Medications MedicationSigDispense QuantityRefillsLast FilledStart DateEnd DateStatus 25/iron fum/folic/dha (-1 ORAL) Take by mouth.Active lamoTRIgine (LaMICtal) 100 mg tablet Take 1 tablet (100 mg total) by mouth in the morning.01/15/2023ctive sertraline (ZOLOFT) 50 mg tablet Take 1.5 tablets (75 mg total) by mouth in the morning.Active metFORMIN (GLUCOPHAGE) 500 mg tablet Take 1 tablet (500 mg total) by mouth nightly.Active ARIPiprazole (ABILIFY) 15 mg tablet Take 1 tablet (15 mg total) by mouth once daily at bedtime.Active hydrOXYzine (VISTARIL) 25 mg capsule Take 1 capsule (25 mg total) by mouth 2 (two) times a day as needed.02/16/2024 Active lamoTRIgine (LaMICtal) 25 mg tablet Take 1 tablet (25 mg total) by mouth Daily before evening meal.Active traZODone (DESYREL) 50 mg tablet Take 1 tablet (50 mg total) by mouth nightly as needed.02/16/2024ctive omeprazole (PriLOSEC) 40 mg capsule Indications:Upper abdominal pain,Gastroesophageal reflux disease, unspecified whether esophagitis presentTake 1 capsule (40 mg total) by mouth every morning before breakfast. 30 capsule 1105Active Additional Information Patient not taking.Reported on 06/18/2024 acetaminophen (TylenoL) 325 mg tablet Take 2 tablets (650 mg total) by mouth every 6 (six) hours as needed for pain. 30 tablet 5Active Active Problems Estimated Date of LfkuefvnScieondkFpf23/16/2025 No known active problems Immunizations No known immunizations Family History Medical HistoryRelationNameCommentsDiabetesFatherHypertensionFatherHypertension MotherAnesthesia problemsNeg HxColon cancerNeg HxRelationNameStatusComments FatherMother Social History Tobacco UseTypesPacks/DayYears UsedDateSmoking Tobacco: FormerCigarettesPassive Smoke Exposure: PastSmokeless Tobacco: Never Tobacco Cessation:Counseling Given: Not Answered Comments:Approx 0.5ppd x 5 years Alcohol UseStandard Drinks/WeekCommentsNot Currently0 (1 standard drink = 0.6 oz pure alcohol)ChildcareAnswerDate QijuspwwSledmwblmFzbzwju56/12/2019Employment AnswerDate KtygguyfCpjxqzdxeiCdsjvnl30/12/2019Hunger ScreeningAnswerDate RecordedWithin the past 12 months we worried whether our food would run out before we got money to buy more.Never True06/27/2024Within the past 12 months the food we bought just didn't last and we didn't have money to get more.Never True06/27/2024Purpose - LifeAnswerDate RecordedPurpose and direction in life Jebogqr14/11/2021Estimated Date of AdnctaxmWbcljewwCon43/16/2025Sex and Gender InformationValueDate RecordedSex Assigned at BirthNot on fileLegal Sex Ebwuah5310/05/2014 12:05 PM EDTGender IdentityNot on fileSexual OrientationNot on file Last Filed Vital Signs Vital SignReadingTime TakenCommentsBlood Uiskskpl235/9526806/27/2024 6:56 PM EDT Rskat2353/28/2025 6:56 PM PCSOlnirhzwbpx39.1 ??C (98.7 ??F)06/27/2024 6:56 PM EDTRespiratory Oaxm1693/ 6:56 PM EDTOxygen Clkmgdmlrh65%06/27/2024 6:56 PM EDTInhaled Oxygen Concentration--Hirimu890.3 kg (305 lb)06/27/2024 6:56 PM SGAImzaya358.6 cm (5' 6 )06/27/2024 6:56 PM EDTBody Mass Index49.23006/27/2024 6:56 PM EDT Plan of Treatment Health MaintenanceDue DateLast DoneCommentsDepression Ajhzhwmmo06/07/2009dult BMI Follow Up Plan2014COVID-19 Vaccine ( season)2024 12/03/2020Influenza Lqhcqqq43dult BMI Qktgbdrlm91/28/2026 06/27/2024Tobacco Vscssulrb04Pap Smear, 05/20/2022, 05/20/2022, Additional history existsDTaP,Tdap and Td Vaccines (7 - Td or Tdap), 10/19/2001, 12/08/1997, Additional history existsRSV ( or age 60+ yrs) (No Doses Required)Completed Medical Devices Not on file Procedures Procedure NamePriorityDate/TimeAssociated DiagnosisCommentsPAP SMEARRoutine 05/20/2022 3:10 AM EDT Low grade squamous intraepithelial lesion on cytologic smear of cervix (LGSIL) from Last 3 Months or Most Recently Relevant to Health Maintenance Results * (ABNORMAL) Pap Smear (05/20/2022 3:10 AM EDT)Specimen (Source)Anatomical Location / LateralityCollection Method / VolumeCollection TimeReceived Time 05/20/2022 3:10 AM EDT05/20/2022 3:11 AM EDT Narrative COPATH - 05/22/2022 2:14 PM EDT [facility] ? [address] ? [place] [address] ? Gynecologic Cytology Consultation ? Patient Name:ANALI LIRA:1995 (Age: 26)Gender:FTaken:05/20/2022Reported:05/22/2022hysician(s):Hunter Darden M.D. ([phone])Copy To: Rec. #:[id number]: #[id number] Final Cytologic Interpretation ThinPrep Pap Test (Not otherwise specified): Satisfactory for evaluation. A transformation zone component is present. SQUAMOUS EPITHELIAL CELL ABNORMALITY A low-grade squamous intraepithelial lesion (LSIL) is present. ?? cjb/05/22/2022 Interpretation performed at [facility], [address] [place] [address], License number: [id number]. Electronically Signed Out By ?Ioana Hutchinson MD Date of Last Menstrual Period: ? (None Given) Other Clinical Conditions: R87.612 ??LGSIL cervix Source of Specimen ??ThinPrep Pap Test (Not otherwise specified) ? Thin Prep Pap (ANTISQUEAK APPLIER) Fee Code(s): ?? 29919, 11397 Authorizing ProviderResult TypeResult StatusAbeer Adelso MDPATHOLOGY/CYTOLOGY ORDERABLESFinal ResultPerforming OrganizationAddressCity/State/ZIP CodePhone Number COPATH from Last 3 Months or Most Recently Relevant to Health Maintenance Insurance Advance Directives * Full Code (Latest Code Status on File) Date ActivatedDate AyzqrrfphwcQmlfydvr29/15/2022 2:19 PM02/20/2022 1:32 PM
--- OUTSIDE RECORDS SUMMARY | 2025-02-02 11:13 | XMS_ITS | Patient Health Record ---
Author Organization [facility] Address [address] [facility] [place] [address] Care Team Providers Care Phone Banker Name Role Phone Dr. Calin Cordova Primary Care Provider [phone] Reason For Referral No Information Plan Of Treatment No Information
--- OUTSIDE RECORDS SUMMARY | 2025-02-02 11:14 | XMS_ITS | Encounter Summary ---
Author Organization [facility] Address [address] [place] [address] Care Team Providers Care Data Integrity Specialist Name Role Phone Unavailable Primary Care Provider Unavailabl e Encounter Details DateTypeDepartmentCare Team (Latest Contact Info)Ptruoijktpp02/01/2025Travel Social History Tobacco UseTypesPacks/DayYears UsedDateSmoking Tobacco: FormerCigarettes Smokeless Tobacco: NeverCommentsNoSex and Gender InformationValueDate RecordedSex Assigned at BirthNot on fileLegal OzdEacqtv12/30/2023 11:54 AM EST Gender KgygbtfhTtkqjy62/28/2024 10:30 PM ESTSexual OrientationPansexual 03/29/2023 10:30 PM ESTdocumented as of this encounter Plan of Treatment DateTypeDepartmentCare Team (Latest Contact Info)Gisvwjbbktc14/05/2026 1:20 PM ESTConsult [facility] [address] [place] [address] [place] [address] Eusebio Baltazar, [address] [facility] [address] [place], [place] [id number] 12/19/2025 11:00 AM EDTProcedure Visit RE[facility]I [facility] [address] [place] [address] [place] [address] Eusebio Baltazar DO [address] [place], [place] [id number] documented as of this encounter Visit Diagnoses Not on filedocumented in this encounter
--- OUTSIDE RECORDS SUMMARY | 2025-02-02 11:14 | XMS_ITS | Clinical Summary ---
Author Organization [facility] Address [address] [facility], [address] [place] [address] Care Team Providers Care Geospatial Technician Name Role Phone Preet Cota MD Primary Care Provider [phone] Allergies Active AllergyReactionsCriticalityNoted UkmbAdxchxxxAfaylftlmseFgzxb83/26/2013 Medications MedicationSigDispense QuantityRefillsLast FilledStart DateEnd DateStatus Vit w/Zr-Ypnappcxf-TZ (PNV PO) Take by mouth.Active FLUOXETINE HCL PO Take 20 mg by mouth dailyActive BLISOVI 24 FE 1-20 MG-MCG(24) TABS Take by mouth daily03/06/2019Active DULoxetine (CYMBALTA) 30 MG extended release capsule Indications:Depression with anxiety,Mood swingTAKE 1 CAPSULE BY MOUTH EVERY DAY 90 capsule 07/11/2019Active Active Problems ProblemNoted DateDiagnosed DateCoagulation defect affecting , cyhgvmzyoq12/26/2013 Overview (03/11/2015): Replacing Inactive Diagnoses Suspected damage to fetus from drugs, affecting management of mother, antepartum 11/25/2012Supervision of high-risk of young wrkjbxxsswwy17/26/2013 Immunizations ImmunizationAdministration DatesNext DueDTaP eruwulv8010/19/2001,12/08/1997, 03/14/1997,01/06/1997,1996Hep B, ENGERIX-B, RECOMBIVAX-HB, (age - 19y), IM, 0.5mL09/14/1997,1996,1996Hib xbbrznc7512/08/1997,03/14/1997, 01/06/1997,1996MMRLEE, M-M-R II, (age 12m+), SC, 0.5mL10/19/2001, 09/14/1997Polio OPV02,01/06/1997,1996Poliovirus, IPOL, (age 6w+), SC/IM, 0.5mL10/19/2001 Family History Medical HistoryRelationNameCommentsDiabetesFatherHigh Blood PressureFather DiabetesPaternal GrandfatherRelationNameStatusCommentsFatherPaternal Grandfather Social History Tobacco UseTypesPacks/DayYears UsedDateSmoking Tobacco: Every DayCigarettes0.33 Smokeless Tobacco: Never Tobacco Cessation:Ready to Q uit: No; Counseling Given: Yes Alcohol UseStandard Drinks/WeekCommentsYes0 (1 standard drink = 0.6 oz pure alcohol)SociallyPHQ-2AnswerDate RecordedPHQ-2 Dagdn1441/16/2020Comments NoSex and Gender InformationValueDate RecordedSex Assigned at BirthNot on file Legal NynUkacse12/25/2013 10:22 AM EDTGender IdentityNot on fileSexual OrientationNot on file Last Filed Vital Signs Vital SignReadingTime TakenCommentsBlood Umrhigms980/78003/17/2019 10:22 AM EST Ysena453303/17/2019 10:22 AM JWHXvncroudonv21.8 ??C (98.3 ??F)11/25/2012 11:00 AM EDTRespiratory Edhi6166 11:00 AM EDTOxygen Exckestqjx38%03/17/2019 10:22 AM ESTInhaled Oxygen Concentration--Xctphy767.6 kg (279 lb)03/17/2019 10:22 AM SVZZkffmo221.2 cm (5' 7 )03/17/2019 10:22 AM ESTBody Mass Index43.701 10:22 AM EST Plan of Treatment Not on file Insurance Care Teams Team MemberRelationshipSpecialtyStart [place] [address] [facility] [place] [address] [facility]03/17/19
--- OUTSIDE RECORDS SUMMARY | 2025-02-02 11:14 | XMS_ITS | Clinical Summary ---
Author Organization [facility] Address [address] [place] [address] Care Team Providers Care Front Desk Attendant Name Role Phone Unavailable Primary Care Provider Unavailabl e Allergies Active AllergyReactionsCriticalityNoted RxurBqodjrqgRyjprdmdlyrOnudj50/26/2013 Childhood allergy, had ancef, no issues Medications MedicationSigDispense QuantityRefillsLast FilledStart DateEnd DateStatus ARIPiprazole (Abilify) 5 MG tablet Take 10 mg by mouth DailyDiscontinued lamoTRIgine (LaMICtal) 100 MG tablet Take 100 mg by mouth 1 (one) time each day at the same time Discontinued sertraline (Zoloft) 50 MG tablet Take 75 mg by mouth Daily01/31/2025Discontinued medroxyPROGESTERone (Provera) 10 MG tablet Indications:AmenorrheaTake 1 tablet (10 mg) by mouth Daily 14 tablet 14/Discontinued Active Problems No known active problems Encounters DateTypeDepartmentCare EhioNcbxfhruyln90/02/2025 1:30 PM ESTProcedure Visit [facility] [address] [place] [address] [place] [phone] Eusebio Baltazar, LGSIL of cervix of undetermined uyvalxmmmmwp07/01/0491Jxhkrs10/30/2025Orders Only [facility] [address] [place] [address] [place] [address] Tashia Diaz MA 12/26/2024 10:00 AM EDTAncillary Procedure [facility] [address] [place] [address] [place] [address] Amenorrhea; PCOS (polycystic ovarian syndrome)12/23/2024Telephone [facility] [address] [facility] [place] [address] Julissa Hare MA 12/13/2024 10:20 AM EDTOffice Visit [facility] [address] [facility] [place] [address] Eusebio Baltazar, Well woman exam with routine gynecological exam; Amenorrhea; PCOS (polycystic ovarian syndrome); Breast lump on left side at 2 o'clock quhitawn31/14/2025linisync Result Encounter [facility] External Department Unsolicited Eusebio Baltazar DO 12/13/2024amboo flowsheet [facility] [address] [facility] [place] [address] Eusebio Baltazar DO 12/13/2024Travelfrom Last 3 Months Social History Tobacco UseTypesPacks/DayYears UsedDateSmoking Tobacco: FormerCigarettes Smokeless Tobacco: Never Tobacco Cessation:Counseling Given: Not Answered CommentsNoSex and Gender InformationValueDate RecordedSex Assigned at BirthNot on fileLegal VbhWqkyju13/30/2023 11:54 AM ESTGender IdentityFemale 03/29/2023 10:30 PM ESTSexual BdlxafzarplYdpmzgifr24/28/2024 10:30 PM EST Last Filed Vital Signs Vital SignReadingTime TakenCommentsBlood Ruufsrfn234/80104/03/2024 2:01 PM EST Pulse--Temperature--Respiratory Rate--Oxygen Saturation--Inhaled Oxygen Concentration--Rwscti745 kg (319 lb 12.8 oz)01/31/2025 2:01 PM XNHEwfekm311.6 cm (5' 6 )12/13/2024 10:36 AM EDTBody Mass Index51.6212/13/2024 10:36 AM EDT Plan of Treatment DateTypeDepartmentCare Team (Latest Contact Info)Ngbbztgeukq11/05/2026 1:20 PM ESTConsult [facility] [address] [place] [address] Eusebio Baltazar, DO [address] [facility] [place] [address] 12/19/2025 11:00 AM EDTProcedure Visit [facility] [address] [place] [address] Eusebio Baltazar, DO [address] [facility] [place] [address] Procedures Procedure NamePriorityDate/TimeAssociated DiagnosisCommentsCOLPOSCOPYRoutine 01/31/2025 2:19 PM EST LGSIL of cervix of undetermined significance POCT , PCTVEZgqvlfb06/02/2025 2:09 PM EST LGSIL of cervix of undetermined significance US PELVIC COMPLETE W/ UNXjftojw57/27/2025 10:21 AM EDT Amenorrhea PCOS (polycystic ovarian syndrome) IGP,APTIMA HPV,AGE ZTNVFqowqyq55/14/2025 11:00 AM EDT POCT , EYTTRRfkczda30/14/2025 10:51 AM EDT Amenorrhea POCT URINALYSIS SDGLCQAPPcncouk31/14/2025 10:50 AM EDT Well woman exam with routine gynecological exam Amenorrhea PAP TEST, NRQWWRWUYsggwoq52/14/2025 12:00 AM EDTfrom Last 3 Months Results * Colposcopy (01/31/2025 2:19 PM EST) [...] Eusebio Baltazar DO Authorizing ProviderResult TypeResult StatusEusebio Baltazar DOIN CLINIC/BEDSIDE ORDERABLESFinal Result * POCT , urine manually resulted (01/31/2025 2:09 PM EST) Only the most recent of2 resultswithin the time period is included. ComponentValueRef RangeTest MethodAnalysis TimePerformed AtPathologist Signature Preg Test, UrNegativeNegativeSpecimen (Source)Anatomical Location / Laterality Collection Method / VolumeCollection TimeReceived CymrNpnjh82/02/2025 2:09 PM EST Narrative Authorizing ProviderResult TypeResult Yadi Baltazar DOPOINT OF CARE TEST ENTER/EDIT ORDERABLESFinal Result * US Pelvis w/ TV (12/26/2024 10:21 AM EDT)Anatomical RegionLateralityModality PelvisUltrasoundSpecimen (Source)Anatomical Location / LateralityCollection Method / VolumeCollection TimeReceived Time12/26/2024 4:23 PM EDT Impressions 12/27/2024 7:18 AM EDT Follicular ovaries, majority 3-5 mm, at least ten present within each ovary (8- 10 cc volume) TRANSCRIBED BY: ? ELECTRONICALLY SIGNED BY: Calin Schroeder MD [facility] 12/27/2024 7:18 AM EDT FINDINGS: Uterus ? 7.8 x 3.7 x 5.5 cm Endometrium ?14 mm Right ovary ? 3.7 x 2.5 x 2.0 cm Left ovary ?2.8 x 2.0 x 2.6 cm The uterus is normal in size and orientation. ??No worrisome mass lesions are seen. ??Several mm cervical Nabothian cyst ??Endometrium appears unremarkable. ??No fluid is seen within the cul-de-sac. ?? Bilateral ovaries demonstrate small peripheral follicles, unremarkable in appearance. ??Overall appearance is normal for this age. ?? Procedure Note Calin Schroeder MD - 12/27/2024 FINDINGS: Uterus 7.8 x 3.7 x 5.5 cm Endometrium 14 mm Right ovary 3.7 x 2.5 x 2.0 cm Left ovary 2.8 x 2.0 x 2.6 cm The uterus is normal in size and orientation. No worrisome mass lesionsare seen. Several mm cervical Nabothian cyst Endometrium appearsunremarkable. No fluid is seen within the cul-de-sac. Bilateral ovaries demonstrate small peripheral follicles, unremarkable in appearance. Overall appearance is normal for this age. IMPRESSION: Follicular ovaries, majority 3-5 mm, at least ten present within eachovary (8-10 cc volume) TRANSCRIBED BY: ELECTRONICALLY SIGNED BY: Calin Schroeder MD Authorizing ProviderResult TypeResult StatusCorey Giovanny [facility] PROCEDURESFinal Result * (ABNORMAL) IGP,APTIMA HPV,AGE GDLN (12/13/2024 11:00 AM EDT)ComponentValueRef RangeTest MethodAnalysis TimePerformed AtPathologist SignatureAGE GDLN ACOG TESTINGNote.TBHComment: ?? TESTS ? RESULT ??FLAG ??UNITS ?REF RANGE ??LAB ?? Clinician Provided Cytology Information ?? Source.............Cervix;Endocervix ?? No. of containers..01 ThinPrep Vial Age Algo ACOG Mady... ??- ? 01 ?FLAG LEGEND: ?L-Low Normal,H-High Normal,LL-Alert Low,HH-Alert High <-Panic Low,>-Panic High,A-Abnormal,AA-Critical Abnormal Performed at: 01 =G ?[facility] ?? [address] [place], [place] ??[phone] ?? Isabel Lozada MD, IGP, RFX APTIMA HPV ASCUNote(A).TBHComment: ?? TESTS ? RESULT ??FLAG ??UNITS ?REF RANGE ??LAB DIAGNOSIS: ? [A] ?02 ?? EPITHELIAL CELL ABNORMALITY. ?? LOW GRADE SQUAMOUS INTRAEPITHELIAL LESION (LSIL). Recommendation: ?[A] ?02 ?? Suggest follow up as clinically appropriate. Specimen adequacy: ?02 ?? Satisfactory for evaluation. ??Endocervical and/or squamous metaplastic ?? cells (endocervical component) are present. Performed by: ? 02 ?? Gabo Londono Retail Business Analyst (ASCP) Electronically si... ?02 ?? Isabel Lozada MD, Pathologist . ? 02 Pathologist ICD10: ?02 ?? R87.612 Note: ? Note ?02 ?? The Pap smear is a screening test designed to aid in the ?? detection of premalignant and malignant conditions of the ?? uterine cervix. ??It is not a diagnostic procedure and ?? should not be used as the sole means of detecting cervical ?? cancer. ??Both false-positive and false-negative reports do ?? occur. Test Methodology: ? Note ?02 ?? This liquid based ThinPrep(R) pap test was interpreted ?? using the Rentobo(R) ClearMyMailius(TM) Cervical Algorithm whole ?? slide imaging system. . ? 02 ?? The HPV DNA reflex criteria were not met with this specimen ?? result therefore, no HPV testing was performed. ?FLAG LEGEND: ?L-Low Normal,H-High Normal,LL-Alert Low,HH-Alert High <-Panic Low,>-Panic High,A-Abnormal,AA-Critical Abnormal Performed at: 02 WB ?[facility] ?? [address] [place], [place] ??[address] ?? Isabel Lozada MD, Performed at: ??=G - [facility] [address] [place], [place] ??[id number] [place] Operator: Isabel Lozada MD, Phone: ??[phone] Performed at: ??WB - [facility] [address], [place] ??[id number] [place] Operator: Isabel Lozada MD, Phone: ??[phone] Specimen (Source)Anatomical Location / LateralityCollection Method / Volume Collection TimeReceived Time12/13/2024 11:00 AM EDT1 3:19 PM EDT Narrative [facility] - 12/19/2024 5:09 PM EDT BRUSH-SPATULA CERVIX ENDOCERVIX Authorizing ProviderResult TypeResult StatusCorey Giovanny DOLAB BLOOD ORDERABLES Final ResultPerforming OrganizationAddressCity/State/ZIP CodePhone Number [facility] TB * POCT urinalysis dipstick manually resulted (12/13/2024 10:50 AM EDT)Component ValueRef RangeTest MethodAnalysis TimePerformed AtPathologist SignatureColor, UAYellowClarity, UAClearGlucose, UANegativeNegative - 2000(110) ++++ mg/dL Bilirubin, UANegativeNegative - 4(70) +++ mg/dLKetones, UANegativeNegative - 160(16) ++++ mg/dLSpec Grav, UA1.0101 - 1.03Blood, UANegativeNegative - 50 Thai/mcLpH, UA8.05 - 9Protein, UANegativeNegative - 2000(20) ++++ mg/dL Urobilinogen, UA2.00.2 - 12 mg/dLLeukocytes, UANegativeNegative - 500+++ Shawn/mcLNitrite, UANegativeNegative - PositiveSpecimen (Source)Anatomical Location / LateralityCollection Method / VolumeCollection TimeReceived Time Urine12/13/2024 10:50 AM EDT Narrative Authorizing ProviderResult TypeResult StatusCorey Giovanny DOPOINT OF CARE TEST ENTER/EDIT ORDERABLESFinal Result * (ABNORMAL) PAP TEST, EXTERNAL (12/13/2024 12:00 AM EDT) Narrative Authorizing ProviderResult TypeResult StatusCorey Giovanny DOLAB CYTOLOGY ORDERABLESFinal ResultPerforming OrganizationAddressCity/State/ZIP CodePhone Number EXTERNAL LAB from Last 3 Months Insurance
--- OUTSIDE RECORDS SUMMARY | 2025-02-02 11:33 | XMS_ITS | CCD ---
Author Organization [facility] Care Team Providers Care Instructor [employer] Name Role Phone ARMANDO FELIX Referring Unavailable ARMANDO FELIX Primary Care Unavailable MILY SHELTON Admitting Unavailable WONDERLY, MILY Quinn Attending Unavailable WONDERMELANIA, IMLY Quinn Consulting Unavailable NIKITA, MILY Quinn Admitting Unavailable WONDERLY, MILY Quinn Attending Unavailable WONDERLY, MILY Quinn Consulting Unavailable Armando Felix MD Primary Care Provider Unavailable Primary Care Provider Unavailabl e No Pcp, No Pcp Primary Care Provider Unavailabl e Tom Peterson PA-C Primary Care Provider [phone] Unavailable Primary Care Provider Unavailabl e GIOVANNY, EUSEBIO Attending Unavailable GIOVANNY, EUSEBIO Attending Unavailable GIOVANNY, EUSEBIO Attending Unavailable GIOVANNY, EUSEBIO Attending Unavailable GIOVANNY, EUSEBIO Referring Unavailable Allergies Allergy ClassificationReported Allergen(s)Allergy TypeDate of OnsetReaction(s) Facility (20 sources)AmoxicillinDrug Fqkbyci16-96-1036DmhwwKtzws Health Medications Current Medications MedicationDrug Class(es)DatesSig (Normalized)Sig (Original)ARIPiprazole 5 mg oral tablet (20 sources)Atypical AntipsychoticStart: 01-15-2023 End: 95-04-6282aemt 1 tablet by mouth in the morningARIPiprazole (ABILIFY) 5 mg tablet Take 1 tablet (5 mg total) by mouth in the morning. 01/15/2023 03/21/2024 Discontinued (Dose adjustment)Start: 06-13-2498jhda 2 tablets by mouth once dailyARIPiprazole (Abilify) 5 MG tablet Take 10 mg by mouth Daily 05/22/2022 Activetake 1 tablet by mouth once daily at bedtimeARIPiprazole (ABILIFY) 15 mg tablet Take 1 tablet (15 mg total) by mouth once daily at bedtime. Active docusate sodium 100 mg oral capsule (3 sources)Start: 02-20-2022 End: 69-98-5342wefv 1 capsule by mouth in the morning, then take 1 capsule by mouth at bedtimedocusate sodium (COLACE) 100 mg capsule Take 1 capsule (100 mg total) by mouth in the morning and 1capsule (100 mg total) before bedtime. 30 capsule 2 02/20/2022 03/21/2024 Discontinued (Therapy completed)DULoxetine 30 mg delayed release oral capsule (1 source)Serotonin and Norepinephrine Reuptake InhibitorStart: 57-11-3229lstw 1 capsule by mouth once dailyDULoxetine (CYMBALTA) 30 MG extended release capsule Indications: Depression with anxiety , Mood swing Take 1 capsule by mouth daily 30 capsule 3 03/17/2019 ActiveEthinyl Estradiol / Ferrous fumarate / Norethindrone (1 source)EstrogenStart: 59-00-0600OTRZVIH 24 FE 1-20 MG-MCG(24) TABS Take by mouth daily 0 03/06/2019 Activeferrous sulfate 325 mg oral tablet (3 sources)Start: 02-20-2022 End: 78-38-3774jfhk 1 tablet by mouth in the morning, then take 1 tablet by mouth at mealtimeferrous sulfate 325 (65 FE) mg tablet Take 1 tablet (325 mg total) by mouth in the morning and 1 tablet (325 mg total) in the evening. Take with meals. 30 tablet 2 02/20/2022 03/21/2024 Discontinued (Therapy completed) FLUoxetine 20 mg oral tablet (1 source)Serotonin Reuptake Inhibitortake 20 mg by mouth once dailyFLUOXETINE HCL PO Take 20 mg by mouth daily 0 Activeibuprofen 800 mg oral tablet (3 sources)Nonsteroidal Anti-inflammatory DrugStart: 02-20-2022 End: 63-55-6686msbq 1 tablet by mouth every eight hours as neededibuprofen (MOTRIN) 800 mg tablet Take 1 tablet (800 mg total) by mouth every 8 (eight) hours as needed (cramping). 30 tablet 02/20/2022 03/21/2024 Discontinued (Therapy completed)lamoTRIgine 100 mg oral tablet (20 sources)Mood Stabilizer, Anti-epileptic AgentStart: 13-72-5746vdsn 1 tablet by mouth once dailylamoTRIgine (LaMICtal) 100 MG tablet Take 100 mg by mouth 1 (one) time each day at the same time 01/15/2023 Activetake 1 tablet by mouth once daily at dinnerlamoTRIgine (LaMICtal) 25 mg tablet Take 1 tablet (25 mg total) by mouth Daily before evening meal.ActivemedroxyPROGESTERone acetate 10 mg oral tablet (3 sources)ProgestinStart: 12-13-2024 End: 11-10-6836llrx 1 tablet by mouth once dailymedroxyPROGESTERone (Provera) 10 MG tablet Indications: Amenorrhea Take 1 tablet (10 mg) by mouth Daily 14 tablet 3 12/13/2024 12/13/2025 Tfuhua29 hr metFORMIN hydrochloride 500 mg extended release oral tablet (20 sources)BiguanideStart: 04-05-2024 End: 70-44-7009sjyd 1 tablet by mouth every twenty-four hours at mealtime metFORMIN XR (Glucophage-XR) 500 MG 24 hr tablet Indications: Irregular periods/menstrual cycles , PCOS (polycystic ovarian syndrome) Take 1 tablet (500 mg) by mouth in the evening. Take with meals Do not crush, chew, or split. 30 tablet 11 04/05/2024 05/30/2024 DiscontinuedStart: 40-58-6838vgix 1 tablet by mouth every twenty-four hours at mealtimemetFORMIN XR (Glucophage-XR) 500 MG 24 hr tablet Indications: Irregular periods/menstrual cycles , PCOS (polycystic ovarian syndrome) Take 1 tablet (500 mg) by mouth in the evening. Take with meals Do not crush, chew, or split. 30 tablet 11 03/30/2023 Activetake 1 tablet by mouth once dailymetFORMIN (GLUCOPHAGE) 500 mg tablet Take 1 tablet (500 mg total) by mouth nightly. Activeomeprazole 40 mg delayed release oral capsule (6 sources)Proton Pump InhibitorStart: 02-10-2024 End: 73-22-7751petg 1 capsule by mouth once daily before breakfastomeprazole (PriLOSEC) 40 mg capsule Indications: Upper abdominal pain , Gastroesophageal reflux disease, unspecified whether esophagitis present Take 1 capsule (40 mg total) by mouth every morning before breakfast. 30 capsule 11 05/09/2024 Active 25/iron fum/folic/dha (-1 ORAL) (5 sources) 25/iron fum/folic/dha (-1 ORAL) Take by mouth. ActivePrenatal Vit w/Sb-Kjstlwkjw-CH (PNV PO) (1 source) Vit w/Hh-Snahwgtso-KR (PNV PO) Take by mouth. 0 Active sertraline 50 mg oral tablet (20 sources)Serotonin Reuptake Inhibitorsertraline (Zoloft) 50 MG tablet Take 75 mg by mouth Daily Activetake 1.5 tablets by mouth in the morningsertraline (ZOLOFT) 50 mg tablet Take 1.5 tablets (75 mg total) by mouth in the morning. Activetake 1 tablet by mouth in the morningsertraline (ZOLOFT) 50 mg tablet Take 1 tablet (50 mg total) by mouth in the morning. Active Completed/Discontinued Medications MedicationDrug Class(es)DatesSig (Normalized)Sig (Original)bacitracin 0.5 unt/mg / polymyxin b 10 unt/mg ophthalmic ointment (13 sources)Polymyxin-class AntibacterialStart: 03-17-2023 End: 76-63-6572ptwvbdetqf-polymyxin b (Polysporin) ophthalmic ointment 03/17/2023 12/28/2023 Discontinueddicyclomine hydrochloride 10 mg oral capsule (3 sources)Anticholinergic End: 66-96-3062pkvt 1 capsule by mouth three times daily as neededdicyclomine (BENTYL) 10 mg capsule Take 1 capsule (10 mg total) by mouth 3 (three) times a day as needed. 05/09/2024 Discontinuedfluconazole 150 mg oral tablet (7 sources)Azole AntifungalStart: 11-17-2023 End: 29-12-4930nuvo 1 tablet by mouth oncefluconazole (Diflucan) 150 MG tablet Indications: Yeast infection Take 1 tablet (150 mg) by mouth if needed (Yeast infection) This is a 1 time dose, take single tablet by mouth. 2 tablet 1 DiscontinuedhydrOXYzine pamoate 25 mg oral capsule (20 sources)AntihistamineStart: 08-08-2022 End: 11-07-4295lmeoSYDhdaw pamoate (Vistaril) 25 MG capsule 08/08/2022 06/14/2024 Discontinued ()ondansetron 4 mg disintegrating oral tablet (5 sources)Serotonin-3 Receptor AntagonistStart: 01-21-2024 End: 26-74-7807zyjr 1 tablet by mouth every eight hours as needed for nausea ondansetron ODT (ZOFRAN ODT) 4 mg disintegrating tablet Dissolve 1 tablet (4 mg total) on tongue every 8 (eight) hours as needed for nausea for up to 10 doses. 10 tablet 01/21/2024 05/09/2024 DiscontinuedtraZODone hydrochloride 50 mg oral tablet (20 sources)Serotonin Reuptake InhibitorStart: 12-11-2022 End: 40-96-7497fmzJSWjsv (Desyrel) 50 MG tablet 12/11/2022 06/14/2024 Discontinued () Problems Active Problems Problem ClassificationProblemDateDocumented DateEpisodic/ChronicAbdominal pain (4 sources)Upper abdominal pain; Translations: [Upper abdominal pain, unspecified]58-21-4360OomwzvzdJrjenvl disorders (3 sources)Mixed anxiety and depressive disorder; Translations: [Generalized anxiety disorder]Onset: 05-50-9623GgklaamStdggz of cervix (5 sources)Cervical intraepithelial neoplasia grade 1; Translations: [Low grade squamous intraepithelial lesion on cytologic smear of cervix (LGSIL)]12-28-2023 EpisodicEsophageal disorders (3 sources)Gastroesophageal reflux disease; Translations: [Gastro-esophageal reflux disease without esophagitis]40-90-9319RmkqwewZhfrlskau and duodenitis (1 source)Chronic superficial gastritis; Translations: [Chronic superficial gastritis without bleeding]16-42-7893WwovvwbUumuircst and duodenitis (1 source)Acute gastritis; Translations: [Acute gastritis without bleeding] 08-66-4445AmixmztwElcdnymsvamgv and screening for infectious disease (10 sources)Encounter for screening for other viral diseases; Translations: [Contact with and (suspected) exposure to other viral communicable diseases] Onset: 497103-18-3991VpqusbmlUgdtevwvrvzy diseases of female pelvic organs (2 sources)Acute vaginitis; Translations: [Acute vaginitis]44-18-6466Folmsbfj Menstrual disorders (2 sources)Amenorrhea; Translations: [Amenorrhea, unspecified]67-36-3506Bmyikxr Mood disorders (2 sources)Major depressive disorder, single episode, moderate; Translations: [Major depressive disorder. single episode. moderate]Onset: 09-20-5247Pppslgg Mycoses (2 sources)Mycosis; Translations: [Candidiasis, unspecified]53-53-7570Rbxnzatp Noninfectious gastroenteritis (2 sources)Chronic diarrhea; Translations: [Noninfective gastroenteritis and colitis, unspecified]67-34-9371UcjjzkkmKyfhqmjofbrs breast conditions (2 sources)Breast lump; Translations: [Unspecified lump in the left breast, upper outer quadrant]95-23-5920PowjzomtVueyi aftercare (2 sources)Wound finding; Translations: [Encounter for other specified aftercare]38-74-8575TnmwjwntQajdb aftercare (2 sources)Patient encounter status; Translations: [Encounter for follow-up examination after completed treatment for conditions other than malignant neoplasm]00-27-2271AvsewsobLiflz circulatory disease (2 sources)Hypersensitivity angiitis; 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] 76-65-6273AfkykfcMrlhm disorders of stomach and duodenum (1 source)Gastroparesis syndrome; Translations: [Gastroparesis]05-09-2024 EpisodicOther endocrine disorders (2 sources)Polycystic ovary syndrome; Translations: [Polycystic ovarian syndrome]68-96-2851GlknxtgTieqe female genital disorders (2 sources)Vaginal discharge; Translations: [Other specified noninflammatory disorders of vagina]41-92-7441OqygxaekYasbw gastrointestinal disorders (2 sources)Diarrhea; Translations: [Diarrhea, unspecified]56-20-5542Dbtoqzqd Other and delivery including normal (1 source) test positive; Translations: [Encounter for test, result positive]10-62-8312DbcbjybaAyoapevuckm (2 sources)Miscarriage; Translations: [Complete or unspecified spontaneous without complication]53-21-7179IbvcwuoxIkhgeqztwfqb (2 sources)Patient encounter status Past or Other Problems Problem ClassificationProblemDateDocumented DateEpisodic/ChronicOther aftercare (2 sources)Removal of sutures done; Translations: [Encounter for removal of sutures]10-85-8290TybaqtlfVjyqb complications of (1 source)Blood coagulation disorder complicating pregnancyOnset: 11-25-2012 33-82-2255NximoqjmEnkvc complications of (1 source)High risk pregnancyOnset: 744803-72-3863CejviuljZnrjz inflammatory condition of skin (2 sources)Vasculitis of the skin; Translations: [Vasculitis limited to the skin, unspecified]58-40-8452KrpwqsssYwank skin disorders (2 sources)Eruption; Translations: [Rash and other nonspecific skin eruption] 86-00-6834OwxfcbfoXarkluxps-related disorders (1 source)Suspected damage from maternal drug useOnset: 11-25-2012 63-71-8032Jjiedkpd Results Test NameValueInterpretationReference RangeFacilityUS PELVIC COMPLETE W/ TVon 86-68-0570LJ PELVIC COMPLETE W/ TVFINDINGS: Uterus 7.8 x 3.7 x 5.5 cm Endometrium 14 mm Right ovary 3.7 x 2.5 x 2.0 cm Left ovary 2.8 x 2.0 x 2.6 cm The uterus is normal in size and orientation. No worrisome mass lesions are seen. Several mm cervical Nabothian cyst Endometrium appears unremarkable. No fluid is seen within the cul-de-sac. Bilateral ovaries demonstrate small peripheral follicles, unremarkable in appearance. Overall appearance is normal for this age. IMPRESSION: Follicular ovaries, majority 3-5 mm, at least ten present within each ovary (8- 10 cc volume) TRANSCRIBED BY: ELECTRONICALLY SIGNED BY: Calin Schroeder MDNormalNot AvailableComment on above:Order Comment: US PELVIS-TRANSVAG IF INDICATED No LMP recorded.IGP,APTIMA HPV,AGE GDLNon 56-63-6818CKG GDLN ACOG TESTINGNote. NOMS HealthcareComment on above:TESTS RESULT FLAG UNITS REF RANGE LAB Clinician Provided Cytology Information Source.............Cervix;Endocervix No. of containers..01 ThinPrep Vial Age Algo ACOG Mady... 21-29 01 FLAG LEGEND: L-Low Normal,H-High Normal,LL-Alert Low,HH-Alert High <-Panic Low,>-Panic High,A-Abnormal,AA-Critical Abnormal Performed at: 01 =G [facility] [phone] Isabel Lozada MD, IGP, RFX APTIMA HPV ASCUNoteAbnormal.NOMS HealthcareComment on above:TESTS RESULT FLAG UNITS REF RANGE LAB DIAGNOSIS: [A] 02 EPITHELIAL CELL ABNORMALITY. LOW GRADE SQUAMOUS INTRAEPITHELIAL LESION (LSIL). Recommendation: [A] 02 Suggest follow up as clinically appropriate. Specimen adequacy: 02 Satisfactory for evaluation. Endocervical and/or squamous metaplastic cells (endocervical component) are present. Performed by: 02 Gabo Londono, Flat Polisher (ASCP) Electronically si... 02 Isabel Lozada MD, Pathologist . 02 Pathologist ICD10: 02 R87.612 Note: Note 02 The Pap smear is a screening test designed to aid in the detection of premalignant and malignant conditions of the uterine cervix. It is not a diagnostic procedure and should not be used as the sole means of detecting cervical cancer. Both false-positive and false-negative reports do occur. Test Methodology: Note 02 This liquid based ThinPrep(R) pap test was interpreted using the OrthoconeRHRsoft(TM) Cervical Algorithm whole slide imaging system. . 02 The HPV DNA reflex criteria were not met with this specimen result therefore, no HPV testing was performed. FLAG LEGEND: L-Low Normal,H-High Normal,LL-Alert Low,HH-Alert High <-Panic Low,>-Panic High,A-Abnormal,AA-Critical Abnormal Performed at: [address] [phone] Isabel Lozada MD, Performed at: = - [facility] [address] [id number] Director Of Safety: Isabel Lozada MD, Phone: [phone] Performed at: [facility] [id number] Director Of Safety: Isabel Lozada MD, Phone: [phone] Interpretation and review of laboratory resultsAbnormalNOSSM Rehab BRUSH-SPATULA CERVIX ENDOCERVIX CLINISYNCNOSSM RehabHCG ( test) Ql (U)on 72-08-2089Vxvoquhqlxkndo and review of laboratory resultsNormalNOSSM RehabPreg Test, UrNegative NegativeNOSSM RehabNOIN HealthcareUrinalysis macro (dipstick) panel (U)on 31-32-4618Nyicckpot, UANegativeNegative - 4(70) +++ mg/dLNOMS HealthcareBlood, UANegativeNegative - 50 Thai/mcLNOMS HealthcareClarity, UAClearNOMS Healthcare Color, UAYellowNOMS HealthcareGlucose, UANegativeNegative - 2000(110) ++++ mg/dL NOMS HealthcareInterpretation and review of laboratory resultsNormalNOIN HealthcareKetones, UANegativeNegative - 160(16) ++++ mg/dLNOMS Healthcare Leukocytes, UANegativeNegative - 500+++ Shawn/mcLNOMS HealthcareNitrite, UA NegativeNegative - PositiveNOMS HealthcarepH, UA8.05 - 9NOMS HealthcareProtein, UANegativeNegative - 1999(20) ++++ mg/dLNOMS HealthcareSpec Grav, UA1.0101 - 1.03NOMS HealthcareUrobilinogen, UA2.00.2 - 12 mg/dLNOMS HealthcareNOMS HealthcareTBH PREG QUANT HCGon 66-72-3690GRR DLRICRDWRZEF22dLW/mLNOMS Healthcare Comment on above:5-50 0.2-1 WEEK 50-500 1-2 WEEKS 100-5,000 2-3 WEEKS 500-10,000 3-4 WEEKS 1,000-50,000 4-5 WEEKS 10,000-100,000 5-6 WEEKS 15,000-200,000 6-8 WEEKS 10,000-100,000 2-3 MONTHS CLINISYNCNOIN HealthcareHCG ( test) Ql (U)on 73-82-1033Dawvzpwnqrrtfc and review of laboratory resultsAbnormalLIFEPOINT HOSPITALS HealthcarePreg Test, UrPositive NegativeNOSSM RehabNOIN HealthcareUrinalysis macro (dipstick) panel (U)on 87-90-0825Tsdbesqko, UANegativeNegative - 4(70) +++ mg/dLNOMS HealthcareBlood, UAPositiveNegative - 50 Thai/mcLNOMS HealthcareComment on above:largeClarity, UA ClearNOMS HealthcareColor, UAYellowNOMS HealthcareGlucose, UANegativeNegative - 2000(110) ++++ mg/dLNOMS HealthcareInterpretation and review of laboratory resultsAbnormalLIFEPOINT HOSPITALS HealthcareKetones, UANegativeNegative - 160(16) ++++ mg/dL N[facility]S HealthcareLeukocytes, UANegativeNegative - 500+++ Shawn/mcLNOMS Healthcare Nitrite, UANegativeNegative - PositiveNOMS HealthcarepH, UA65 - 9N[facility] Healthcare Protein, UANegativeNegative - 2000(20) ++++ mg/dLNOMS HealthcareSpec Grav, UA 1.021 - 1.03NOMS HealthcareUrobilinogen, UA0.20.2 - 12 mg/dLAtrium Health AnsonTB PREG QUANT HCGon 15-79-8665CWN NLTHKRZQFFDX450fJY/mLNOMS HealthcareComment on above:5-50 0.2-1 WEEK 50-500 1-2 WEEKS 100-5,000 2-3 WEEKS 500-10,000 3-4 WEEKS 1,000-50,000 4-5 WEEKS 10,000-100,000 5-6 WEEKS 15,000-200,000 6-8 WEEKS 10,000-100,000 2-3 MONTHS CLINISYNCMissouri Baptist Medical CenterColposcopyon 91-80-8080Ccveb BoresFAITH 06/15/2024 4:50 PM Colposcopy Date/Time: 06/14/2024 3:37 PM Performed by: Eusebio Baltazar DO Authorized by: Eusebio Baltazar DO Procedure location: vagina and vulva [...] to return in 6 months for Repeat Pap.[facility] HCG ( test) Ql (U)on 00-15-0267Pidoxzufkviqat and review of laboratory resultsAbnormalMissouri Baptist Medical CenterPreg Test, UrPositiveNegativeNOBeloit Memorial HospitalTB PREG QUANT HCGon 79-77-3695QTY NIDWACLUZBAN670qFZ/mLNOMS HealthcareComment on above:5-50 0.2-1 WEEK 50-500 1-2 WEEKS 100-5,000 2-3 WEEKS 500-10,000 3-4 WEEKS 1,000-50,000 4-5 WEEKS 10,000-100,000 5-6 WEEKS 15,000-200,000 6-8 WEEKS 10,000-100,000 2-3 MONTHS CLINISYNCNOIN HealthcareUrinalysis macro (dipstick) panel (U)on 06-14-2024 Bilirubin, UANegativeNegative - 4(70) +++ mg/dLNOMS HealthcareBlood, UANegative Negative - 50 Thai/mcLNOIN HealthcareClarity, UAClearNOMS HealthcareColor, UA YellowNOMS HealthcareGlucose, UANegativeNegative - 2000(110) ++++ mg/dLNOMS HealthcareInterpretation and review of laboratory resultsNormUniversal Health Services Ketones, UANegativeNegative - 160(16) ++++ mg/dLNOIN HealthcareLeukocytes, UA NegativeNegative - 500+++ Shawn/mcLNOIN HealthcareNitrite, UANegativeNegative - PositiveNOMS HealthcarepH, UA6.55 - 9NOMS HealthcareProtein, UANegativeNegative - 2000(20) ++++ mg/dLNOMS HealthcareSpec Grav, UA1.011 - 1.03N[facility] Healthcare Urobilinogen, UA0.20.2 - 12 mg/dLNOMS HealthcareNOMS HealthcarePAP IG, APT HPV RFX 16/18,45on 03-33-7800MIM APTIMAPositiveAbnormalNegativeLIFEPOINT HOSPITALS Healthcare Comment on above:This nucleic acid amplification test detects fourteen high- risk HPV types (16,18,31,33,35,39,45,51,52,56,58,59,66,68) without differentiation. Performed at: [facility] [address] [place] [id number] Director Of Safety: Jayson Pascual MD, Phone: [phone] Performed at: = - [facility] [id number] Director Of Safety: Isabel Lozada MD, Phone: [phone] Interpretation and review of laboratory resultsAbnormOhioHealth Doctors Hospital HealthcarePAP IG (IMAGE GUIDED)NoteAbnormal.NOMS HealthcareComment on above:TESTS RESULT FLAG UNITS REF RANGE LAB Clinician Provided Cytology Information Source.............Cervix;Endocervix No. of containers..01 ThinPrep Vial DIAGNOSIS: [A] 01 EPITHELIAL CELL ABNORMALITY. ATYPICAL SQUAMOUS CELLS OF UNDETERMINED SIGNIFICANCE (ASC-US). Recommendation: [A] 01 Suggest follow up as clinically appropriate. Specimen adequacy: 01 Satisfactory for evaluation. Endocervical and/or squamous metaplastic cells (endocervical component) are present. Performed by: Iveth Melissa, Guide Dog Trainer ([facility]) Electronically si... Deja Serrano MD, Pathologist . [...] <-Panic Low,>-Panic High,A-Abnormal,AA-Critical Abnormal Performed at: [address] [facility] [place] [facility]to [facility]o [address] [place] [phone] Jayson Pascual MD, [address] [place] [address] Isabel Lozada MD, BRUSH-SPATULA CERVIX ENDOCERVIX CLINISYNCBarton County Memorial Hospital IGP,RFX APTIMA HPV ALL PTHon 27-25-3919BAI APTIMA PositiveAbnormalNegativeLIFEPOINT HOSPITALS HealthcareComment on above:This nucleic acid amplification test detects fourteen high- risk HPV types (16,18,31,33,35,39,45,51,52,56,58,59,66,68) without differentiation. Performed at: - [address] [id number] Director Of Safety: Isabel Lozada MD, Phone: [phone] Performed at: - [facility] [id number] Director Of Safety: Isabel Lozada MD, Phone: [phone] Interpretation and review of laboratory resultsAbnoWashington Health System PAP IG (IMAGE GUIDED)NoteAbnormal.NOMS HealthcareComment on above:TESTS RESULT FLAG UNITS REF RANGE LAB Clinician Provided Cytology Information Source.............Cervix;Endocervix No. of containers..01 ThinPrep Vial DIAGNOSIS: [A] 01 EPITHELIAL CELL ABNORMALITY. ATYPICAL SQUAMOUS CELLS OF UNDETERMINED SIGNIFICANCE (ASC-US). Specimen adequacy: 01 Satisfactory for evaluation. Endocervical and/or squamous metaplastic cells (endocervical component) are present. Performed by: Hedy Church, Guide Dog Trainer (ASCP) Electronically si... Josiane Maria MD, Pathologist . [...] <-Panic Low,>-Panic High,A-Abnormal,AA-Critical Abnormal Performed at: [address] [address] Isabel Lozada MD, BRUSH-SPATULA CERVIX ENDOCERVIX CLINISYNCNOIN HealthcareCytology Cervical or vaginal smear or scraping studyon 51-36-7650DGWDMissouri Baptist Medical CenterNo Panel Informationon 61-08-8540Vbtt of biopsy: punch Informed consent: discussed and [...] 2 Specimen sent for: H&E Photo taken yesNOSSM RehabNOIN HealthcareNo Panel Informationon 06-24-2023 NOMS HealthcareALL DEHYDROEPIANDROSTERONEon 27-93-0022YTPH, YNWCE295 ng/dL31 - 701 ng/dLNOMS HealthcareComment on above:This test was developed and its performance characteristics determined by [facility]. It has not been cleared or approved by the Food and Drug Administration. Performed at: [address] [id number] Director Of Safety: Angeline Ramos MD, Phone: [phone] CLINISYMOUNTAINSTAR HEALTHCARE HealthcareALL DHEA SULFATEon 08-64-6065GNUZ-EYMFQCR505.0 ug/dL84.8 - 378.0 ug/dLNOIN HealthcareALL FOLLICLE STIMULATING HORMONEon 56-20-4907EME7.2 . mIU/mLNOMS HealthcareComment on above:Adult Female Range Follicular phase 3.5 - 12.5 Ovulation phase 4.7 - 21.5 Luteal phase 1.7 - 7.7 Postmenopausal 25.8 - 134.8 ALL LUTEINIZING HORMONEon 65-00-4454HDHJYXKXXWV HORMONE(LH)3.2. mIU/mLNOMS HealthcareComment on above:Adult Female Range Follicular phase 2.4 - 12.6 Ovulation phase 14.0 - 95.6 Luteal phase 1.0 - 11.4 Postmenopausal 7.7 - 58.5 No Panel Informationon 55-57-8967HVDUENVZBMFHU HealthcareTBH PROLACTINon 71-42-3934TCLJHEXXD8.4 ng/mL4.8 - 33.4 ng/mLNOMS HealthcareComment on above: Performed at: [address] [id number] Director Of Safety: Adin Cortes PhD, Phone: [phone] ALL CBC WITH AUTO DIFFon 52-65-7131VOCOSTXNT ABSOLUTE AUTO0.0N[facility]S Healthcare Basophils/100 WBC (Bld)0.6 %0.2 - 2.0 %NOMS HealthcareEosinophils/100 WBC (Bld) 3.6 %0.9 - 7.0 %NOMS HealthcareErythrocyte distribution width (RBC) [Ratio]13.7 %11.0 - 15.0 %[facility] Medical CenterHematocrit (Bld) [Volume fraction]38.2 %36.0 - 48.0 %[facility] CenterHemoglobin (Bld) [Mass/Vol]12.4 g/dL12.0 - 16.0 g/dLMissouri Baptist Medical CenterIMMATURE GRANULOCYTES ABS AUTO0.02NOSSM RehabImmature granulocytes/100 WBC (Bld)0.3 %0.0 - 0.5 %[facility] CenterInterpretation and review of laboratory resultsAbnormalNOSSM RehabLYMPHOCYTES ABSOLUTE AUTO2.0 NOMMissouri Baptist Hospital-SullivanLymphocytes/100 WBC (Bld)30.3 %20.5 - 60.0 %[facility] HospitalH (RBC) [Entitic mass]30.1 pg26.7 - 34.0 pgBates County Memorial HospitalHC (RBC) [Mass/Vol] 32.5 g/dL29.9 - 35.2 g/dLBates County Memorial HospitalV (RBC) [Entitic vol]92.7 fL81.0 - 99.0 fLMissouri Baptist Medical CenterMONOCYTES ABSOLUTE AUTO0.4NOSSM RehabMonocytes/100 WBC (Bld)6.1 %1.7 - 12.0 %[facility] CenterNEUTROPHILS ABSOLUTE AUTO3.8NOSSM Rehab Neutrophils/100 WBC (Bld)59.1 %43.0 - 75.0 %[facility] CenterPlatelet mean volume (Bld) [Entitic vol]9.3 fLLow9.5 - 13.5 fLMissouri Baptist Medical CenterTB EO #0.2NOMS [facility] IWD024GFFEHawthorn Children's Psychiatric Hospital RBC4.12LowNOHawthorn Children's Psychiatric Hospital WBC6.4NOSSM RehabCLNOLAND HOSPITAL ANNISTONYNAnMed Health Rehabilitation Hospital THYROID STIM HORMONEon 55-06-5461KHG Qn 1.664 m[IU]/LNOMS HealthcareALL THYROXINE (T4) FREEon 55-96-3594Gbsp T4 [Mass/Vol]0.84 ng/dL0.76 - 1.46 ng/dLHugh Chatham Memorial HospitalMLR HEMOGLOBIN A1Con 02-77-1922Amaigys [Mass/Vol]111 mg/dLMissouri Baptist Medical CenterHbA1c (Bld) [Mass fraction]5.5 %4.5 - 6.2 %NOMS HealthcareComment on above:ADA RECOMMENDED LIMIT 4.0 - 6.0 ADA THERAPEUTIC TARGET < 7.0 ACTION SUGGESTED > 7.0 CLINISYNCNOMS HealthcareNo Panel Informationon 92-91-5762AXBTVQWAAZJAU HealthcareTBH PREG QUANT HCGon 64-83-6559FQE QUANTITATIVE<1mIU/mLNOMS Healthcare Comment on above:5-50 0.2-1 WEEK 50-500 1-2 WEEKS 100-5,000 2-3 WEEKS 500-10,000 3-4 WEEKS 1,000-50,000 4-5 WEEKS 10,000-100,000 5-6 WEEKS 15,000-200,000 6-8 WEEKS 10,000-100,000 2-3 MONTHS US PELVIS W/ TRANSVAGINALon 45-48-3085[place] [address] Ultrasound Report Signed Patient: MARY LIRA MR#: [id number] : 1995 Acct:[id number] Age/Sex: 27 / F ADM Date: 04/08/23 Loc: US Attending Dr: Eusebio Baltazar D.O. Ordering Physician: Eusebio Baltazar D.O. Date of Service: 04/08/23 Procedure(s): US pelvis w/ transvaginal Accession Number(s): [id number] cc: Eusebio Baltazar D.O.; JUAN M RIVAS M.D. The [place] [id number] Patient Name: MARY LIRA MRN: [id number] date: 1995 Sex: F Assigned Patient Location: US Current Patient Location: US Accession/Order Number: [id number] Exam Date: 04/08/2023 10:35 Report Date: 04/08/2023 [...] Signed By: 04/08/23 1113 DD/ 1111 TD/TT: Tie Maker:TBHRadiology, Radiologist, - 04/08/2023 [place] [address] Ultrasound Report Signed Patient: MARY LIRA MR#: [id number] : 1995 Acct:[id number] Age/Sex: 27 / F ADM Date: 04/08/23 Loc: US Attending Dr: Eusebio Baltazar D.O. Ordering Physician: Eusebio Baltazar D.O. Date of Service: 04/08/23 Procedure(s): US pelvis w/ transvaginal Accession Number(s): [id number] cc: Eusebio Baltazar D.O.; JUAN M RIVAS M.D. The [address] [address] Patient Name: MARY LIRA MRN: [id number] date: 1995 Sex: F Assigned Patient Location: US Current Patient Location: US Accession/Order Number: [id number] Exam Date: 04/08/2023 10:35 Report Date: 04/08/2023 [...] Signed By: 04/08/23 1113 DD/ 1111 TD/TT: Tie Maker: REJI HealthcareRadiology Study observation (narrative)REJI HealthcareUS PELVIS W/ TRANSVAGINALOrdered By: Radiologist Radiology on 86-21-1225FCAT [employer] Work Phone: [phone]-19 PCRon 43-57-8487ILKX-CoV-2, NAANot Detected NormalNot DetectedThe Adena Health SystemComment on above:Result Comment: This test was developed and its performance characteristics determined by [employer]. This test has not been FDA cleared [...] a negative (not detected) result in this assay.Performed By: #### CVDPCR #### [facility] [address] [place], [place] [address] Brenna FariasenCOVID-19 PCRon 85-58-3443JKYZ-CoV-2, NAANot DetectedNormalNot DetectedThe [facility]ena Health SystemComment on above:Result Comment: This test was developed and its performance characteristics determined by [employer]. This test has not been FDA cleared [...] a negative (not detected) result in this assay.Performed By: #### CVDPCR #### [facility] [address] [place], [place] [address] Brenna FariasBerhanec Metab, Fastingon 03-17-2019(cont.)[facility]pelier HospitalComment on above:Result Comment: Average GFR for 20-29 years old: 116 mL/min/1.73sq m Chronic Kidney Disease: <60 mL/min/1.73sq m Kidney failure: <15 mL/min/1.73sq m eGFR calculated using average adult body mass. Additional eGFR calculator available at: http://www.[employer].com/multiple_crcl_2012.htmPerformed By: #### BMPF, FT4, LIPRF, TSH #### [facility] [address] [place] [address] Director Of Safety: Deep Gonzalez MDAnion gap [Moles/Vol]12 mmol/LNormal9-17[facility] HospitalComment on above:Performed By: #### BMPF, FT4, LIPRF, TSH #### [facility] [address] [place] [address] Director Of Safety: Deep Gonzalez MDCalcium [Mass/Vol]9.1 mg/dLNormal8.6-10.4[facility] HospitalComment on above:Performed By: #### BMPF, FT4, LIPRF, TSH #### [address] [address] Director Of Safety: Deep Gonzalez MDChloride [Moles/Vol]102 mmol/AJvojsz30-363MlxraOhio Valley Surgical HospitalComment on above:Performed By: #### BMPF, FT4, LIPRF, TSH #### [facility] [address] [place] [address] Director Of Safety: Deep Gonzalez MDCO2 [Moles/Vol]25 mmol/IQzqswd48-20CkmxiOhio Valley Surgical HospitalComment on above:Performed By: #### BMPF, FT4, LIPRF, TSH #### [facility] [address] [place] [address] Director Of Safety: Deep Gonzalez MDCreatinine [Mass/Vol]0.66 mg/dLNormal0.50-0.90 [facility] HospitalComment on above:Performed By: #### BMPF, FT4, LIPRF, TSH #### [facility] [address] [place] [address] Director Of Safety: Deep Gonzalez MDGFR, Amer>60Normal>60MerJohn George Psychiatric PavilionComment on above:Performed By: #### BMPF, FT4, LIPRF, TSH #### [facility] [address] [place] [address] Director Of Safety: Deep Gonzalez MDGFR,non Amer>60Normal>60[facility] HospitalComment on above:Performed By: #### BMPF, FT4, LIPRF, TSH #### [facility] [address] [place] [address] Director Of Safety: Deep Gonzalez MDGlucose [Mass/Vol]82 mg/nHUmfezc66-18RzphvLong Beach Memorial Medical CenterComment on above:Performed By: #### BMPF, FT4, LIPRF, TSH #### [facility] [address] [place] [address] Director Of Safety: CRUZ Grantotassium [Moles/Vol]4.3 mmol/LNormal3.7-5.3 [facility] HospitalComment on above:Performed By: #### BMPF, FT4, LIPRF, TSH #### [facility] [address] [place] [address] Director Of Safety: RADHA Grantodium [Moles/Vol]139 mmol/KYjkzid173-829RxhvbOhio Valley Surgical HospitalComment on above:Performed By: #### BMPF, FT4, LIPRF, TSH #### [facility] [address] [place] [address] Director Of Safety: Deep Gonzalez MDUrea nitrogen [Mass/Vol]11 mg/dLNormal6-20[facility] HospitalComment on above:Performed By: #### BMPF, FT4, LIPRF, TSH #### [facility] [address] [place] [address] Director Of Safety: Deep Madoff, MDBUN/CRE RatioNOT REPORTEDNormal9-20[facility] HospitalComment on above:Performed By: #### BMPF, FT4, LIPRF, TSH #### [facility] [address] [place] [address] Director Of Safety: RADHA Granttaging:NOT REPORTEDNormalOhio Valley Surgical HospitalComment on above:Performed By: #### BMPF, FT4, LIPRF, TSH #### [facility] [address] [place], [place] [id number] Director Of Safety: Hector Grant Metabolic Panel, FastingOrdered By: Armando Felix on 87-98-1082Vvmmy gap [Moles/Vol]12 mmol/L9 - 17 mmol/LMercy [employer] Work Phone: bun/Cre RatioNOT REPORTEDMerYoungCracks Work Phone: calcium [Mass/Vol]9.1 mg/dL8.6 - 10.4 mg/dLKettering Health – Soin Medical CenterYoungCracks Work Phone: chloride [Moles/Vol]102 mmol/L98 - 107 mmol/LMercy [employer] Work Phone: cO2 [Moles/Vol]25 mmol/L20 - 31 mmol/LMadena fayette medical centery [employer] Work Phone: creatinine [Mass/Vol]0.66 mg/dL0.5 - 0.9 mg/dLKettering Health – Soin Medical CenterInvicta Networks Phone: GFR >60>60 mL/minKettering Health – Soin Medical CenterInvicta Networks Phone: GFR CommentKettering Health – Soin Medical CenterInvicta Networks Phone: comment on above:Average GFR for 20-29 years old: 116 mL/min/1.73sq m Chronic Kidney Disease: <60 mL/min/1.73sq m Kidney failure: <15 mL/min/1.73sq m eGFR calculated using average adult body mass. Additional eGFR calculator available at: http://www.[employer]/multiple_crcl_2012.htm GFR Non->60>60 mL/minOhiohealth Grady Memorial Hospital [employer] Work Phone: GFR StagingNOT REPORTEDOhiohealth Grady Memorial Hospital [employer] Work Phone: Glucose [Mass/Vol]82 mg/dL70 - 99 mg/dLSt. Mary'S [facility] Work Phone: potassium [Moles/Vol]4.3 mmol/L3.7 - 5.3 mmol/LMadena fayette medical centery Health Work Phone: sodium [Moles/Vol]139 mmol/L135 - 144 mmol/LMercy [facility] Work Phone: Urea nitrogen [Mass/Vol]11 mg/dL6 - 20 mg/dLSt. Mary'S Medical Center Work Phone: lipid Prof, Fastingon 57-42-6080Xgiexrstxba [Mass/Vol] 153 mg/dLNormal<200[facility] HospitalComment on above:Result Comment: Cholesterol Guidelines: <200 Desirable 200-240 Borderline >240 UndesirablePerformed By: #### BMPF, FT4, LIPRF, TSH #### [employer] [address] [place], [place] [id number] Director Of Safety: MIN Grantholesterol in HDL [Mass/Vol]56 mg/dLNormal>40 [facility] HospitalComment on above:Result Comment: HDL Guidelines: <40 Undesirable 40-59 Borderline >59 DesirablePerformed By: #### BMPF, FT4, LIPRF, TSH #### [employer] [address] [place], [place] [address] Director Of Safety: Deep Gonzalez MDCholesterol in LDL [Mass/Vol]72 mg/dLNormal0-130 [facility] HospitalComment on above:Result Comment: LDL Guidelines: <100 Desirable 100-129 Near to/above Desirable 130-159 Borderline >159 Undesirable Direct (measured) LDL and calculated LDL are not interchangeable tests.Performed By: #### BMPF, FT4, LIPRF, TSH #### [employer] [address] [place] [address] Director Of Safety: MIN Grantholesteroj luis.total/Cholesterol in HDL [Mass ratio]2.7 {ratio}Normal<5[facility] HospitalComment on above: Performed By: #### BMPF, FT4, LIPRF, TSH #### [facility] [address] [place] [address] Director Of Safety: Deep Gonzalez MDTriglyceride,Usckhvn165 mg/dLNormal<150[facility] HospitalComment on above:Result Comment: Triglyceride Guidelines: <150 Desirable 150-199 Borderline 200-499 High >499 Very high Based on AHA Guidelines for fasting triglyceride, December 2011.Performed By: #### BMPF, FT4, LIPRF, TSH #### [facility] [address] [place] [id number] Director Of Safety: MIN Grantholesterol in VLDL [Mass/Vol]NOT REPORTEDNormal 1-30[facility] HospitalComment on above:Performed By: #### BMPF, FT4, LIPRF, TSH #### [facility] [address] [place] [address] Director Of Safety: Deep Gonzalez MDLipid, FastingOrdered By: Armando Felix on 10-40-2667Psflmpntgnp [Mass/Vol]153 mg/dL<200[facility] Work Phone: Comment on above: Cholesterol Guidelines: <200 Desirable 200-240 Borderline >240 Undesirable Cholesterol in HDL [Mass/Vol]56 mg/dL>40Mer [employer] Work Phone: Comment on above: HDL Guidelines: <40 Undesirable 40-59 Borderline >59 Desirable Cholesterol in LDL [Mass/Vol]72 mg/dL0 - 130 mg/dLOhiohealth Grady Memorial Hospital [employer] Work Phone: Comment on above: LDL Guidelines: <100 Desirable 100-129 Near to/above Desirable 130-159 Borderline >159 Undesirable Direct (measured) LDL and calculated LDL are not interchangeable tests. Cholesterol.total/Cholesterol in HDL [Mass ratio]2.7 {ratio}<5[facility] [employer] Phone: Triglyceride, Pchojhk402 mg/dL<150[facility] [employer] Phone: comment on above: Triglyceride Guidelines: <150 Desirable 150-199 Borderline 200-499 High >499 Very high Based on AHA Guidelines for fasting triglyceride, December 2011. VLDLNOT REPORTED1 - 30 mg/dLKettering Health – Soin Medical CenterYoungCracks Work Phone: T4, FreeOrdered By: Armando Felix on 03-17-2019 Thyroxine, Free1.16 ng/dL0.93 - 1.7 ng/dLOhiohealth Grady Memorial Hospital [employer] Phone: TSHOrdered By: Armando Felix on 99-78-8482BLG Qn1.57 m[IU]/LMercy [employer] Work Phone: Thyroid Stim. Horm.on 95-04-9204AHI Qn1.57 m[IU]/L Normal0.30-5.00[facility] HospitalComment on above:Performed By: #### BMPF, FT4, LIPRF, TSH #### [facility] [address] [place], [place] [id number] Director Of Safety: Deep Gonzalez MDThyroxine, Freeon 19-89-5553Qeytkozcb, Free1.16 ng/dLNormal0.93-1.70[facility] HospitalComment on above:Performed By: #### BMPF, FT4, LIPRF, TSH #### [facility] [address] [place], [place] [phone] Director Of Safety: Deep Gonzalez MD Vital Signs Date TimeVital SignValuePerforming XdsbjwqeeFgvzzsky01-50-3486 10:36-0400Body yhmxji782.6 [facility] Cityore Giovanny [employer] Work Phone: NOSSM RehabMoyyvqlltz56-29-9576 10:36-0400Body mass index (BMI) [Ratio]50.65 kg/f4Jwckv Giovanny DO Work Phone: [phone] [place], [place] [address]Pszgzatauj52-81-6444 10:36-0400Body .34 kgCorey Giovanny DO Work Phone: [phone])[facility] [place], [place] [address]Kzfvejwbdw31-12-6326 10:36-0400Diastolic blood iciuumxx04 mm[Hg]Eusebio Giovanny DO Work Phone: [phone])[facility] [place], [place] [address]Peacvmhvpj19-02-1506 10:36-0400Systolic blood mm[Hg]Eusebio Giovanny DO Work Phone: [phone])[facility] [place], [place] [address]Qtaekvbjnw85-17-7015 16:11-0400Body mass index (BMI) [Ratio]50.04 kg/c7Nrgin Giovanny DO Work Phone: [phone])[facility] [place], [place] [address]Ppacnqrznf41-76-7384 16:11-0400Body .62 kgCorey Giovanny DO Work Phone: [phone] [place], [place] [address]Ogxmckrjam41-04-2859 16:11-0400Diastolic blood easdeuuq99 mm[Hg]Eusebio Giovanny DO Work Phone: [phone] [place], [place] 3850505-05-2025 16:11-0400Systolic blood hunnkkzv276 mm[Hg]Eusebio Giovanny DO Work Phone: [phone] [place], [place] 3850503-31-2025 10:09-0400Body mass index (BMI) [Ratio]49.68 kg/n5Hppms Giovanny DO Work Phone: [phone])[facility] [place], [place] [address]Kqrfsxokam09-81-3814 10:09-0400Body .62 kgCorey Giovanny DO Work Phone: [phone])[facility] [place], [place] [address]Faartahnsj95-06-6371 10:09-0400Diastolic blood uqdizhkb65 mm[Hg]Eusebio Giovanny DO Work Phone: [phone])[facility] [place], [place] [address]Sazszsorge11-23-0584 10:09-0400Systolic blood fgpfmams354 mm[Hg]Eusebio Giovanny DO Work Phone: [phone])[facility] [place], [place] [address]Nsmpwkhaoz17-47-4658 12:31-0400Body .6 cmStephanie Lucina FLEET ADMINISTRATIVE ASSISTANT-RETAIL MERCHANDISING COORDINATOR Work Phone: [facility] HospitalLooking for Gamers Peprlo26-37-8676 12:31-0400Body mass index (BMI) [Ratio]49.29 kg/y3Lezlxzbxemauricio Verdugo FLEET ADMINISTRATIVE ASSISTANT-RETAIL MERCHANDISING COORDINATOR Work Phone: [facility] HospitalLooking for Gamers Mpikcz35-76-3833 12:31-0400Body fnocqh427.53 kgStmauricio Verdugo FLEET ADMINISTRATIVE ASSISTANT-RETAIL MERCHANDISING COORDINATOR Work Phone: [facility] [employer] Swhfxj58-67-9369 12:31-0400Diastolic blood zuwtfesu40 mm[Hg]Digna Verdugo FLEET ADMINISTRATIVE ASSISTANT-RETAIL MERCHANDISING COORDINATOR Work Phone: [facility] [employer] Zfoxsj60-39-1693 12:31-0400Heart rate 80 /minSmalathi Verdugo FLEET ADMINISTRATIVE ASSISTANT-RETAIL MERCHANDISING COORDINATOR Work Phone: [facility] [employer] Yuyfud62-90-1745 12:31-0400Systolic blood pbtldjuq474 mm[Hg]Digna Verdugo APRN-RETAIL MERCHANDISING COORDINATOR Work Phone: [facility] [employer] Ahewsw60-30-9202 14:22-0400Body .6 cmCorey Giovanny DO Work Phone: SpotFodoSSM RehabUlqpvcwlat36-51-4051 14:22-0400Body mass index (BMI) [Ratio]49.71 kg/m7Ltikh Giovanny DO Work Phone: [facility] CenterIuwyvkvkij61-14-4600 14:22-0400Body ejpyuf479.71 kgCorey Giovanny DO Work Phone: [facility] CenterAgtmqfhgod85-35-5448 14:22-0400Diastolic blood amopgnnx93 mm[Hg]Eusebio Giovanny DO Work Phone: [facility] CenterHmsixyaxxh31-52-6339 14:22-0400Systolic blood xutkhdqk675 mm[Hg]Eusebio Giovanny DO Work Phone: [facility] Encounters Encounter DateEncounter TypeCare ProviderFacilityStart: 12-26-2024 End: 07-52-6062umraszawlkKIBFE FAZIONot AvailableStart: 12-13-2024 End: 64-35-3507Bzmmyo flowsheetCorey Giovanny DO Work Phone: noms [facility] OBGYNStart: 12-13-2024 End: 01-88-2813Uljfrv flowsheetCorey Giovanny DO Work Phone: noms [facility] OBGYNStart: 12-13-2024 End: 82-40-5549Aonlwntld Result EncounterCorey Giovanny DO Work Phone: NOGW External Department UnsolicitedStart: 12-13-2024 End: 16-84-6112Vzvqksr encounter procedureCorey Giovanny DO Work Phone: NOJI HealthcareStart: 12-13-2024 End: 64-32-5691Hsrwroqa preventive med est patient 18-39 yrsCorey Giovanny DO Work Phone: NOAE [facility] OBGYNComment on above:Well woman exam with routine gynecological exam; Amenorrhea; PCOS (polycystic ovarian syndrome); Breast lump on left side at 2 o'clock positionStart: 12-13-2024 End: 93-51-5493cuyblkjwqhINLMD FAZIONot AvailableStart: 07-06-2024 End: 65-72-0968Uhqrdpzxj Result EncounterCorey Giovanny DO Work Phone: noms External Department UnsolicitedStart: 07-06-2024 End: 49-64-8759Ldblfhrax Result EncounterCorey Giovanny DO Work Phone: noms External Department UnsolicitedStart: 07-04-2024 End: 02-84-2405Kprtfo outpatient visit 15 minutesCorey Giovanny DO Work Phone: NOXG BCP OBComment on above:Encounter for follow-up; MiscarriageStart: 07-04-2024 End: 44-57-4443ualkrsqvreRIYBW FAZIONot AvailableStart: 07-04-2024 End: 03-49-8451Bzcatu flowsheetCorey Giovanny DO Work Phone: NOTM BCP OBStart: 07-04-2024 End: 28-91-0396Deqjcw flowsheetCorey Giovanny DO Work Phone: NOLI BCP OBStart: 06-16-2024 End: 86-48-9120Rsnnnqqmj Result EncounterCorey Giovanny DO Work Phone: noms External Department UnsolicitedStart: 06-16-2024 End: 83-89-4858Ongumedyd Result EncounterCorey Giovanny DO Work Phone: NODX External Department UnsolicitedStart: 06-14-2024 End: 18-32-2726pgqgddooypHAXSB FAZIONot AvailableStart: 06-14-2024 End: 44-64-9573Dfrnass encounter procedureCorey Giovanny DO Work Phone: NOOZ BCP OBComment on above:ASCUS with positive high risk HPV cervical; examination or test, positive resultStart: 06-14-2024 End: 32-20-4653Pggwbfoce Result EncounterCorey Giovanny DO Work Phone: NOOE External Department UnsolicitedStart: 06-14-2024 End: 52-61-4799Hrozvgbje Result EncounterCorey Giovanny DO Work Phone: NOGR External Department UnsolicitedStart: 05-30-2024 End: 57-72-2579Yfhzdi flowsheetCorey Giovanny DO Work Phone: NOMS BCP OBStart: 05-30-2024 End: 21-67-4698Ksxgkn flowsheetCorey Giovanny DO Work Phone: NOMS BCP OBStart: 05-30-2024 End: 82-41-3214Fzczctgvt Result EncounterCorey Giovanny DO Work Phone: NOYJ External Department UnsolicitedStart: 05-30-2024 End: 37-28-0585Iyxfvc outpatient visit 10 minutesCorey Giovanny DO Work Phone: NOTT BCP OBComment on above:ASCUS with positive high risk HPV cervicalStart: 05-30-2024 End: 22-43-6081ioucflorgvAFBAN FAZIONot AvailableStart: 05-09-2024 End: 02-16-6536Rdqfjp outpatient visit 25 minutesStmauricio Mariya Verdugo WAGNER Work Phone: [facility] Digestive HealthcareComment on above:Gastroparesis (Primary Dx); Chronic superficial gastritis without bleeding; Chronic diarrhea; Upper abdominal pain; Gastroesophageal reflux disease, unspecified whether esophagitis presentStart: 04-05-2024 End: 33-36-9932Owhotc [facility] Medical CenterComment on above:Upper abdominal pain (Primary Dx); Diarrhea, unspecified type; Gastroesophageal reflux disease, unspecified whether esophagitis presentStart: 03-21-2024 End: 66-69-0645Kmovveoal to [facility] Phone Call Provider 2 [facility] Hospitaltart: 02-29-2024 End: 39-82-8478Ywogtt OnlyKristjavi [address] Jude Medical CenterProMedica Physicians Digestive HealthcareComment on above:Upper abdominal pain (Primary Dx); Acute gastritis without hemorrhage, unspecified gastritis typeStart: 02-29-2024 End: 80-08-7431vyowecnqfqQeqlrdGzvwr: 02-22-2024 End: 56-78-5057Onplajubl encounterLeticileonel Grossman [facility] Digestive HealthcareStart: 12-28-2023 End: 05-35-8741Utoagq outpatient visit 15 minutesCorey Giovanny DO Work Phone: NOGX BCP OBComment on above:LGSIL of cervix of undetermined significanceStart: 12-28-2023 End: 00-89-4321Wbipoq flowsheetCorey Giovanny DO Work Phone: noms BCP OBStart: 12-28-2023 End: 95-02-6282Yrpdwz flowsheetCorey Giovanny DO Work Phone: noms BCP OBStart: 12-28-2023 End: 38-35-2558Cqmycshrz Result EncounterCorey Giovanny DO Work Phone: noms External Department UnsolicitedStart: 12-02-2023 End: 81-45-7432Irhlhs outpatient visit 15 minutesNodePrimevaughan regional medical center [employer] Work Phone: noms SWS DERMComment on above:Visit for wound check (Primary Dx); Leukocytoclastic vasculitis (CMS/HCC)Start: 11-17-2023 End: 68-49-6900Jjqxam flowsheetCorey Giovanny DO Work Phone: noms BCP OBStart: 11-17-2023 End: 48-71-9426Dbipzh flowsheetCorey Giovanny DO Work Phone: noms BCP OBStart: 11-17-2023 End: 80-81-8410Owreri outpatient visit 15 minutesCorey Giovanny DO Work Phone: noms BCP OBComment on above:Acute vaginitis; Vaginal discharge; STD exposure; Yeast infectionStart: 11-10-2023 End: 62-82-0003Vfrnfq flowsheetNodePrimevaughan regional medical center [employer] Work Phone: noms SWS DERMStart: 11-10-2023 End: 75-55-9284Ldbwxg flowscameron regional medical centerROI²I-[facility] [employer] Work Phone: noms SWS DERMStart: 11-10-2023 End: 72-18-5640Aqivao outpatient visit 15 minutesROI²WESYNC SpAvaughan regional medical center [employer] Work Phone: noms SWS DERMComment on above:Vasculitis of skin (Primary Dx); Encounter for removal of suturesStart: 10-27-2023 End: 43-07-3004Tynpxuz encounter procedureSt. Mary'S [facility] Epunchitvaughan regional medical center [employer] Work Phone: noms SWS DERMComment on above:Rash and other nonspecific skin eruption (Primary Dx)Start: 04-08-2023 End: 74-89-1997Owixusmew Result EncounterCorey Giovanny DO Work Phone: noms External Department UnsolicitedStart: 04-08-2023 End: 67-30-3101Gopwvqzag Result EncounterCorey Giovanny DO Work Phone: NOMS External Department UnsolicitedStart: 10-15-2019 End: 33-34-2115Sjcqszj encounter procedureMARY B WONDERLYFacility:C8Fdidq: 09-08-2019 End: 33-93-4179Ctjcjhl encounter procedureMARJavi B WONDERLYFacility:H2Nnrel: 03-17-2019 End: 73-11-5983Tfjjzjn encounter procedureARMANDO DumontUCSF Benioff Children's Hospital Oakland CenterStart: 03-17-2019 End: 99-82-9819Gkybcbquvu hospital visit by physicianArmando Felix MD Work Phone: stvz [place] STARBRIGHTComment on above:Annual physical exam; Encounter for lipid screening for cardiovascular disease; Depression with anxiety Procedures DateProcedureProcedure DetailPerforming ClinicianStart: 47-53-8690IFF,APTIMA HPV,AGE GDLNCorey Giovanny DO Work Phone: Start: 12-13-2024 End: 13-98-3794Clgnl dip stick/tablet rgnt non-auto w/o micrscpCorey Giovanny DO Work Phone: Start: 33-30-7611MVM PREG QUANT HCGCorey Giovanny DO Work Phone: Start: 29-17-7399Nqobd dip stick/tablet rgnt non-auto w/o micrscpCorey Giovanny DO Work Phone: Start: 90-82-4471DQS PREG QUANT HCGCorey Giovanny DO Work Phone: Start: 13-68-1038XYQ PREG QUANT HCGCorey Giovanny DO Work Phone: Start: 98-34-1094Felkqgbcxs vulvaCorey Giovanny DO Work Phone: Start: 06-14-2024 End: 38-59-4236Gbfvs dip stick/tablet rgnt non-auto w/o micrscpCorey Giovanny DO Work Phone: Start: 57-04-6181CKM IG, APT HPV RFX 16/18,45Corey Giovanny DO Work Phone: [phone]: 94-99-7255PIP IGP,RFX APTIMA HPV ALL PTHCorey Giovanny DO Work Phone: Start: 29-38-6168Hsnm cerv/vag auto thin layer prep mnl screenCorey Giovanny DO Work Phone: [phone]: 72-16-6047IQZR / NAIL BIOPSYRylee [facility] Work Phone: [phone]: 59-45-2128CEUENAVAHCEqxra Giovanny DO Work Phone: [phone]: 06-00-0408RE PELVIS W/ TRANSVAGINALCorey Giovanny DO Work Phone: [phone]: 45-65-2109AIH CBC WITH AUTO DIFFCorey Giovanny DO Work Phone: [phone]: 81-62-3279SBO DEHYDROEPIANDROSTERONECorey Giovanny DO Work Phone: [phone]: 22-29-0964ODA DHEA SULFATECorey Giovanny DO Work Phone: [phone]: 91-21-6535NXM FOLLICLE STIMULATING HORMONECorey Giovanny DO Work Phone: [phone]: 45-56-1403NKV LUTEINIZING HORMONECorey Giovanny DO Work Phone: [phone]: 01-63-0471HCO THYROID STIM HORMONECorey Giovanny DO Work Phone: [phone]: 72-58-1334PPR THYROXINE (T4) FREECorey Giovanny DO Work Phone: [phone]: 32-34-1461IIO HEMOGLOBIN Y0AUweia Giovanny DO Work Phone: [phone]: 19-76-1665PFI PREG QUANT HCGCorey Giovanny DO Work Phone: [phone]: 06-69-7045UQS PROLACTINCorey Giovanny DO Work Phone: Start: 75-20-3317Fxfniecgzen observation [Identifier] in Cervix by Cyto Erickson Reyes RNStart: 35-98-2108Jzaag of free thyroxine ARMANDO ELVIRAStart: 39-10-0281Zbyzn of thyroid stimulating hormone tshЕКАТЕРИНАLAURE FELIX Start: 40-73-1274Pywld metabolic panel calcium totalJOHN PIERCEStart: 03-17-2019 Lipid panelJOLAURE FELIXStart: 61-23-8760Bsiap of free thyroxineJolaure Felix MD Work Phone: Start: 14-95-8028Xfrik panelJolaure Felix MD Work Phone: Plan of Treatment DateCare ActivityDetailAuthorStart: 67-30-9845FPqO,Tdap and Td Vaccines (7 - Td or Tdap)DTaP,Tdap and Td Vaccines (7 - Td or Tdap)[facility] SystemStart: 12-19-2025 End: 94-44-4700Uizxctm encounter muaqrmqwm85/20/2026 11:00 AM EDT Procedure Visit [facility] [address] [id number] Eusebio Baltazar, [address] [place] [address] NOMFacundo Cho OBGYNStart: 05-20-2025 Screening for malignant neoplasm of cervixPap SmearProUniversity Hospitals [facility] SystemStart: 56-48-8843Tzzlc BMI ScreeningAdult BMI ScreeningProDayton Children'S Hospitalca [facility] SystemStart: 78-73-0552Psycrbw ScreeningTobacco ScreeningUniversity Hospitals Beachwood Medical Centerca [facility] SystemStart: 36-94-2869Fsshpdf ScreeningTobacco ScreeningProDayton Children'S Hospitalca [facility] SystemStart: 58-12-5861Xzdzfly ScreeningTobacco ScreeningUniversity Hospitals Beachwood Medical Centerca [facility] SystemStart: 67-23-6192Ekdqz BMI ScreeningAdult BMI ScreeningProDayton Children'S Hospitalca [facility] SystemStart: 06-37-1172Hezjfib ScreeningTobacco ScreeningUniversity Hospitals Beachwood Medical Centerca [facility] SystemStart: 12-26-2024 End: 87-80-1428Lhdpyfuusucg / ancillary services iovuosegtz20/27/2025 10:00 AM EDT Ancillary Procedure [facility] [address] [place] [address] FRIS Marquis OBGYNStart: 12-13-2024 End: 11-25-5663WEYXERIO Lab Routine Amenorrhea PCOS (polycystic ovarian syndrome) Expected: 12/13/2024 (Approximate), Expires: 12/13/2025[facility] Comment on above:Expected: 12/13/2024 (Approximate), Expires: 12/13/2025Start: 12-13-2024 End: 94-73-3427JO Breast - bilateral DiagnosticBilateral diagnostic mammogram Imaging Routine Breast lump on left side at 2 o'clock position Expected: 12/13/2024 (Approximate), Expires: 02/12/2026N[facility] HealthcareComment on above: Expected: 12/13/2024 (Approximate), Expires: 02/12/2026Start: 12-13-2024 End: 90-69-7488XW PelvisUS Pelvis w/ TV Imaging Routine Amenorrhea PCOS (polycystic ovarian syndrome) Expected: 12/13/2024,Expires: 12/13/2025N[facility] HealthcareComment on above:Expected: 12/13/2024, Expires: 12/13/2025Start: 12-13-2024 End: 10-70-5325Xqbkncb encounter procedureNOMS BCP OBComment on above:Arrived Start: 07-14-2024 End: 99-59-3998lkerybaceu71/15/2025 1:30 PM EDT Initial [facility] [place] [address] [place] [address] MNZY BCP OBStart: 07-14-2024 End: 42-68-6366Ksihtfkweszf / ancillary services npqitvegpb19/15/2025 1:00 PM EDT Ancillary Procedure [facility] [address] [place] [address] UOJG BCP OBStart: 07-04-2024 End: 83-51-5293Pliskpz encounter malipoyxe58/05/2025 3:50 PM EDT Office Visit [facility] [address] [address] Eusebio Baltazar, [address] [place] [address] ArrivedNONOVATO [facility] OBComment on above:ArrivedStart: 07-04-2024 End: 63-32-9372bMR, quantitative, pregnancyhCG, quantitative, Lab Routine Miscarriage Expected: 07/04/2024 (Approximate), Expires: 07/04/2025[facility] Work Phone: comment on above:Expected: 07/04/2024 (Approximate), Expires: 07/04/2025Start: 06-28-2024 End: 88-72-9065Aywpugc encounter waayrvlmc52/29/2025 1:00 PM EDT Office Visit [facility] [address] [address] Eusebio Baltazar, [address] [place] [address] [facility] OBStart: 05-30-2024 End: 19-69-1911Mkiffeg encounter procedureNONOVATO COMM[facility]ITY [facility] OBComment on above:Arrived Start: 04-05-2024 End: 12-82-5280WG Stomach Views for gastric emptying solid phase W radionuclide PONM gastric emptying solid Imaging Routine Upper abdominal pain Diarrhea, unspecified type Gastroesophageal reflux disease, unspecified whether esophagitis present Expected: 04/05/2024, Expires: 04/05/2025[facility]Medical [facility] Health SystemComment on above:Expected: 04/05/2024, Expires: 04/05/2025Start: 04-05-2024 End: 79-61-8901PR Abdomen limitedUltrasound abdomen limited Imaging Routine Upper abdominal pain Diarrhea, unspecified type Gastroesophageal reflux disease, unspecified whether esophagitis present Expected: 04/05/2024, Expires: 04/05[facility] Work Phone: Comment on above:Expected: 04/05/2024, Expires: 04/05/2025Start: 03-31-2024 End: 74-57-7127Ntphhiike to same day surgery bjrueq6903/31/2024 12:30 PM EST - 03/31/2024 1:15 PM EST Surgery [facility] - Endoscopy [address] [place] [phone] Mark Julian MD [address] [facility] [address], [address] [place] [address] ESOPHAGOGASTRODUODENOSCOPY DIAGNOSTIC [30817 (CPT )][facility] EndoscopyComment on above:ESOPHAGOGASTRODUODENOSCOPY DIAGNOSTIC [19209 (CPT )] Start: 03-31-2024 End: 19-75-3250Yitodrpuumrjkksaaooqaxgend transoral diagnostic ESOPHAGOGASTRODUODENOSCOPY DIAGNOSTIC GERD K21.9 Upper abdominal pain R10.10 03/31/2024 12:30 PM ESTTOLEDO ENDOSCOPYStart: 77-15-1662Lgyqibfhci hospital visit by ifkdddgro22/30/2025 12:30 PM EST Hospital Encounter [facility] [address] [place] [address] Mark Julian MD [address] [facility], [address] [place] [address] [facility] EndoscopyStart: 03-21-2024 End: 52-50-1329Esvifithx to zehxqhdrjynbe22/20/2025 10:00 AM EST Support Visit [facility] [address] [place] [phone] [facility] Start: 12-28-2023 End: 90-55-9428Stakbmq encounter procedureNOMS BCP OBComment on above:Arrived Start: 12-02-2023 End: 68-93-9687FMC W Auto Differential panel - BloodCBC and differential Lab Routine Leukocytoclastic vasculitis (CMS/HCC) Expected: 12/02/2023 (Approxi mate), Expires: 12/01/2024[facility] Work Phone: comment on above:Expected: 12/02/2023 (Approximate), Expires: 12/01/2024Start: 12-02-2023 End: 61-81-6045Nlgnkdezjx complete panel - UrineUrinalysis with reflex microscopic Lab Routine Leukocytoclastic vasculitis (CMS/HCC) Expected: 12/01 (Approximate), Expires: 12/01/2024[facility] HealthcareComment on above: Expected: 12/02/2023 (Approximate), Expires: 12/01/2024Start: 11-17-2023 End: 50-20-5118Kuvvjts encounter ksaqtuuef54/17/2024 11:20 AM EDT Office Visit [facility] [address] [place] [phone] Eusebio Baltazar DO [address] [place] [address] ArrivedNONOVATO COMM[facility] OBComment on above:ArrivedStart: 11-10-2023 End: 77-91-4788Qeofshy encounter /10/2024 1:40 PM EDT Office Visit [facility] [address] [place] [address] Jessica Rodas PA [address] [place] [address] [facility] DERMStart: 41-29-6522OHYKQ-19 Vaccine ( season)COVID-19 Vaccine ( season)[facility] Start: 17-76-5041Bjfihzpok vaccinationInfluenza VaccineProDayton Children'S Hospitalca [facility] System Start: 04-28-2019 End: 69-44-5681Hixfeuf encounter fevgjqysd45/27/2020 Office [place] [address] [place] [address] [place] [address] [phone] [facility] Primary CareStart: 05-33-0674Iknhbjfon vaccinationFlu vaccine (#1)[employer] Phone: start: 65-56-3302Hxbcnyzs cancer screenCervical cancer screenKettering Health – Soin Medical CenterInvicta Networks Phone: start: 81-72-9919Dxmch BMI Follow Up PlanAdult BMI Follow Up PlanNorth Country HospitalGLOBAL FOOD TECHNOLOGIEStart: 08-92-4362Bmodsxptx screenChlamydia screenKettering Health – Soin Medical CenterInvicta Networks Phone: start: 23-10-5388RGT screenHIV screenPúbliKo Phone: start: 51-32-1326Ksvjalwkpq ScreeningDepression ScreeningProGLOBAL FOOD TECHNOLOGIEStart: 29-90-2956IVtG/Tdap/Td vaccine (6 - Tdap) DTaP/Tdap/Td vaccine (6 - Tdap)[employer] Phone: start: 71-88-8591YJN vaccine (1 - Female 2-dose series)HPV vaccine (1 - Female 2-dose series)[employer] Phone: start: 87-99-7514Jpoajhkakupt 0-64 years Vaccine (1 of 1 - PPSV23)Pneumococcal 0-64 years Vaccine (1 of 1 - PPSV23)[employer] Phone: start: 66-96-7488Enttufkil Vaccine (1 of 2 - 2-dose childhood series)Varicella Vaccine (1 of 2 - 2-dose childhood series)[employer] Phone: End: 90-58-5292Nmqdfawudspe, FCalprotectin, F Lab Routine Acute gastritis without hemorrhage, unspecified gastritis type Upper abdominal pain 1 Occurrences starting 02/29/2024 until 02/28/2025[employer] Phone: Comment on above:1 Occurrences starting 02/29/2024 until 02/28/2025BC W Auto Differential panel - BloodCBC and differential Lab Routine Amenorrhea PCOS (polycystic ovarian syndrome) Ordered: 12/13/2024[facility] HealthcareComment on above:Ordered: 12/13/2024HLAMYDIA TRACHOMATIS (GENITO/STI) CHLAMYDIA TRACHOMATIS (GENITO/STI) Lab Routine STD exposure Ordered: 11/17/2023 [facility] HealthcareComment on above:Ordered: 11/17/2023 End: 88-46-7317EcuzwcapppgEeeqxslzrgr GI Routine Chronic diarrhea 1 Occurrences starting 05/09/2024 until 05/09/2025[facility] Work Phone: Comment on above:1 Occurrences starting 05/09/2024 until 05/09/2025ytology Cervical or vaginal smear or scraping studyPap Smear Pathology and Cytology Routine LGSIL of cervix of undetermined significance Ordered: 12/28/2023[facility] Work Phone: comment on above:Ordered: 12/28/2023ytology Cervical or vaginal smear or scraping studyPap Smear Pathology and Cytology Routine ASCUS with positive high risk HPV cervical Ordered: 05/30/2024[facility] Work Phone: comment on above:Ordered: 05/30/2024ytology Cervical or vaginal smear or scraping studyPap Smear Pathology and Cytology Routine Well woman exam with routine gynecological exam Ordered: 12/13/2024[facility] Work Phone: comment on above:Ordered: 12/13/2024Dermatopathology examDermatopathology exam Pathology and Cytology Timed Rash and other nonspecific skin eruption ReleaseUpon Ordering for 1 Occurrences starting 10/27/2023[facility] Work Phone: comment on above:Release Upon Ordering for 1 Occurrences starting 10/27/20230373NRVH-uyfzielOOYH-ifiowfm Lab Routine Amenorrhea PCOS (polycystic ovarian syndrome) Ordered: 12/13/2024[facility] HealthcareComment on above:Ordered: 12/13/2024Follicle stimulating hormoneFollicle stimulating hormone Lab Routine Amenorrhea PCOS (polycystic ovarian syndrome) Ordered: 11/30[facility] HealthcareComment on above:Ordered: 12/13/2024 End: 85-37-9850iJZ, quantitativehCG, quantitative Lab Routine examination or test, positive result 4 Occurrences lyxlvcee23/15/2025 until 06/14/2025[facility] Work Phone: comment on above:4 Occurrences starting 06/14/2024 until 06/14/2025hCG, quantitative, pregnancyhCG, quantitative, Lab Routine Amenorrhea PCOS (polycystic ovarian syndrome) Ordered: 12/13/2024[facility] HealthcareComment on above:Ordered: 12/13/2024Hemoglobin A1c/Hemoglobin.total in BloodHemoglobin A1c Lab Routine Amenorrhea Ordered: 12/13/2024[facility] Comment on above:Ordered: 12/13/2024Luteinizing hormoneLuteinizing hormone Lab Routine Amenorrhea PCOS (polycystic ovarian syndrome) Ordered: 12/13/2024[facility] HealthcareComment on above:Ordered: 12/13/2024Neisseria gonorrhoeae DNA [Presence] in Unspecified specimen by ALEX with probe detectionNeisseria gonorrhea DNA probe, direct Lab Routine STD exposure Ordered: 11/17/2023[facility] HealthcareComment on above:Ordered: 11/17/2023SURESWAB(R) ADVANCED VAGINITIS PLUS, TMASURESWAB(R) ADVANCED VAGINITIS PLUS, TMA Pathology and Cytology Routine Vaginal discharge Ordered: 11/17/2023[facility] Work Phone: comment on above:Ordered: 11/17/2023Thyrotropin [Units/volume] in Serum or PlasmaTSH Lab Routine Amenorrhea PCOS (polycystic ovarian syndrome) Ordered: 12/13/2024[facility] HealthcareComment on above:Ordered: 12/13/2024Thyroxine (T4) free [Mass/volume] in Serum or PlasmaT4, free Lab Routine Amenorrhea PCOS (polycystic ovarian syndrome) Ordered: 12/13/2024[facility] HealthcareComment on above:Ordered: 12/13/2024 Immunizations Immunization DateImmunizationNotesCare VtumpjdhXfecwwdn53-44-8387ejxrgdhxj virus vaccine, unspecified formulationChan [facility] 67-50-6945prlrhiplnr, tetanus toxoids and acellular pertussis vaccine, unspecified formulationArmando Felix MD Work Phone: [facility] [employer] Work Phone: [phone], mumps and rubella virus vaccineArmando Felix MD Work Phone: [phone] Work Phone: [phone] vaccine, inactivatedArmando Felix MD Work Phone: [phone] [place] [address] Work Phone: [phone] poliovirus vaccine, live, oralArmando Felix MD Work Phone: [phone] [place] [address] Work Phone: [phone], tetanus toxoids and acellular pertussis vaccine, unspecified formulationArmando Felix MD Work Phone: [phone] [place] [address] Work Phone: [phone]vwzu influenzae type b vaccine, conjugate unspecified formulationArmando Felix MD Work Phone: [phone] [place] [address] Work Phone: [phone] B vaccine, pediatric or pediatric/adolescent dosageArmando Felix MD Work Phone: [phone] Work Phone: [phone], mumps and rubella virus vaccineArmando Felix MD Work Phone: [phone] [place] [address] Work Phone: [phone], tetanus toxoids and acellular pertussis vaccine, unspecified formulationArmando Felix MD Work Phone: [phone] [place] [address] Work Phone: [phone]cksy influenzae type b vaccine, conjugate unspecified formulationArmando Felix MD Work Phone: [phone] [place] [address] Work Phone: [phone], tetanus toxoids and acellular pertussis vaccine, unspecified formulationArmando Felix MD Work Phone: [phone] [place] [address] Work Phone: [phone]ibsx influenzae type b vaccine, conjugate unspecified formulationArmando Felix MD Work Phone: [facility] [employer] Work Phone: [phone] poliovirus vaccine, live, oralArmando Felix MD Work Phone: [facility] Work Phone: [phone]tcnlebqz, tetanus toxoids and acellular pertussis vaccine, unspecified formulationArmando Felxi MD Work Phone: [facility] [employer] Work Phone: [phone] influenzae type b vaccine, conjugate unspecified formulationArmando Felix MD Work Phone: [facility] Work Phone: [phone] B vaccine, pediatric or pediatric/adolescent dosageArmando Felix MD Work Phone: [facility] [employer] Work Phone: [phone] poliovirus vaccine, live, oralArmando Felix MD Work Phone: [facility] [employer] Work Phone: [phone]uyiuq B vaccine, pediatric or pediatric/adolescent dosageArmando Felix MD Work Phone: [facility] Work Phone: Payers DatePayer CategoryPayerPolicy [id number] Rx2023Medicaid [employer] [place] [id number] 2022-Present [address] [place] [id number] 2023Medicaid (Managed Care)[employer] [id number] 2021Medicaid [facility] [place] MEDICAID [id number] BCBS - [place] PPO xxxxxxxxxxxx 2014-Present [address] [place], [place] [address]rinowiosxpuc [id number] 2..1.716607.3.57[id number] 2..1.136374.3.57[id number] 2..1.332467.3.57[id number] 2..1.623683.3.57[id number] 2..1.983905.3.57[id number] 2.16.840.1.123512.3.57[id number] 2.16.840.1.176420.3.57[id number] 2.16.840.1.400918.3.579.2.107822-50-9469YnlodvtYDK156P03593 Social History DateTypeDetailFacilityStart: 46-86-1062Ibzodfz smoking status NHISCurrent every day smokerKettering Health – Soin Medical CenterInvicta Networks Phone: History of tobacco useCigarette SmokerOhiohealth Grady Memorial Hospital [employer] Start: 03-17-2019 End: 32-41-9749Vyjjcfyabj smoked current (pack per day) - ReportedProDayton Children'S HospitalLectorati SystemStart: 03-17-2019 End: 02-08-7167Dtzmcni intakeCurrent drinker of alcohol (finding)[facility] [employer] Work Phone: start: 27-92-3475Flugwkq CommentSociallyOhiohealth Grady Memorial Hospital [employer] Phone: start: 28-32-4786Gxx Assigned At BirthNot on Rehabilitation Hospital of South JerseyInvicta Networks Phone: start: 11-10-2023 End: 97-14-9636Heoogsd smoking status NHISEx-smokerNOMS HealthcareHistory of tobacco useCurrent smokerNOMS HealthcareStart: 11-10-2023 End: 14-08-7358Llthqwx use and exposureSmokeless tobacco non-userNOMS Healthcare Start: 12-02-2023 End: 32-82-2322Cxxqhch use panelProMedical Center Enterprise [employer] SystemStart: 60-00-3857Eyflmm identityIdentifies as female gender (finding)[facility] HealthcareStart: 03-29-2023 Sexual orientationPansexualNOMS HealthcareStart: 93-84-2587Etrxdzm smoking status NHISTobacco smoking consumption unknownNOMS HealthcareStart: 02-09-2019 Alcohol CommentsociallyProMedica Health SystemStart: 49-02-6580SpaUyykee (finding)[facility] Hollytart: 30-94-3041Hsjximy CommentApprox 0.5ppd x 5 yearsKindred Hospital DaytonHistory of tobacco usePassive smokerCaroMont Regional Medical Center - Mount Hollytart: 59-63-1675Dxphpmopq beverage intakeEx-drinker (finding) [facility] Clinical Notes 10-27-2023 to 12-13-2024 Note Date & UndgUqxgQystctot35-82-7327 History of Present illness Narrative* Marybeth Dodd, LUMBER TRIMMER - 12/13/2024 10:20 AM EDT Reason for Appointment: Patient ID: Mary Lira is a 29 y.o. female who [...] nursing note reviewed. Exam conducted with a powder blender present. Vitals: Estimated body mass index is 50.65 kg/m as calculated from the following: Height [...] have them. Patient canalso view results via [employer]. I reinforced importance of condom use for [...] screening 2022 neg/ Dr. Adams [facility] [3] No family history on file. [4] Past Surgical History: Procedure Laterality Date CT ANGIOGRAM HEART CORONARY 01/22/2024 CT ANGIOGRAM TAVR 01/22/2024 documented in this encounterMissouri Baptist Medical CenterIbqjpnrkbp89-93-7732 History of Present illness Narrative* Mee Eng LPN - 07/04/2024 3:50 PM EDT Reason for Appointment: Patient ID: Mary Lira is a 28 y.o. female who presents for Hospital Follow-up (Pt was seen on 06/18/2024 at [facility] for dizziness. Pt present today for a [...] screening 2022 neg/ Dr. Adams [facility] Social History Tobacco Use Smoking status: Former [...] nursing note reviewed. Exam conducted with a powder blender present. Vitals: Estimated body mass index is [...] miscarriage. I have discussed HCG lab levels andmiscarriage with patient in detail. Patient was given [...] by Mee Eng LPN... on behalf of: Eusebio Baltazar DO documented in this encounterMissouri Baptist Medical CenterNikdhitkrk30-83-7011 History of Present illness Narrative* Marybeth Dodd, FAITH - 06/14/2024 2:30 PM EDTAssociated Order(s): Colposcopy Post-Procedure Diagnose(s): ASCUS with positive high risk HPV cervical Reason for Appointment: Patient ID: Mary Lira is a 28 y.o. female who [...] nursing note reviewed. Exam conducted with a powder blender present. Vitals: Estimated body mass index is [...] Colposcopy Date/Time: 06/14/2024 3:37 PM Performed by: Eusebio Baltazar DO Authorized by: Eusebio Baltazar DO Procedure location: vagina and vulva [...] of: Eusebio Baltazar DO documented in this encounterMissouri Baptist Medical CenterIykcyayqis71-81-7857 History of Present illness Narrative* Nuris Landry NP - 05/30/2024 10:00 AM EDT Reason for Appointment: Patient ID: Mary Lira is a 28 y.o. female who [...] screening 2022 neg/ Dr. Adams [facility] Social History Tobacco Use Smoking status: Former [...] nursing note reviewed. Exam conducted with a powder blender present. Vitals: Estimated body mass index is [...] in 6 months for repeat PAP. Patient withoutcomplaints or conerns today. Documented by Nuris Landry NP on behalf of: Eusebio Baltazar DO documented in this encounterMissouri Baptist Medical CenterLibeqxpiwv04-02-3044 History of Present illness Narrative* Digna Verdugo, NIKIA-RETAIL MERCHANDISING COORDINATOR - 05/09/2024 12:30 PM EDT [facility] Follow Up CHIEF COMPLAINT: Chief Complaint Patient presents with Follow-up Follow up, states she feels ok, gastric emptying test results Results HISTORY OF PRESENT ILLNESS: Mary Lira is a 28 y.o. female who [...] given GI cocktail with some improvement. She wasdischarged home with Carafate 1 gram QID and [...] has loose, sometimes watery stools with urgency tomove her bowels. She has occasional nocturnal stools. No hematochezia or melena. No hard stools, str aining or incomplete evacuation. She continues to take [...] dysplasia identified. Report Electronically Signed Out ssi/04/04/2024Adria Peerz M.D. Addendum ([facility]) Date Reported: 04/05/2024 1. Immunohistochemical stain for H. pylori is negative with satisfactory control. Past Medical History: Diagnosis Date Anxiety Bipolar disorder ([facility]) Depression GERD (gastroesophageal reflux disease) PCOS (polycystic ovarian syndrome) Upper abdominal pain Visual impairment Glasses PREVIOUS ENDOSCOPY OR X-RAY PROCEDURES: As noted in the HPI Past Surgical History: Past Surgical History: Procedure Laterality Date ESOPHAGOGASTRODUODENOSCOPY BIOPSY N/A 03/31/2024 Performed by Mark Julian MD at [facility] WISDOM TOOTH EXTRACTION Current Medications: Current [...] the abdomen or pelvis. ASSESSMENT AND PLAN: Mary Lira is a 28 y.o. female with [...] complaint remains daily diarrhea. No blood in thestool. She has occasional nocturnal stools. I have discussed repeat calprotectin. I have also discussed proceeding with colonoscopy with biopsies for evaluation of colitis. I have discussed the risks and benefits of colonoscopy including but not limited to, bleeding, infection, perforation/tear as well as anesthesia risks. Patient verbalizedunderstanding and is agreeable to proceed. Diagnoses and all orders for this visit: Gastroparesis - Smaller, frequent low fat/low fiber meals daily - Consider warehouse administrator referral pending clinical course Chronic superficial gastritis without bleeding - Continue Omeprazole 40 mg daily Chronic diarrhea - Colonoscopy; Future with Dr. Julian with MAC at [facility] ASA 3 due to BMI - Repeat calprotectin Follow up after colonoscopy or sooner if needed. WAGNER Kapoor [facility] [place] [address] PH: [phone] /VT Total time spent: 45 minutes Preparing to see the patient (e.g., review of tests) Obtaining and/or reviewing separately obtained history Performing a medically appropriate examination and/or evaluation Counseling and educating the patient/family/caregiver Ordering medications, tests, or procedures WAGNER Kohler 05/09/24 1302 documented in this encounterNorth Country HospitalLooking for Gamers [id number] Instructions* Patient Instructions* Beckie Rema, [facility] - 05/09/2024 12:30 PM EDT Are You Ready To Kick The Habit? Free Tobacco Cessation Resources [facility] Tobacco Treatment Center Services [facility] Centers provide all employees with free tobacco cessation services that include: Counseling to understand nicotine addiction Education about medications that can help you successfully quit Assistance with developing a plan to quit Call to set up an individual appointment or find out when group classes will be held: [facility]: [phone] [facility]: [phone] [facility]: [phone] [facility]: [phone] Quit Smoking Action Plan and Resources [facility] offers an eight-week, online smoking cessation plan to all [facility] employees, regardless of whether [place] is your medical insurance provider. Go to www.[employer].[email or web address]/employeewellness and click the Health Risk Assessment and Resources link to get started. In the [employer] menu, click Action Plans instead of Health Risk Assessment to access the Quit Smoking Action Plan. Additional smoking cessation resources are also available to all [facility] employees on the [employer] web page at [email or web address].[employer]/quitsmoking. [place] Tobacco Cessation Program If [place] is your medical insurance provider, there are more free resources available to you, including: No copays or deductibles on local tobacco cessation counseling services to help you quit Prescription assistance for tobacco cessation medications to help you quit For details about the tobacco cessation program available to [place] members, go to www.[employer] (Search: Tobacco Cessation Program). [place] Tobacco Quit Line 2-172-IOWW-NOW ( ) is a toll-free, telephonic service that helps [place] residents quit smoking and using tobacco. It is staffed by experts who tailor a quit plan for you and provide you with advice. [place] Tobacco Quit Line 9-580-XZKS-NOW ( ) is a toll-free, telephonic service that helps [place] residents quit smoking and using tobacco. It is staffed by experts who tailor a quit plan for you and provide you with advice. Two weeks of nicotine replacement therapy may be provided at no charge, if needed. Additional Resources These national organizations also offer free information and resources to help you quit tobacco: [place] [employer]--www.cancer.org/healthy/stayawayfromtobacco [place] [employer]--www.heart.org (Search: Quit Smoking) Centers for Disease Control and Prevention--www.cdc.gov/tobacco [place] [employer]--www.lungusa.org documented in this encounter[facility]24 Miscellaneous Notes* Telephone Encounter - Blanca Reyes RN - 02/22/2024 10:24 AM EST From Cassandra Verdugo PROCESS TANK TENDER - note Upper abdominal pain - EGD; Future with MAC at [facility] ASA [address] Julian documented in this encounterKind[facility]12-23-2024 Telephone encounter Note* Telephone Encounter - Blanca Reyes RN - 02/22/2024 10:24 AM EST From Cassandra Verdugo PROCESS TANK TENDER - note Upper abdominal pain - EGD; Future with MAC at [facility] ASA [address] Julian [facility]10-28-[facility] History of Present illness Narrative* Mee Eng LPN - 12/28/2023 2:20 PM EDT Reason for Appointment: Patient ID: Mary Lira is a 28 y.o. female who [...] screening 2022 neg/ Dr. Adams [facility] Social History Tobacco Use Smoking status: Former [...] by Mee Eng LPN on behalf of: Eusebio Baltazar DO documented in this encounterMissouri Baptist Medical [id number] History of Present illness Narrative* RAEGAN Vargas - 12/02/2023 11:15 AM EDT Wound Check Location: Right coreas Procedure performed: [...] will complete labs as soon as possible. Followup as needed. Related Procedures CBC and differential Urinalysis with reflex microscopic Next Visit: prn for any new/changing lesions documented in this encounterMissouri Baptist Medical [id number] History of Present illness Narrative* Libertad Patrick, FAITH - 11/17/2023 11:20 AM EDT Reason for Appointment: Patient ID: Mary Lira is a 28 y.o. female who [...] screening 2022 neg/ Dr. Adams [facility] Social History Tobacco Use Smoking status: Former [...] nursing note reviewed. Exam conducted with a powder blender present. Vitals: Estimated body mass index is [...] by Libertad Patrick LPN on behalf of: Eusebio Baltazar DO documented in this encounterMissouri Baptist Medical [id number] History of Present illness Narrative* RAEGAN Vargas - 11/10/2023 1:40 PM EDT Images from the original note were not [...] can be related to underlying systemic disorders includingautoimmune and malignancies. Would like patient to see a fancy wire drawer for further labs and workupto ensure there is not an underlying systemic cause. Referral to Dr. Medina was initiated. Will leave follow up with us open ended at this time. Should rash return, patient can contact us for follow up. Related Procedures Ambulatory referral to Rheumatology Next Visit: as needed documented in this encounterMissouri Baptist Medical [id number] History of Present illness Narrative* RAEGAN Vargas - 10/27/2023 3:00 PM EDT Images from the original note were not included. Rash Location: Legs and feet Duration: 3-4 weeks, comes and goes Quality: denies itch, denies burning Associated symptoms: red macules Treatments tried: lotion Current treatments: none New patient, referred by Brandy Mcclelland CNP All pertinent medical history, medications, and allergies were reviewed. Mother has history of Factor V Leiden General Exam: alert , oriented to person, place, and time , normal affect, well appearing Unaccompanied, Accompanied by shelter staff A focused exam completed based on [...] were discussed. Risks include, but are not limitedto, bleeding, infection, scarring, pain, & nerve damage. 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 documented in this encounter [facility]* Diagnosis LGSIL of cervix of undetermined significance documented in this encounter [facility]* Diagnosis Rash and other nonspecific skin eruption- Primary documented in this encounter [facility]* Diagnosis Vasculitis of skin- Primary Encounter for removal of sutures documented in this encounter [facility]* Diagnosis Acute vaginitis Unspecified vaginitis and vulvovaginitis Vaginal discharge Leukorrhea, not specified as infective STD exposure Yeast infection documented in this encounter [facility]* Diagnosis Upper abdominal pain- Primary Acute gastritis without hemorrhage, unspecified gastritis type documented in this encounter [facility] SystemEvaluation note* Diagnosis Upper abdominal pain- Primary Diarrhea, unspecified type Gastroesophageal reflux disease, unspecified whether esophagitis present documented in this encounter [facility] SystemEvaluation note* Diagnosis Gastroparesis- Primary Chronic superficial gastritis without bleeding Chronic diarrhea Diarrhea Upper abdominal pain Gastroesophageal reflux disease, unspecified whether esophagitis present documented in this encounter [facility] SystemEvaluation note* Diagnosis ASCUS with positive high risk HPV cervical documented in this encounter [facility]* Diagnosis ASCUS with positive high risk HPV cervical examination or test, positive result documented in this encounter [facility]* Diagnosis Encounter for follow-up Miscarriage Unspecified spontaneous without mention of complication documented in this encounter [facility]* Diagnosis Well woman exam with routine gynecological exam Routine gynecological examination Amenorrhea Absence of menstruation PCOS (polycystic ovarian syndrome) Polycystic ovaries Breast lump on left side at 2 o'clock position Lump or mass in breast documented in this encounter [facility] HealthcareInstructionsNot on filedocumented in this encounterProUniversity Hospitals [facility] SystemInstructionsNot on filedocumented in this encounterProUniversity Hospitals [facility] SystemInstructions* Pre-Procedure Instructions - Heidi Vasquez RN - 03/21/2024 10:00 AM EST Your surgery/procedure is scheduled at [facility] on 03-31-2024 at 12:30pm Arrival Time: 10:30am [facility] Address: [address] [place] [address] Park in P1 Parking lot located on [facility]. Report to the Entrance B. Check in at the information desk the surgery. The waiting room located on the second floor. If you have any questions prior to surgery, please call Pre-Admission Clinic at [phone] between 7:30 am and 4:30 pm Thursday through Thursday. If you have questions the morning of surgery, please call the Pre-op Department at [phone]. Notify your SURGEON if you develop any [...] piercings ,hair extensions that contain metal, nail frisian, make-up, and contact lens. You may brush [...] RIGHTS AND RESPONSIBILITIES As a patient at [facility], you have the right to: Receive medical care and be informed of who is taking care of you Be treated with dignity and respect Have a family member/enrollment eligibility representative of choice and your physician notified of your admission Receive information and actively participate in decisions about your care and treatment Refuse care, treatment and services Decide who may provide your support and speak for you Access episcopal and spiritual services Participate in ethical issues [...] of hospital charges and payment methods Patient/patient enrollment eligibility representative responsibilities are to: Provide information about health status to facilitate care, treatment and services Follow the treatment, plan, keep appointments and speak up when you do not understand the plan Respect the rights of other patients and healthcare personnel Follow organizational rules and regulations that support quality care and a safe environment Fulfill financial obligations as promptly as possible [facility] SystemInstructionsNot on filedocumented in this encounter [facility] SystemInstructionsNot on filedocumented in this encounter [facility] DaytonMiscellaneous Notes* Pre-Procedure Instructions - Heidi Vasquez RN - 03/21/2024 10:00 AM EST Your surgery/procedure is scheduled at [facility] on 03-31-2024 at 12:30pm Arrival Time: 10:30am [facility] Address: [address] [place] [address]. [place] [address] Park in [address] Parking lot located on [facility]. Report to the Entrance B. Check in at the information desk the surgery. The waiting room located on the second floor. If you have any questions prior to surgery, please call Pre-Admission Clinic at [phone] between 7:30 am and 4:30 pm Thursday through Thursday. If you have questions the morning of surgery, please call the Pre-op Department at [phone]. Notify your SURGEON if you develop any [...] piercings ,hair extensions that contain metal, nail frisian, make-up, and contact lens. You may brush [...] RIGHTS AND RESPONSIBILITIES As a patient at [facility], you have the right to: Receive medical care and be informed of who is taking care of you Be treated with dignity and respect Have a family member/enrollment eligibility representative of choice and your physician notified of your admission Receive information and actively participate in decisions about your care and treatment Refuse care, treatment and services Decide who may provide your support and speak for you Access episcopal and spiritual services Participate in ethical issues [...] of hospital charges and payment methods Patient/patient enrollment eligibility representative responsibilities are to: Provide information about health status to facilitate care, treatment and services Follow the treatment, plan, keep appointments and speak up when you do not understand the plan Respect the rights of other patients and healthcare personnel Follow organizational rules and regulations that support quality care and a safe environment Fulfill financial obligations as promptly as possible documented in this encounterSouthern [facility] Medical Center SystemReason for referral (narrative)* Consultation (Routine) - Pending ReviewSpecialtyDiagnoses / ProceduresReferred By ContactReferred To ContactRheumatology Diagnoses Vasculitis of skin Procedures [place] OFFICE/OUTPATIENT [facility] MDM 60 MINUTES Jessica Rodas PA [address] [place] [address] Dmitry Medina MD [address] [place] [address] Referral IDStatusReasonStart DateExpiration DateVisits RequestedVisits [id number] Review Specialty Services Required / [facility] Healthcare Summary Purpose Family History No Family History Records FoundNo Family History Records FoundNo Family History Records FoundNo Family History Records Found Advance Directives TypeDate RecordedPatient RepresentativeExplanationAdvance Directives and Living WillPower of AttorneyDate ActivatedDate IfpvjwdhxwyQwcmsgxr80/15/2022 2:19 PM 02/20/2022 1:32 PMDate ActivatedDate PvylgqwafocUagrcaxn59/15/2022 2:19 PM 02/20/2022 1:32 PM Additional Source Comments INFORMATION SOURCE (unrecogn ized section and content) DATE CREATED AUTHOR 03/18/2019 [facility] DATE CREATED AUTHOR AUTHOR'S ORGANIZ ATION 11/21/2019 [facility] DATE CREATED AUTHOR AUTHOR'S ORGANIZ ATION 09/11/2024 [facility] DATE CREATED AUTHOR AUTHOR'S ORGANIZ ATION 12/28/2024 [facility] EPIC Reason for Visit (unrecogniz ed section and content) ReasonCommentsWound CheckReasonCommentsAbnormal Pap SmearReasonCommentsRash SpecialtyDiagnoses / ProceduresReferred By ContactReferred To ContactDermatology Diagnoses rash and nonspecific skin eruption Procedures office visit Brandy Mcclelland, VONDA [address] [place] [address] Meghan Diamond MD [address] [facility] [facility] [address] [place] [address] Referral IDStatusReasonStart DateExpiration DateVisits RequestedVisits [id number] Vaginitis/Bacterial VaginosisReasonCommentsFollow-upFollow up, states she feels ok, gastric emptying test resultsResultsReasonCommentsRepeat PapReasonComments Abnormal Pap SmearPt present today for a Colposcopy procedure. Pt had an abnormal pap smear on 05/30/2024.ReasonCommentsHospital Follow-upPt was seen on 06/18/2024 at [facility] for dizziness. Pt present today for a f/up ER visit for a miscarriage. Patient states she believes she miscarried on 06/30/2024. And is currently bleeding.ReasonCommentsGynecologic Exam Care Teams (unrecognized sec tion and content) Team MemberRelationshipSpecialtyStart DateEnd Date No Pcp[place] [address] PCP - GeneralFamily Ovologho82/30/23Team MemberRelationshipSpecialtyStart Date End Date No Pcp, [place] [address] PCP - GeneralFamily Cpxiuwpd60/30/23Team MemberRelationshipSpecialtyStart Date End Date Tom Peterson PA-C [address] [place] [address] PCP - GeneralPhysician Assistant03/21/24Team MemberRelationshipSpecialtyStart DateEnd Date Tom Peterson PA-C [address] [place] [address] PCP - GeneralPhysician Assistant03/21/24 FOR RECORDS PERTAINING TO PATIENTS WHO ARE [...] BE BASED ON THE PRIMARY CLINICAL RECORDS. [facility]. provides no warranty or guarantee of the accuracy or completeness of information in this document.
== END 2025-01-31 11:10 ==
LOC: LAB 11:09
PROVIDERS: Visit Provider Obstetrics & Gynecology
DX: R87.612 Low grade squamous intraepithelial lesion on cytologic smear of cervix (LGSIL) (principal)
CPT/HCPCS: 88305

== ENCOUNTER 2025-02-14 10:47 | Outpatient (OUT) | payer OTHER, SELFPAY ==
--- OUTSIDE RECORDS SUMMARY | 2023-10-30 05:30 | XMS_ITS ---
Author Organization [facility] vices Address [address] [place] [id number] Care Team Providers Care Senior Materials Scientist Name Role Phone Tom Peterson Primary Care Provider Richa Davis Unavailable REASON FOR VISIT Adult Wellness Social History Sex Assigned At : Social History Observation Description Sex Assigned At Female Encounters Encounter Location Date Provider Diagnosis Main [address] [place], [place] [id number] 10/30/2023 Richa Davis Plan Of Treatment No Information Progress Notes * Juan LIRAinDOB:1995 ([age] yo F)Acc No.[id number]:10/30/2023 Progress Notes Patient: Anali Quick :?SUKH Alonso, NIKIA, SANNA-CDOB: 1995???Age:28 Y???Sex:FemaleDate:10/30/2023hone:[phone]:[phone], [id number]:Tom Peterson Subjective: * Chief Complaints: * A dult Wellness * Electronic signature of YEE Pierre on 02/14/2025 at 10:50 AM ESTSign off status: Pending * Provider: SUKH Abbott, NIKIA, DARRICKC Date: 0 10/30/2023 Generated for Printing/Faxing/eTransmitting on:?02/14/2025 10:50 AM EST
--- OUTSIDE RECORDS SUMMARY | 2024-07-11 05:00 | XMS_ITS ---
Author Organization [facility] es Address [address] [place] [address] Care Team Providers Care Pail Tester Name Role Phone Dr. Calin Cordova Primary Care Provider REASON FOR VISIT METALIZER FIELD OPERATION EXAM Encounters Encounter Location Date Provider Diagnosis [facility] [address] [place] [address] 07/11/2024 Calin Cordova Plan Of Treatment No Information Progress Notes * ZAY JuaninDOB:1995 ([age] yo F)Acc No.[id number]:07/11/2024 Patient:?Anali Lira :?Calin Cordova DDSDOB:1995???Age:28 Y???Sex: FemaleDate:07/11/2024Phone:[phone]:[place], [place] Subjective: * Chief Complaints: * N P EXAM * Electronic signature of Dr. Calin Cordova , DMD, [id number] on 02/14/2025 at 10:51 AM ESTSign off status: Pending * Provider: Rose Cordova DDS Date: 0 07/11/2024 Generated for Printing/Faxing/eTransmitting on:?02/14/2025 10:51 AM EST
--- OUTSIDE RECORDS SUMMARY | 2025-01-31 13:30 | XMS_ITS | Encounter Summary ---
Author Organization [facility] Address [address] [place] [address] Care Team Providers Care Physical Medicine Specialist Name Role Phone Unavailable Primary Care Provider Unavailabl e Reason for Visit * ReasonCommentsColposcopy Encounter Details DateTypeDepartmentCare Team (Latest Contact Info)Zkcfmbwqdjo55/02/2025 1:30 PM ESTProcedure Visit [facility] [address] [place] [address] Eusebio Baltazar DO [address] [place], [facility]11 LGSIL of cervix of undetermined significance Social History Tobacco UseTypesPacks/DayYears UsedDateSmoking Tobacco: FormerCigarettes Smokeless Tobacco: NeverCommentsNoSex and Gender InformationValueDate RecordedSex Assigned at BirthNot on fileLegal DnbStmubr20/30/2023 11:54 AM EST Gender WthpwynmWaylag87/28/2024 10:30 PM ESTSexual OrientationPansexual 03/29/2023 10:30 PM ESTdocumented as of this encounter Last Filed Vital Signs Vital SignReadingTime TakenCommentsBlood Xsaeoxhp764/80104/03/2024 2:01 PM EST Pulse--Temperature--Respiratory Rate--Oxygen Saturation--Inhaled Oxygen Concentration--Geuenf238 kg (319 lb 12.8 oz)01/31/2025 2:01 PM ESTHeight--Body Mass Index51.6210 10:36 AM EDTdocumented in this encounter Progress Notes * DO Beata Montanez 01/31/2025 1:30 PM ESTAssociated Order(s): Colposcopy Post-Procedure Diagnose(s): LGSIL of cervix of undetermined significance Reason for Appointment: Patient ID: Anali Lira is a 29 y.o. female who presents for Colposcopy Patient presents today for a Colposcopy appointment. MEDICATIONS No current outpatient medications ALLERGIES Allergies Allergen Reactions Amoxicillin Hives Childhood [...] cervical cancer screening 2022 neg/ Dr. Adams [facility] Social History Tobacco Use Smoking status: Former [...] nursing note reviewed. Exam conducted with a quick service technician present. Vitals: Estimated body mass index is 51.62 kg/m?? as calculated from the following: Height as of 10/14/25: 5' 6 . Weight as of this encounter: 319 lb 12.8 oz. BP: 120/80 Patient's last menstrual period was 12/28/2024. ASSESSMENT & PLAN Encounter Diagnosis: ICD-10-CM 1. LGSIL of cervix of undetermined significance R87.612 POCT , urine manually resulted Colposcopy Colposcopy Date/Time: 01/31/2025 2:19 PM Performed by: Eusebio Baltazar DO Authorized by: Eusebio Baltazar DO Consent: Patient questions answered: yes Risks and benefits of the procedure and its alternatives discussed: yes Procedural risks discussed: Bleeding and infection Consent obtained: Written Consent given by: Patient Indication: Other indication(s): clinical abnormality Pre-procedure: Prep solution(s): acetic acid Procedure: Colposcopy with: endocervical curettage Post-procedure: Patient tolerance of procedure: Patient tolerated the procedure well with no immediate complications Comments: Colposcopy: Patient is doing well and has no complaints. Pap results have been reviewed with the patient in great detail and patient voiced understanding. Patient presents today for a Colposcopy with ECC. Patient was placed in dorsal lithotomy position with feet in stirrups, a sterile speculum was placed into the vagina and the cervix was visualized. Cervix was cleansed with vinegar. Postprocedural instructions given. All if patients questions answered and she expressed understanding. Advised to call in interim with questions or concerns. Pt to be scheduled for LEEP- pt to return for preop exam Follow Up: Patient is to return in 6 months for Repeat Pap. Assessment/Plan Documented by Marybeth Dodd LPN on behalf of: Eusebio Baltazar DO documented in this encounter Plan of Treatment DateTypeDepartmentCare Team (Latest Contact Info)Lrligdpzvhq19/05/2026 1:20 PM ESTConsult [facility] [address] [place] [address] Eusebio Baltazar DO [address] [place] [address] 12/19/2025 11:00 AM EDTProcedure Visit [facility] [address] [place] [address] Eusebio Baltazar, [address] [place] [address] NameTypePriorityAssociated DiagnosesOrder ScheduleColposcopyProceduresRoutine LGSIL of cervix of undetermined significance Expected: 01/31/2025 (Approximate), Expires: 01/31/2026documented as of this encounter Procedures Procedure NamePriorityDate/TimeAssociated DiagnosisCommentsCOLPOSCOPYRoutine 01/31/2025 2:19 PM EST LGSIL of cervix of undetermined significance POCT , AXZXLHaeqybt75/02/2025 2:09 PM EST LGSIL of cervix of undetermined significance documented in this encounter Results * Colposcopy (01/31/2025 2:19 PM EST) Eusebio Avilez DO - 01/31/2025 2:19 PM EST Eusebio Baltazar DO 02/01/2025 12:58 PM Colposcopy Date/Time: 01/31/2025 2:19 PM Performed by: Eusebio Baltazar DO Authorized by: Eusebio Baltazar DO ?? Consent: ??Patient questions answered: yes ?Risks and benefits of the procedure and its alternatives discussed: yes ?Procedural risks discussed: ??Bleeding and infection ??Consent obtained: ??Written ??Consent given by: ??Patient Indication: ??Other indication(s): clinical abnormality ?? Pre-procedure: ??Prep solution(s): acetic acid ?? Procedure: ??Colposcopy with: endocervical curettage ?? Post-procedure: ??Patient tolerance of procedure: ??Patient tolerated the procedure well with no immediate complications Comments: ?? Colposcopy: Patient is doing well and has no complaints. Pap results have been reviewed with the patient in great detail and patient voiced understanding. Patient presents today for a Colposcopy with ECC. Patient was placed in dorsal lithotomy position with feet in stirrups, a sterile speculum was placed into the vagina and the cervix was visualized. Cervix was cleansed with vinegar. Postprocedural instructions given. All if patients questions answered and she expressed understanding. Advised to call in interim with questions or concerns. Pt to be scheduled for LEEP- pt to return for preop exam Follow Up: Patient is to return in 6 months for Repeat Pap. Assessment/Plan Documented by Marybeth Dodd LPN on behalf of: Eusebio Baltazar DO Authorizing ProviderResult TypeResult StatusEusebio [facility]/BEDSIDE ORDERABLESFinal Result * POCT , urine manually resulted (01/31/2025 2:09 PM EST)ComponentValue Ref RangeTest MethodAnalysis TimePerformed AtPathologist SignaturePreg Test, UrNegativeNegativeSpecimen (Source)Anatomical Location / LateralityCollection Method / VolumeCollection TimeReceived QqqxAxwtn85/02/2025 2:09 PM EST Narrative Authorizing ProviderResult TypeResult StatusEusebio Baltazar DOPOINT OF CARE TEST ENTER/EDIT ORDERABLESFinal Result documented in this encounter Visit Diagnoses Diagnosis LGSIL of cervix of undetermined significance documented in this encounter
--- NOTE | 2025-02-14 10:50 | MM_ITS ---
Patient Name: MARY COLLAZO MR#: [id number] : 1995 Exam Date: 02/14/2025 Ordering Doctor: DR THOMAS ORDONEZ . RADIOLOGY REPORT PROCEDURE: MM TOMOSYNTHESIS DIAGNOSTIC BI, 02/14/2025, 10:50 US BREAST LT LIMITED, 02/14/2025, 11:41 COMPARISON: None. INDICATIONS: Left Side Breast Lump Calculator Name NCI Breast Cancer Risk Assessment Tool 5 Year Breast Cancer Risk Not Applicable. Lifetime Breast Cancer Risk Not Applicable. Personal Breast Cancer No Personal Ovarian Cancer No Treatments None Family Cancers None LOCATION: [facility] BREAST COMPOSITION: There are scattered areas of fibroglandular density. FINDINGS: No areas of architectural distortion, worrisome masses or suspicious microcalcifications are noted. Ultrasound imaging of the area of palpable lump at the 2 o'clock position of the left breast approximately 8.8 cm from the nipple demonstrates a normal island of tissue present. No suspicious mass or cyst for head DIAGNOSTIC CATEGORY 1--NEGATIVE. RECOMMENDATIONS: The patient's lump should be handled on a clinical basis . Dictated by: Calin Marie DO on 02/14/2025 at 12:05 Approved by: Calin Marie DO on 02/14/2025 at 12:09
--- OUTSIDE RECORDS SUMMARY | 2025-02-14 10:51 | XMS_ITS | Clinical Summary ---
Author Organization [facility] Address [address] [place] [address] Care Team Providers Care Gas Dispatcher Name Role Phone Unavailable Primary Care Provider Unavailabl e Allergies Active AllergyReactionsCriticalityNoted QhsqDonmlgizRrpmlqmdrjaWjced24/26/2013 Childhood allergy, had ancef, no issues Medications [...] Problems No known active problems Encounters DateTypeDepartmentCare IewaAqwmyaevpmm84/02/2025 1:30 PM ESTProcedure Visit [facility] [address] [place] [address] [place] [phone] Eusebio Baltazar, LGSIL of cervix of undetermined uebazordjolz53/01/1075Wlgdsn69/30/2025Orders Only [facility] [address] [place] [address] [place] [address] Tashia Diaz MA 12/26/2024 10:00 AM EDTAncillary Procedure [facility] [address] [place] [address] [place] [address] Amenorrhea; PCOS (polycystic ovarian syndrome)12/23/2024Telephone [facility] [address] [facility] [place] [phone] Julissa Hare MA 12/13/2024 10:20 AM EDTOffice Visit [facility] [address] [facility] [place] [phone] Eusebio Baltazar, Well woman exam with routine gynecological exam; Amenorrhea; PCOS (polycystic ovarian syndrome); Breast lump on left side at 2 o'clock ybigmcru02/14/2025linisync Result Encounter [facility] Unsolicited Eusebio Baltazar DO 12/13/2024amboo flowsheet [facility] [address] [facility] [place] [address] Eusebio Baltazar DO 12/13/2024Travelfrom Last 3 Months Social History Tobacco UseTypesPacks/DayYears UsedDateSmoking Tobacco: FormerCigarettes Smokeless Tobacco: Never Tobacco Cessation:Counseling Given: Not Answered CommentsNoSex and Gender InformationValueDate RecordedSex Assigned at BirthNot on fileLegal UjnVefzga81/30/2023 11:54 AM ESTGender IdentityFemale 03/29/2023 10:30 PM ESTSexual DhhqnvzutjrZkbrvdkkr40/28/2024 10:30 PM EST Last Filed Vital Signs Vital SignReadingTime TakenCommentsBlood Vnpdqtyh184/80104/03/2024 2:01 PM EST Pulse--Temperature--Respiratory Rate--Oxygen Saturation--Inhaled Oxygen Concentration--Wmkzla964 kg (319 lb 12.8 oz)01/31/2025 2:01 PM FEDHyjtla842.6 cm (5' 6 )12/13/2024 10:36 AM EDTBody Mass Index51.6212/13/2024 10:36 AM EDT Plan of Treatment DateTypeDepartmentCare Team (Latest Contact Info)Cfdcryxaeuk85/05/2026 1:20 PM ESTConsult [facility] [address] [facility] [place] [phone] Eusebio Baltazar, DO [address] [facility] [address] [place] [address] 12/19/2025 11:00 AM EDTProcedure Visit [facility] [address] [facility] [place] [phone] Eusebio Baltazar, DO [address] [facility] [address] [place] [address] Procedures Procedure NamePriorityDate/TimeAssociated DiagnosisCommentsCOLPOSCOPYRoutine 01/31/2025 2:19 PM EST LGSIL of cervix of undetermined significance POCT , BJAGOAnfxhvw06/02/2025 2:09 PM EST LGSIL of cervix of undetermined significance US PELVIC COMPLETE W/ RFXgyqvsc66/27/2025 10:21 AM EDT Amenorrhea PCOS (polycystic ovarian syndrome) IGP,APTIMA HPV,AGE LRWZVczhcju04/14/2025 11:00 AM EDT POCT , DBVOFIdkyrtr61/14/2025 10:51 AM EDT Amenorrhea POCT URINALYSIS BTGNCATRFatfgch91/14/2025 10:50 AM EDT Well woman exam with routine gynecological exam Amenorrhea PAP TEST, ZRXVXRWMYhafcpk54/14/2025 12:00 AM EDTfrom Last 3 Months Results [...] / Laterality Collection Method / VolumeCollection TimeReceived YpxdThjny03/02/2025 2:09 PM EST Narrative Authorizing ProviderResult TypeResult [...] ? ELECTRONICALLY SIGNED BY: Calin Schroeder MD [facility] 12/27/2024 7:18 AM EDT FINDINGS: Uterus ? [...] Schroeder MD Authorizing ProviderResult TypeResult StatusCorey Giovanny [facility] PROCEDURESFinal Result * (ABNORMAL) IGP,APTIMA HPV,AGE GDLN [...] at: 01 =G ?[facility] ?? [address] [place], [place] ??[phone] ?? Isabel Lozada MD, IGP, RFX APTIMA [...] Performed by: ? 02 ?? Gabo Londono Advocacy Director (ASCP) Electronically si... ?02 ?? Isabel Lozada [...] pap test was interpreted ?? using the VCV(R) Solar3Dius(TM) Cervical Algorithm whole ?? slide imaging system. . ? 02 ?? The HPV DNA reflex criteria were not met with this specimen ?? result therefore, no HPV testing was performed. ?FLAG LEGEND: ?L-Low Normal,H-High Normal,LL-Alert Low,HH-Alert High <-Panic Low,>-Panic High,A-Abnormal,AA-Critical Abnormal Performed at: 02 WB ?[facility] ?? [address] [place], [place] ??[address] ?? Isabel Lozada MD, Performed at: ??=G - [facility] [address], [place] ??[id number] Abstract Manager: Isabel Lozada MD, Phone: ??[phone] Performed at: ??WB - [facility] [address], [place] ??[id number] Abstract Manager: Isabel Lozada MD, Phone: ??[phone] Specimen (Source)Anatomical Location / LateralityCollection Method / [...]
--- OUTSIDE RECORDS SUMMARY | 2025-02-14 10:51 | XMS_ITS | Patient Health Record ---
Author Organization [facility] [facility] Address [address] [address] Care Team Providers Care Watch Commander Name Role Phone Dr. Clain Cordova Primary Care Provider [phone] Reason For Referral No Information Plan Of Treatment No Information
--- OUTSIDE RECORDS SUMMARY | 2025-02-14 10:51 | XMS_ITS | Clinical Summary ---
Author Organization [facility] Address [address], [address] [place] [address] Care Team Providers Care Carpet Renovator Name Role Phone Preet Cota MD Primary Care Provider [phone] Allergies Active AllergyReactionsCriticalityNoted NyffYfuzprpkTdiomxdufuwYatnu44/26/2013 Medications MedicationSigDispense QuantityRefillsLast FilledStart DateEnd DateStatus Vit w/Mx-Slfpijuwf-BT (PNV PO) Take by mouth.Active FLUOXETINE HCL PO Take 20 mg by mouth dailyActive BLISOVI 24 FE 1-20 MG-MCG(24) TABS Take by mouth daily03/06/2019Active DULoxetine (CYMBALTA) 30 MG extended release capsule Indications:Depression with anxiety,Mood swingTAKE 1 CAPSULE BY MOUTH EVERY DAY 90 capsule 07/11/2019Active Active Problems ProblemNoted DateDiagnosed DateCoagulation defect affecting , imvzkgqhjo40/26/2013 Overview (03/11/2015): Replacing Inactive Diagnoses Suspected damage to fetus from drugs, affecting management of mother, antepartum 11/25/2012Supervision of high-risk of young jwylxfwrrjzq45/26/2013 Immunizations ImmunizationAdministration DatesNext DueDTaP huwtkwp2110/19/2001,12/08/1997, 03/14/1997,01/06/1997,1996Hep B, ENGERIX-B, RECOMBIVAX-HB, (age - 19y), IM, 0.5mL09/14/1997,1996,1996Hib lymiqqs9912/08/1997,03/14/1997, 01/06/1997,1996MMRLEE, M-M-R II, (age 12m+), SC, 0.5mL10/19/2001, 09/14/1997Polio OPV02,01/06/1997,1996Poliovirus, IPOL, (age 6w+), SC/IM, 0.5mL10/19/2001 Family History Medical HistoryRelationNameCommentsDiabetesFatherHigh Blood PressureFather DiabetesPaternal GrandfatherRelationNameStatusCommentsFatherPaternal Grandfather Social History Tobacco UseTypesPacks/DayYears UsedDateSmoking Tobacco: Every DayCigarettes0.33 Smokeless Tobacco: Never Tobacco Cessation:Ready to Q uit: No; Counseling Given: Yes Alcohol UseStandard Drinks/WeekCommentsYes0 (1 standard drink = 0.6 oz pure alcohol)SociallyPHQ-2AnswerDate RecordedPHQ-2 Bfvit4433/16/2020Comments NoSex and Gender InformationValueDate RecordedSex Assigned at BirthNot on file Legal NcxZkobpz45/25/2013 10:22 AM EDTGender IdentityNot on fileSexual OrientationNot on file Last Filed Vital Signs Vital SignReadingTime TakenCommentsBlood Imuqwwjb868/78003/17/2019 10:22 AM EST Ogbpn016603/17/2019 10:22 AM IMWTiqwosgtmfs64.8 ??C (98.3 ??F)11/25/2012 11:00 AM EDTRespiratory Jfjl6274 11:00 AM EDTOxygen Wlmrxcdunn98%03/17/2019 10:22 AM ESTInhaled Oxygen Concentration--Opuoso427.6 kg (279 lb)03/17/2019 10:22 AM QUZByzhpk893.2 cm (5' 7 )03/17/2019 10:22 AM ESTBody Mass Index43.701 10:22 AM EST Plan of Treatment Not on file Insurance Care Teams Team MemberRelationshipSpecialtyStart [place] [address] [place] [address] [facility]/17/19
--- OUTSIDE RECORDS SUMMARY | 2025-02-14 10:51 | XMS_ITS | Clinical Summary ---
Author Organization [facility] Address [facility] [id number] [address] [place] [address] Care Team Providers Care Batter Scaler Name Role Phone Unavailable Primary Care Provider Unavailabl e Allergies Active AllergyReactionsCriticalityNoted FajfXagjpfmiVnxixggzcvxRonvy17/11/2019 Childhood allergy, had ancef, no issues Medications [...] tablet 5Active Active Problems Estimated Date of XnitjyerNotfdxvmJeh55/16/2025 No known active problems Immunizations No known immunizations Family History Medical HistoryRelationNameCommentsDiabetesFatherHypertensionFatherHypertension MotherAnesthesia problemsNeg HxColon cancerNeg HxRelationNameStatusComments FatherMother Social History Tobacco UseTypesPacks/DayYears UsedDateSmoking Tobacco: FormerCigarettesPassive Smoke Exposure: PastSmokeless Tobacco: Never Tobacco Cessation:Counseling Given: Not Answered Comments:Approx 0.5ppd x 5 years Alcohol UseStandard Drinks/WeekCommentsNot Currently0 (1 standard drink = 0.6 oz pure alcohol)ChildcareAnswerDate GcvfxoklDfxsovknfRsyqoqh06/12/2019Employment AnswerDate OwkydukaTblwbdiniqRusohul62/12/2019Hunger ScreeningAnswerDate RecordedWithin the past 12 months we worried whether our food would run out before we got money to buy more.Never True06/27/2024Within the past 12 months the food we bought just didn't last and we didn't have money to get more.Never True06/27/2024Purpose - LifeAnswerDate RecordedPurpose and direction in life Dwzeroe14/11/2021Estimated Date of OjfoosnfFvvuomefFaf90/16/2025Sex and Gender InformationValueDate RecordedSex Assigned at BirthNot on fileLegal Sex Hmxbsw6310/05/2014 12:05 PM EDTGender IdentityNot on fileSexual OrientationNot on file Last Filed Vital Signs Vital SignReadingTime TakenCommentsBlood Iuywxtam056/4426806/27/2024 6:56 PM EDT Ufwpc4554/28/2025 6:56 PM AEALjhpmmyuscr58.1 ??C (98.7 ??F)06/27/2024 6:56 PM EDTRespiratory Qwhu6554/ 6:56 PM EDTOxygen Jsqabzkadf08%06/27/2024 6:56 PM EDTInhaled Oxygen Concentration--Ynupub125.3 kg (305 lb)06/27/2024 6:56 PM YGFMzdobk384.6 cm (5' 6 )06/27/2024 6:56 PM EDTBody Mass Index49.23006/27/2024 6:56 PM EDT Plan of Treatment Health MaintenanceDue DateLast DoneCommentsDepression Jyrmxewfj05/07/2009dult BMI Follow Up Plan2014COVID-19 Vaccine ( season)2024 12/03/2020Influenza Ynsgkkm17dult BMI Wkawjmdpb72/28/2026 06/27/2024Tobacco Ihftcekuf17Pap Smear, 05/20/2022, 05/20/2022, Additional history existsDTaP,Tdap and [...] Narrative COPATH - 05/22/2022 2:14 PM EDT [facility] ? [address] ? [place] [address] ? Gynecologic Cytology Consultation ? Patient Name:ANALI LIRA:1995 (Age: 26)Gender:FTaken:05/20/2022Reported:05/22/2022hysician(s):Hunter Darden M.D. ([phone])Copy To: Rec. #:[id number]: #[id number] Final Cytologic Interpretation ThinPrep Pap Test (Not otherwise specified): Satisfactory for evaluation. A transformation zone component is present. SQUAMOUS EPITHELIAL CELL ABNORMALITY A low-grade squamous intraepithelial lesion (LSIL) is present. ?? cjb/05/22/2022 Interpretation performed at [facility], [address] [place] [address], License number: [id number]. Electronically Signed Out By ?Ioana Hutchinson MD Date of Last Menstrual Period: ? (None Given) Other Clinical Conditions: R87.612 ??LGSIL cervix Source of Specimen ??ThinPrep Pap Test (Not otherwise specified) ? Thin Prep Pap ([facility] ASS[facility]) Fee Code(s): ?? 78671, [address]104 Authorizing ProviderResult TypeResult StatusAbeer Adelso MDPATHOLOGY/CYTOLOGY ORDERABLESFinal ResultPerforming OrganizationAddressCity/State/ZIP CodePhone Number COPATH from Last 3 Months or Most Recently Relevant to Health Maintenance Insurance Advance Directives * Full Code (Latest Code Status on File) Date ActivatedDate UljpkgpluutMlnmtzbz27/15/2022 2:19 PM02/20/2022 1:32 PM
== END 2025-02-14 10:48 | disposition home or self-care (01) ==
LOC: MAMMO 10:47
PROVIDERS: Visit Provider Obstetrics & Gynecology
DX: N63.21 Unspecified lump in the left breast, upper outer quadrant (principal)
CPT/HCPCS: 76642; 77066; G0279